=== PATIENT | female | born 1965 | race Caucasian/White ===

== ENCOUNTER → 2019-11-27 12:59 | Outpatient (CLI) | payer MEDICAID, SELFPAY ==
--- NOTE | ~2019-11-27 | CT_ITS ---
EXAMINATION: CT abdomen pelvis wo/w con EXAM DATE: 11/27/2019 13:34 INDICATION: Right kidney cancer, cryoablation. Hernia. Hypertension. Upper abdominal, flank pain. TECHNIQUE: Spiral CT of the abdomen and pelvis was performed without contrast. Axial, coronal and sag ittal images were reviewed. The dose-length product (DLP) for this examination was 1731.65 mGy-cm. The exposure was tailored according to patient size (auto mA exposure control), and iterative reconst ruction (ASIR) was used as additional dose reduction technique. Comparison is made to prior examinati on from 10/03/2017. FINDINGS: At the lower pole of the right kidney there is region of circumscribed fat stranding measur ing about 3 cm. There is 4 mm region within this which is hyperdense on pre and postcontrast imaging, likely some dystrophic calcification which has developed following treatment. Otherwise, no signific ant interval change, no suspicion of local recurrence. The uterus is anteverted and morphologically normal. The bladder is unremarkable. The liver, splee n, adrenal glands and pancreas are unremarkable. Gallbladder is unremarkable. No biliary obstructio n. There is no retroperitoneal or pelvic lymphadenopathy. There is mild scattered arteriosclerotic disease. Several small supraumbilical fat-containing hernias. The appendix is normal. Gastric banding device. There is expected amount of colonic stool. No eulalia e intraperitoneal gas. There is mild sigmoid colonic diverticulosis. There is no adjacent inflammat ory change to suggest diverticulitis. The heart is normal in size. There are no pericardial or pleur al effusions. There is a new nodule in the left lower lobe measuring 7 mm, indeterminate. There are 3 other left lo wer lobe nodules measuring 4 millimeter, 4 millimeter and 3 mm in size, probably noncalcified granulo mas unchanged. There are no right basilar nodules. Chronic L4 spondylolysis, grade 1 anterolisthesis. IMPRESSION: 1. Stable right kidney lower pole cryoablation changes. 2. New indeterminate left lower lobe 8 mm nodule. Recommend follow-up LV CT in 3-6 months. 3. Small supraumbilical fat-containing hernias. Reviewed, dictated and finalized at location A.
[2019-11-27 13:23] LABS: Estimated Glomerular Filt Rate > 60
== END ==
PROVIDERS: PCP Family Medicine; Visit Provider Family Medicine
DX: C64.9 Malignant neoplasm of unspecified kidney, except renal pelvis (principal); K42.9 Umbilical hernia without obstruction or gangrene; R91.8 Other nonspecific abnormal finding of lung field
CPT/HCPCS: 74178; Q9967

== ENCOUNTER 2020-03-22 14:57 | Emergency (ER) | payer OTHER, SELFPAY ==
--- NOTE | ~2020-03-22 | XR_ITS ---
EXAMINATION: XR chest 1V portable DATE: 03/22/2020 16:00 INDICATION: COVID-19 positive 03/18/2020. Weakness. TECHNIQUE: A single frontal view of the chest was obtained. COMPARISON: CT abdomen and pelvis 11/27/2019 FINDINGS: There are patchy airspace opacities in all lung zones bilaterally. No pleural effusion or p neumothorax. Cardiomegaly is noted. There is a prominent left paracardial fat pad. IMPRESSION: 1. Diffuse lung disease, consistent with pneumonia. 2. Cardiomegaly. Reviewed, dictated and finalized at location A. NG FOREMAN
[2020-03-22 15:21] VITALS: BP 119/64; PULSE 82; RESP 18; O2SAT 97
[2020-03-22] MEDS: SODIUM CHLORIDE 0.9% IV 1,000 ML 999 ML IV CONT (15:52)
[2020-03-22 16:23] LABS: Basophils Percent Auto 0.3 % (0.2-1.2); Hematocrit 37.7 % (37.0-47.0); Immature Granulocyte Absolute 0.02 K/mm3 (0.00-0.031); Immature Granulocyte Percent A 0.6 % (0-0.5); Lymphocytes Percent Auto 15.8 % (18.3-44.2); Mean Corpuscular HGB Conc 31.8 g/dl (32-36); Mean Corpuscular Hemoglobin 26.3 pg (26-34); Mean Corpuscular Volume 82.7 fl (80-100); Monocytes Absolute Auto 0.3 K/mm3 (0.1-0.6); Monocytes Percent Auto 10.1 % (2.6-8.5); Neutrophils Absolute Auto 2.3 K/mm3 (1.3-6.7); Neutrophils Percent Auto 73.2 % (45.5-73.1); Platelet Count Result 132 k/mm3 (150-375); Red Blood Count 4.56 M/mm3 (4.2-5.4); Red Cell Distribution Width 13.7 % (11.5-14.5); White Blood Count 3.2 K/mm3 (4.5-10.0)
[2020-03-22 16:42] LABS: Alanine Aminotransferase 21 U/L (4-35); Albumin Level 3.5 g/dL (3.5-5.1); Alkaline Phosphatase 70 U/L (38-126); Anion Gap 7 mmol/L (8-16); Aspartate Amino Transferase 25 U/L (14-36); Bilirubin,Total 0.4 mg/dL (0.2-1.3); Blood Urea Nitrogen 8 mg/dL (7-17); Calcium 7.8 mg/dL (8.4-10.2); Carbon Dioxide 30 mmol/L (22-30); Chloride 101 mmol/L (98-107); Estimated CRCL calculation 134 ml/min; Estimated Glomerular Filt Rate > 60; Glucose 233 mg/dL (65-105); Sodium 138 mmol/L (137-145)
--- NOTE | 2020-03-22 17:12 | ED.GENADULT ---
HPI - General Adult General Chief complaint: Weakness Stated complaint: WEAKNESS,COVID + Time Seen by Provider: 03/22/20 15:09 History of Present Illness HPI narrative: Patient is a 55-year-old female who presents the emergency department with chief complaint of generalized weakness status post COVID-19. Patient reports that she was diagnosed with COVID-19 and has been coughing and having nausea. Patient states that she feels extremely weak and extremely lightheaded. Patient reports that she has been having fevers at home reports that she also is a diabetic and that her blood sugar was running in the 300s whenever it was checked by EMS. Patient states that she is not on any oral hypoglycemics due to reactions to medications. Related Data Home Medications Medication Instructions Recorded Confirmed ascorbic acid (vitamin C) 500 mg 500 mg PO BID 02/15/19 01/02/20 tablet cholecalciferol (vitamin D3) 25 1,000 unit PO DAILY 02/15/19 01/02/20 mcg (1,000 unit) capsule ferrous sulfate 325 mg (65 mg 325 mg PO .3x week tablet 02/15/19 01/02/20 iron) tablet loratadine 10 mg tablet 10 mg PO DAILY 02/15/19 01/02/20 Allergies Allergy/AdvReac Type Severity Reaction Status Date / Time peach Allergy Severe ANAPHYLAXIS Verified 03/22/20 15:00 plum Allergy Severe ANAPHALYXIS Verified 03/22/20 15:00 cephalexin Allergy Unknown Skin Verified 03/22/20 15:00 Reaction citalopram Allergy Unknown severe Verified 03/22/20 15:00 itching egg Allergy Unknown resolved. Verified 03/22/20 15:00 blood test negative. no clinical symptoms with exp metformin Allergy Unknown abdominal Verified 03/22/20 15:00 pain ( gastric band) Penicillins Allergy Unknown reaction Verified 03/22/20 15:00 not available sitagliptin [Januvia] Allergy Unknown pancreatiti Verified 03/22/20 15:00 s Sulfa (Sulfonamide Allergy Unknown reaction Verified 03/22/20 15:00 Antibiotics) not available NECTARINES Allergy Severe ANAPHYLAXIS Uncoded 12/13/19 15:37 Review of Systems Review of Systems: Narrative: A 10 system review of systems was completed on the patient and is negative except for what is stated in the HPI. Nursing and ancillary documentation was reviewed. [facility] Past Medical History Medical History Asthma exacerbation Benign essential hypertension History of kidney cancer Iron deficiency anemia Postmenopausal Social History Social History Smoking status: Former smoker Smoking end date: 03/14/97 Alcohol intake: current Gender identity (if verbalized by the patient): Female Exam Narrative: Exam Narrative: GENERAL: Well-appearing, well-nourished, and in no acute distress. HEAD: Normocephalic, atraumatic. EYES: PERRLA and EOMI. ENT: Nares clear, no rhinorrhea or epistaxis. Mucous membranes moist. NECK: Supple. CHEST: Clear to auscultation. No respiratory distress. HEART: Regular rate and rhythm. No murmur heard. Normal peripheral pulses. ABDOMEN: Soft, nontender, nondistended, normal active bowel sounds. EXTREMITIES: Normal range of motion. No edema. SKIN: Warm, dry, no rash. NEURO: No focal deficits. Alert and oriented x3. PSYCH: Normal mood and affect. Course Course Emergency Course: Patient received IV fluids in the emergency department chest x-ray shows evidence of pneumonia most likely COVID-19. Vital Signs Vital signs: Vital Signs Pulse Rate 82 03/22/20 15:21 Respiratory Rate 18 03/22/20 15:21 Blood Pressure 119/64 03/22/20 15:21 Pulse Oximetry 97 03/22/20 15:21 Pulse Rate 82 03/22/20 15:21 Respiratory Rate 18 03/22/20 15:21 Blood Pressure 119/64 03/22/20 15:21 Pulse Oximetry 97 03/22/20 15:21 Medical Decision Making Vital Signs Vital Signs: Vital Signs Pulse Rate 82 03/22/20 15:21
[2020-03-22 17:30] VITALS: BP 139/93; PULSE 87; RESP 18; O2SAT 91
== END 2020-03-22 17:31 | disposition home or self-care (01) ==
PROVIDERS: Emergency Provider Emergency Medicine; PCP Family Medicine
DX: U07.1 COVID-19 (principal); J12.82 Pneumonia due to coronavirus disease 2019; J45.909 Unspecified asthma, uncomplicated; I10 Essential (primary) hypertension; Z85.528 Personal history of other malignant neoplasm of kidney; D50.9 Iron deficiency anemia, unspecified; Z87.891 Personal history of nicotine dependence
CPT/HCPCS: 36415; 71045; 80053; 85025; 99283; J7030

== ENCOUNTER 2020-03-24 10:50 | Inpatient (IN) | payer OTHER, SELFPAY ==
[2020-03-24] VITALS (18 sets, daily range): BP systolic 110–144; BP diastolic 69–92; PULSE 80–98; RESP 20–29; TEMP 37–37.8; O2SAT 74–93; BMI 54.6
--- NOTE | ~2020-03-24 | XR_ITS ---
EXAMINATION: XR abdomen NG/feed tube insert EXAM DATE: 04/06/2020 23:27 INDICATION: New OG placement. TECHNIQUE: Frontal projection(s) of the abdomen for interpretation. Comparison is made to prior exami nation from 03/25/2020. FINDINGS: Feeding tube tip and side-port project over abdomen. There is gastric banding device. Bibas ilar airspace disease. Nonobstructive bowel gas pattern. IMPRESSION: Feeding tube overlying expected position. Reviewed, dictated and finalized at location A. ER AND UNLOADER
--- NOTE | ~2020-03-24 | XR_ITS ---
EXAMINATION: XR chest ET placement INDICATION: Respiratory failure, endotracheal tube insertion TECHNIQUE: Portable AP chest at 0841 hours COMPARISON: 0525 hours FINDINGS: An endotracheal tube has been inserted which ends 11 mm above the helder. Diffuse airspace opacities persist in all lung zones without significant change. No pleural effusion or pneumothorax i s identified. There is stable cardiomegaly. IMPRESSION: 1. Endotracheal tube insertion ending approximately 11 mm above the helder. 2. Stable diffuse lung disease, consistent with pneumonia and/or pulmonary edema and/or acute respira tory distress syndrome (ARDS). Reviewed, dictated and finalized at location A. SECURITY ANALYST IMPRESSION: 1. Endotracheal tube insertion ending approximately 11 mm above the helder. 2. Stable diffuse lung disease, consistent with pneumonia and/or pulmonary beverly a and/or acute respiratory distress syndrome (ARDS).
--- NOTE | ~2020-03-24 | XR_ITS ---
XR shoulder LT min 2V 04/14/2020 16:57 INDICATION: Left shoulder pain PROCEDURE: 4 views left shoulder COMPARISON: No prior studies for comparison. FINDINGS: Fracture, dislocation or subluxation is not identified. The soft tissues appear within norm al limits. No foreign bodies are identified. IMPRESSION: 1: NO ACUTE BONE OR JOINT ABNORMALITY IDENTIFIED. Reviewed, dictated and finalized at location A. PROGRAMMER ANALYST
--- NOTE | ~2020-03-24 | XR_ITS ---
XR chest 1V portable DATE: 04/14/2020 05:40 INDICATION: Shortness of breath TECHNIQUE: Portable AP chest on April 14, 2020 at 0527 hours COMPARISON: 04/08/2020 portable AP chest at 0530 hours FINDINGS: ET and NG tubes been removed since 04/08/2020. Right internal jugular central venous catheter tip overlies superior vena cava. No pneumothorax. There is moderate elevation of the right hemidiaphragm. There are patchy infiltrates and/atelectasis primarily in the lower lung zones. IMPRESSION: Improvement of bilateral infiltrates and/atelectasis since 04/08/2020, with residual infil trate or atelectasis in the lower lung zones primarily Interval removal of ET and NG tubes Reviewed, dictated and finalized at location A. A SALES CONSULTANT IMPRESSION: Improvement of bilateral infiltrates and/atelectasis since , with residual infiltrate or atelectasis in the lower lung zones primarily Interval removal of ET and NG tubes
--- NOTE | ~2020-03-24 | XR_ITS ---
EXAMINATION: XR chest 1V portable EXAM DATE: 04/04/2020 05:59 INDICATION: Acute respiratory failure, COVID-19 TECHNIQUE: Portable AP frontal chest x-ray was obtained. Comparison is made to prior examination from 04/03, 04/02, 04/01 FINDINGS: Endotracheal tube tip is 4-5 centimeters above the helder. There is a nasogastric tube see n with tip collimated off the study, but below the left hemidiaphragm. There is a right IJ venous alejandrina e. Multisegmental right basilar, scattered segmental left basilar pneumonia and/or atelectasis. Probabl e layering pleural effusions which are difficult to quantify. There is no pneumothorax suspected. The cardiomediastinal silhouette is prominent but magnified on this AP technique. The bones and sof t tissues are unremarkable. Accounting for differences in technique, there is no significant interval change in lung findings. IMPRESSION: 1. Line, tubes in position. 2. Multisegmental right basilar, segmental left basilar atelectasis and probably superimposed pneumo nazanin. 3. Probable pleural effusions. Reviewed, dictated and finalized at location A. CLEANER APPRENTICE IMPRESSION: 1. Line, tubes in position. 2. Multisegmental right basilar, segmental left basilar atelectasis and probab ly superimposed pneumonia. 3. Probable pleural effusions.
--- NOTE | ~2020-03-24 | XR_ITS ---
EXAMINATION: XR chest 1V portable EXAM DATE: 04/01/2020 06:10 INDICATION: Acute respiratory failure, COVID-19. TECHNIQUE: Portable AP frontal chest x-ray was obtained. Comparison is made to prior examination from 03/31, 03/29. FINDINGS: Endotracheal tube tip is about 5 centimeters above the helder. There is a nasogastric tube seen with tip collimated off the study, but below the left hemidiaphragm. There is a right IJ venous line. Multisegmental right basilar, scattered segmental left basilar pneumonia and/or atelectasis. Possibl e small right pleural effusion. There is no pneumothorax suspected. The cardiomediastinal silhouet te is prominent but magnified on this AP technique. The bones and soft tissues are unremarkable. There is no significant interval change. IMPRESSION: 1. Line and tube(s) in position. 2. Multisegmental right basilar, segmental left basilar atelectasis and probably superimposed pneumo nazanin. Reviewed, dictated and finalized at location A. SUPERVISOR IMPRESSION: 1. Line and tube(s) in position. 2. Multisegmental right basilar, segmental left basilar atelectasis and probab ly superimposed pneumonia.
--- NOTE | ~2020-03-24 | XR_ITS ---
EXAMINATION: XR chest port-a-cath/central DATE: 03/25/2020 09:38 INDICATION: Central line placement. COVID-19 pneumonia. TECHNIQUE: A single frontal view of the chest was obtained. COMPARISON: Chest single view at 8:30 AM FINDINGS: The patient is rotated to her left. There are airspace opacities throughout the lungs bilat erally, right worse than left. No pleural effusion or pneumothorax. The heart size is normal. The end otracheal tube tip is 4.3 cm above the helder. The nasogastric tube tip is beyond the inferior margin of the radiograph, but at least to the stomach. A right internal jugular central venous catheter is seen with tip at the superior cavoatrial junction. IMPRESSION: 1. Central line tip at the superior cavoatrial junction. 2. Stable diffuse lung disease, consistent with pneumonia. Reviewed, dictated and finalized at location A. OPERATOR
--- NOTE | ~2020-03-24 | XR_ITS ---
EXAMINATION: XR chest 1V portable EXAM DATE: 04/06/2020 21:37 INDICATION: Central line placement. TECHNIQUE: Portable AP frontal chest x-ray was obtained. Comparison is made to prior examination from 04/05/2020. FINDINGS: Endotracheal tube tip is 5 centimeters above the helder. Feeding tube tip at the gastroeso phageal junction. Additionally, there may be some coiling of the nasogastric tube in patient's mouth, recommend direct visualization. There is a new right-sided IJ line in position. Patient is rotated to the right. There is multi segmental right basilar airspace disease appearance m ost consistent with atelectasis and pneumonia. Less airspace disease and other lung zones. Small rig ht pleural effusion. There is no pneumothorax suspected. The cardiomediastinal silhouette is promi nent but magnified on this AP technique. The bones and soft tissues are unremarkable. Compared to prior study, the feeding tube has retracted. IMPRESSION: 1. Feeding tube tip retracted to gastroesophageal junction, and suspect possibility of coiling in pa tients mouth. 2. Multi segmental right basilar atelectasis and pneumonia. Less acute airspace disease other lung z ones. 3. Small right pleural effusion. I discussed feeding tube position, possible coiling and mouth with ICU nurse Minda at 04/06/2020 21:[address] . Reviewed, dictated and finalized at location A. COILER IMPRESSION: 1. Feeding tube tip retracted to gastroesophageal junction, and suspect possib ility of coiling in patients mouth. 2. Multi segmental right basilar atelectasis and pneumonia. Less acute airspac e disease other lung zones. 3. Small right pleural effusion. I discussed feeding tube position, possible coiling and mouth with ICU nurse Silas jin at 04/06/2020 21:43 WARP COILER .
--- NOTE | ~2020-03-24 | XR_ITS ---
EXAMINATION: XR chest 1V portable EXAM DATE: 04/03/2020 05:56 INDICATION: Acute respiratory failure, COVID-19. TECHNIQUE: Portable AP frontal chest x-ray was obtained. Comparison is made to prior examination from 119, 04/02. FINDINGS: Endotracheal tube tip is about 7 centimeters above the helder. There is a nasogastric tube seen with tip collimated off the study, but below the left hemidiaphragm. There is a right IJ venous line. Multisegmental right basilar, scattered segmental left basilar pneumonia and/or atelectasis. Probabl e layering pleural effusions which are difficult to quantify. There is no pneumothorax suspected. The cardiomediastinal silhouette is prominent but magnified on this AP technique. The bones and sof t tissues are unremarkable. Patient rotated to the right. Accounting for differences in technique, there is no significant interv al change in lung findings. IMPRESSION: 1. ET tube retracted slightly, could be safely advanced 2 cm. 2. Multisegmental right basilar, segmental left basilar atelectasis and probably superimposed pneumo nazanin. 3. Layering pleural effusions. Reviewed, dictated and finalized at location A. MACY SERVICE ASSOCIATE IMPRESSION: 1. ET tube retracted slightly, could be safely advanced 2 cm. 2. Multisegmental right basilar, segmental left basilar atelectasis and probab ly superimposed pneumonia. 3. Layering pleural effusions.
--- NOTE | ~2020-03-24 | XR_ITS ---
XR chest 1V portable 03/29/2020 05:58 Indication: Respiratory failure Procedure: AP portable chest Comparison: Comparison to multiple prior studies sequentially, with oldest reviewed study dated 03/25. Findings: Left IJ central line tip in what appears to be a left SVC. NG tube in the stomach. Endotrac heal tube tip 4.3 cm above the helder. There is bilateral airspace disease which is not significantly changed. Small left pleural effusion. No pneumothorax. Impression: 1: Persistent diffuse bilateral airspace disease which may represent edema and/or pneumonia. No signi ficant interval change allowing for technique. Reviewed, dictated and finalized at location A. TECH Impression: 1: Persistent diffuse bilateral airspace disease which may represent edema and/ or pneumonia. No significant interval change allowing for technique.
--- NOTE | ~2020-03-24 | XR_ITS ---
EXAMINATION: XR chest 1V portable INDICATION: Respiratory failure TECHNIQUE: Portable AP chest at 0546 hours COMPARISON: 03/26/2020 FINDINGS: The endotracheal tube ends approximately 4.7 cm above the helder. The nasogastric tube is f ollowed as far as the stomach. Its tip is beyond the inferior margin of the radiograph. A right inter nal jugular central venous catheter ends in the distal superior vena cava. Diffuse airspace opacities persist throughout all lung zones with slight interval improvement. There is no pleural effusion or pneumothorax. The cardiomediastinal silhouette is stable. IMPRESSION: 1. Diffuse lung disease with interval improvement, consistent with pneumonia and/or pulmonary edema a nd/or acute respiratory distress syndrome (ARDS). Reviewed, dictated and finalized at location A. LOCATOR IMPRESSION: 1. Diffuse lung disease with interval improvement, consistent with pneumonia an d/or pulmonary edema and/or acute respiratory distress syndrome (ARDS).
--- NOTE | ~2020-03-24 | XR_ITS ---
EXAMINATION: XR chest 1V portable INDICATION: Shortness of breath TECHNIQUE: Portable AP chest at 1133 hours COMPARISON: 03/22/2020 FINDINGS: Patchy airspace opacities are present in all lung zones which demonstrate interval worsenin g. No pleural effusion or pneumothorax is identified. Cardiomegaly is noted. IMPRESSION: 1. Diffuse lung disease with interval worsening, consistent with pneumonia and/or pulmonary edema and /or acute respiratory distress syndrome (ARDS). Reviewed, dictated and finalized at location A. L ARMATURE TESTER IMPRESSION: 1. Diffuse lung disease with interval worsening, consistent with pneumonia and/ or pulmonary edema and/or acute respiratory distress syndrome (ARDS).
--- NOTE | ~2020-03-24 | XR_ITS ---
EXAMINATION: XR chest 1V portable EXAM DATE: 04/08/2020 06:21 INDICATION: Respiratory failure. TECHNIQUE: Portable AP frontal chest x-ray was obtained. Comparison is made to prior examination from 04/07, 04/05. FINDINGS: Endotracheal tube tip is 3 centimeters above the helder. There is a nasogastric tube seen with tip collimated off the study, but below the left hemidiaphragm. There is a right IJ venous line in position. There is multi segmental right basilar airspace disease appearance most consistent with atelectasis a nd pneumonia. Less airspace disease in other lung zones. Small right pleural effusion. There is no pneumothorax suspected. The cardiomediastinal silhouette is prominent but magnified on this AP tech nique. Mild thoracic spondylosis. Feeding tube has been straightened out and now in position. Airspace disease appears unchanged. IMPRESSION: 1. Tubes, line in position. 2. Multi segmental right basilar atelectasis and pneumonia. Less opacity in other lung zones. 3. Small right pleural effusion. Reviewed, dictated and finalized at location A. RY FURNACE TENDER IMPRESSION: 1. Tubes, line in position. 2. Multi segmental right basilar atelectasis and pneumonia. Less opacity in ot her lung zones. 3. Small right pleural effusion.
--- NOTE | ~2020-03-24 | XR_ITS ---
EXAMINATION: XR chest 1V portable INDICATION: Respiratory failure TECHNIQUE: Portable AP chest at 0525 hours COMPARISON: 03/24/2020 FINDINGS: Patchy airspace opacities persist in all lung zones with slight worsening in the right uppe r lung zone. There is no pleural effusion or pneumothorax. Cardiomegaly is noted. IMPRESSION: 1. Diffuse lung disease with interval worsening in the right upper lung zone, consistent with pneumon ia and/or pulmonary edema and/or acute respiratory distress syndrome (ARDS). Reviewed, dictated and finalized at location A. E ELECTRICIAN IMPRESSION: 1. Diffuse lung disease with interval worsening in the right upper lung zone, c onsistent with pneumonia and/or pulmonary edema and/or acute respiratory distre ss syndrome (ARDS).
--- NOTE | ~2020-03-24 | MR_ITS ---
EXAMINATION: MR cervical spine wo/w con DATE: 04/16/2020 13:14 INDICATION: Left arm numbness. Left arm paralysis. TECHNIQUE: Magnetic resonance imaging (MRI) of the cervical spine was performed without and with 20 m L MultiHance intravenous contrast. Sequences included sagittal and axial T2-weighted FSE, sagittal T2 -weighted FS FSE, and sagittal and axial T1-weighted FSE. Postcontrast sequences included sagittal an d axial T1-weighted FS FSE. COMPARISON: None FINDINGS: There is 2 mm anterolisthesis of C3 on C4 and C4 on C5. Vertebral body heights are normal. Intervertebral disc heights are normal. The spinal cord signal intensity is normal. The following dis c levels are specifically discussed: C2-C3: The disc does not extend beyond the endplate margin. There is no uncovertebral joint osteoarth ritis. There is ankylosis of the facet joints with mild hypertrophy. There is no neural foraminal jennifer nosis. There is no central canal stenosis. C3-C4: The disc does not extend beyond the endplate margin. There is no uncovertebral joint osteoarth ritis. There is severe bilateral facet joint osteoarthritis. There is mild left neural foraminal sten osis. There is no central canal stenosis. C4-C5: The disc does not extend beyond the endplate margin. There is mild bilateral uncovertebral aquilino nt osteoarthritis. There is severe right and moderate left facet joint osteoarthritis. There is mild right neural foraminal stenosis. There is no central canal stenosis. C5-C6: The disc does not extend beyond the endplate margin. There is no uncovertebral joint osteoarth ritis. There is mild right and severe left facet joint osteoarthritis. There is mild bilateral neural foraminal stenosis. There is no central canal stenosis. C6-C7: The disc does not extend beyond the endplate margin. There is no uncovertebral joint osteoarth ritis. There is no facet joint osteoarthritis. There is no neural foraminal stenosis. There is no anette tral canal stenosis. C7-T1: The disc does not extend beyond the endplate margin. There is no uncovertebral joint osteoarth ritis. There is mild bilateral facet joint osteoarthritis. There is no neural foraminal stenosis. The re is no central canal stenosis. IMPRESSION: 1. Mild cervical spondylosis. Reviewed, dictated and finalized at location A. GER INPATIENT
--- NOTE | ~2020-03-24 | XR_ITS ---
EXAMINATION: XR chest 1V portable EXAM DATE: 04/07/2020 09:31 INDICATION: Respiratory failure. TECHNIQUE: Portable AP frontal chest x-ray was obtained. Comparison is made to prior examination from 04/06. FINDINGS: Endotracheal tube tip is 4-5 centimeters above the helder. There is a nasogastric tube see n with tip collimated off the study, but below the left hemidiaphragm. There is a right IJ venous li ne in position. Patient is rotated to the right. There is multi segmental right basilar airspace disease appearance m ost consistent with atelectasis and pneumonia. Less airspace disease and other lung zones. Small rig ht pleural effusion. There is no pneumothorax suspected. The cardiomediastinal silhouette is promi nent but magnified on this AP technique. Mild thoracic spondylosis. Feeding tube has been straightened out and now in position. Airspace disease appears unchanged. IMPRESSION: 1. Tubes, line in position. 2. Multi segmental right basilar atelectasis and pneumonia. Less opacity in other lung zones. 3. Small right pleural effusion. Reviewed, dictated and finalized at location A. BLOCKER IMPRESSION: 1. Tubes, line in position. 2. Multi segmental right basilar atelectasis and pneumonia. Less opacity in ot her lung zones. 3. Small right pleural effusion.
--- NOTE | ~2020-03-24 | XR_ITS ---
EXAMINATION: XR chest 1V portable EXAM DATE: 04/02/2020 06:16 INDICATION: Acute respiratory failure, COVID-19. TECHNIQUE: Portable AP frontal chest x-ray was obtained. Comparison is made to prior examination from 04/01, 03/31 FINDINGS: Endotracheal tube tip is about 5 centimeters above the helder. There is a nasogastric tube seen with tip collimated off the study, but below the left hemidiaphragm. There is a right IJ venous line. Multisegmental right basilar, scattered segmental left basilar pneumonia and/or atelectasis. Probabl e layering pleural effusions which are difficult to quantify. There is no pneumothorax suspected. The cardiomediastinal silhouette is prominent but magnified on this AP technique. The bones and sof t tissues are unremarkable. The layering pleural effusions may be demonstrating some interval increase in size. IMPRESSION: 1. Line and tube(s) in position. 2. Multisegmental right basilar, segmental left basilar atelectasis and probably superimposed pneumo nazanin. 3. Layering pleural effusions, which may be increasing in size. Reviewed, dictated and finalized at location A. LD OPERATOR IMPRESSION: 1. Line and tube(s) in position. 2. Multisegmental right basilar, segmental left basilar atelectasis and probab ly superimposed pneumonia. 3. Layering pleural effusions, which may be increasing in size.
--- NOTE | ~2020-03-24 | XR_ITS ---
EXAMINATION: XR chest 1V portable INDICATION: Respiratory failure TECHNIQUE: Portable AP chest at 0542 hours COMPARISON: 03/25/2020 FINDINGS: The position of the endotracheal tube is difficult to assess but the tube appears to be chaim roximately 4.7 cm above the helder. The nasogastric tube is in the stomach. Diffuse airspace opacitie s persist throughout all lung zones, right greater than left, without significant change. There is no pleural effusion or pneumothorax. A right internal jugular central venous catheter ends with its tip in the distal superior vena cava. The cardiomediastinal silhouette is stable. IMPRESSION: 1. Stable diffuse lung disease, consistent with pneumonia and/or pulmonary edema and/or acute respira tory distress syndrome (ARDS). Reviewed, dictated and finalized at location A. RNATIONAL SOURCING MANAGER IMPRESSION: 1. Stable diffuse lung disease, consistent with pneumonia and/or pulmonary beverly a and/or acute respiratory distress syndrome (ARDS).
--- NOTE | ~2020-03-24 | XR_ITS ---
EXAMINATION: XR chest 1V portable INDICATION: Endotracheal tube position assessment TECHNIQUE: Portable AP chest at 2305 hours COMPARISON: 0531 hours FINDINGS: The endotracheal tube ends approximately 6.2 cm above the helder. The nasogastric tube is f ollowed as far as the stomach. Its tip is beyond the inferior margin of the radiograph. A right inter nal jugular central venous catheter ends with its tip in the distal superior vena cava. Airspace opac ities of the mid and lower lung zones persist with slight improvement. Small pleural effusions have a lso decreased. The cardiomediastinal silhouette is stable. No pneumothorax is identified. IMPRESSION: 1. Endotracheal tube approximately 6.2 cm above the helder. 2. Decreased pleural effusions. 3. Persistent but improved airspace opacities of the mid and lower lung zones, consistent with atelec tasis versus pneumonia. Reviewed, dictated and finalized at location A. NDER SUPERVISOR IMPRESSION: 1. Endotracheal tube approximately 6.2 cm above the helder. 2. Decreased pleural effusions. 3. Persistent but improved airspace opacities of the mid and lower lung zones, consistent with atelectasis versus pneumonia.
--- NOTE | ~2020-03-24 | XR_ITS ---
EXAMINATION: XR chest 1V portable EXAM DATE: 03/31/2020 03:37 INDICATION: CODE BLUE. Respiratory failure. TECHNIQUE: Portable AP frontal chest x-ray was obtained. Comparison is made to prior examination from 03/29/2020. FINDINGS: Endotracheal tube tip is about 5 centimeters above the helder. There is a nasogastric tube seen with tip collimated off the study, but below the left hemidiaphragm. There is a right IJ venous line. Multisegmental right basilar, scattered subsegmental left basilar pneumonia and/or atelectasis. Ther e are no sizable pleural effusions. There is no pneumothorax suspected. The cardiomediastinal dg houette is prominent but magnified on this AP technique. The bones and soft tissues are unremarkabl e. Compared to prior studies, more confluence or collapse of right middle and lower lobes. IMPRESSION: 1. Line and tube(s) in position. 2. Multisegmental right basilar, subsegmental left basilar atelectasis and probably superimposed pne umonia. Reviewed, dictated and finalized at location A. LY TECH IMPRESSION: 1. Line and tube(s) in position. 2. Multisegmental right basilar, subsegmental left basilar atelectasis and pro bably superimposed pneumonia.
--- NOTE | ~2020-03-24 | XR_ITS ---
EXAMINATION: XR chest 1V portable INDICATION: Respiratory failure TECHNIQUE: Portable AP chest at 0532 hours COMPARISON: 03/27/2020 FINDINGS: The endotracheal tube ends approximately 4.9 cm above the helder. The nasogastric tube is f ollowed as far as the stomach. Its tip is beyond the inferior margin of the radiograph. A right inter nal jugular central venous catheter ends with its tip at the distal superior vena cava. Diffuse airsp dave opacities persist in all lung zones without significant change. There is no pleural effusion or p neumothorax. The cardiomediastinal silhouette is stable. Changes of gastric lap band surgery are note d. IMPRESSION: 1. Stable diffuse lung disease, consistent with pneumonia and/or pulmonary edema and/or acute respira tory distress syndrome (ARDS). Reviewed, dictated and finalized at location A. GENERATION SPECIALIST IMPRESSION: 1. Stable diffuse lung disease, consistent with pneumonia and/or pulmonary beverly a and/or acute respiratory distress syndrome (ARDS).
--- NOTE | ~2020-03-24 | XR_ITS ---
EXAMINATION: XR chest 1V portable INDICATION: Acute respiratory failure TECHNIQUE: Portable AP chest at 0526 hours COMPARISON: 04/04/2020 FINDINGS: The endotracheal tube ends approximately 4.4 cm above the helder. The nasogastric tube is f ollowed as far as the stomach. Its tip is beyond the inferior margin of the radiograph. A right inter nal jugular central venous catheter ends with its tip in the distal superior vena cava. There are per sistent airspace opacities of the left lung base. Airspace opacities in the midlung zones and right l dianne base have slightly improved. There is no pneumothorax or pleural effusion. The cardiomediastinal silhouette is stable. IMPRESSION: 1. Improving airspace opacities in the midlung zones and right lung base and stable left basilar airs pace opacity, consistent with atelectasis versus pneumonia. Reviewed, dictated and finalized at location A. TRUCK DRIVER IMPRESSION: 1. Improving airspace opacities in the midlung zones and right lung base and st able left basilar airspace opacity, consistent with atelectasis versus pneumoni a.
--- NOTE | ~2020-03-24 | XR_ITS ---
EXAMINATION: XR abdomen NG/feed tube insert DATE: 03/25/2020 09:38 INDICATION: Nasogastric tube placement. TECHNIQUE: A supine view of the abdomen was obtained. COMPARISON: CT abdomen and pelvis 11/27/2019 FINDINGS: The lower abdomen and right lateral aspect of the abdomen are excluded. The nasogastric tub e tip is in the stomach. There are changes of lap band procedure. There are no dilated loops of bowel . IMPRESSION: 1. Nasogastric tube tip in the stomach. Reviewed, dictated and finalized at location A. NING SUPPORT RESOURCE ROOM TEACHER
--- NOTE | 2020-03-24 11:03 | ECG_ITS ---
Measurements Intervals [place] Rate: 97 P: 30 OK: 157 QRS: 27 QRSD: 100 T: 21 QT: 358 QTc: 457 Interpretive Statements SINUS RHYTHM DELAYED PRECORDIAL R/S TRANSITION BASELINE ARTIFACT- AVF, V1-V6 BORDERLINE ECG Electronically Signed On 03-24-2020 11:23:44 SLAB LIFTING ENGINEER by Amor Lin D.O.
[2020-03-24 11:12] LABS: Glucose Point of Care 242 (65-105)
[2020-03-24 11:15] LABS: Basophils Percent Auto 0.3 % (0.2-1.2); Hematocrit 41.8 % (37.0-47.0); Hemoglobin 13.2 g/dL (12.0-15.0); Immature Granulocyte Absolute 0.07 K/mm3 (0.00-0.031); Immature Granulocyte Percent A 1.1 % (0-0.5); Lymphocytes Absolute Auto 0.51 K/mm3 (0.9-3.2); Mean Corpuscular HGB Conc 31.6 g/dl (32-36); Mean Corpuscular Hemoglobin 26.2 pg (26-34); Mean Corpuscular Volume 82.9 fl (80-100); Mean Platelet Volume 9.6 fl (7.4-10.4); Monocytes Absolute Auto 0.5 K/mm3 (0.1-0.6); Monocytes Percent Auto 7.5 % (2.6-8.5); Neutrophils Absolute Auto 5.3 K/mm3 (1.3-6.7); Neutrophils Percent Auto 83.1 % (45.5-73.1); Platelet Count Result 194 k/mm3 (150-375); Red Blood Count 5.04 M/mm3 (4.2-5.4); Red Cell Distribution Width 14.2 % (11.5-14.5); White Blood Count 6.4 K/mm3 (4.5-10.0)
[2020-03-24 11:16] LABS: Alveolar/Arterial O2 Gradient 625.4 mmHg; Base Excess ABG -1.2 mEq/l (+/-2.0); Carboxyhemoglobin 1.2 % THb (0-2.0); Fractional Inspired Oxygen 100 %; HCO3 ABG 23.3 mEq/l (22.0-26.0); Methemoglobin ABG 0.2 %THb (0-1.5); Oxygen Content ABG 15.3 %vol (16.0-22.0); Oxyhemoglobin 83.4 % THb (90.0-100.0); PCO2 ABG 38.7 mmHg (35.0-45.0); PO2 FiO2 Ratio Arterial Blood 0.49 %; Reduced Hemoglobin 15.2 %THb (0-5.0); Total Hemoglobin 13.1 g/dL (12.0-18.0); pH ABG 7.398 (7.350-7.450)
[2020-03-24 11:18] LABS: Device NON-REBREATHER MASK; Modified Allen's Test Pass; Oxygen Saturation ABG 84.7 % (95.0-100.0); PO2 ABG 48.9 mmHg (80.0-100.0); Site Drawn RIGHT RADIAL
[2020-03-24 11:39] LABS: Alanine Aminotransferase 23 U/L (4-35); Albumin Level 3.7 g/dL (3.5-5.1); Alkaline Phosphatase 77 U/L (38-126); Aspartate Amino Transferase 32 U/L (14-36); Bilirubin,Total 0.7 mg/dL (0.2-1.3); Blood Urea Nitrogen 18 mg/dL (7-17); Calcium 8.1 mg/dL (8.4-10.2); Carbon Dioxide 29 mmol/L (22-30); Estimated CRCL calculation 117 ml/min; Estimated Glomerular Filt Rate > 60; Glucose 242 mg/dL (65-105)
--- NOTE | 2020-03-24 11:41 | PC.NURSE ---
much improvement in mental status with o2. patient now a&o x3 and requesting food, drinks, and temperature adjustment in room
--- NOTE | 2020-03-24 11:49 | ED.GENADULT ---
HPI - General Adult General Chief complaint: Shortness of Breath/Dyspnea Stated complaint: SOB, COVID POSITIVE Time Seen by Provider: 03/24/20 10:53 Source: patient History of Present Illness HPI narrative: Patient is 55 y/o female complaining of cough, SOB for 1 week. She states that her SOB was mild initially and became more severe since yesterday. She states her SOS is severe currently and it's worsened by activity and minimal exertion. She tested positive for COVID 6 days ago on 01/16/21. She also has some headache, intermittent chest pain and diarrhea. Related Data Home Medications Medication Instructions Recorded Confirmed ascorbic acid (vitamin C) 500 mg 500 mg PO BID 02/15/19 01/02/20 tablet cholecalciferol (vitamin D3) 25 1,000 unit PO DAILY 02/15/19 01/02/20 mcg (1,000 unit) capsule ferrous sulfate 325 mg (65 mg 325 mg PO .3x week tablet 02/15/19 01/02/20 iron) tablet loratadine 10 mg tablet 10 mg PO DAILY 02/15/19 01/02/20 Allergies Allergy/AdvReac Type Severity Reaction Status Date / Time peach Allergy Severe ANAPHYLAXIS Verified 03/22/20 15:00 plum Allergy Severe ANAPHALYXIS Verified 03/22/20 15:00 cephalexin Allergy Unknown Skin Verified 03/22/20 15:00 Reaction citalopram Allergy Unknown severe Verified 03/22/20 15:00 itching egg Allergy Unknown resolved. Verified 03/22/20 15:00 blood test negative. no clinical symptoms with exp metformin Allergy Unknown abdominal Verified 03/22/20 15:00 pain ( gastric band) Penicillins Allergy Unknown reaction Verified 03/22/20 15:00 not available sitagliptin [Januvia] Allergy Unknown pancreatiti Verified 03/22/20 15:00 s Sulfa (Sulfonamide Allergy Unknown reaction Verified 03/22/20 15:00 Antibiotics) not available NECTARINES Allergy Severe ANAPHYLAXIS Uncoded 12/13/19 15:37 Review of Systems Constitutional: Constitutional: Denies chills, Denies fever(s), Reports headache(s) and Denies weakness Eyes: Eyes: Denies blurry vision ENT: Reports headache(s) and Denies neck pain Cardiovascular: Cardiovascular: Reports chest pain and Reports dyspnea Respiratory: Respiratory: Reports cough and Reports dyspnea Gastrointestinal: Gastrointestinal: Denies abdominal pain, Reports diarrhea, Denies nausea and Denies vomiting Genitourinary: Genitourinary: Denies hematuria and Denies dysuria Musculoskeletal: Musculoskeletal: Denies back pain and Denies neck pain Neurologic: Reports headache(s) and Denies weakness PMFSH Past Medical History Medical History Asthma exacerbation Benign essential hypertension History of kidney cancer Iron deficiency anemia Postmenopausal Social History Social History Smoking status: Former smoker Smoking end date: 03/14/97 Alcohol intake: current Gender identity (if verbalized by the patient): Female Exam Const: General: acute distress and ill appearing Nutritional Appearance: obese Orientation/consciousness: oriented to person, oriented to place and confusion HENMT: Head: normocephalic Ears: external ears normal General nose exam: Normal external nose present Eyes: General: appearance normal, both eyes and all related structures Conjunctivae: conjunctivae normal Neck: Neck: normal visual inspection and full ROM Chest: Chest palpation & inspection: normal inspection of the chest and no tenderness Resp: Effort & Inspection: tachypneic Auscultation: rales Cardio: Rate: regular rate Rhythm: regular rhythm GI: GI Palp: No abdominal tenderness and Yes Soft to palpation Skin: General skin exam: normal color and turgor normal Neuro: General: oriented to person, oriented to place and confusion Cognition (Neuro): normal cognition Extrem: General: normal to inspection, full ROM and no pedal edema Psych: Appearance: grossly no
[2020-03-24 12:00] LABS: Anion Gap 7 mmol/L (8-16); Chloride 98 mmol/L (98-107); Potassium 4.7 mmol/L (3.4-5.0); Sodium 134 mmol/L (137-145)
[2020-03-24] MEDS: REMDESIVIR 200 MG/NS 250 ML 200 MG/250 ML BAG 250 MG IVPB (12:36)
[2020-03-24] MEDS: DEXAMETHASONE SOD PHOS INJ 4 MG/ML VIAL 6 MG IV PUSH (12:36)
[2020-03-24 13:21] LABS: NT Pro B Type Natriuretic Pept 1540 PG/ML (5-100)
--- NOTE | 2020-03-24 13:32 | WPDCNINT ---
Assessment and Plan Assessment and plan (1) Acute respiratory failure due to COVID-19: Code(s): U07.1 - COVID-19; J96.00 - Acute respiratory failure, unspecified whether with hypoxia or hypercapnia Status: Acute Assessment and Plan: Acute Respiratory failure secondary to COVID-19 pneumonia but may have component of CHF Currently on high-flow nasal cannula and non-rebreather mask Close ICU monitoring as patient may need intubation. Does not appear to be in respiratory distress but is severely hypoxic ABG and PCXR reviewed and will repeat in am. Bronchodilators, Advair Incentive spirometry Lasix 20 mg IV x1 (2) COVID-19: Code(s): U07.1 - COVID-19 Status: Acute Assessment and Plan: COVID-19 SARS-CoV-2 PCR positive 03/18 Patient is in Airborne, Droplet and Contact Isolation Started dexamethasone, remdesivir Follow inflammatory periodically Discussed benefits and risks of convalscent plasma therapy for COVID-19. I explained patient the risks of donor plasma which includes allergic reaction, transfusion reaction, possible transmission of infections like Hepatitis and HIV and even . Explained that donor plasma has shown benefit in some studies but is not a proven therapy. Patient understands the risks and wants to think more about it before making a decision. (3) Type 2 diabetes mellitus without complications: Qualifiers: Diabetes mellitus clinic supervisor insulin use: without clinic supervisor use Qualified Code(s): E11.9 - Type 2 diabetes mellitus without complications Code(s): E11.9 - Type 2 diabetes mellitus without complications Status: Acute Assessment and Plan: Sliding scale ordered (4) Benign essential hypertension: Code(s): I10 - Essential (primary) hypertension Status: Acute Assessment and Plan: Continue lisinopril (5) NSTEMI (non-ST elevated myocardial infarction): Code(s): I21.4 - Non-ST elevation (NSTEMI) myocardial infarction Status: Acute Assessment and Plan: Mild elevation in troponin likely secondary to respiratory failure. EKG does not show any ST elevation Add aspirin, check echo, continue lisinopril Serial troponin Additional Plan DVT prophylaxis -Lovenox intermediate dose Stress ulcer prophylaxis -Protonix Nutrition -clear liquid diet Code Status -discussed with patient. She requests to be full Code Total Critical Care Time - 35 minutes Due to a high probability of clinically significant, life threatening deterioration, the patient required my highest level of preparedness to intervene emergently and I personally spent this critical care time directly and personally managing the patient. This critical care time included obtaining a history; examining the patient; pulse oximetry; ordering and review of studies; arranging urgent treatment with development of a management plan; evaluation of patient's response to treatment; frequent reassessment; and discussions with other providers. It was exclusive of separately billable procedures and treating other patients and teaching time. Please see Assessment and Plan section and the rest of the note for further information on patient assessment and treatment Quill Cleaning Machine Operator Consult Note Consult date: 03/24/20 Time Seen: 13:40 HPI: Tereza Feng is a 55 year old morbidly obese female with past medical history of diabetes and hypertension who presented with chief complaint of cough, SOB for last 1 week. Her daughter was tested positive for COVID. One week ago she started having cough. She tested positive for COVID 6 days ago on 03/18/20. She started developing fever weakness and shortness of breath. She was seen in ER on 03/22 for similar problem but was not found to be hypoxic requiring additional oxygen hence was discharged. She stated the since her discharge from the ED she has not felt better and has continued to get worse. She complains of shortness of breath all the time, coug
--- NOTE | 2020-03-24 15:00 | PM.IMHP ---
H&P: HPI History of Present Illness Date/Time: 03/24/20 15:00 Chief Complaint: Shortness of breath. Narrative: This is a morbidly obese 55-year-old female with diabetes and hypertension who presented to the emergency department earlier this morning with reports of shortness of breath. She has not felt well for just about 1 week with headache, cough, diarrhea, nausea, dry heaves, intermittent chest discomfort, and progressive shortness of breath on lesser and lesser exertion. She has had daily fevers although they are now more low-grade over the last 3 days. Her daughter had similar symptoms a few days prior to her developing symptoms, and she tested positive for COVID. The patient subsequently tested positive for COVID on 03/18/2020. Unfortunately her shortness of breath has become much worse over the past 24 hours, prompting her visit to the emergency department today. She is quite hypoxic and is now on 60 L at 85% FiO2 in addition to 15 L non-rebreather. At the time my evaluation she has no specific complaints but expresses her anxiety with regards to her situation. She also reports that she feels warm and is requesting a fan. She denies current headache, chest pain, pleuritic pain, palpitations, and nausea. Review of Systems Review of Systems: Narrative: Twelve systems were reviewed with pertinent positives and negatives as per HPI. No no headache at this time. She denies significant sinus congestion, rhinorrhea, otalgia, and odynophagia. No anosmia and dysgeusia. Diarrhea has essentially resolved. No dysuria. Except as documented, all other systems were reviewed and are negative. [facility] Past Medical History Medical History (Updated 03/24/20 @ 16:00 by Liane Mahoney PA-C) Anxiety Asthma Benign essential hypertension Hiatal hernia History of kidney cancer Incidental lung nodule, > 3mm and < 8mm 8 mm left lower lobe nodule noted on chest CT taken 11/26/2019. Iron deficiency anemia Morbid obesity Non-alcoholic fatty liver disease Postmenopausal Type 2 diabetes mellitus without complications Hemoglobin A1c was 8.5% on 03/24/2020. Ventral hernia without obstruction or gangrene Surgical History Surgical History (Updated 03/24/20 @ 21:47 by Liane Mahoney PA-C) History of ventral hernia repair LAP-BAND surgery status Family History Family History (Updated 03/24/20 @ 21:47 by Liane Mahoney PA-C) Other Diabetes mellitus Hypertension Social History Social History (Updated 03/24/20 @ 21:48 by Liane Mahoney PA-C) Social History: The patient lives in [place] with her daughter. 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 She is a former smoker and quit 1997. No alcohol abuse. Occasional marijuana use. She designates her father, Aditya Kate, as her surrogate decision maker and she wishes to be a full code. Smoking status: Former smoker Smoking end date: 03/14/97 Alcohol intake: current Substance use: never Substance use type: marijuana Gender identity (if verbalized by the patient): Female Spiritual care concerns: No Meds Home Medications and Allergies Home Medications Medication Instructions Recorded Confirmed Type ascorbic acid (vitamin C) 500 mg 500 mg PO BID 02/15/19 03/24/20 History tablet cholecalciferol (vitamin D3) 25 1,000 unit PO DAILY 02/15/19 03/24/20 History mcg (1,000 unit) capsule ferrous sulfate 325 mg (65 mg 325 mg PO .3x week tablet 02/15/19 03/24/20 History iron) tablet loratadine 10 mg tablet 10 mg PO DAILY 02/15/19 01/02/20 History fluticasone 500 mcg-salmeterol 50 1 inhalation INHALATION Q12H #180 05/15/19 03/24/20 Rx mcg/dose blistr powdr for each inhalation lisinopril 10 mg tablet 10 mg PO DAILY #90 tablet 05/15/19 03/24/20 Rx alprazolam 0.25 mg tablet 0.25 mg PO DAILY PRN #30 tablet 06/05/19 03/24/20 Rx montelukast 10 mg tablet 10 mg PO DAILY #90 tablet 09/28/19 01/02/20 Rx triamcinolone acetonide 0.1 % S
[2020-03-24] MEDS: ASPIRIN 325 MG ENTERIC TABLET PO (15:37)
[2020-03-24] MEDS: LORATADINE 10 MG TABLET PO (15:37)
[2020-03-24] MEDS: FUROSEMIDE INJ 40 MG/4 ML VIAL 20 MG IV PUSH (15:37)
[2020-03-24] MEDS: INSULIN ASPART (*BKC) 100 UNITS/ML SUB-Q ×3 (15:48→20:31)
[2020-03-24 15:51] LABS: Hemoglobin A1C 8.5 % (<5.7)
[2020-03-24 15:59] LABS: D Dimer 0.56 ug/mL (<0.48)
[2020-03-24 16:21] LABS: Lactate Dehydrogenase 1036 U/L (313-618); Troponin I 0.051 ng/mL (0.000-0.034)
--- NOTE | 2020-03-24 16:37 | ADMIMU ---
This patient, Tereza Feng, was admitted to icu status, and placed in Intensive Care Unit-10. Patient/family oriented to hospital policies and general routines including ID bracelet, bed and alarms, visiting hours, pain management, procedures, bathroom and other care routines, personal items, smoking policy, room service/diet, and visiting hours. Valuables list has been completed. Information on how to activate the Rapid Response Team has been discussed. Patient/Family are encouraged to report perceived risks to care and to ask questions if they do not understand what they are told or what they should do.
[2020-03-24 18:07] LABS: Glucose Point of Care 238 (65-105)
[2020-03-24 18:23] LABS: Glucose Point of Care 233 (65-105)
[2020-03-24 18:57] LABS: Troponin I 0.036 ng/mL (0.000-0.034)
[2020-03-24] MEDS: ENOXAPARIN 40 MG/0.4 ML SYRINGE SUB-Q (20:11)
[2020-03-24 20:40] LABS: Glucose Point of Care 231 (65-105)
[2020-03-24] MEDS: FLUTICASONE/SALMETEROL 230-21 MCG INHALER 1 PUFF 2 PUFF INHALATION (20:53)
[2020-03-24] MEDS: ALBUTEROL SULFATE NEB 2.5 MG/0.5 ML INH INHALATION (22:13)
[2020-03-24] MEDS: ONDANSETRON INJ 4 MG/2 ML VIAL IV PUSH (23:57)
[2020-03-25] VITALS (45 sets, daily range): BP systolic 105–128; BP diastolic 59–79; PULSE 61–82; RESP 17–30; TEMP 35.6–37.3; O2SAT 83–97
--- NOTE | 2020-03-25 | ECHO_ITS ---
Patient Info Name: Tereza Feng Age: 55 years : 1965 Gender: Female Ht: 66 in Wt: 331 lbs BSA: 2.74 m2 HR: 72 bpm BP: 109 / 74 mmHg Heart Rhythm: Sinus Rhythm Technical Quality: Fair Exam Date: 03/25/2020 11:21 AM Exam Location: [facility] Patient Status: Inpatient Admit Date: 03/24/2020 Staff Ordering Physician: Jimmie Fung MD Biazzi Nitrator Operator: Kilo Reyes RDCS Attending Provider: Raphael Maciel MD Exam Type: CA echo doppler color flow Study Info Indications J96.01 - Acute respiratory failure with hypoxia Complete two-dimensional, color flow and Doppler transthoracic echocardiogram is performed. History/Risk Factors Covid19+; acute respiratory failure, HTN, Dm2. Summary 1. Complete two-dimensional, color flow and Doppler transthoracic echocardiogram is performed. 2. Left ventricular chamber dimension is normal. 3. Left ventricular systolic function is normal, estimated at 60-65%. 4. There is mildly increased left ventricular wall thickness. 5. The left ventricular diastolic function is normal. 6. E/e' 9 is minimally elevated. 7. There is trace tricuspid valve regurgitation. 8. Mild pulmonary hypertension, estimated pulmonary arterial systolic pressure is 46 mmHg. 9. Normal inferior vena cava with <50% collapse upon inspiration consistent with elevated right atrial pressure, 10 mmHg. Left Ventricle E/e' 9 is minimally elevated. Left ventricular chamber dimension is normal. Left ventricular systolic function is normal, estimated at 60-65%. There is mildly increased left ventricular wall thickness. The left ventricular diastolic function is normal. Right Ventricle Right ventricular chamber dimension is normal. Right ventricular systolic function is normal. Left Atria Left atrial chamber dimension is normal. Right Atria Right atrial chamber dimension is normal. Aortic Valve The aortic valve is trileaflet. There is no aortic valve stenosis. There is no aortic valve regurgitation. Pulmonic Valve There is no pulmonic regurgitation. Mitral Valve There is no mitral valve stenosis. There is no mitral valve regurgitation. Tricuspid Valve There is trace tricuspid valve regurgitation. Mild pulmonary hypertension, estimated pulmonary arterial systolic pressure is 46 mmHg. Pericardium/Pleural There is no pericardial effusion. Inferior Vena Cava Normal inferior vena cava with <50% collapse upon inspiration consistent with elevated right atrial pressure, 10 mmHg. Aorta The aortic root size at the sinus of Valsalva is normal. Left Ventricular Outflow Tract Name Value Normal LVOT 2D LVOT Diameter 2.2 cm LVOT Doppler LVOT Peak Gradient 5 mmHg LVOT Mean Gradient 2 mmHg LVOT VTI 20 cm LVOT VTI/AV VTI Ratio 0.7 LVOT Stroke Volume 79 ml LVOT CO 5.6 l/min LVOT CI 2.0 l/min/m2 Mitral Valve
[2020-03-25 00:13] LABS: Glucose Point of Care 167 (65-105)
[2020-03-25] MEDS: ALBUTEROL SULFATE NEB 2.5 MG/0.5 ML INH INHALATION (02:43)
[2020-03-25 04:41] LABS: Glucose Point of Care 169 (65-105)
[2020-03-25 04:41] LABS: Hematocrit 37.8 % (37.0-47.0); Hemoglobin 12.1 g/dL (12.0-15.0); Mean Corpuscular Hemoglobin 26.4 pg (26-34); Mean Corpuscular Volume 82.5 fl (80-100); Mean Platelet Volume 9.7 fl (7.4-10.4); Platelet Count Result 180 k/mm3 (150-375); Red Blood Count 4.58 M/mm3 (4.2-5.4); Red Cell Distribution Width 13.5 % (11.5-14.5); White Blood Count 6.6 K/mm3 (4.5-10.0)
[2020-03-25 04:58] LABS: Alanine Aminotransferase 21 U/L (4-35); Albumin Level 3.3 g/dL (3.5-5.1); Alkaline Phosphatase 67 U/L (38-126); Anion Gap 3 mmol/L (8-16); Aspartate Amino Transferase 28 U/L (14-36); Bilirubin,Total 0.5 mg/dL (0.2-1.3); Blood Urea Nitrogen 17 mg/dL (7-17); Calcium 8.2 mg/dL (8.4-10.2); Carbon Dioxide 34 mmol/L (22-30); Chloride 99 mmol/L (98-107); Estimated CRCL calculation 132 ml/min; Estimated Glomerular Filt Rate > 60; Glucose 180 mg/dL (65-105); Potassium 4.2 mmol/L (3.4-5.0); Sodium 136 mmol/L (137-145)
[2020-03-25 06:11] LABS: Alveolar/Arterial O2 Gradient 609.6 mmHg; Base Excess ABG 2.3 mEq/l (+/-2.0); Carboxyhemoglobin 0.3 % THb (0-2.0); Fractional Inspired Oxygen 100 %; HCO3 ABG 28.1 mEq/l (22.0-26.0); Methemoglobin ABG 0.1 %THb (0-1.5); Oxygen Content ABG 15.8 %vol (16.0-22.0); Oxygen Saturation ABG 87.7 % (95.0-100.0); Oxyhemoglobin 87.1 % THb (90.0-100.0); PCO2 ABG 48.6 mmHg (35.0-45.0); PO2 ABG 54.8 mmHg (80.0-100.0); PO2 FiO2 Ratio Arterial Blood 0.55 %; Reduced Hemoglobin 12.5 %THb (0-5.0); Total Hemoglobin 12.9 g/dL (12.0-18.0)
[2020-03-25 06:13] LABS: Device HIGH FLOW THERAPY; Modified Allen's Test Pass; Site Drawn RIGHT RADIAL
[2020-03-25 08:10] LABS: Glucose Point of Care 175 (65-105)
[2020-03-25] MEDS: FENTANYL 2,500MCG/NS250ML(*CRX 2,500 MCG/250 ML BAG IV CONT (08:40)
[2020-03-25] MEDS: PROPOFOL IV EMULSION 100 ML 22.35 MG IV CONT ×4 (09:30→21:45)
--- NOTE | 2020-03-25 09:33 | P.PCNBED_ITS ---
Procedures Intubation Intubation Date: 03/25/20 Intubation Time: 08:30 Consent: Follow-up verbal consent obtained from patient who was desaturating on high-flow nasal cannula and non-rebreather mask into 80s and was in respiratory distress A pre-procedural Time-Out was completed immediately before starting the procedure and confirmed: Patient Identification, Site, Procedure, Patient Position and the Availability of Requisite Equipment: Yes Sedative: etomidate Mg given: 20 Paralytic: succinylcholine Mg given: 100 Laryngoscope: fiber optic video scope Assist device used: fiber optic device ET tube size: 7.5 Tube secured depth (cm): 25 Tube secured location: lips Tube placement confirmation: visualized tube passing through cords, equal breath sounds bilaterally and confirmation by capnometry Patient tolerated procedure: other Intubation complications: difficult intubation and hypoxia Additional comments: Patient was desaturating in in 80s prior to intubation patient was bagged up to high 80s to 90 for pre oxygenation and then was intubated quickly with glide scope. Patient was very anterior and required maneuvering of ETT but patient was successfully intubated on 1st attempt. Sats had dropped into 70s. Patient was bagged with a PEEP valve and sats were improved. Patient was placed on ventilator. Patient had to be bagged again multiple times as her saturation dropped on the ventilator. Patient was also given another dose of paralytic and started on sedation to prevent patient ryann tilator dyssynchrony. Eventually PEEP had to increase to 18.
--- NOTE | 2020-03-25 09:37 | WPDPROCEDUR ---
Procedures Central Line Placement Right IJ: Central Line Date: 03/25/20 Central Line Time: 09:00 Performed Emergently - Given emergent patient condition, temporal constraints may have precluded informed consent.: Yes Consent: Patient was emergently intubated because of worsening hypoxia and respiratory distress from COVID-19 pneumonia. Prior to intubation I did explain patient that patient will need central line for better IV access and infusion of sedation. Patient was in respiratory distress and may not have fully understood but procedure was done as medical indication as patient had only 1 small peripheral IV and required multiple sedatives and paralytic infusion for her respiratory failure Time Out Performed: Yes Patient Position: trendelenburg Patient placed on monitor/pulse ox: Yes Provider Prep: mask, sterile gown, sterile gloves, Max. sterile barrier precautions and hand hygiene with conventional soap/water or alcohol based hand rub Central line prep: Povidone-Iodine 1% Sterile US Technique with sterile gel/sterile probe covers: Yes Central line lumen inserted: triple Length (cm): 16 Depth of Insertion (cm): 16 Post Procedure: sutured in place, good blood return, all ports aspirated, flushed, capped, transparent dressing, hemostatic product, antimicrobial product and aseptic technique maintained throughout procedure Post procedure x-ray: tip of catheter in good position and no pneumothorax seen Patient tolerated procedure: other Complications: hematoma at puncture site and other Additional comments: Patient is morbidly obese with thick neck with multiple folds with no demarcation of anatomical landmarks. Even with ultrasound, procedure was difficult and required multiple sticks. Patient also needed bagging due to drop in saturation at the beginning of procedure. Once vein was successfully entered with a needle, procedure went smoothly without any complication. Patient does have a very small hematoma at site
[2020-03-25] MEDS: ENOXAPARIN 40 MG/0.4 ML SYRINGE SUB-Q ×2 (09:50→21:00)
[2020-03-25] MEDS: DEXAMETHASONE SOD PHOS INJ 4 MG/ML VIAL 6 MG IV PUSH (09:50)
--- NOTE | 2020-03-25 09:52 | WPDINTPN ---
Progress Note: A&P Assessment and Plan (1) Acute respiratory failure due to COVID-19: Code(s): U07.1 - COVID-19; J96.00 - Acute respiratory failure, unspecified whether with hypoxia or hypercapnia Status: Acute Assessment and Plan: Acute Respiratory failure secondary to COVID-19 pneumonia but may have component of CHF. Tested positive on 03/19/2011. Admitted 03/24/2011 Worsening respiratory distress and hypoxia on high-flow nasal cannula and non-rebreather mask this morning Patient emergently intubated 03/25 Post intubation chest x-ray reviewed and ABG pending Peep is set at 18 and currently FiO2 is 100% Patient is heavily sedated and paralyzed with Nimbex drip Will prone patient Bronchodilators, Advair She did receive Lasix yesterday (2) COVID-19: Onset Date: ~03/18/20 Code(s): U07.1 - COVID-19 Status: Acute Assessment and Plan: COVID-19 SARS-CoV-2 PCR positive 03/18 Patient is in Airborne, Droplet and Contact Isolation Started dexamethasone, remdesivir Follow inflammatory periodically Convalscent plasma was offered yesterday to patient but she was unsure whether she wanted to pursue. She later agreed to and Is ordered will be administered today 03/25. (3) Type 2 diabetes mellitus without complications: Qualifiers: Diabetes mellitus terminal clerk insulin use: without terminal clerk use Qualified Code(s): E11.9 - Type 2 diabetes mellitus without complications Code(s): E11.9 - Type 2 diabetes mellitus without complications Status: Acute Assessment and Plan: Sliding scale ordered (4) Benign essential hypertension: Code(s): I10 - Essential (primary) hypertension Status: Acute Assessment and Plan: Continue lisinopril (5) NSTEMI (non-ST elevated myocardial infarction): Code(s): I21.4 - Non-ST elevation (NSTEMI) myocardial infarction Status: Acute Assessment and Plan: Mild elevation in troponin likely secondary to respiratory failure. EKG does not show any ST elevation Troponin levels have flattened Continue aspirin, check echo, continue lisinopril Additional Plan DVT prophylaxis -Lovenox intermediate dose Stress ulcer prophylaxis -Protonix Nutrition -NPO Code Status -discussed with patient. She requests to be full Code I did call and speak to patient's father and updated him with patient's current status including her requiring intubation and critical condition due to severe respiratory failure Total Critical Care Time - 40 minutes Due to a high probability of clinically significant, life threatening deterioration, the patient required my highest level of preparedness to intervene emergently and I personally spent this critical care time directly and personally managing the patient. This critical care time included obtaining a history; examining the patient; pulse oximetry; ordering and review of studies; arranging urgent treatment with development of a management plan; evaluation of patient's response to treatment; frequent reassessment; and discussions with other providers. It was exclusive of separately billable procedures and treating other patients and teaching time. Please see Assessment and Plan section and the rest of the note for further information on patient assessment and treatment Subjective Date/time seen: 03/25/20 09:52 This morning when I saw the patient she was hypoxic with saturation in low 80s on high-flow nasal cannula 60 L and 90% FiO2 and non-rebreather mask. She said she feels terrible and did not feel good at all. I explained the patient that she needs to be intubated due to worsening hypoxia and respiratory failure which she agreed to. Review of Systems Review of Systems: ROS unobtainable: Yes unobtainable due to endotracheal tube Exam Narrative: Exam Narrative: General: Pt is now sedated, chemically paralyzed, intubated and on mechanical ventilation Lungs/Chest: Now post intubation Trachea central
[2020-03-25] MEDS: REMDESIVIR 100 MG/NS 250 ML 100 MG/250 ML BAG 250 MG IVPB (09:54)
[2020-03-25] MEDS: lisinopriL 10 MG TABLET PO (09:59)
[2020-03-25] MEDS: CISATRACURIUM BESYLATE 200 MG in DEXTROSE 5% 80 ML 13.41 ML IV CONT ×2 (10:07→21:43)
[2020-03-25] MEDS: RAPID SEQUENCE INTUBATION KIT 1 EACH (10:08)
[2020-03-25] MEDS: PANTOPRAZOLE SODIUM IV 40 MG VIAL IV PUSH (10:15)
[2020-03-25] MEDS: ASPIRIN 325 MG TABLET FEED TUBE (10:15)
[2020-03-25 11:10] LABS: Alveolar/Arterial O2 Gradient 584.8 mmHg; Base Excess ABG 0.4 mEq/l (+/-2.0); Fractional Inspired Oxygen 100 %; HCO3 ABG 26.9 mEq/l (22.0-26.0); Oxygen Content ABG 16.4 %vol (16.0-22.0); Oxygen Saturation ABG 94.5 % (95.0-100.0); Oxyhemoglobin 93.5 % THb (90.0-100.0); PCO2 ABG 51.1 mmHg (35.0-45.0); PO2 ABG 77.1 mmHg (80.0-100.0); PO2 FiO2 Ratio Arterial Blood 0.77 %; Total Hemoglobin 12.4 g/dL (12.0-18.0); pH ABG 7.339 (7.350-7.450)
[2020-03-25 11:11] LABS: Device VENTILATOR; Modified Allen's Test Pass; Site Drawn LEFT RADIAL
[2020-03-25 11:12] LABS: Arterial Blood Gas PEEP 18 cmH2O; Arterial Blood Gas Tidal Volume 400 ml; Arterial Blood Gas Vent Mode CMV; Arterial Blood Gas Ventilator rate 24 /MIN
[2020-03-25] MEDS: LORATADINE 10 MG TABLET PO (11:27)
[2020-03-25] MEDS: INSULIN ASPART (*BKC) 100 UNITS/ML SUB-Q ×3 (11:27→22:16)
[2020-03-25] MEDS: TUBING, BLOOD PLUM PUMP TUBING 1 EACH XX (14:30)
[2020-03-25] MEDS: CENTRAL LINE FLUSH 10 ML IV PUSH ×2 (14:31→21:48)
[2020-03-25] MEDS: SODIUM CHLORIDE 0.9% IV 250 ML 30 ML IV CONT (14:31)
--- NOTE | 2020-03-25 14:41 | PM.IMPN ---
Progress Note: A&P Assessment and Plan (1) COVID-19: Onset Date: ~03/18/20 Code(s): U07.1 - COVID-19 Status: Acute Assessment and Plan: 03/25/20 14:41 patient is morbidly obese with BMI of 56 was positive for COVID on 03/19/20 and states for the 1 week she had a cough shortness of breath and was getting progressively over and and symptoms over worse with exertion patient presented emergency department further evaluate patient was quite hypoxic and was placed on BiPAP and continue to monitor however this morning patient symptoms were worsening patient was seen by and service it was decided to intubate the patient currently patient on vent unable to provide any history review of symptoms. (2) Acute respiratory failure with hypoxia: Code(s): J96.01 - Acute respiratory failure with hypoxia Status: Acute Assessment and Plan: Patient currently on vent most likely exacerbation COVID-19 pneumonia (3) Elevated troponin: Code(s): R77.8 - Other specified abnormalities of plasma proteins Status: Acute Assessment and Plan: Be very mildly elevated and flat most likely demand ischemia due to hypoxia unlikely acute coronary syndrome (4) Type 2 diabetes mellitus without complications: Qualifiers: Diabetes mellitus prison insulin use: without moth exterminator use Qualified Code(s): E11.9 - Type 2 diabetes mellitus without complications Code(s): E11.9 - Type 2 diabetes mellitus without complications Status: Acute Assessment and Plan: Will continue home regimen and monitor Subjective Date/time seen: 03/25/20 14:41 patient is morbidly obese with BMI of 56 was positive for COVID on 03/19/20 and states for the 1 week she had a cough shortness of breath and was getting progressively over and and symptoms over worse with exertion patient presented emergency department further evaluate patient was quite hypoxic and was placed on BiPAP and continue to monitor however this morning patient symptoms were worsening patient was seen by and service it was decided to intubate the patient currently patient on vent unable to provide any history review of symptoms. Review of Systems Review of Systems: ROS unobtainable: Yes unobtainable due to endotracheal tube Exam Narrative: Exam Narrative: Morbidly obese Patient is comfortable, NAD HEENT: ET tube in place LUNGS: Normal respiratory effort ABD: Morbidly obese distended Lower extremities: edema SKIN: nonjaundiced Neuro: On vent and sedated. Objective Data Vital Signs Vital Signs: Vital Signs - 24 hr 03/24/20 15:12 03/24/20 16:00 03/24/20 18:00 Temperature 98.6 F 98.8 F Pulse Rate 84 83 Respiratory Rate 29 H 27 H Blood Pressure 122/92 H 129/79 Pulse Oximetry 90 89 L 92 03/24/20 20:00 03/24/20 20:29 03/24/20 20:55 Temperature 98.8 F Pulse Rate 84 80 81 Respiratory Rate 20 23 H 25 H Blood Pressure 110/73 Pulse Oximetry 90 90 03/24/20 22:00 03/24/20 22:13 03/24/20 22:19 Temperature Pulse Rate 85 84 85 Respiratory Rate 22 H 25 H 29 H Blood Pressure 119/69 Pulse Oximetry 91 03/25/20 00:00 03/25/20 00:47 03/25/20 01:17 Temperature 99.1 F 99.1 F 99 F Pulse Rate 81 Respiratory Rate 24 H Blood Pressure 119/71 Pulse Oximetry 88 L 03/25/20 02:00 03/25/20 02:43 03/25/20 02:49 Temperature Pulse Rate 71 76 75 Respiratory Rate 25 H 21 H 25 H Blood Pressure 110/60 Pulse Oximetry 92 03/25/20 04:00 03/25/20 06:00 03/25/20 08:00 Temperature 98 F 97.0 F L Pulse Rate 71 69 62 Respiratory Rate 25 H 30 H 24 H Blood Pressure 108/65 128/76 117/59 L Pulse Oximetry 90 92 83 L 03/25/20 08:35 03/25/20 08:40 03/25/20 09:30 Temperature Pulse Rate 62 77 80 Respiratory Rate 24 H 30 H 24 H Blood Pressure Pulse Oximetry 91 93 03/25/20 09:46 03/25/20 10:00 03/25/20 10:07 Temperature Pulse Rate 82 74 74 Respiratory Rate 30 H 24 H 24 H Blood Pres
[2020-03-25 14:56] LABS: Glucose Point of Care 222 (65-105)
[2020-03-25 17:52] LABS: Glucose Point of Care 255 (65-105)
[2020-03-25] MEDS: MONTELUKAST SODIUM 10 MG TABLET PO (21:48)
[2020-03-25 23:17] LABS: Glucose Point of Care 236 (65-105)
[2020-03-26] VITALS (46 sets, daily range): BP systolic 102–143; BP diastolic 62–81; PULSE 64–102; RESP 24; TEMP 35.7–36.8; O2SAT 93–100; BMI 56.5
[2020-03-26] MEDS: INSULIN ASPART (*BKC) 100 UNITS/ML SUB-Q ×6 (00:37→20:20)
[2020-03-26 01:05] LABS: Glucose Point of Care 227 (65-105)
[2020-03-26] MEDS: PROPOFOL IV EMULSION 100 ML 22.35 MG IV CONT ×6 (01:17→22:43)
[2020-03-26 04:28] LABS: Alveolar/Arterial O2 Gradient 478.2 mmHg; Base Excess ABG 1.5 mEq/l (+/-2.0); Carboxyhemoglobin 0.3 % THb (0-2.0); Fractional Inspired Oxygen 100 %; HCO3 ABG 27.2 mEq/l (22.0-26.0); Methemoglobin ABG 0.2 %THb (0-1.5); Oxygen Content ABG 17.2 %vol (16.0-22.0); Oxygen Saturation ABG 99.2 % (95.0-100.0); Oxyhemoglobin 97.9 % THb (90.0-100.0); PCO2 ABG 47.4 mmHg (35.0-45.0); PO2 ABG 187.4 mmHg (80.0-100.0); PO2 FiO2 Ratio Arterial Blood 1.87 %; Reduced Hemoglobin 1.6 %THb (0-5.0); Total Hemoglobin 12.2 g/dL (12.0-18.0); pH ABG 7.377 (7.350-7.450)
[2020-03-26 04:29] LABS: Device VENTILATOR; Modified Allen's Test Pass; Site Drawn RIGHT RADIAL
[2020-03-26 04:30] LABS: Arterial Blood Gas PEEP 18 cmH2O; Arterial Blood Gas Tidal Volume 400 ml; Arterial Blood Gas Vent Mode CMV; Arterial Blood Gas Ventilator rate 24 /MIN
[2020-03-26] MEDS: CISATRACURIUM BESYLATE 200 MG in DEXTROSE 5% 80 ML 13.41 ML IV CONT (04:33)
[2020-03-26] MEDS: CENTRAL LINE FLUSH 10 ML IV PUSH ×3 (05:40→22:17)
[2020-03-26 05:52] LABS: Hematocrit 35.9 % (37.0-47.0); Hemoglobin 11.4 g/dL (12.0-15.0); Mean Corpuscular HGB Conc 31.8 g/dl (32-36); Mean Corpuscular Hemoglobin 25.8 pg (26-34); Mean Corpuscular Volume 81.2 fl (80-100); Mean Platelet Volume 9.8 fl (7.4-10.4); Platelet Count Result 211 k/mm3 (150-375); Red Blood Count 4.42 M/mm3 (4.2-5.4); Red Cell Distribution Width 13.3 % (11.5-14.5); White Blood Count 4.4 K/mm3 (4.5-10.0)
[2020-03-26 06:03] LABS: D Dimer 1.52 ug/mL (<0.48)
[2020-03-26 06:12] LABS: Alanine Aminotransferase 20 U/L (4-35); Albumin Level 3.3 g/dL (3.5-5.1); Alkaline Phosphatase 70 U/L (38-126); Anion Gap 6 mmol/L (8-16); Aspartate Amino Transferase 22 U/L (14-36); Bilirubin,Total 0.5 mg/dL (0.2-1.3); Blood Urea Nitrogen 19 mg/dL (7-17); Calcium 8.1 mg/dL (8.4-10.2); Carbon Dioxide 34 mmol/L (22-30); Chloride 100 mmol/L (98-107); Estimated CRCL calculation 135 ml/min; Estimated Glomerular Filt Rate > 60; Glucose 218 mg/dL (65-105); Magnesium 2.3 mg/dL (1.6-2.3); Potassium 4.6 mmol/L (3.4-5.0); Sodium 140 mmol/L (137-145)
[2020-03-26 06:52] LABS: Lactate Dehydrogenase 941 U/L (313-618)
[2020-03-26 07:25] LABS: Glucose Point of Care 216 (65-105)
[2020-03-26] MEDS: REMDESIVIR 100 MG/NS 250 ML 100 MG/250 ML BAG 250 MG IVPB (08:25)
[2020-03-26] MEDS: ASPIRIN 325 MG TABLET FEED TUBE (08:28)
[2020-03-26] MEDS: ENOXAPARIN 40 MG/0.4 ML SYRINGE SUB-Q ×2 (08:28→20:32)
[2020-03-26] MEDS: PANTOPRAZOLE SODIUM IV 40 MG VIAL IV PUSH (08:28)
[2020-03-26] MEDS: LORATADINE 10 MG TABLET PO (08:28)
[2020-03-26] MEDS: lisinopriL 10 MG TABLET PO (08:29)
[2020-03-26] MEDS: DEXAMETHASONE SOD PHOS INJ 4 MG/ML VIAL 6 MG IV PUSH (08:29)
[2020-03-26 08:45] LABS: Glucose Point of Care 230 (65-105)
--- NOTE | 2020-03-26 10:24 | PM.IMPN ---
Progress Note: A&P Assessment and Plan (1) COVID-19: Onset Date: ~03/18/20 Code(s): U07.1 - COVID-19 Status: Acute Assessment and Plan: 03/25/20 14:41 patient is morbidly obese with BMI of 56 was positive for COVID on 03/19/20 and states for the 1 week she had a cough shortness of breath and was getting progressively over and and symptoms over worse with exertion patient presented emergency department further evaluate patient was quite hypoxic and was placed on BiPAP and continue to monitor however this morning patient symptoms were worsening patient was seen by and service it was decided to intubate the patient currently patient on vent unable to provide any history review of symptoms. (2) Acute respiratory failure with hypoxia: Code(s): J96.01 - Acute respiratory failure with hypoxia Status: Acute Assessment and Plan: Patient currently on vent most likely exacerbation COVID-19 pneumonia (3) Elevated troponin: Code(s): R77.8 - Other specified abnormalities of plasma proteins Status: Acute Assessment and Plan: Be very mildly elevated and flat most likely demand ischemia due to hypoxia unlikely acute coronary syndrome (4) Type 2 diabetes mellitus without complications: Qualifiers: Diabetes mellitus group home insulin use: without terminal operator use Qualified Code(s): E11.9 - Type 2 diabetes mellitus without complications Code(s): E11.9 - Type 2 diabetes mellitus without complications Status: Acute Assessment and Plan: Will continue home regimen and monitor Additional Plan Patient repeat chest x-ray was patient has pneumonia consistent possible with COVID. CBC electrolytes are noted. Will continue to monitor them. Repeat chest x-ray in the morning. Will continue with the oxygen and support. Subjective Date/time seen: 03/26/20 10:24 Patient was seen during the morning rounds today. Patient is on Nimbex. Patient have no new complaints. Review of Systems Review of Systems: ROS unobtainable: Yes unobtainable due to endotracheal tube Exam Narrative: Exam Narrative: Morbidly obese Patient is comfortable, NAD HEENT: ET tube in place LUNGS: Normal respiratory effort ABD: Morbidly obese distended Lower extremities: edema SKIN: nonjaundiced Neuro: On vent and sedated. Objective Data Vital Signs Vital Signs: Vital Signs - 24 hr 03/25/20 10:52 03/25/20 11:32 03/25/20 11:33 Temperature Pulse Rate 70 72 72 Respiratory Rate 21 H 24 H Blood Pressure 110/71 Pulse Oximetry 94 03/25/20 12:00 03/25/20 12:52 03/25/20 12:59 Temperature 35.7 C L Pulse Rate 69 69 69 Respiratory Rate 24 H 24 H 24 H Blood Pressure 110/69 107/72 Pulse Oximetry 95 03/25/20 13:50 03/25/20 14:00 03/25/20 14:24 Temperature 35.7 C L Pulse Rate 62 61 62 Respiratory Rate 24 H 17 Blood Pressure 114/68 115/64 Pulse Oximetry 92 92 91 03/25/20 14:31 03/25/20 14:32 03/25/20 14:33 Temperature Pulse Rate 62 62 62 Respiratory Rate 24 H 24 H 24 H Blood Pressure 120/74 Pulse Oximetry 03/25/20 14:40 03/25/20 15:35 03/25/20 16:00 Temperature 35.7 C L 35.7 C L 35.7 C L Pulse Rate 63 63 62 Respiratory Rate 24 H 24 H 24 H Blood Pressure 105/69 113/69 116/69 Pulse Oximetry 96 96 95 03/25/20 16:20 03/25/20 16:21 03/25/20 17:01 Temperature Pulse Rate 64 64 71 Respiratory Rate 24 H 24 H 24 H Blood Pressure 116/69 Pulse Oximetry 03/25/20 17:03 03/25/20 17:32 03/25/20 17:33 Temperature Pulse Rate 70 78 68 Respiratory Rate 24 H 24 H 24 H Blood Pressure 127/74 Pulse Oximetry 94 03/25/20 18:00 03/25/20 18:46 03/25/20 20:00 Temperature 35.6 C L Pulse Rate 70 69 68 Respiratory Rate 24 H 24 H 24 H Blood Pressure 121/71 121/69 115/74 Pulse Oximetry 97 97 03/25/20 20:23 03/25/20 21:06 03/25/20 21:29 Temperature Pulse Rate 70 71 70 Respiratory Rate 24 H 24 H Blood Pressure 122/71
--- NOTE | 2020-03-26 10:35 | WPDINTPN ---
Progress Note: A&P Assessment and Plan (1) Acute respiratory failure due to COVID-19: Code(s): U07.1 - COVID-19; J96.00 - Acute respiratory failure, unspecified whether with hypoxia or hypercapnia Status: Acute Assessment and Plan: Acute Respiratory failure secondary to COVID-19 pneumonia but may have component of CHF. Tested positive on 03/19/2011. Admitted 03/24/2011 Worsening respiratory distress and hypoxia on high-flow nasal cannula and non-rebreather mask this morning Patient emergently intubated 03/25 Post intubation chest x-ray reviewed and ABG pending Peep is set at 18 and FiO2 wean to 80% Patient is sedated and paralyzed with Nimbex drip Patient placed in prone position overnight and was switched to supine this morning. Will prone patient again later today Bronchodilators, Advair She did receive Lasix yesterday and will repeat another dose today (2) COVID-19: Onset Date: ~03/18/20 Code(s): U07.1 - COVID-19 Status: Acute Assessment and Plan: COVID-19 SARS-CoV-2 PCR positive 03/18 Patient is in Airborne, Droplet and Contact Isolation Started dexamethasone, remdesivir Follow inflammatory periodically Convalscent plasma administered 03/25. Consult infectious disease for opinion on Actemra (3) Type 2 diabetes mellitus without complications: Qualifiers: Diabetes mellitus termite control service representative insulin use: without termite control service representative use Qualified Code(s): E11.9 - Type 2 diabetes mellitus without complications Code(s): E11.9 - Type 2 diabetes mellitus without complications Status: Acute Assessment and Plan: Sliding scale ordered Add Lantus (4) Benign essential hypertension: Code(s): I10 - Essential (primary) hypertension Status: Acute Assessment and Plan: Continue lisinopril (5) NSTEMI (non-ST elevated myocardial infarction): Code(s): I21.4 - Non-ST elevation (NSTEMI) myocardial infarction Status: Acute Assessment and Plan: Mild elevation in troponin likely secondary to respiratory failure. EKG does not show any ST elevation Troponin levels have flattened Continue aspirin, continue lisinopril ECHO 1. Complete two-dimensional, color flow and Doppler transthoracic echocardiogram is performed. 2. Left ventricular chamber dimension is normal. 3. Left ventricular systolic function is normal, estimated at 60-65%. 4. There is mildly increased left ventricular wall thickness. 5. The left ventricular diastolic function is normal. 6. E/e' 9 is minimally elevated. 7. There is trace tricuspid valve regurgitation. 8. Mild pulmonary hypertension, estimated pulmonary arterial systolic pressure is 46 mmHg. 9. Normal inferior vena cava with <50% collapse upon inspiration consistent with elevated right atrial pressure, 10 mmHg. Additional Plan DVT prophylaxis -Lovenox intermediate dose Stress ulcer prophylaxis -Protonix Nutrition -start tube feeds Code Status -patient is full code Total Critical Care Time - 35 minutes Due to a high probability of clinically significant, life threatening deterioration, the patient required my highest level of preparedness to intervene emergently and I personally spent this critical care time directly and personally managing the patient. This critical care time included obtaining a history; examining the patient; pulse oximetry; ordering and review of studies; arranging urgent treatment with development of a management plan; evaluation of patient's response to treatment; frequent reassessment; and discussions with other providers. It was exclusive of separately billable procedures and treating other patients and teaching time. Please see Assessment and Plan section and the rest of the note for further information on patient assessment and treatment Subjective Date/time seen: 03/26/20 10:35 Overnight events reviewed. Afebrile Continues to be on mechanical ventilation Continues to be on sedation
[2020-03-26] MEDS: INSULIN GLARGINE (*BKC) 100 UNITS/ML 20 UNITS SUB-Q (10:38)
[2020-03-26] MEDS: CISATRACURIUM BESYLATE 200 MG in DEXTROSE 5% 80 ML 8.94 ML IV CONT ×2 (10:38→18:06)
[2020-03-26] MEDS: FUROSEMIDE INJ 40 MG/4 ML VIAL IV PUSH (10:41)
--- NOTE | 2020-03-26 10:43 | PCDIET ---
MD order to start Glucerna 1.2 tube feedings. Recommend present goal of 45mL/hr Glucerna 1.2 x 22 hours/day for 1188kcal (1778kcal with Propofol at current dose) and 59g protein. Recommend standard water flush of 30mL every 4 hours.
--- NOTE | 2020-03-26 11:20 | WPDINFPN2 ---
Progress Note: A&P Assessment and Plan (1) COVID-19: Onset Date: ~03/18/20 Code(s): U07.1 - COVID-19 Status: Acute Assessment and Plan: 1. Respiratory failure 2. Viral pneumonia due to CoVid 19 infection REC Remdesivir and dexamethasone ongoing. Due to ventilator, her status is not equivalent to the patients in the EMPACTA trial. Based on this and other trials, as well as clinical experience, I would not give tocilizumab. Subjective Date/time seen: 03/26/20 11:20 Objective Data Vital Signs Vital Signs: Vital Signs - 24 hr 03/25/20 11:32 03/25/20 11:33 03/25/20 12:00 Temperature 35.7 C L Pulse Rate 72 72 69 Respiratory Rate 21 H 24 H 24 H Blood Pressure 110/71 110/69 Pulse Oximetry 95 03/25/20 12:52 03/25/20 12:59 03/25/20 13:50 Temperature Pulse Rate 69 69 62 Respiratory Rate 24 H 24 H Blood Pressure 107/72 Pulse Oximetry 92 03/25/20 14:00 03/25/20 14:24 03/25/20 14:31 Temperature 35.7 C L Pulse Rate 61 62 62 Respiratory Rate 24 H 17 24 H Blood Pressure 114/68 115/64 Pulse Oximetry 92 91 03/25/20 14:32 03/25/20 14:33 03/25/20 14:40 Temperature 35.7 C L Pulse Rate 62 62 63 Respiratory Rate 24 H 24 H 24 H Blood Pressure 120/74 105/69 Pulse Oximetry 96 03/25/20 15:35 03/25/20 16:00 03/25/20 16:20 Temperature 35.7 C L 35.7 C L Pulse Rate 63 62 64 Respiratory Rate 24 H 24 H 24 H Blood Pressure 113/69 116/69 116/69 Pulse Oximetry 96 95 03/25/20 16:21 03/25/20 17:01 03/25/20 17:03 Temperature Pulse Rate 64 71 70 Respiratory Rate 24 H 24 H 24 H Blood Pressure 127/74 Pulse Oximetry 03/25/20 17:32 03/25/20 17:33 03/25/20 18:00 Temperature Pulse Rate 78 68 70 Respiratory Rate 24 H 24 H 24 H Blood Pressure 121/71 Pulse Oximetry 94 97 03/25/20 18:46 03/25/20 20:00 03/25/20 20:23 Temperature 35.6 C L Pulse Rate 69 68 70 Respiratory Rate 24 H 24 H Blood Pressure 121/69 115/74 Pulse Oximetry 97 97 03/25/20 21:06 03/25/20 21:29 03/25/20 21:43 Temperature Pulse Rate 71 70 71 Respiratory Rate 24 H 24 H 24 H Blood Pressure 122/71 122/71 Pulse Oximetry 03/25/20 21:45 03/25/20 22:00 03/25/20 23:19 Temperature Pulse Rate 70 66 70 Respiratory Rate 24 H 24 H Blood Pressure 122/71 Pulse Oximetry 97 97 03/26/20 00:00 03/26/20 00:38 03/26/20 01:17 Temperature 35.9 C L Pulse Rate 66 69 66 Respiratory Rate 24 H 24 H 24 H Blood Pressure 127/72 131/81 Pulse Oximetry 98 03/26/20 02:00 03/26/20 04:00 03/26/20 04:33 Temperature 35.7 C L Pulse Rate 67 65 65 Respiratory Rate 24 H 24 H 24 H Blood Pressure 121/71 128/74 128/74 Pulse Oximetry 98 98 03/26/20 04:36 03/26/20 05:07 03/26/20 05:10 Temperature Pulse Rate 66 64 65 Respiratory Rate 24 H 24 H Blood Pressure Pulse Oximetry 98 03/26/20 05:40 03/26/20 06:00 03/26/20 08:00 Temperature 35.7 C L Pulse Rate 73 65 70 Respiratory Rate 24 H 24 H 24 H Blood Pressure 121/72 123/76 Pulse Oximetry 99 99 03/26/20 08:36 03/26/20 08:37 03/26/20 08:45 Temperature Pulse Rate 70 70 67 Respiratory Rate 24 H 24 H Blood Pressure 125/73 Pulse Oximetry 97 03/26/20 09:53 03/26/20 09:54 03/26/20 10:00 Temperature 36.7 C Pulse Rate 80 80 70 Respiratory Rate 24 H 24 H 24 H Blood Pressure 120/73 117/78 Pulse Oximetry 93 Intake/Output Intake/Output: Intake & Output 03/23/20 03/24/20 03/25/20 03/26/20 23:59 23:59 23:59 23:59 Intake Total 250 1241.1 805.5 Output Total 1550 1650 650 Balance -1300 -408.9 155.5 Meds/Results Medications: Active Medications Generic Name Dose Route Start Last Admin Trade Name Freq PRN Reason Stop Dose Admin Albuterol 2.5 mg 03/24/20 13:40 03/25/20 02:43 Albuterol Sulfate Neb 2.5 Mg/0.5 Ml Inh INHALATION 2.5 mg Q4HRT PRN Administration Shortness Of Breath Aspirin 325 mg 03/25/20 08:00 03/26/20 08:28 Aspirin 325 Mg Tablet FEED
[2020-03-26 12:28] LABS: Glucose Point of Care 245 (65-105)
--- NOTE | 2020-03-26 15:27 | CONS_ITS ---
DATE OF CONSULTATION: 03/26/2020 REASON FOR CONSULTATION: Coronavirus infection. HISTORY OF PRESENT ILLNESS: A 55-year-old female who cannot provide any history. She is sedated, intubated, and paralyzed. She has a history of morbid obesity. She recently became ill on approximately March 17 with cough and shortness of breath. She had a positive coronavirus assay on March 18 and presented to the emergency room here on the with ongoing cough, nausea, weakness, and lightheadedness. She did have hyperglycemia. She was discharged home at that point and given azithromycin for unknown reasons. She returned here 2 days later with 1 day of worsening symptoms with shortness of breath and dyspnea on exertion, headache, chest pain, and diarrhea. The patient was admitted and given supplemental oxygen. She required emergency intubation approximately 24 hours ago for respiratory distress. Triple-lumen catheter was also placed in the right IJ and she remains on mechanical ventilation. She is now sedated and paralyzed. She was given remdesivir and dexamethasone. No other immunosuppressants. No other antibiotics recently for other purposes and has not required surgical intervention. ALLERGIES: CEPHALEXIN CAUSED A SKIN REACTION. PENICILLIN, UNKNOWN REACTION. SULFA, UNKNOWN REACTION. OTHERS NOT PERTINENT. HABITS: Quit smoking in 1997. Occasional marijuana. No alcohol to excess. PRESENT MEDICATIONS: No other immunosuppressants. PAST MEDICAL HISTORY: Previous lap band surgery; ventral hernia repair; type 2 diabetes mellitus; MICHAEL; iron deficiency anemia; lung nodule; kidney cancer, details not available; hypertension; asthma; anxiety. REVIEW OF SYSTEMS: 14-point review attempted, not obtainable from the patient. Otherwise as per record and reviewed. SOCIAL HISTORY: She lives with her daughter. 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 Lives locally. FAMILY HISTORY: Not pertinent to her present illness. PHYSICAL EXAMINATION: GENERAL: This is a middle-aged female who appears older than her actual age, mild respiratory distress. VITAL SIGNS: She has had mild hypothermia at times, now afebrile, 36.7, 117/78, no pressors, 70, 24, 93% saturation. SKIN: No rashes. Warm and dry. No ulcerations. She has some mild hyperemia over the upper chest. NODES: No cervical adenopathy. EENT: Conjunctivae were clear. She is orally intubated. No thrush. NECK: Without mass, asymmetry. LUNGS: Diminished breath sounds throughout, otherwise clear to auscultation and percussion. CARDIAC: Regular rate and rhythm. No murmur, gallop, or rub. Pulses are 2+ and equal. ABDOMEN: Exam is compromised by paralysis, but no masses nor organomegaly. EXTREMITIES: 1+ ankle edema, not pitting. No venous varicosities. LABORATORY DATA: White count 4.4, hemoglobin 11.4, platelets are 211. D-dimer is 1.52. Blood gases 7.37, 47, 187, 27, 99% on the noted ventilator settings, 100% FiO2. Electrolytes normal except for CO2 of 34. Her BUN 19, creatinine 0.6, glucose 218, ferritin normal 133. Liver function tests are also notable for albumin 3.3, LDH 941. RADIOLOGY: Chest x-ray 03/22/2020, diffuse patchy airspace opacities and cardiomegaly. Repeat chest x-ray 2 days later on readmission, worsened lung disease. Chest x-ray today, stable findings. NG tube in place. Appropriate line placement. Urine culture from March 24, no growth. ASSESSMENT: 1. Hypoxemic respiratory failure, now intubated and on 100% FiO2. No known chronic lung disease, though she is a past smoker and has a morbid obesity which can predispose toward restrictive and obstructive lung disease. 2. Acute dyspnea due to coronavirus viral pneumonia. Other infectious or noninfectious causes of her present illness are
[2020-03-26 17:51] LABS: Glucose Point of Care 277 (65-105)
[2020-03-26] MEDS: MONTELUKAST SODIUM 10 MG TABLET PO (20:33)
[2020-03-26 20:45] LABS: Glucose Point of Care 275 (65-105)
[2020-03-27] VITALS (50 sets, daily range): BP systolic 106–142; BP diastolic 66–87; PULSE 65–108; RESP 24–27; TEMP 35.7–36.9; O2SAT 91–100
[2020-03-27] MEDS: INSULIN ASPART (*BKC) 100 UNITS/ML SUB-Q ×6 (00:03→21:02)
[2020-03-27 00:55] LABS: Glucose Point of Care 262 (65-105)
[2020-03-27] MEDS: PROPOFOL IV EMULSION 100 ML 22.35 MG IV CONT ×6 (02:58→20:59)
[2020-03-27] MEDS: FENTANYL 2,500MCG/NS250ML(*CRX 2,500 MCG/250 ML BAG IV CONT (02:59)
[2020-03-27] MEDS: CISATRACURIUM BESYLATE 200 MG in DEXTROSE 5% 80 ML 17.88 ML IV CONT ×3 (03:23→21:00)
[2020-03-27 04:28] LABS: Glucose Point of Care 295 (65-105)
[2020-03-27 04:30] LABS: Hematocrit 38.7 % (37.0-47.0); Hemoglobin 12.2 g/dL (12.0-15.0); Mean Corpuscular HGB Conc 31.5 g/dl (32-36); Mean Corpuscular Hemoglobin 26.3 pg (26-34); Mean Corpuscular Volume 83.4 fl (80-100); Platelet Count Result 262 k/mm3 (150-375); Red Blood Count 4.64 M/mm3 (4.2-5.4); Red Cell Distribution Width 13.7 % (11.5-14.5); White Blood Count 6.4 K/mm3 (4.5-10.0)
[2020-03-27 04:47] LABS: Alanine Aminotransferase 21 U/L (4-35); Albumin Level 3.3 g/dL (3.5-5.1); Alkaline Phosphatase 69 U/L (38-126); Anion Gap 4 mmol/L (8-16); Aspartate Amino Transferase 27 U/L (14-36); Bilirubin,Total 0.5 mg/dL (0.2-1.3); Blood Urea Nitrogen 30 mg/dL (7-17); Calcium 8.4 mg/dL (8.4-10.2); Carbon Dioxide 35 mmol/L (22-30); Chloride 102 mmol/L (98-107); Estimated CRCL calculation 135 ml/min; Estimated Glomerular Filt Rate > 60; Glucose 289 mg/dL (65-105); Magnesium 2.3 mg/dL (1.6-2.3); Potassium 4.5 mmol/L (3.4-5.0); Sodium 141 mmol/L (137-145)
[2020-03-27 04:52] LABS: NT Pro B Type Natriuretic Pept 90 PG/ML (5-100)
[2020-03-27 05:20] LABS: Alveolar/Arterial O2 Gradient 311.7 mmHg; Base Excess ABG 2.9 mEq/l (+/-2.0); Carboxyhemoglobin 0.3 % THb (0-2.0); Device VENTILATOR; Fractional Inspired Oxygen 75 %; Methemoglobin ABG 0.3 %THb (0-1.5); Modified Allen's Test Unable to perform; Oxygen Saturation ABG 99.2 % (95.0-100.0); Oxyhemoglobin 97.8 % THb (90.0-100.0); PCO2 ABG 44.6 mmHg (35.0-45.0); PO2 ABG 175.7 mmHg (80.0-100.0); PO2 FiO2 Ratio Arterial Blood 2.34 %; Reduced Hemoglobin 1.6 %THb (0-5.0); Site Drawn LEFT RADIAL; Total Hemoglobin 14.3 g/dL (12.0-18.0); pH ABG 7.416 (7.350-7.450)
[2020-03-27 05:21] LABS: Arterial Blood Gas PEEP 16 cmH2O; Arterial Blood Gas Tidal Volume 400 ml; Arterial Blood Gas Vent Mode CMV; Arterial Blood Gas Ventilator rate 24 /MIN
[2020-03-27] MEDS: CENTRAL LINE FLUSH 10 ML IV PUSH ×3 (07:17→22:00)
[2020-03-27] MEDS: CISATRACURIUM BESYLATE 200 MG in DEXTROSE 5% 80 ML 13.41 ML IV CONT (08:44)
[2020-03-27] MEDS: ENOXAPARIN 40 MG/0.4 ML SYRINGE SUB-Q ×2 (08:48→21:03)
[2020-03-27] MEDS: ASPIRIN 325 MG TABLET FEED TUBE (08:49)
[2020-03-27] MEDS: PANTOPRAZOLE SODIUM IV 40 MG VIAL IV PUSH (08:49)
[2020-03-27] MEDS: INSULIN GLARGINE (*BKC) 100 UNITS/ML 20 UNITS SUB-Q (08:49)
[2020-03-27] MEDS: lisinopriL 10 MG TABLET PO (08:49)
[2020-03-27] MEDS: LORATADINE 10 MG TABLET PO (08:49)
[2020-03-27] MEDS: DEXAMETHASONE SOD PHOS INJ 4 MG/ML VIAL 6 MG IV PUSH (08:49)
[2020-03-27 09:04] LABS: Glucose Point of Care 289 (65-105)
--- NOTE | 2020-03-27 10:51 | PCDIET ---
ICU Rounding Note: Patient tolerating Glucerna 1.2 at 45mL/hr goal rate. MD increasing water flush to 100mL every 4 hours. Last recorded weight is 154.1kg which is stable with last review. Bowel Motility: No documented BM as of yet. Labs Reviewed: Glu (289), BUN (30), Cr (0.6), Alb (3.3) Meds Noted: Albuterol, Fentanyl, Lisinopril, Remdesivir, Nimbex, Novolog, Versed, Protonix, Advair, Decadron, Lantus, Propofol (22.35mL/hr rate provides 590kcal per day) Additional Notes: MD adjusted Lantus for hyperglycemia. Patient currently proning. No documented skin breakdown. Following daily in ICU rounds. Assessing/reassessing every Tuesday/Tuesday.
[2020-03-27] MEDS: REMDESIVIR 100 MG/NS 250 ML 100 MG/250 ML BAG 250 MG IVPB (11:10)
--- NOTE | 2020-03-27 12:27 | WPDINTPN ---
Progress Note: A&P Assessment and Plan (1) Acute respiratory failure due to COVID-19: Code(s): U07.1 - COVID-19; J96.00 - Acute respiratory failure, unspecified whether with hypoxia or hypercapnia Status: Acute Assessment and Plan: Acute Respiratory failure secondary to COVID-19 pneumonia but may have component of CHF. Tested positive on 03/19/2011. Admitted 03/24/2011 Worsening respiratory distress and hypoxia on high-flow nasal cannula and non-rebreather mask this morning Patient emergently intubated 03/25 Chest x-ray reviewed and ABG pending Hypoxia on oxygen requirement has improved with daily performing and patient is down to 14 of PEEP and 50% FiO2 Patient is sedated and paralyzed with Nimbex drip Patient placed in prone position overnight and was switched to supine this morning. Will prone patient again later today Bronchodilators, Advair (2) COVID-19: Onset Date: ~03/18/20 Code(s): U07.1 - COVID-19 Status: Acute Assessment and Plan: COVID-19 SARS-CoV-2 PCR positive 03/18 Patient is in Airborne, Droplet and Contact Isolation Started dexamethasone, remdesivir Follow inflammatory periodically Convalscent plasma administered 03/25. Consult infectious disease for opinion on Actemra which Dr. Thayer did not recommend (3) Type 2 diabetes mellitus without complications: Qualifiers: Diabetes mellitus shelter insulin use: without shelter use Qualified Code(s): E11.9 - Type 2 diabetes mellitus without complications Code(s): E11.9 - Type 2 diabetes mellitus without complications Status: Acute Assessment and Plan: Sliding scale ordered Increase Lantus does (4) Benign essential hypertension: Code(s): I10 - Essential (primary) hypertension Status: Acute Assessment and Plan: Continue lisinopril (5) NSTEMI (non-ST elevated myocardial infarction): Code(s): I21.4 - Non-ST elevation (NSTEMI) myocardial infarction Status: Acute Assessment and Plan: Mild elevation in troponin likely secondary to respiratory failure. EKG does not show any ST elevation Troponin levels have flattened Continue aspirin, continue lisinopril ECHO 1. Complete two-dimensional, color flow and Doppler transthoracic echocardiogram is performed. 2. Left ventricular chamber dimension is normal. 3. Left ventricular systolic function is normal, estimated at 60-65%. 4. There is mildly increased left ventricular wall thickness. 5. The left ventricular diastolic function is normal. 6. E/e' 9 is minimally elevated. 7. There is trace tricuspid valve regurgitation. 8. Mild pulmonary hypertension, estimated pulmonary arterial systolic pressure is 46 mmHg. 9. Normal inferior vena cava with <50% collapse upon inspiration consistent with elevated right atrial pressure, 10 mmHg. Additional Plan DVT prophylaxis -Lovenox intermediate dose Stress ulcer prophylaxis -Protonix Nutrition -start tube feeds. Increase free water flush Code Status -patient is full code Total Critical Care Time - 32 minutes Due to a high probability of clinically significant, life threatening deterioration, the patient required my highest level of preparedness to intervene emergently and I personally spent this critical care time directly and personally managing the patient. This critical care time included obtaining a history; examining the patient; pulse oximetry; ordering and review of studies; arranging urgent treatment with development of a management plan; evaluation of patient's response to treatment; frequent reassessment; and discussions with other providers. It was exclusive of separately billable procedures and treating other patients and teaching time. Please see Assessment and Plan section and the rest of the note for further information on patient assessment and treatment Subjective Date/time seen: 03/27/20 12:27 Overnight events reviewed Afebrile Contin
[2020-03-27 14:32] LABS: Glucose Point of Care 357 (65-105)
--- NOTE | 2020-03-27 15:30 | WPDINFPN2 ---
Progress Note: A&P Assessment and Plan (1) COVID-19: Onset Date: ~03/18/20 Code(s): U07.1 - COVID-19 Status: Acute Assessment and Plan: 1. Respiratory failure 2. Viral pneumonia due to CoVid 19 infection, CXR mild improvement in aeration. Still on high O2 REC Remdesivir and dexamethasone ongoing. I do not predict benefit from tocilizumab (EMPACTA trial and others). No antibacterials indicated. Subjective Date/time seen: 03/27/20 15:30 Interval history: sedated and paralyzed, no pressors Exam Narrative: Exam Narrative: afebrile to slightly hypothermic Const: General: no acute distress Other: morbid obesity Resp: Effort & Inspection: normal respiratory effort Auscultation: clear to auscultation bilaterally Cardio: Rate: regular rate Rhythm: regular rhythm Heart sounds: no gallops, no murmurs and no rubs GI: Percussion: Yes normal to percussion Other: no masses no organomegaly Urinary Catheter: Urinary Catheter: patent and draining and urine clear Skin: General skin exam: normal color and no rashes or lesions noted Objective Data Vital Signs Vital Signs: Vital Signs - 24 hr 03/26/20 16:00 03/26/20 16:07 03/26/20 16:08 Temperature 36.7 C Pulse Rate 70 69 70 Respiratory Rate 24 H 24 H 24 H Blood Pressure 102/69 102/69 Pulse Oximetry 99 03/26/20 17:06 03/26/20 17:20 03/26/20 18:00 Temperature Pulse Rate 81 70 70 Respiratory Rate 24 H 24 H Blood Pressure 111/64 109/62 Pulse Oximetry 96 98 03/26/20 18:04 03/26/20 18:05 03/26/20 18:06 Temperature Pulse Rate 71 70 70 Respiratory Rate 24 H 24 H 24 H Blood Pressure 109/62 Pulse Oximetry 03/26/20 20:00 03/26/20 20:21 03/26/20 22:00 Temperature 36.8 C Pulse Rate 95 97 81 Respiratory Rate 24 H 24 H 24 H Blood Pressure 127/72 127/72 134/79 Pulse Oximetry 99 99 03/26/20 22:33 03/26/20 22:40 03/26/20 22:43 Temperature 36.4 C L Pulse Rate 82 82 Respiratory Rate 24 H 24 H Blood Pressure 143/81 H Pulse Oximetry 03/26/20 23:00 03/26/20 23:21 03/27/20 00:00 Temperature Pulse Rate 80 86 78 Respiratory Rate 24 H 24 H Blood Pressure 143/70 H 132/77 Pulse Oximetry 99 99 03/27/20 00:07 03/27/20 02:00 03/27/20 02:23 Temperature 35.7 C L Pulse Rate 81 93 71 Respiratory Rate 24 H 24 H Blood Pressure 132/77 121/73 Pulse Oximetry 99 98 03/27/20 02:56 03/27/20 02:58 03/27/20 02:59 Temperature Pulse Rate 94 93 82 Respiratory Rate 24 H 24 H 24 H Blood Pressure 120/76 Pulse Oximetry 03/27/20 03:05 03/27/20 03:06 03/27/20 03:12 Temperature Pulse Rate 94 94 94 Respiratory Rate 24 H 24 H 24 H Blood Pressure 136/80 Pulse Oximetry 03/27/20 03:23 03/27/20 04:00 03/27/20 05:05 Temperature Pulse Rate 94 88 82 Respiratory Rate 24 H 24 H Blood Pressure 136/80 124/74 Pulse Oximetry 98 96 03/27/20 06:00 03/27/20 07:15 03/27/20 08:00 Temperature 36.8 C Pulse Rate 108 H 103 H 75 Respiratory Rate 24 H 24 H 24 H Blood Pressure 127/77 122/76 Pulse Oximetry 100 100 03/27/20 08:44 03/27/20 08:45 03/27/20 08:46 Temperature Pulse Rate 77 77 77 Respiratory Rate 24 H 24 H 24 H Blood Pressure 116/77 Pulse Oximetry 03/27/20 10:00 03/27/20 10:24 03/27/20 10:25 Temperature Pulse Rate 74 85 88 Respiratory Rate 24 H 24 H 24 H Blood Pressure 122/79 122/79 Pulse Oximetry 98 03/27/20 11:11 03/27/20 11:30 03/27/20 12:00 Temperature 36.9 C Pulse Rate 98 100 71 Respiratory Rate 24 H 24 H Blood Pressure 141/81 H 106/66 Pulse Oximetry 94 100 03/27/20 12:24 03/27/20 12:26 03/27/20 12:27 Temperature Pulse Rate 85 78 78 Respiratory Rate 24 H 24 H 24 H Blood Pressure 106/66 Pulse Oximetry 03/27/20 13:22 03/27/20 14:00 03/27/20 14:24 Temperature Pulse Rate 65 74 82 Respiratory Rate 24 H 24 H 24 H Blood Pressure 108/71 116/73 116/73 Pulse Oximetry 98 03/27/20 14:25 03/27/20 14:30 01
[2020-03-27 16:10] LABS: Glucose Point of Care 392 (65-105)
[2020-03-27] MEDS: INSULIN GLARGINE (*BKC) 100 UNITS/ML 25 UNITS SUB-Q (21:03)
[2020-03-27] MEDS: MONTELUKAST SODIUM 10 MG TABLET PO (21:04)
[2020-03-27 21:21] LABS: Glucose Point of Care 323 (65-105)
[2020-03-28] VITALS (58 sets, daily range): BP systolic 106–173; BP diastolic 60–86; PULSE 69–104; RESP 24; TEMP 36.3–37.1; O2SAT 88–99
[2020-03-28] MEDS: INSULIN ASPART (*BKC) 100 UNITS/ML SUB-Q ×5 (00:33→20:06)
[2020-03-28] MEDS: PROPOFOL IV EMULSION 100 ML 22.35 MG IV CONT ×6 (00:37→20:07)
[2020-03-28 01:35] LABS: Glucose Point of Care 260 (65-105)
[2020-03-28] MEDS: CISATRACURIUM BESYLATE 200 MG in DEXTROSE 5% 80 ML 17.88 ML IV CONT ×2 (04:06→20:03)
[2020-03-28 04:16] LABS: Glucose Point of Care 265 (65-105)
[2020-03-28 04:17] LABS: Hematocrit 39.2 % (37.0-47.0); Hemoglobin 12.2 g/dL (12.0-15.0); Mean Corpuscular HGB Conc 31.1 g/dl (32-36); Mean Corpuscular Hemoglobin 26.1 pg (26-34); Mean Corpuscular Volume 83.8 fl (80-100); Mean Platelet Volume 9.7 fl (7.4-10.4); Platelet Count Result 279 k/mm3 (150-375); Red Blood Count 4.68 M/mm3 (4.2-5.4); Red Cell Distribution Width 13.7 % (11.5-14.5); White Blood Count 7.8 K/mm3 (4.5-10.0)
[2020-03-28 04:29] LABS: D Dimer 1.27 ug/mL (<0.48); Lactate Dehydrogenase 575 U/L (313-618)
[2020-03-28 04:31] LABS: Alanine Aminotransferase 22 U/L (4-35); Albumin Level 3.3 g/dL (3.5-5.1); Alkaline Phosphatase 69 U/L (38-126); Anion Gap 0 mmol/L (8-16); Aspartate Amino Transferase 26 U/L (14-36); Bilirubin,Total 0.6 mg/dL (0.2-1.3); Blood Urea Nitrogen 28 mg/dL (7-17); Calcium 8.7 mg/dL (8.4-10.2); Carbon Dioxide 37 mmol/L (22-30); Chloride 101 mmol/L (98-107); Estimated CRCL calculation 135 ml/min; Estimated Glomerular Filt Rate > 60; Glucose 278 mg/dL (65-105); Potassium 4.5 mmol/L (3.4-5.0); Sodium 138 mmol/L (137-145)
[2020-03-28 05:27] LABS: Alveolar/Arterial O2 Gradient 98.7 mmHg; Base Excess ABG 4.7 mEq/l (+/-2.0); Carboxyhemoglobin 0.4 % THb (0-2.0); Device VENTILATOR; Fractional Inspired Oxygen 30 %; HCO3 ABG 29.4 mEq/l (22.0-26.0); Methemoglobin ABG 0.1 %THb (0-1.5); Modified Allen's Test Pass; Oxygen Content ABG 15.9 %vol (16.0-22.0); PO2 ABG 63.5 mmHg (80.0-100.0); PO2 FiO2 Ratio Arterial Blood 2.12 %; Reduced Hemoglobin 8.5 %THb (0-5.0); Site Drawn RIGHT RADIAL; Total Hemoglobin 12.4 g/dL (12.0-18.0); pH ABG 7.443 (7.350-7.450)
[2020-03-28 05:28] LABS: Arterial Blood Gas PEEP 14 cmH2O; Arterial Blood Gas Tidal Volume 400 ml; Arterial Blood Gas Vent Mode CMV; Arterial Blood Gas Ventilator rate 24 /MIN
[2020-03-28] MEDS: CENTRAL LINE FLUSH 10 ML IV PUSH ×3 (05:42→22:09)
[2020-03-28] MEDS: DEXAMETHASONE SOD PHOS INJ 4 MG/ML VIAL 6 MG IV PUSH (08:04)
[2020-03-28] MEDS: PANTOPRAZOLE SODIUM IV 40 MG VIAL IV PUSH (08:04)
[2020-03-28] MEDS: ASPIRIN 325 MG TABLET FEED TUBE (08:04)
[2020-03-28] MEDS: LORATADINE 10 MG TABLET PO (08:04)
[2020-03-28] MEDS: lisinopriL 10 MG TABLET PO (08:04)
[2020-03-28] MEDS: ENOXAPARIN 40 MG/0.4 ML SYRINGE SUB-Q ×2 (08:05→20:36)
[2020-03-28] MEDS: INSULIN GLARGINE (*BKC) 100 UNITS/ML 25 UNITS SUB-Q (08:05)
[2020-03-28 08:40] LABS: Glucose Point of Care 235 (65-105)
--- NOTE | 2020-03-28 09:16 | WPDINTPN ---
Progress Note: A&P Assessment and Plan (1) Acute respiratory failure due to COVID-19: Code(s): U07.1 - COVID-19; J96.00 - Acute respiratory failure, unspecified whether with hypoxia or hypercapnia Status: Acute Assessment and Plan: Acute Respiratory failure secondary to COVID-19 pneumonia but may have component of CHF. Tested positive on 03/19/2011. Admitted 03/24/2011 Worsening respiratory distress and hypoxia on high-flow nasal cannula and non-rebreather mask. Patient emergently intubated 03/25 Chest x-ray reviewed and ABG pending. Chest x-ray shows persistent bilateral infiltrates as expected Hypoxia on oxygen requirement has improved with daily performing and patient is down to 12 of PEEP and 30% FiO2 Patient is sedated and paralyzed with Nimbex drip Patient placed in prone position overnight and will be switched to supine this morning. Will prone patient again later today Bronchodilators, Advair (2) COVID-19: Onset Date: ~03/18/20 Code(s): U07.1 - COVID-19 Status: Acute Assessment and Plan: COVID-19 SARS-CoV-2 PCR positive 03/18 Patient is in Airborne, Droplet and Contact Isolation Started dexamethasone, remdesivir 03/25 Follow inflammatory periodically Convalscent plasma administered 03/25. Consult infectious disease for opinion on Actemra which Dr. Thayer did not recommend (3) Type 2 diabetes mellitus without complications: Qualifiers: Diabetes mellitus fdc insulin use: without fdc use Qualified Code(s): E11.9 - Type 2 diabetes mellitus without complications Code(s): E11.9 - Type 2 diabetes mellitus without complications Status: Acute Assessment and Plan: Sliding scale ordered Further increase Lantus does (4) Benign essential hypertension: Code(s): I10 - Essential (primary) hypertension Status: Acute Assessment and Plan: Continue lisinopril (5) NSTEMI (non-ST elevated myocardial infarction): Code(s): I21.4 - Non-ST elevation (NSTEMI) myocardial infarction Status: Acute Assessment and Plan: Mild elevation in troponin likely secondary to respiratory failure. EKG does not show any ST elevation Troponin levels have flattened Continue aspirin, continue lisinopril ECHO 1. Complete two-dimensional, color flow and Doppler transthoracic echocardiogram is performed. 2. Left ventricular chamber dimension is normal. 3. Left ventricular systolic function is normal, estimated at 60-65%. 4. There is mildly increased left ventricular wall thickness. 5. The left ventricular diastolic function is normal. 6. E/e' 9 is minimally elevated. 7. There is trace tricuspid valve regurgitation. 8. Mild pulmonary hypertension, estimated pulmonary arterial systolic pressure is 46 mmHg. 9. Normal inferior vena cava with <50% collapse upon inspiration consistent with elevated right atrial pressure, 10 mmHg. Additional Plan DVT prophylaxis -Lovenox intermediate dose Stress ulcer prophylaxis -Protonix Nutrition -continue tube feeds. Continue free water flush Code Status -patient is full code Total Critical Care Time - 30 minutes Due to a high probability of clinically significant, life threatening deterioration, the patient required my highest level of preparedness to intervene emergently and I personally spent this critical care time directly and personally managing the patient. This critical care time included obtaining a history; examining the patient; pulse oximetry; ordering and review of studies; arranging urgent treatment with development of a management plan; evaluation of patient's response to treatment; frequent reassessment; and discussions with other providers. It was exclusive of separately billable procedures and treating other patients and teaching time. Please see Assessment and Plan section and the rest of the note for further information on patient assessment and treatment Subjective Date/ti
[2020-03-28] MEDS: REMDESIVIR 100 MG/NS 250 ML 100 MG/250 ML BAG 250 MG IVPB (09:54)
[2020-03-28] MEDS: CISATRACURIUM BESYLATE 200 MG in DEXTROSE 5% 80 ML 13.41 ML IV CONT (09:55)
--- NOTE | 2020-03-28 10:43 | PCDIET ---
Nutrition Follow-Up Complete: Nutrition Diagnosis: Inadequate oral intake related to oral intubation as evidenced by NPO status. Nutrition Goal: Patient to meet estimated nutritional needs. Goal met. Patient tolerating Glucerna 1.2 at 45mL/hr goal rate with 100mL water flush every 4 hours. Residuals 150mL and below. Last recorded weight is 156 kg which is increased from last review. +I/O. Bowel Motility: No documented BM. RN to give Miralax and Dulcolax today. Labs Reviewed: Glu (278), BUN (28), Cr (0.6), Alb (3.3) Meds Noted: Albuterol, Nimbex, Novolog, Lantus, Lisinopril, Decadron, Fentanyl, Versed, Protonix, Miralax, Dulcolax, Propofol (rate of 22.35mL/hr provides 590kcal per day) Additional Notes: Left cheek abrasion. No other skin issues reported. Patient proning at this time. Will continue to monitor with same goal. Nutrition Monitoring and Evaluation: Follow up every Tuesday/Tuesday.
[2020-03-28] MEDS: polyethylene glycoL 3350 17 GM POWD.PACK PO (11:35)
[2020-03-28 12:43] LABS: Glucose Point of Care 126 (65-105)
[2020-03-28] MEDS: CISATRACURIUM BESYLATE 200 MG in DEXTROSE 5% 80 ML 22.35 ML IV CONT (15:12)
--- NOTE | 2020-03-28 15:13 | WPDINFPN2 ---
Progress Note: A&P Assessment and Plan (1) COVID-19: Onset Date: ~03/18/20 Code(s): U07.1 - COVID-19 Status: Acute Assessment and Plan: 1. Respiratory failure 2. Viral pneumonia due to CoVid 19 infection, CXR stable REC Remdesivir and dexamethasone ongoing (5 day duration of latter). I do not predict benefit from tocilizumab (EMPACTA trial and others). No antibacterials indicated. Subjective Date/time seen: 03/28/20 15:13 Interval history: sedated and paralyzed, no pressors Exam Narrative: Exam Narrative: afebrile Const: General: no acute distress Resp: Effort & Inspection: normal respiratory effort Auscultation: clear to auscultation bilaterally Cardio: Rate: regular rate Rhythm: regular rhythm Heart sounds: no gallops and no murmurs GI: Other: no masses Urinary Catheter: Urinary Catheter: patent and draining, urine clear and urine dark Skin: General skin exam: normal color and no rashes or lesions noted Objective Data Vital Signs Vital Signs: Vital Signs - 24 hr 03/27/20 15:18 03/27/20 16:00 03/27/20 16:01 Temperature 36.7 C Pulse Rate 70 88 70 Respiratory Rate 24 H 24 H 24 H Blood Pressure 115/75 123/77 Pulse Oximetry 100 03/27/20 16:02 03/27/20 16:53 03/27/20 17:09 Temperature Pulse Rate 70 88 81 Respiratory Rate 27 H 24 H Blood Pressure 121/76 Pulse Oximetry 95 03/27/20 17:18 03/27/20 18:00 03/27/20 18:20 Temperature Pulse Rate 81 66 66 Respiratory Rate 24 H 24 H 24 H Blood Pressure 113/74 113/74 Pulse Oximetry 95 03/27/20 18:21 03/27/20 18:22 03/27/20 19:55 Temperature Pulse Rate 66 66 81 Respiratory Rate 24 H 24 H Blood Pressure Pulse Oximetry 91 03/27/20 20:00 03/27/20 20:59 03/27/20 21:00 Temperature 36.4 C Pulse Rate 87 88 88 Respiratory Rate 24 H 24 H 24 H Blood Pressure 142/87 H 142/85 H Pulse Oximetry 100 03/27/20 22:00 03/27/20 22:55 03/28/20 00:00 Temperature 37.1 C Pulse Rate 87 74 72 Respiratory Rate 24 H 24 H Blood Pressure 116/73 127/81 Pulse Oximetry 100 94 94 03/28/20 00:37 03/28/20 00:46 03/28/20 02:00 Temperature Pulse Rate 90 88 82 Respiratory Rate 24 H 24 H 24 H Blood Pressure 127/81 114/79 Pulse Oximetry 92 03/28/20 02:12 03/28/20 02:59 03/28/20 03:00 Temperature Pulse Rate 79 88 104 H Respiratory Rate 24 H 24 H Blood Pressure 126/80 119/71 Pulse Oximetry 93 03/28/20 04:00 03/28/20 04:06 03/28/20 05:02 Temperature 36.7 C Pulse Rate 84 104 H 76 Respiratory Rate 24 H 24 H Blood Pressure 119/71 119/71 Pulse Oximetry 91 91 03/28/20 05:06 03/28/20 05:39 03/28/20 05:43 Temperature 36.9 C Pulse Rate 86 86 Respiratory Rate 24 H 24 H Blood Pressure Pulse Oximetry 03/28/20 05:45 03/28/20 05:46 03/28/20 06:00 Temperature Pulse Rate 85 82 80 Respiratory Rate 24 H 24 H Blood Pressure 109/72 116/71 Pulse Oximetry 93 03/28/20 08:00 03/28/20 08:09 03/28/20 08:10 Temperature 36.3 C L Pulse Rate 98 90 90 Respiratory Rate 24 H 24 H 24 H Blood Pressure 159/81 H 159/81 H Pulse Oximetry 95 03/28/20 09:00 03/28/20 09:01 03/28/20 09:02 Temperature Pulse Rate 101 H 101 H 101 H Respiratory Rate 24 H 24 H 24 H Blood Pressure 173/86 H Pulse Oximetry 03/28/20 09:08 03/28/20 09:52 03/28/20 09:53 Temperature Pulse Rate 99 82 80 Respiratory Rate 24 H 24 H Blood Pressure Pulse Oximetry 91 03/28/20 09:55 03/28/20 10:00 03/28/20 10:48 Temperature Pulse Rate 80 79 75 Respiratory Rate 24 H 24 H Blood Pressure 173/86 H 124/71 Pulse Oximetry 92 93 03/28/20 11:35 03/28/20 12:00 03/28/20 12:23 Temperature 37.1 C Pulse Rate 87 71 70 Respiratory Rate 24 H 24 H 24 H Blood Pressure 138/77 114/70 114/70 Pulse Oximetry 95 03/28/20 12:24 03/28/20 12:26 03/28/20 12:59 Temperature Pulse Rate 70 70 73 Respiratory Rate 24 H 24 H 24 H Blood Pressure Pulse Oximetry
[2020-03-28 17:07] LABS: Glucose Point of Care 330 (65-105)
[2020-03-28] MEDS: FENTANYL 2,500MCG/NS250ML(*CRX 2,500 MCG/250 ML BAG 7.5 MCG IV CONT (20:08)
[2020-03-28] MEDS: INSULIN GLARGINE (*BKC) 100 UNITS/ML 35 UNITS SUB-Q (20:36)
[2020-03-28] MEDS: MONTELUKAST SODIUM 10 MG TABLET PO (20:37)
[2020-03-28 20:43] LABS: Glucose Point of Care 291 (65-105)
[2020-03-29] VITALS (35 sets, daily range): BP systolic 99–157; BP diastolic 69–89; PULSE 78–112; RESP 24; TEMP 36.3–37.7; O2SAT 88–97
[2020-03-29] MEDS: INSULIN ASPART (*BKC) 100 UNITS/ML SUB-Q ×5 (00:05→20:31)
[2020-03-29] MEDS: PROPOFOL IV EMULSION 100 ML 22.35 MG IV CONT ×2 (00:14→05:10)
[2020-03-29] MEDS: CISATRACURIUM BESYLATE 200 MG in DEXTROSE 5% 80 ML 22.35 ML IV CONT (00:17)
[2020-03-29 00:23] LABS: Glucose Point of Care 261 (65-105)
[2020-03-29] MEDS: CISATRACURIUM BESYLATE 200 MG in DEXTROSE 5% 80 ML 26.82 ML IV CONT ×4 (04:40→16:36)
[2020-03-29 04:51] LABS: Hematocrit 37.7 % (37.0-47.0); Hemoglobin 11.7 g/dL (12.0-15.0); Mean Corpuscular Hemoglobin 25.9 pg (26-34); Mean Corpuscular Volume 83.6 fl (80-100); Mean Platelet Volume 9.4 fl (7.4-10.4); Platelet Count Result 256 k/mm3 (150-375); Red Blood Count 4.51 M/mm3 (4.2-5.4); Red Cell Distribution Width 13.5 % (11.5-14.5); White Blood Count 12.3 K/mm3 (4.5-10.0)
[2020-03-29 05:06] LABS: Alanine Aminotransferase 20 U/L (4-35); Albumin Level 3.1 g/dL (3.5-5.1); Alkaline Phosphatase 58 U/L (38-126); Anion Gap 2 mmol/L (8-16); Aspartate Amino Transferase 19 U/L (14-36); Bilirubin,Total 0.7 mg/dL (0.2-1.3); Blood Urea Nitrogen 23 mg/dL (7-17); Calcium 8.5 mg/dL (8.4-10.2); Carbon Dioxide 36 mmol/L (22-30); Chloride 98 mmol/L (98-107); Estimated CRCL calculation 160 ml/min; Estimated Glomerular Filt Rate > 60; Glucose 248 mg/dL (65-105); Magnesium 1.8 mg/dL (1.6-2.3); Potassium 4.4 mmol/L (3.4-5.0); Sodium 136 mmol/L (137-145)
[2020-03-29 05:13] LABS: Alveolar/Arterial O2 Gradient 204.9 mmHg; Base Excess ABG 2.4 mEq/l (+/-2.0); Carboxyhemoglobin 0.3 % THb (0-2.0); Device VENTILATOR; Fractional Inspired Oxygen 45 %; HCO3 ABG 27.3 mEq/l (22.0-26.0); Methemoglobin ABG 0.1 %THb (0-1.5); Modified Allen's Test Pass; Oxygen Content ABG 17.3 %vol (16.0-22.0); Oxygen Saturation ABG 93.6 % (95.0-100.0); Oxyhemoglobin 91.9 % THb (90.0-100.0); PCO2 ABG 43.1 mmHg (35.0-45.0); PO2 ABG 66.9 mmHg (80.0-100.0); PO2 FiO2 Ratio Arterial Blood 1.49 %; Reduced Hemoglobin 7.7 %THb (0-5.0); Site Drawn RIGHT RADIAL; Total Hemoglobin 13.4 g/dL (12.0-18.0); pH ABG 7.419 (7.350-7.450)
[2020-03-29 05:14] LABS: Arterial Blood Gas PEEP 12 cmH2O; Arterial Blood Gas Tidal Volume 400 ml; Arterial Blood Gas Vent Mode CMV; Arterial Blood Gas Ventilator rate 24 /MIN
[2020-03-29] MEDS: CENTRAL LINE FLUSH 10 ML IV PUSH ×3 (05:47→20:32)
[2020-03-29 07:23] LABS: Glucose Point of Care 223 (65-105)
--- NOTE | 2020-03-29 09:02 | WPDINTPN ---
Progress Note: A&P Assessment and Plan (1) Acute respiratory failure due to COVID-19: Code(s): U07.1 - COVID-19; J96.00 - Acute respiratory failure, unspecified whether with hypoxia or hypercapnia Status: Acute Assessment and Plan: Acute Respiratory failure secondary to COVID-19 pneumonia but may have component of CHF. Tested positive on 03/19/2011. Admitted 03/24/2011 Worsening respiratory distress and hypoxia on high-flow nasal cannula and non-rebreather mask. Patient emergently intubated 03/25 Chest x-ray and ABG reviewed Chest x-ray shows persistent bilateral infiltrates as expected Hypoxia on oxygen requirement has improved with daily proning and patient is down to 12 of PEEP and 45% FiO2 Patient is sedated and paralyzed with Nimbex drip. I will try to do a Nimbex holiday today Patient placed in prone position overnight and will be switched to supine this morning. Will prone patient again later today Bronchodilators, Advair (2) COVID-19: Onset Date: ~03/18/20 Code(s): U07.1 - COVID-19 Status: Acute Assessment and Plan: COVID-19 SARS-CoV-2 PCR positive 03/18 Patient is in Airborne, Droplet and Contact Isolation Started dexamethasone, remdesivir 03/25 Follow inflammatory periodically Convalescent plasma administered 03/25. Consulted infectious disease for opinion on Actemra which Dr. Thayer did not recommend (3) Type 2 diabetes mellitus without complications: Qualifiers: Diabetes mellitus rn long term care insulin use: without rn long term care use Qualified Code(s): E11.9 - Type 2 diabetes mellitus without complications Code(s): E11.9 - Type 2 diabetes mellitus without complications Status: Acute Assessment and Plan: Sliding scale ordered Further increase Lantus does (4) Benign essential hypertension: Code(s): I10 - Essential (primary) hypertension Status: Acute Assessment and Plan: Continue lisinopril (5) NSTEMI (non-ST elevated myocardial infarction): Code(s): I21.4 - Non-ST elevation (NSTEMI) myocardial infarction Status: Acute Assessment and Plan: Mild elevation in troponin likely secondary to respiratory failure. EKG does not show any ST elevation Troponin levels have flattened Continue aspirin, continue lisinopril ECHO 1. Complete two-dimensional, color flow and Doppler transthoracic echocardiogram is performed. 2. Left ventricular chamber dimension is normal. 3. Left ventricular systolic function is normal, estimated at 60-65%. 4. There is mildly increased left ventricular wall thickness. 5. The left ventricular diastolic function is normal. 6. E/e' 9 is minimally elevated. 7. There is trace tricuspid valve regurgitation. 8. Mild pulmonary hypertension, estimated pulmonary arterial systolic pressure is 46 mmHg. 9. Normal inferior vena cava with <50% collapse upon inspiration consistent with elevated right atrial pressure, 10 mmHg. Additional Plan DVT prophylaxis -Lovenox intermediate dose Stress ulcer prophylaxis -Protonix Nutrition -continue tube feeds. Continue free water flush Code Status -patient is full code Total Critical Care Time - 31 minutes Due to a high probability of clinically significant, life threatening deterioration, the patient required my highest level of preparedness to intervene emergently and I personally spent this critical care time directly and personally managing the patient. This critical care time included obtaining a history; examining the patient; pulse oximetry; ordering and review of studies; arranging urgent treatment with development of a management plan; evaluation of patient's response to treatment; frequent reassessment; and discussions with other providers. It was exclusive of separately billable procedures and treating other patients and teaching time. Please see Assessment and Plan section and the rest of the note for further information on patient assessment and
[2020-03-29] MEDS: ENOXAPARIN 40 MG/0.4 ML SYRINGE SUB-Q ×2 (09:12→20:31)
[2020-03-29] MEDS: DEXAMETHASONE SOD PHOS INJ 4 MG/ML VIAL 6 MG IV PUSH (09:13)
[2020-03-29] MEDS: lisinopriL 10 MG TABLET PO (09:13)
[2020-03-29] MEDS: PANTOPRAZOLE SODIUM IV 40 MG VIAL IV PUSH (09:13)
[2020-03-29] MEDS: ASPIRIN 325 MG TABLET FEED TUBE (09:14)
[2020-03-29] MEDS: INSULIN GLARGINE (*BKC) 100 UNITS/ML 40 UNITS SUB-Q ×2 (09:14→17:20)
[2020-03-29] MEDS: LORATADINE 10 MG TABLET PO (09:14)
[2020-03-29] MEDS: polyethylene glycoL 3350 17 GM POWD.PACK PO (09:21)
[2020-03-29] MEDS: PROPOFOL IV EMULSION 100 ML 26.82 MG IV CONT ×3 (09:23→16:18)
[2020-03-29 09:36] LABS: Glucose Point of Care 274 (65-105)
[2020-03-29 12:35] LABS: Glucose Point of Care 321 (65-105)
--- NOTE | 2020-03-29 12:40 | PM.IMPN ---
Progress Note: A&P Assessment and Plan (1) Non-alcoholic fatty liver disease: Code(s): K76.0 - Fatty (change of) liver, not elsewhere classified Status: Acute Assessment and Plan: Monitor CMP (2) Acute respiratory failure with hypoxia: Code(s): J96.01 - Acute respiratory failure with hypoxia Status: Acute Assessment and Plan: Patient is sedated currently on mechanical ventilation secondary to COVID 19 pneumonia multifocal Received dexamethasone Plasma ID was consulted Critical care following 1 dose of IV Lasix today as chest x-ray concerning for pulmonary edema also patient has lower extremity edema (3) Type 2 diabetes mellitus without complications: Qualifiers: Diabetes mellitus mcc insulin use: without mcc use Qualified Code(s): E11.9 - Type 2 diabetes mellitus without complications Code(s): E11.9 - Type 2 diabetes mellitus without complications Status: Acute Assessment and Plan: Insulin sliding scale (4) NSTEMI (non-ST elevated myocardial infarction): Code(s): I21.4 - Non-ST elevation (NSTEMI) myocardial infarction Status: Acute Assessment and Plan: Most likely NSTEMI type 2 secondary to ischemia secondary to respiratory failure monitor Subjective Date/time seen: 03/29/20 12:40 Interval history: Patient seen and examined Patient presents to the hospital with worsening shortness of breath/sedated with BiPAP her condition continued to worsen requiring mechanical ventilation patient was found to have multifocal pneumonia secondary to COVID-19 infectious disease was consulted patient was given dexamethasone and plasma patient did not qualify for Actemra Currently patient on ventilation chest x-ray showed pulmonary edema versus infection multifocal I am seeing the patient for pneumonia Review of Systems Review of Systems: ROS unobtainable: Yes unobtainable due to medical condition Exam Narrative: Exam Narrative: Sedated intubated Chest bilateral crackles Abdomen nontender nondistended CVS S1 + S2 Positive Lower extremity edema Objective Data Vital Signs Vital Signs: Vital Signs - 24 hr 03/28/20 12:59 03/28/20 14:00 03/28/20 14:02 Temperature Pulse Rate 73 80 80 Respiratory Rate 24 H 24 H 24 H Blood Pressure 115/79 115/79 Pulse Oximetry 93 03/28/20 14:03 03/28/20 14:04 03/28/20 15:12 Temperature Pulse Rate 80 80 73 Respiratory Rate 24 H 24 H 24 H Blood Pressure 108/66 Pulse Oximetry 03/28/20 16:00 03/28/20 16:11 03/28/20 16:12 Temperature 98.6 F Pulse Rate 74 76 76 Respiratory Rate 24 H 24 H 24 H Blood Pressure 106/60 106/60 Pulse Oximetry 95 03/28/20 16:13 03/28/20 17:20 03/28/20 17:24 Temperature Pulse Rate 76 77 102 H Respiratory Rate 24 H 24 H Blood Pressure Pulse Oximetry 99 03/28/20 18:00 03/28/20 18:19 03/28/20 18:20 Temperature Pulse Rate 85 90 90 Respiratory Rate 24 H 24 H 24 H Blood Pressure 127/79 Pulse Oximetry 91 03/28/20 18:21 03/28/20 20:00 03/28/20 20:01 Temperature 98.2 F Pulse Rate 90 81 82 Respiratory Rate 24 H 24 H 24 H Blood Pressure 127/79 152/86 H 152/86 H Pulse Oximetry 91 03/28/20 20:03 03/28/20 20:07 03/28/20 20:08 Temperature Pulse Rate 82 83 83 Respiratory Rate 24 H 24 H 24 H Blood Pressure 152/86 H Pulse Oximetry 03/28/20 20:48 03/28/20 22:00 03/28/20 22:47 Temperature Pulse Rate 81 83 81 Respiratory Rate 24 H 24 H Blood Pressure 136/86 136/86 Pulse Oximetry 88 L 94 03/28/20 23:09 03/29/20 00:00 03/29/20 00:10 Temperature 98.1 F Pulse Rate 89 82 81 Respiratory Rate 24 H 24 H Blood Pressure 151/89 H 151/89 H Pulse Oximetry 94 97 03/29/20 00:14 03/29/20 00:17 03/29/20 01:58 Temperature Pulse Rate 80 81 82 Respiratory Rate 24 H 24 H 24 H Blood Pressure 151/89 H 143/84 H Pulse Oximetry 03/29/20 02:00 03/29/20 02:14 03/29/20 04:00 Temperature 97
[2020-03-29] MEDS: FUROSEMIDE INJ 40 MG/4 ML VIAL IV PUSH (13:03)
[2020-03-29] MEDS: INSULIN HUMAN REGULAR (*BKC) 100 UNITS/ML 10 UNITS IV PUSH (17:20)
[2020-03-29 18:02] LABS: Glucose Point of Care 445 (65-105)
[2020-03-29] MEDS: MONTELUKAST SODIUM 10 MG TABLET PO (20:32)
[2020-03-29 20:36] LABS: Glucose Point of Care 343 (65-105)
[2020-03-30] VITALS (34 sets, daily range): BP systolic 97–118; BP diastolic 66–76; PULSE 68–95; RESP 24–30; TEMP 36.3–37.6; O2SAT 91–96
[2020-03-30] MEDS: INSULIN ASPART (*BKC) 100 UNITS/ML SUB-Q ×6 (00:41→20:10)
[2020-03-30 00:47] LABS: Glucose Point of Care 298 (65-105)
[2020-03-30] MEDS: FENTANYL 2,500MCG/NS250ML(*CRX 2,500 MCG/250 ML BAG 10 MCG IV CONT (01:52)
[2020-03-30] MEDS: PROPOFOL IV EMULSION 100 ML 17.88 MG IV CONT (02:40)
[2020-03-30] MEDS: CENTRAL LINE FLUSH 10 ML IV PUSH ×3 (04:23→22:00)
[2020-03-30 04:41] LABS: Hematocrit 37.5 % (37.0-47.0); Hemoglobin 11.9 g/dL (12.0-15.0); Mean Corpuscular HGB Conc 31.7 g/dl (32-36); Mean Corpuscular Hemoglobin 26.2 pg (26-34); Mean Corpuscular Volume 82.6 fl (80-100); Mean Platelet Volume 9.6 fl (7.4-10.4); Platelet Count Result 275 k/mm3 (150-375); Red Blood Count 4.54 M/mm3 (4.2-5.4); Red Cell Distribution Width 13.4 % (11.5-14.5); White Blood Count 17.4 K/mm3 (4.5-10.0)
[2020-03-30 04:42] LABS: Glucose Point of Care 276 (65-105)
[2020-03-30 04:55] LABS: Lactate Dehydrogenase 463 U/L (313-618)
[2020-03-30 04:59] LABS: Alanine Aminotransferase 20 U/L (4-35); Albumin Level 3.2 g/dL (3.5-5.1); Alkaline Phosphatase 65 U/L (38-126); Anion Gap 1 mmol/L (8-16); Aspartate Amino Transferase 19 U/L (14-36); Bilirubin,Total 0.8 mg/dL (0.2-1.3); Blood Urea Nitrogen 26 mg/dL (7-17); Calcium 8.7 mg/dL (8.4-10.2); Carbon Dioxide 37 mmol/L (22-30); Chloride 95 mmol/L (98-107); Estimated CRCL calculation 134 ml/min; Estimated Glomerular Filt Rate > 60; Glucose 298 mg/dL (65-105); Potassium 4.7 mmol/L (3.4-5.0); Sodium 133 mmol/L (137-145)
[2020-03-30] MEDS: ROCURONIUM BROMIDE 50 MG/5 ML VIAL IV PUSH (06:21)
[2020-03-30] MEDS: PROPOFOL IV EMULSION 100 ML 26.82 MG IV CONT (06:39)
--- NOTE | 2020-03-30 08:22 | WPDINTPN ---
Progress Note: A&P Assessment and Plan (1) Acute respiratory failure due to COVID-19: Code(s): U07.1 - COVID-19; J96.00 - Acute respiratory failure, unspecified whether with hypoxia or hypercapnia Status: Acute Assessment and Plan: Acute Respiratory failure secondary to COVID-19 pneumonia but may have component of CHF. Tested positive on 03/19/2011. Admitted 03/24/2011 Worsening respiratory distress and hypoxia on high-flow nasal cannula and non-rebreather mask. Patient emergently intubated 03/25 Chest x-ray and ABG reviewed Chest x-ray shows persistent bilateral infiltrates as expected Hypoxia on oxygen requirement has improved with daily proning and patient is down to 12 of PEEP and 55% FiO2 Patient is sedated and paralyzed with Nimbex drip. Yesterday I discontinued Nimbex infusion to see if patient tolerates mechanical ventilation without neuromuscular vikash. Early this morning I was called the patient's desaturating and was a synchronous with the ventilator. Rocuronium 50 mg IV x 1 was given with resolution I have requested nurse to increase sedation if needed and will try to avoid resuming neuromuscular vikash infusion and use it on p.r.n. basis. This may or may not work Patient placed in prone position overnight and will be switched to supine this morning. Will prone patient again later today Bronchodilators, Advair (2) COVID-19: Onset Date: ~03/18/20 Code(s): U07.1 - COVID-19 Status: Acute Assessment and Plan: COVID-19 SARS-CoV-2 PCR positive 03/18 Patient is in Airborne, Droplet and Contact Isolation Started dexamethasone, remdesivir 03/25 Follow inflammatory periodically Convalescent plasma administered 03/25. Consulted infectious disease for opinion on Actemra which Dr. Thayer did not recommend (3) Type 2 diabetes mellitus without complications: Qualifiers: Diabetes mellitus halfway insulin use: without terminal computer operator use Qualified Code(s): E11.9 - Type 2 diabetes mellitus without complications Code(s): E11.9 - Type 2 diabetes mellitus without complications Status: Acute Assessment and Plan: Sliding scale ordered Further increase Lantus does to 55 units q.12 hours (4) Benign essential hypertension: Code(s): I10 - Essential (primary) hypertension Status: Acute Assessment and Plan: Continue lisinopril (5) NSTEMI (non-ST elevated myocardial infarction): Code(s): I21.4 - Non-ST elevation (NSTEMI) myocardial infarction Status: Acute Assessment and Plan: Mild elevation in troponin likely secondary to respiratory failure. EKG does not show any ST elevation Troponin levels have flattened Continue aspirin, continue lisinopril ECHO 1. Complete two-dimensional, color flow and Doppler transthoracic echocardiogram is performed. 2. Left ventricular chamber dimension is normal. 3. Left ventricular systolic function is normal, estimated at 60-65%. 4. There is mildly increased left ventricular wall thickness. 5. The left ventricular diastolic function is normal. 6. E/e' 9 is minimally elevated. 7. There is trace tricuspid valve regurgitation. 8. Mild pulmonary hypertension, estimated pulmonary arterial systolic pressure is 46 mmHg. 9. Normal inferior vena cava with <50% collapse upon inspiration consistent with elevated right atrial pressure, 10 mmHg. Additional Plan DVT prophylaxis -Lovenox intermediate dose Stress ulcer prophylaxis -Protonix Nutrition -continue tube feeds. Decrease free water flush Code Status -patient is full code Total Critical Care Time - 30 minutes Due to a high probability of clinically significant, life threatening deterioration, the patient required my highest level of preparedness to intervene emergently and I personally spent this critical care time directly and personally managing the patient. This critical care time included obtaining a history; examining the patient; pulse
[2020-03-30] MEDS: INSULIN GLARGINE (*BKC) 100 UNITS/ML 55 UNITS SUB-Q ×2 (08:46→21:05)
[2020-03-30] MEDS: DEXAMETHASONE SOD PHOS INJ 4 MG/ML VIAL 6 MG IV PUSH (08:46)
[2020-03-30] MEDS: ENOXAPARIN 40 MG/0.4 ML SYRINGE SUB-Q ×2 (08:46→21:05)
[2020-03-30] MEDS: PANTOPRAZOLE SODIUM IV 40 MG VIAL IV PUSH (08:46)
[2020-03-30] MEDS: PROPOFOL IV EMULSION 100 ML 35.76 MG IV CONT ×6 (09:56→21:03)
[2020-03-30] MEDS: ASCORBIC ACID 500 MG TABLET 1000 MG PO (10:59)
[2020-03-30] MEDS: ZINC SULFATE 220 MG CAPSULE PO (11:00)
[2020-03-30] MEDS: LORATADINE 10 MG TABLET PO (11:00)
[2020-03-30] MEDS: ASPIRIN 325 MG TABLET FEED TUBE (11:00)
[2020-03-30 11:50] LABS: Glucose Point of Care 289 (65-105)
[2020-03-30 11:51] LABS: Glucose Point of Care 345 (65-105)
--- NOTE | 2020-03-30 13:13 | PM.IMPN ---
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 Qualified Code(s): E11.9 - Type 2 diabetes mellitus without complications Code(s): E11.9 - Type 2 diabetes mellitus without complications Status: Acute Assessment and Plan: Insulin basal with sliding scale (4) NSTEMI (non-ST elevated myocardial infarction): Code(s): I21.4 - Non-ST elevation (NSTEMI) myocardial infarction Status: Acute Assessment and Plan: Most likely NSTEMI type 2 secondary to ischemia secondary to respiratory failure monitor (5) Non-alcoholic fatty liver disease: Code(s): K76.0 - Fatty (change of) liver, not elsewhere classified Status: Acute Assessment and Plan: Monitor CMP likely due to severe obesity (6) History of kidney cancer: Code(s): Z85.528 - Personal history of other malignant neoplasm of kidney Status: Acute Subjective Date/time seen: 03/30/20 13:13 Interval history: Admitted with COVID-19 pneumonia. 03/30 Ventilated and prone. Review of Systems Review of Systems: ROS unobtainable: Yes unobtainable due to endotracheal tube Exam Narrative: Exam Narrative: HEENT: normocephalic. ET tube in place NECK: No JVD CHEST: Decr BS, breathing with vent HEART: NL S1/S2, regular ABDOMEN: BS+, soft, nontender, no mass, no bruits EXTREMITIES: No cyanosis, edema, or clubbing NEUROLOGIC: CN difficult to inspect in prone position. MUSCULOSKELETAL: Tone and strength symmetric. PSYCH: sedated Objective Data Vital Signs Vital Signs: Vital Signs - 24 hr 03/29/20 13:51 03/29/20 14:00 03/29/20 16:00 Temperature 98.4 F Pulse Rate 85 84 81 Respiratory Rate 24 H 24 H Blood Pressure 104/80 99/69 L Pulse Oximetry 92 92 90 03/29/20 16:54 03/29/20 17:02 03/29/20 18:00 Temperature Pulse Rate 79 78 83 Respiratory Rate 24 H 24 H Blood Pressure 109/72 Pulse Oximetry 90 89 L 03/29/20 20:00 03/29/20 20:30 03/29/20 22:00 Temperature 97.5 F L 98.2 F Pulse Rate 79 79 79 Respiratory Rate 24 H 24 H Blood Pressure 115/77 119/74 Pulse Oximetry 90 90 90 03/29/20 22:48 03/29/20 23:22 03/30/20 00:00 Temperature Pulse Rate 79 81 78 Respiratory Rate 24 H 25 H Blood Pressure 118/76 Pulse Oximetry 96 94 03/30/20 01:52 03/30/20 02:00 03/30/20 02:22 Temperature Pulse Rate 81 80 82 Respiratory Rate 24 H 26 H Blood Pressure 113/73 Pulse Oximetry 93 96 03/30/20 02:40 03/30/20 04:00 03/30/20 05:52 Temperature 97.8 F Pulse Rate 81 88 90 Respiratory Rate 26 H 26 H 28 H Blood Pressure 110/76 Pulse Oximetry 93 03/30/20 05:57 03/30/20 06:00 03/30/20 06:39 Temperature Pulse Rate 92 95 92 Respiratory Rate 30 H 25 H Blood Pressure 106/67 Pulse Oximetry 93 03/30/20 06:41 03/30/20 08:00 03/30/20 08:33 Temperature 99.7 F H Pulse Rate 92 92 91 Respiratory Rate 25 H 24 H 28 H Blood Pressure 102/67 Pulse Oximetry 91 03/30/20 08:50 03/30/20 10:00 03/30/20 10:32 Temperature Pulse Rate 92 81 83 Respiratory Rate 24 H Blood Pressure 111/71 Pulse Oximetry 92 92 91 03/30/20 12:00 Temperature 97.3 F L Pulse Rate 79 Respiratory Rate 24 H Blood Pressure 99/70 L Pulse Oximetry 95 Intake/Output Intake/Output: Intake & Output 03/27/20 03/28/20 03/29/20 03/30/20 23:59 23:59 23:59 23:59 Intake Total 2883.0 3153.4 2862.4 1282 Output Total 1200 1325 2250 700 Balance 1683.0 1828.4 612.4
[2020-03-30 15:32] LABS: Glucose Point of Care 393 (65-105)
[2020-03-30] MEDS: FENTANYL 2,500MCG/NS250ML(*CRX 2,500 MCG/250 ML BAG 15 MCG IV CONT (18:34)
[2020-03-30 20:57] LABS: Glucose Point of Care 384 (65-105)
[2020-03-30] MEDS: MONTELUKAST SODIUM 10 MG TABLET PO (21:05)
[2020-03-31] VITALS (49 sets, daily range): BP systolic 107–166; BP diastolic 71–98; PULSE 27–109; RESP 17–28; TEMP 36.2–37.7; O2SAT 76–99
[2020-03-31] MEDS: INSULIN ASPART (*BKC) 100 UNITS/ML SUB-Q ×3 (00:01→08:06)
[2020-03-31] MEDS: PROPOFOL IV EMULSION 100 ML 35.76 MG IV CONT ×2 (00:02→03:00)
[2020-03-31] MEDS: BISACODYL 10 MG SUPPOSITORY RECTAL (00:04)
[2020-03-31 00:47] LABS: Glucose Point of Care 325 (65-105)
--- NOTE | 2020-03-31 03:15 | ECG_ITS ---
Measurements Intervals [place] Rate: 63 P: 13 NH: 148 QRS: 24 QRSD: 104 T: 38 QT: 423 QTc: 435 Interpretive Statements SINUS RHYTHM MISSING LEAD V2 ATYPICAL ECG Electronically Signed On 03-31-2020 12:49:47 STEREOTYPE MOLDER by mAor Lin D.O.
--- NOTE | 2020-03-31 03:33 | PDCODEBLUE ---
Code Blue Note Code Blue Note Time Arrived at Code Blue: 3:07 Initial Rhythm on Arrival: Asystole Airway Management: On Vent Chest Compressions: In process on arrival to bedside Result of Code Blue: In ICU Cardiac Rhythm Post Code: Sinus Rhythm Code Blue Summary: ON my arrival to bedside at 3:07 hrs nursing staff was giving chest compressions to this patient. The patient was flipped over from a prone position. 1 amp of Sodium Bicarbonate IVP was administered. At the next pulse check the patient had ROSC and was in a sinus rhythm. HR was in the low 40s. 0.5 mg of atropine IVP was administered. Blood pressure was checked and was 160/88 mm Hg. Post code care was initiated.
[2020-03-31 03:34] LABS: Basophils Absolute Auto 0.1 K/mm3 (0.0-0.1); Basophils Percent Auto 0.4 % (0.2-1.2); Eosinophils Absolute Auto 0.1 K/mm3 (0-0.3); Eosinophils Percent Auto 0.5 % (0-4.4); Hematocrit 36.2 % (37.0-47.0); Hemoglobin 11.4 g/dL (12.0-15.0); Immature Granulocyte Absolute 0.51 K/mm3 (0.00-0.031); Lymphocytes Absolute Auto 0.64 K/mm3 (0.9-3.2); Lymphocytes Percent Auto 3.8 % (18.3-44.2); Mean Corpuscular HGB Conc 31.5 g/dl (32-36); Mean Corpuscular Volume 82.5 fl (80-100); Mean Platelet Volume 9.8 fl (7.4-10.4); Monocytes Absolute Auto 1.5 K/mm3 (0.1-0.6); Monocytes Percent Auto 8.7 % (2.6-8.5); Neutrophils Percent Auto 83.6 % (45.5-73.1); Platelet Count Result 281 k/mm3 (150-375); Red Blood Count 4.39 M/mm3 (4.2-5.4); Red Cell Distribution Width 13.4 % (11.5-14.5); White Blood Count 16.8 K/mm3 (4.5-10.0)
[2020-03-31 03:40] LABS: Alveolar/Arterial O2 Gradient 579.3 mmHg; Base Excess ABG 6.8 mEq/l (+/-2.0); Fractional Inspired Oxygen 100 %; HCO3 ABG 31.8 mEq/l (22.0-26.0); Modified Allen's Test Pass; Oxygen Content ABG 16.5 %vol (16.0-22.0); Oxygen Saturation ABG 96.9 % (95.0-100.0); Oxyhemoglobin 95.4 % THb (90.0-100.0); PCO2 ABG 46.9 mmHg (35.0-45.0); PO2 ABG 86.8 mmHg (80.0-100.0); PO2 FiO2 Ratio Arterial Blood 0.87 %; Site Drawn LEFT RADIAL; Total Hemoglobin 12.2 g/dL (12.0-18.0); pH ABG 7.449 (7.350-7.450)
[2020-03-31 03:41] LABS: Arterial Blood Gas PEEP 12 cmH2O; Arterial Blood Gas Vent Mode CMV; Arterial Blood Gas Ventilator rate 24 /MIN; Device VENTILATOR
[2020-03-31 03:42] LABS: Arterial Blood Gas Tidal Volume 400 ml
[2020-03-31 03:45] LABS: Lactic Acid Reflex 1.2 mmol/L (0.7-2.1)
[2020-03-31 03:46] LABS: Alanine Aminotransferase 23 U/L (4-35); Alkaline Phosphatase 71 U/L (38-126); Anion Gap 1 mmol/L (8-16); Aspartate Amino Transferase 20 U/L (14-36); Bilirubin,Total 0.6 mg/dL (0.2-1.3); Blood Urea Nitrogen 33 mg/dL (7-17); Calcium 8.8 mg/dL (8.4-10.2); Carbon Dioxide 38 mmol/L (22-30); Chloride 95 mmol/L (98-107); Estimated CRCL calculation 158 ml/min; Estimated Glomerular Filt Rate > 60; Glucose 359 mg/dL (65-105); Magnesium 2.2 mg/dL (1.6-2.3); Phosphorus 4.1 mg/dL (2.5-4.5); Potassium 5.3 mmol/L (3.4-5.0); Sodium 134 mmol/L (137-145)
[2020-03-31 03:49] LABS: Glucose Point of Care 332 (65-105)
[2020-03-31 03:58] LABS: Troponin I < 0.012 ng/mL (0.000-0.034)
--- NOTE | 2020-03-31 04:35 | PC.NURSE ---
At 0300 am pt. went bradycardic into the 50's. Bradycardia appeared sinus. Pulse was palpated in right radial arm. Patient continued to become more bradycardic in the 40's. Patient still had a pulse. Current vitals were: Heart rate of 44, 89% saturations, blood pressure 126/72, and respiratory rate of 24 breaths per minute. Blood sugars were checked and resulted in the 300's, propofol drip was stopped. Crash cart and defibrillator pads placed on patient. Patient lost pulse at 0307 am, CPR started. Pt. currently in prone position, turned pt. supine, continued compressions. RT bagging patient. Patient was given 1 amp of Bicarb and atropine per MD orders. ROSC restored at 0312. Vitals following ROSC were: Heart rate 59, respiratory rate 24, O2 saturations 94%, and blood pressure 160/88. Patients person of contact called and updated. [facility] called and updated. No new orders. STAT EKG, labs, and chest X-ray ordered and reviewed with hospitalist/ [facility].
[2020-03-31] MEDS: CENTRAL LINE FLUSH 10 ML IV PUSH ×3 (05:51→21:46)
[2020-03-31 06:43] LABS: Glucose Point of Care 289 (65-105)
[2020-03-31] MEDS: INSULIN GLARGINE (*BKC) 100 UNITS/ML 55 UNITS SUB-Q (08:07)
[2020-03-31] MEDS: ENOXAPARIN 40 MG/0.4 ML SYRINGE SUB-Q ×2 (08:08→21:00)
[2020-03-31] MEDS: DEXAMETHASONE SOD PHOS INJ 4 MG/ML VIAL 6 MG IV PUSH (08:09)
[2020-03-31] MEDS: ASCORBIC ACID 500 MG TABLET 1000 MG PO (08:10)
[2020-03-31] MEDS: ASPIRIN 325 MG TABLET FEED TUBE (08:11)
[2020-03-31] MEDS: LORATADINE 10 MG TABLET PO (08:11)
[2020-03-31] MEDS: PANTOPRAZOLE SODIUM IV 40 MG VIAL IV PUSH (08:11)
[2020-03-31] MEDS: ZINC SULFATE 220 MG CAPSULE PO (08:11)
[2020-03-31 08:37] LABS: Glucose Point of Care 315 (65-105)
[2020-03-31] MEDS: ROCURONIUM BROMIDE 50 MG/5 ML VIAL IV PUSH (10:36)
--- NOTE | 2020-03-31 11:09 | PCDIET ---
ICU Rounding Note: Tube feedings held overnight due to code, but have since resumed at goal rate of 45mL/hr Glucerna 1.2. Last recorded weight is 152kg which is decreased from last review. Bowel Motility: No documented BM. Dulcolax given today. Labs Reviewed: Hgb (11.4), Hct (36.2), Glu (359), BUN (33), Cr (0.5), K (5.3), Na (134), Alb (3.0) Meds Noted: IV Insulin, Protonix, Miralax, Lisinopril, Versed, Albuterol, Vitamin C, Dulcolax, Calcium Citrate, Nimbex, Decadron, Fentanyl, Novolog, Lantus, Zinc Sulfate Additional Notes: Maceration to cheeks; no documented pressure sores. Following daily in ICU rounds. Assessing/reassessing every Tuesday/Tuesday.
[2020-03-31] MEDS: INSULIN HUMAN REGULAR (*BKC) 100 UNITS in SODIUM CHLORIDE 0.9% IV 99 ML 5.5 UNITS IV CONT (11:32)
[2020-03-31 11:37] LABS: Glucose Point of Care 335 (65-105)
[2020-03-31] MEDS: FENTANYL 2,500MCG/NS250ML(*CRX 2,500 MCG/250 ML BAG 12.5 MCG IV CONT (12:16)
[2020-03-31 12:42] LABS: Glucose Point of Care 319 (65-105)
[2020-03-31 13:33] LABS: Glucose Point of Care 326 (65-105)
--- NOTE | 2020-03-31 13:50 | WPDINFPN2 ---
Progress Note: A&P Assessment and Plan (1) COVID-19: Onset Date: ~03/18/20 Code(s): U07.1 - COVID-19 Status: Acute Assessment and Plan: 1. Respiratory failure 2. Viral pneumonia due to CoVid 19 infection, CXR stable 3. Multifactorial leukocytosis due to #2 and steroids REC Remdesivir off, and dexamethasone ongoing. No antibacterials indicated. Subjective Date/time seen: 03/31/20 13:50 Interval history: sedated Exam Narrative: Exam Narrative: t max 37.6 Const: General: no acute distress Other: obese Resp: Effort & Inspection: normal respiratory effort Auscultation: clear to auscultation bilaterally Cardio: Rate: regular rate Rhythm: regular rhythm Heart sounds: no gallops and no murmurs GI: Inspection: distended GI Palp: Yes Soft to palpation, No Tenderness to palpation present (GI) and No Guarding due to palpation present (GI) Urinary Catheter: Urinary Catheter: patent and draining and urine clear Skin: General skin exam: normal color and no rashes or lesions noted Objective Data Vital Signs Vital Signs: Vital Signs - 24 hr 03/30/20 14:00 03/30/20 14:05 03/30/20 15:24 Temperature Pulse Rate 80 78 Respiratory Rate 24 H Blood Pressure 99/73 L Pulse Oximetry 95 96 95 03/30/20 16:00 03/30/20 16:41 03/30/20 16:49 Temperature 36.6 C Pulse Rate 76 78 71 Respiratory Rate 24 H Blood Pressure 97/66 L Pulse Oximetry 93 96 91 03/30/20 17:09 03/30/20 18:00 03/30/20 18:34 Temperature Pulse Rate 73 74 73 Respiratory Rate 24 H 24 H 24 H Blood Pressure 107/74 Pulse Oximetry 92 03/30/20 19:37 03/30/20 20:00 03/30/20 20:10 Temperature 36.5 C Pulse Rate 68 70 69 Respiratory Rate 24 H 24 H 24 H Blood Pressure 105/66 109/69 Pulse Oximetry 93 93 03/30/20 20:30 03/30/20 21:03 03/30/20 22:00 Temperature Pulse Rate 74 72 74 Respiratory Rate 24 H 24 H Blood Pressure 117/76 Pulse Oximetry 95 94 03/30/20 23:15 03/30/20 23:51 03/31/20 00:00 Temperature 36.2 C L Pulse Rate 70 71 72 Respiratory Rate 24 H 24 H Blood Pressure 110/73 Pulse Oximetry 93 92 03/31/20 00:02 03/31/20 02:00 03/31/20 02:50 Temperature Pulse Rate 71 73 73 Respiratory Rate 24 H 24 H 24 H Blood Pressure 107/71 Pulse Oximetry 88 L 03/31/20 03:00 03/31/20 03:01 03/31/20 03:02 Temperature Pulse Rate 73 50 L 53 L Respiratory Rate 24 H 24 H Blood Pressure 118/79 Pulse Oximetry 89 L 03/31/20 03:04 03/31/20 03:05 03/31/20 03:07 Temperature Pulse Rate 44 L 44 L 27 L Respiratory Rate 24 H Blood Pressure 126/72 Pulse Oximetry 89 L 03/31/20 03:09 03/31/20 03:10 03/31/20 03:31 Temperature Pulse Rate 66 62 98 Respiratory Rate 28 H 17 Blood Pressure 160/88 H 147/98 H Pulse Oximetry 76 L 99 03/31/20 04:00 03/31/20 06:00 03/31/20 07:59 Temperature 36.8 C 36.8 C Pulse Rate 106 H 102 H 107 H Respiratory Rate 24 H 24 H 25 H Blood Pressure 147/98 H 166/98 H Pulse Oximetry 93 95 03/31/20 08:00 03/31/20 08:13 03/31/20 08:40 Temperature 37.2 C Pulse Rate 108 H 104 H 109 H Respiratory Rate 25 H 25 H Blood Pressure 153/95 H Pulse Oximetry 91 90 03/31/20 09:13 03/31/20 09:45 03/31/20 09:51 Temperature Pulse Rate 105 H 105 H 108 H Respiratory Rate 28 H 25 H 26 H Blood Pressure Pulse Oximetry 03/31/20 10:00 03/31/20 10:01 03/31/20 10:45 Temperature Pulse Rate 105 H 107 H 109 H Respiratory Rate 25 H 25 H Blood Pressure 134/84 Pulse Oximetry 91 80 L 03/31/20 12:00 03/31/20 12:16 Temperature 36.6 C Pulse Rate 92 92 Respiratory Rate 25 H 25 H Blood Pressure 112/72 Pulse Oximetry 97 Intake/Output Intake/Output: Intake & Output 01/1503/29/20 03/30/20 03/31/20 23:59 23:59 23:59 23:59 Intake Total 3153.4 2862.4 2993 870 Output Total 1325 2250 1250 1150 Balance 1828.4 612.4 3793 280 Meds/Results Medications: Active Medications Generic Name Dose R
--- NOTE | 2020-03-31 14:20 | WPDINTPN ---
Progress Note: A&P Assessment and Plan (1) Cardiac arrest: Code(s): I46.9 - Cardiac arrest, cause unspecified Status: Acute Assessment and Plan: Patient with bradycardia along with PEA arrest, ROSC within 5 minutes. Likely hypoxia, cardiac event -ABGs post arrest did not look too bad -continue to monitor -troponin negative x1 (2) Acute respiratory failure due to COVID-19: Code(s): U07.1 - COVID-19; J96.00 - Acute respiratory failure, unspecified whether with hypoxia or hypercapnia Status: Acute Assessment and Plan: Acute Respiratory failure secondary to COVID-19 pneumonia but may have component of CHF. Tested positive on 03/19/2011. Admitted 03/24/2011 -Worsening respiratory distress and hypoxia on high-flow nasal cannula and non-rebreather mask. Patient emergently intubated 03/25 -Chest x-ray shows 2. Multisegmental right basilar, subsegmental left basilar atelectasis and probably superimposed pneumonia -patient improved with performing, but had a cardiac arrest overnight on 03/31/2020, currently in supine position with 100% FiO2, peep of 12 -patient was off Nimbex, will restart chemical paralysis with Nimbex as patient is dyssynchronous with the ventilator and hypoxic -could continue bronchodilators (3) COVID-19: Onset Date: ~03/18/20 Code(s): U07.1 - COVID-19 Status: Acute Assessment and Plan: COVID-19 - SARS-CoV-2 PCR positive 03/18 - Patient is in Airborne, Droplet and Contact Isolation -Remains on dexamethasone -complete Remdesivir -Follow inflammatory periodically - Convalescent plasma administered 03/25. -Consulted infectious disease for opinion on Actemra which Dr. Thayer did not recommend (4) Type 2 diabetes mellitus without complications: Qualifiers: Diabetes mellitus termite helper insulin use: without snf use Qualified Code(s): E11.9 - Type 2 diabetes mellitus without complications Code(s): E11.9 - Type 2 diabetes mellitus without complications Status: Acute Assessment and Plan: Patient remains on Accu-Cheks and high-dose sliding scale patient also on significant amount of Lantus despite which patient is hyperglycemic most likely related to dexamethasone -start patient on insulin infusion until patient remains on dexamethasone (5) Benign essential hypertension: Code(s): I10 - Essential (primary) hypertension Status: Acute Assessment and Plan: Continue lisinopril (6) NSTEMI (non-ST elevated myocardial infarction): Code(s): I21.4 - Non-ST elevation (NSTEMI) myocardial infarction Status: Acute Assessment and Plan: Mild elevation in troponin likely secondary to respiratory failure. EKG does not show any ST elevation Troponin levels have flattened Continue aspirin, continue lisinopril ECHO 1. Complete two-dimensional, color flow and Doppler transthoracic echocardiogram is performed. 2. Left ventricular chamber dimension is normal. 3. Left ventricular systolic function is normal, estimated at 60-65%. 4. There is mildly increased left ventricular wall thickness. 5. The left ventricular diastolic function is normal. 6. E/e' 9 is minimally elevated. 7. There is trace tricuspid valve regurgitation. 8. Mild pulmonary hypertension, estimated pulmonary arterial systolic pressure is 46 mmHg. 9. Normal inferior vena cava with <50% collapse upon inspiration consistent with elevated right atrial pressure, 10 mmHg. Additional Plan DVT prophylaxis -Lovenox intermediate dose Stress ulcer prophylaxis -Protonix Nutrition -restart tube feeds Code Status -patient is full code Total Critical Care Time -34 minutes Due to a high probability of clinically significant, life threatening deterioration, the patient required my highest level of preparedness to intervene emergently and I personally spent this critical care time directly and personally managing the patient. This critical care t
[2020-03-31] MEDS: PROPOFOL IV EMULSION 100 ML 17.88 MG IV CONT (14:30)
[2020-03-31 15:48] LABS: Glucose Point of Care 307 (65-105)
[2020-03-31 15:48] LABS: Glucose Point of Care 280 (65-105)
--- NOTE | 2020-03-31 16:23 | PM.IMPN ---
Progress Note: A&P Assessment and Plan (1) Acute respiratory failure with hypoxia: Code(s): J96.01 - Acute respiratory failure with hypoxia Status: Acute Assessment and Plan: Due to COVID-19 Tested positive 03/19 Continue to support on vent and wean as possible 03/30 55%/PEEP 12/TV 400 03/31/20 16:23 patient is morbidly obese with BMI of 56 was positive for COVID on 03/19/20 and states for the 1 week she had a cough shortness of breath and was getting progressively over and and symptoms over worse with exertion patient presented emergency department further evaluate patient was quite hypoxic and was placed on BiPAP and continue to monitor however this morning patient symptoms were worsening patient was seen by and service it was decided to intubate the patient currently patient on vent unable to provide any history review of symptoms. 03/31 on 03/24 patient's symptoms worsen patient was intubated currently on vent, recieved convalescent plama on 03/25. completed remdesivir, and currently on dexamathasone, last night patient had a cardiac arrest CPR was resumed after 5 minutes patient ROSC etiology uncertain discussed with metal molder will continue to monitor and further recommendation to follow (2) COVID-19: Onset Date: ~03/18/20 Code(s): U07.1 - COVID-19 Status: Acute Assessment and Plan: 03/19 (3) Type 2 diabetes mellitus without complications: Qualifiers: Diabetes mellitus mcc insulin use: without oil heaterman use Qualified Code(s): E11.9 - Type 2 diabetes mellitus without complications Code(s): E11.9 - Type 2 diabetes mellitus without complications Status: Acute Assessment and Plan: Insulin basal with sliding scale (4) NSTEMI (non-ST elevated myocardial infarction): Code(s): I21.4 - Non-ST elevation (NSTEMI) myocardial infarction Status: Acute Assessment and Plan: Most likely NSTEMI type 2 secondary to ischemia secondary to respiratory failure monitor (5) Non-alcoholic fatty liver disease: Code(s): K76.0 - Fatty (change of) liver, not elsewhere classified Status: Acute Assessment and Plan: Monitor CMP likely due to severe obesity (6) History of kidney cancer: Code(s): Z85.528 - Personal history of other malignant neoplasm of kidney Status: Acute Subjective Date/time seen: 03/31/20 16:23 patient is morbidly obese with BMI of 56 was positive for COVID on 03/19/20 and states for the 1 week she had a cough shortness of breath and was getting progressively over and and symptoms over worse with exertion patient presented emergency department further evaluate patient was quite hypoxic and was placed on BiPAP and continue to monitor however this morning patient symptoms were worsening patient was seen by and service it was decided to intubate the patient currently patient on vent unable to provide any history review of symptoms. 03/31 on 03/24 patient's symptoms worsen patient was intubated currently on vent, [facility]. completed remdesivir, and currently on dexamathasone, last night patient had a cardiac arrest CPR was resumed after 5 minutes patient ROSC etiology uncertain discussed with metal molder will continue to monitor and further recommendation to follow Review of Systems Review of Systems: ROS unobtainable: Yes unobtainable due to endotracheal tube Exam Narrative: Exam Narrative: Morbidly obese Patient is comfortable, NAD HEENT: ET tube in place LUNGS: Normal respiratory effort ABD: Morbidly obese distended Lower extremities: edema SKIN: nonjaundiced Neuro: On vent and sedated. Objective Data Vital Signs Vital Signs: Vital Signs - 24 hr 03/30/20 16:41 03/30/20 16:49 03/30/20 17:09 Temperature Pulse Rate 78 71 73 Respiratory Rate 24 H Blood Pressure Pulse Oximetry 96 91 03/30/20 18:00 03/30/20 18:34 03/30/20 19:37 Temperature Pulse Rate 74 7
[2020-03-31 17:28] LABS: Glucose Point of Care 236 (65-105)
[2020-03-31 18:38] LABS: Glucose Point of Care 228 (65-105)
[2020-03-31] MEDS: PROPOFOL IV EMULSION 100 ML 22.35 MG IV CONT ×2 (19:14→22:36)
[2020-03-31] MEDS: INSULIN HUMAN REGULAR (*BKC) 100 UNITS in SODIUM CHLORIDE 0.9% IV 99 ML 14.4 UNITS IV CONT (19:45)
[2020-03-31 20:40] LABS: Glucose Point of Care 220 (65-105)
[2020-03-31 20:40] LABS: Glucose Point of Care 186 (65-105)
[2020-03-31] MEDS: MONTELUKAST SODIUM 10 MG TABLET PO (21:00)
[2020-03-31 21:43] LABS: Hemoglobin A1C 9.1 % (<5.7)
[2020-03-31 21:47] LABS: Anion Gap 3 mmol/L (8-16); Blood Urea Nitrogen 33 mg/dL (7-17); Calcium 9.1 mg/dL (8.4-10.2); Carbon Dioxide 36 mmol/L (22-30); Chloride 96 mmol/L (98-107); Estimated CRCL calculation 133 ml/min; Estimated Glomerular Filt Rate > 60; Glucose 183 mg/dL (65-105); Potassium 4.6 mmol/L (3.4-5.0); Sodium 135 mmol/L (137-145)
[2020-03-31 21:58] LABS: Glucose Point of Care 178 (65-105)
[2020-03-31 23:09] LABS: Glucose Point of Care 171 (65-105)
[2020-04-01] VITALS (32 sets, daily range): BP systolic 113–136; BP diastolic 7–87; PULSE 60–105; RESP 24–26; TEMP 36.6–37.8; O2SAT 92–97; BMI 56.7
[2020-04-01 00:37] LABS: Add Urine Microscopic? YES; Appearance Urine Clear (Clear); Bacteria Urine Trace /hpf; Bilirubin Urine Negative (Negative); Blood Urine Negative (Negative); Color Urine Yellow (Yellow); Glucose Urine UA Negative (Negative); Ketones Urine Negative (Negative); Leukocyte Esterase Ur Negative LEU/UL (NEGATIVE); Mucus Urine Rare /lpf; Nitrate Urine Negative (Negative); Protein Urine 1+ mg/dL (Negative); RBC Urine 0-2 /hpf (0-2); WBC Urine 0-3 /hpf (0-3)
[2020-04-01 00:40] LABS: Anion Gap 2 mmol/L (8-16); Blood Urea Nitrogen 32 mg/dL (7-17); Calcium 8.5 mg/dL (8.4-10.2); Carbon Dioxide 36 mmol/L (22-30); Chloride 96 mmol/L (98-107); Estimated CRCL calculation 133 ml/min; Estimated Glomerular Filt Rate > 60; Glucose 186 mg/dL (65-105); Potassium 4.6 mmol/L (3.4-5.0); Sodium 134 mmol/L (137-145)
[2020-04-01 00:50] LABS: Glucose Point of Care 193 (65-105)
[2020-04-01 00:50] LABS: Glucose Point of Care 176 (65-105)
[2020-04-01 00:59] LABS: Specific Grav Ur 1.039 (1.001-1.035)
[2020-04-01] MEDS: INSULIN HUMAN REGULAR (*BKC) 100 UNITS in SODIUM CHLORIDE 0.9% IV 99 ML 9.9 UNITS IV CONT (03:00)
[2020-04-01] MEDS: PROPOFOL IV EMULSION 100 ML 22.35 MG IV CONT ×2 (03:13→08:08)
[2020-04-01 04:39] LABS: Hematocrit 35.8 % (37.0-47.0); Hemoglobin 11.1 g/dL (12.0-15.0); Mean Corpuscular Hemoglobin 25.9 pg (26-34); Mean Corpuscular Volume 83.6 fl (80-100); Mean Platelet Volume 9.6 fl (7.4-10.4); Platelet Count Result 286 k/mm3 (150-375); Red Blood Count 4.28 M/mm3 (4.2-5.4); Red Cell Distribution Width 13.6 % (11.5-14.5); White Blood Count 15.8 K/mm3 (4.5-10.0)
[2020-04-01 04:54] LABS: Lactic Acid Reflex 1.2 mmol/L (0.7-2.1)
[2020-04-01 05:01] LABS: Alveolar/Arterial O2 Gradient 365.3 mmHg; Base Excess ABG 6.3 mEq/l (+/-2.0); Carboxyhemoglobin 0.3 % THb (0-2.0); Fractional Inspired Oxygen 70 %; HCO3 ABG 30.6 mEq/l (22.0-26.0); Methemoglobin ABG 0.2 %THb (0-1.5); Oxygen Saturation ABG 97.2 % (95.0-100.0); Oxyhemoglobin 95.9 % THb (90.0-100.0); PCO2 ABG 42.7 mmHg (35.0-45.0); PO2 ABG 87.9 mmHg (80.0-100.0); PO2 FiO2 Ratio Arterial Blood 1.26 %; Reduced Hemoglobin 3.6 %THb (0-5.0); Total Hemoglobin 11.8 g/dL (12.0-18.0); pH ABG 7.473 (7.350-7.450)
[2020-04-01 05:04] LABS: Arterial Blood Gas PEEP 12 cmH2O; Arterial Blood Gas Tidal Volume 400 ml; Arterial Blood Gas Vent Mode CMV; Arterial Blood Gas Ventilator rate 24 /MIN; Device VENTILATOR; Modified Allen's Test Pass; Site Drawn RIGHT RADIAL
[2020-04-01 05:08] LABS: Alanine Aminotransferase 23 U/L (4-35); Albumin Level 3.1 g/dL (3.5-5.1); Alkaline Phosphatase 67 U/L (38-126); Anion Gap 1 mmol/L (8-16); Aspartate Amino Transferase 23 U/L (14-36); Bilirubin,Total 0.6 mg/dL (0.2-1.3); Blood Urea Nitrogen 32 mg/dL (7-17); Calcium 8.9 mg/dL (8.4-10.2); Carbon Dioxide 38 mmol/L (22-30); Chloride 97 mmol/L (98-107); Estimated CRCL calculation 133 ml/min; Estimated Glomerular Filt Rate > 60; Glucose 112 mg/dL (65-105); Lipase 14 U/L (23-300); Magnesium 1.9 mg/dL (1.6-2.3); Phosphorus 3.7 mg/dL (2.5-4.5); Potassium 4.4 mmol/L (3.4-5.0); Sodium 136 mmol/L (137-145)
[2020-04-01 05:21] LABS: CRP 20.8 mg/dL (<1.0)
[2020-04-01] MEDS: CENTRAL LINE FLUSH 10 ML IV PUSH ×3 (05:28→21:43)
[2020-04-01 07:00] LABS: Glucose Point of Care 112 (65-105)
[2020-04-01 07:00] LABS: Glucose Point of Care 130 (65-105)
[2020-04-01 07:00] LABS: Glucose Point of Care 156 (65-105)
[2020-04-01 07:00] LABS: Glucose Point of Care 150 (65-105)
[2020-04-01 07:00] LABS: Glucose Point of Care 110 (65-105)
[2020-04-01 07:00] LABS: Glucose Point of Care 120 (65-105)
[2020-04-01 08:14] LABS: Anion Gap 1 mmol/L (8-16); Blood Urea Nitrogen 34 mg/dL (7-17); Calcium 8.8 mg/dL (8.4-10.2); Carbon Dioxide 37 mmol/L (22-30); Chloride 97 mmol/L (98-107); Estimated CRCL calculation 135 ml/min; Estimated Glomerular Filt Rate > 60; Glucose 117 mg/dL (65-105); Potassium 4.4 mmol/L (3.4-5.0); Sodium 135 mmol/L (137-145)
[2020-04-01] MEDS: FENTANYL 2,500MCG/NS250ML(*CRX 2,500 MCG/250 ML BAG 12.5 MCG IV CONT (09:04)
[2020-04-01] MEDS: ASPIRIN 325 MG TABLET FEED TUBE (09:05)
[2020-04-01] MEDS: DEXAMETHASONE SOD PHOS INJ 4 MG/ML VIAL 6 MG IV PUSH (09:06)
[2020-04-01] MEDS: ASCORBIC ACID 500 MG TABLET 1000 MG PO (09:06)
[2020-04-01] MEDS: LORATADINE 10 MG TABLET PO (09:06)
[2020-04-01] MEDS: ENOXAPARIN 40 MG/0.4 ML SYRINGE SUB-Q ×2 (09:06→20:43)
[2020-04-01] MEDS: ZINC SULFATE 220 MG CAPSULE PO (09:07)
[2020-04-01] MEDS: PANTOPRAZOLE SODIUM IV 40 MG VIAL IV PUSH (09:07)
--- NOTE | 2020-04-01 11:38 | PCDIET ---
Nutrition Follow-Up Complete: Nutrition Diagnosis: Inadequate oral intake related to oral intubation as evidenced by NPO status. Nutrition Goal: Patient to meet estimated nutritional needs. Goal met. Patient tolerating Glucerna 1.2 at 45mL/hr with 50mL water flush every 4 hours. Last recorded weight is 154.7 kg which is increased from last review. +I/O. Bowel Motility: No documented BM. Discussed with MD. PRN orders for Dulcolax and Miralax noted. Labs Reviewed: Hgb (11.1), Hct (35.8), Glu (120), BUN (34), Cr (0.6), Na (135) Meds Noted: Albuterol, Vitamin C, Calcium Citrate, Dulcolax, Decadron, Fentanyl, IV Aspart, Lantus, Lisinopril, Versed, Protonix, Miralax, Propofol (rate of 22.35mL/hr provides 590kcal per day), Vancomycin, Zinc Sulfate Additional Notes: Maceration to cheeks, and chin peeling. No documented pressure sores. Will continue to monitor with same goal. Nutrition Monitoring and Evaluation: Follow up every Tuesday/Tuesday.
--- NOTE | 2020-04-01 11:39 | WPDINTPN ---
Progress Note: A&P Assessment and Plan (1) Cardiac arrest: Code(s): I46.9 - Cardiac arrest, cause unspecified Status: Acute Assessment and Plan: Patient with bradycardia along with PEA arrest, ROSC within 5 minutes. Likely hypoxia, cardiac event -ABGs post arrest did not look too bad -continue to monitor -troponin negative x1 (2) Acute respiratory failure due to COVID-19: Code(s): U07.1 - COVID-19; J96.00 - Acute respiratory failure, unspecified whether with hypoxia or hypercapnia Status: Acute Assessment and Plan: Acute Respiratory failure secondary to COVID-19 pneumonia but may have component of CHF. Tested positive on 03/19/2011. Admitted 03/24/2011 -Worsening respiratory distress and hypoxia on high-flow nasal cannula and non-rebreather mask. Patient emergently intubated 03/25 -Chest x-ray shows 2. Multisegmental right basilar, subsegmental left basilar atelectasis and probably superimposed pneumonia -patient improved with performing, but had a cardiac arrest overnight on 03/31/2020, currently in supine position with 70% FiO2, Decrease PEEP to 10, Wean FiO2 -patient On Nimbex, - On Prpofol, Fentanyl and versed for sedation -could continue bronchodilators (3) COVID-19: Onset Date: ~03/18/20 Code(s): U07.1 - COVID-19 Status: Acute Assessment and Plan: COVID-19 - SARS-CoV-2 PCR positive 03/18 - Patient is in Airborne, Droplet and Contact Isolation -Remains on dexamethasone -completed Remdesivir -Follow inflammatory periodically - Convalescent plasma administered 03/25. -Consulted infectious disease for opinion on Actemra which Dr. Thayer did not recommend (4) Type 2 diabetes mellitus without complications: Qualifiers: Diabetes mellitus truck terminal manager insulin use: without fpc use Qualified Code(s): E11.9 - Type 2 diabetes mellitus without complications Code(s): E11.9 - Type 2 diabetes mellitus without complications Status: Acute Assessment and Plan: Patient remains on Accu-Cheks and high-dose sliding scale patient also on significant amount of Lantus despite which patient is hyperglycemic most likely related to dexamethasone -started patient on insulin infusion (03/31) until patient remains on dexamethasone (5) Benign essential hypertension: Code(s): I10 - Essential (primary) hypertension Status: Acute Assessment and Plan: Continue lisinopril (6) NSTEMI (non-ST elevated myocardial infarction): Code(s): I21.4 - Non-ST elevation (NSTEMI) myocardial infarction Status: Acute Assessment and Plan: Mild elevation in troponin likely secondary to respiratory failure. EKG does not show any ST elevation 03/31: troponin < 0.012 x1 Continue aspirin, continue lisinopril ECHO 1. Complete two-dimensional, color flow and Doppler transthoracic echocardiogram is performed. 2. Left ventricular chamber dimension is normal. 3. Left ventricular systolic function is normal, estimated at 60-65%. 4. There is mildly increased left ventricular wall thickness. 5. The left ventricular diastolic function is normal. 6. E/e' 9 is minimally elevated. 7. There is trace tricuspid valve regurgitation. 8. Mild pulmonary hypertension, estimated pulmonary arterial systolic pressure is 46 mmHg. 9. Normal inferior vena cava with <50% collapse upon inspiration consistent with elevated right atrial pressure, 10 mmHg. (7) UTI (urinary tract infection): Code(s): N39.0 - Urinary tract infection, site not specified Status: Acute Assessment and Plan: Urine culture growing Staph aureus -started pt on vancomycin - ID following Additional Plan DVT prophylaxis -Lovenox intermediate dose Stress ulcer prophylaxis -Protonix Nutrition -tolerating tube feeds Code Status -patient is full code Total Critical Care Time -33 minutes Due to a high probability of clinically significant, life threatening det
[2020-04-01] MEDS: PROPOFOL IV EMULSION 100 ML 26.82 MG IV CONT ×4 (12:17→21:59)
--- NOTE | 2020-04-01 13:05 | WPDINFPN2 ---
Progress Note: A&P Assessment and Plan (1) COVID-19: Onset Date: ~03/18/20 Code(s): U07.1 - COVID-19 Status: Acute Assessment and Plan: 1. Respiratory failure, ABGs better but still with O2 deficit and lung infiltrates. Sputum with MELA 2. Viral pneumonia due to CoVid 19 infection, CXR stable 3. Multifactorial leukocytosis due to #2 and steroids 4. PCN and cephalexin intolerances/allergies REC Remdesivir off, and dexamethasone ongoing. Due to potential for MLEA LRTI, will begin levofloxacin Subjective Date/time seen: 04/01/20 13:05 Interval history: off paralytic, sedated no pressors Exam Narrative: Exam Narrative: afebrile Const: General: no acute distress Other: morbid obesity Resp: Effort & Inspection: normal respiratory effort Auscultation: clear to auscultation bilaterally Cardio: Rate: regular rate Rhythm: regular rhythm Heart sounds: no murmurs GI: Inspection: non-distended GI Palp: Yes Soft to palpation and No Tenderness to palpation present (GI) Urinary Catheter: Urinary Catheter: patent and draining and urine clear Skin: General skin exam: normal color and no rashes or lesions noted Objective Data Vital Signs Vital Signs: Vital Signs - 24 hr 03/31/20 14:00 03/31/20 14:30 03/31/20 14:31 Temperature Pulse Rate 86 104 H 104 H Respiratory Rate 25 H 25 H 25 H Blood Pressure 124/79 Pulse Oximetry 94 03/31/20 15:16 03/31/20 16:00 03/31/20 16:47 Temperature 36.8 C Pulse Rate 102 H 88 86 Respiratory Rate 25 H Blood Pressure 139/83 Pulse Oximetry 96 92 92 03/31/20 17:24 03/31/20 17:25 03/31/20 18:00 Temperature Pulse Rate 86 88 89 Respiratory Rate 25 H 25 H 25 H Blood Pressure 147/92 H Pulse Oximetry 93 03/31/20 19:13 03/31/20 19:14 03/31/20 19:55 Temperature 37.3 C Pulse Rate 88 88 Respiratory Rate 25 H 25 H Blood Pressure Pulse Oximetry 03/31/20 20:00 03/31/20 20:15 03/31/20 20:30 Temperature Pulse Rate 93 95 97 Respiratory Rate 22 H 23 H Blood Pressure 139/89 146/90 H Pulse Oximetry 95 94 96 03/31/20 21:00 03/31/20 21:30 03/31/20 22:00 Temperature 37.7 C H Pulse Rate 97 96 94 Respiratory Rate 23 H Blood Pressure 146/79 H 139/82 140/83 Pulse Oximetry 94 94 93 03/31/20 22:30 03/31/20 22:36 03/31/20 22:54 Temperature Pulse Rate 95 94 97 Respiratory Rate 21 H 24 H Blood Pressure 137/77 Pulse Oximetry 94 96 03/31/20 23:34 04/01/20 00:00 04/01/20 02:00 Temperature 37.4 C 37.8 C H Pulse Rate 91 89 93 Respiratory Rate 26 H 25 H 25 H Blood Pressure 129/81 136/87 Pulse Oximetry 94 93 04/01/20 02:48 04/01/20 03:05 04/01/20 03:13 Temperature Pulse Rate 98 93 93 Respiratory Rate 26 H 26 H Blood Pressure Pulse Oximetry 94 04/01/20 04:00 04/01/20 05:14 04/01/20 06:00 Temperature 37.7 C H 37.7 C H Pulse Rate 92 90 88 Respiratory Rate 25 H 24 H Blood Pressure 113/79 117/72 Pulse Oximetry 96 96 97 04/01/20 08:00 04/01/20 08:15 04/01/20 09:04 Temperature 37.8 C H Pulse Rate 91 93 93 Respiratory Rate 26 H 25 H 25 H Blood Pressure 113/7 L Pulse Oximetry 97 04/01/20 09:18 04/01/20 10:00 04/01/20 10:37 Temperature Pulse Rate 90 90 90 Respiratory Rate 24 H Blood Pressure 123/80 Pulse Oximetry 95 97 97 04/01/20 12:15 Temperature Pulse Rate 89 Respiratory Rate 24 H Blood Pressure Pulse Oximetry Intake/Output Intake/Output: Intake & Output 03/29/20 03/30/20 03/31/20 04/01/20 23:59 23:59 23:59 23:59 Intake Total 2862.4 2993 1992.5 1192.5 Output Total 2250 1250 1150 500 Balance 612.4 1743 842.5 692.5 Meds/Results Medications: Active Medications Generic Name Dose Route Start Last Admin Trade Name Freq PRN Reason Stop Dose Admin Albuterol 2.5 mg 03/24/20 13:40 03/25/20 02:43 Albuterol Sulfate Neb 2.5 Mg/0.5 Ml Inh INHALATION 2.5 mg Q4HRT PRN Administration Shortness Of Breath Ascorbic Acid 1,000
[2020-04-01] MEDS: levoFLOXacin 500 MG/D5W 100 ML 500 MG/100 ML BAG 100 MG IVPB (13:53)
[2020-04-01] MEDS: INSULIN HUMAN REGULAR (*BKC) 100 UNITS in SODIUM CHLORIDE 0.9% IV 99 ML 10.4 UNITS IV CONT (14:29)
[2020-04-01 15:08] LABS: Anion Gap 1 mmol/L (8-16); Blood Urea Nitrogen 31 mg/dL (7-17); Calcium 8.5 mg/dL (8.4-10.2); Carbon Dioxide 34 mmol/L (22-30); Chloride 97 mmol/L (98-107); Estimated CRCL calculation 159 ml/min; Estimated Glomerular Filt Rate > 60; Glucose 176 mg/dL (65-105); Potassium 4.8 mmol/L (3.4-5.0); Sodium 132 mmol/L (137-145)
--- NOTE | 2020-04-01 15:59 | PM.IMPN ---
Progress Note: A&P Assessment and Plan (1) Acute respiratory failure with hypoxia: Code(s): J96.01 - Acute respiratory failure with hypoxia Status: Acute Assessment and Plan: Due to COVID-19 Tested positive 03/19 Continue to support on vent and wean as possible 03/30 55%/PEEP 12/TV 400 04/01/20 15:59 patient is morbidly obese with BMI of 56 was positive for COVID on 03/19/20 and states for the 1 week she had a cough shortness of breath and was getting progressively over and and symptoms over worse with exertion patient presented emergency department further evaluate patient was quite hypoxic and was placed on BiPAP and continue to monitor however this morning patient symptoms were worsening patient was seen by and service it was decided to intubate the patient currently patient on vent unable to provide any history review of symptoms. 03/31 on 03/24 patient's symptoms worsen patient was intubated currently on vent, recieved convalescent plama on 03/25. completed remdesivir, and currently on dexamathasone, last night patient had a cardiac arrest CPR was resumed after 5 minutes patient ROSC etiology uncertain discussed with shopping investigator will continue to monitor and further recommendation to follow 04/01 patient on vent and on Nimbex, sputum culture is growing Staphylococcus aureus patient is seen by Dr. Thayer and started patient on levaquin, for lower respiratory track infection, patient is off Remdesivir and dexamethasone 10/21, patient is seen by shopping investigator and appreciat. (2) COVID-19: Onset Date: ~03/18/20 Code(s): U07.1 - COVID-19 Status: Acute Assessment and Plan: 03/19 (3) Type 2 diabetes mellitus without complications: Qualifiers: Diabetes mellitus mcc insulin use: without terminal makeup operator use Qualified Code(s): E11.9 - Type 2 diabetes mellitus without complications Code(s): E11.9 - Type 2 diabetes mellitus without complications Status: Acute Assessment and Plan: Insulin basal with sliding scale (4) NSTEMI (non-ST elevated myocardial infarction): Code(s): I21.4 - Non-ST elevation (NSTEMI) myocardial infarction Status: Acute Assessment and Plan: Most likely NSTEMI type 2 secondary to ischemia secondary to respiratory failure monitor (5) Non-alcoholic fatty liver disease: Code(s): K76.0 - Fatty (change of) liver, not elsewhere classified Status: Acute Assessment and Plan: Monitor CMP likely due to severe obesity (6) History of kidney cancer: Code(s): Z85.528 - Personal history of other malignant neoplasm of kidney Status: Acute Subjective Date/time seen: 04/01/20 15:59 patient is morbidly obese with BMI of 56 was positive for COVID on 03/19/20 and states for the 1 week she had a cough shortness of breath and was getting progressively over and and symptoms over worse with exertion patient presented emergency department further evaluate patient was quite hypoxic and was placed on BiPAP and continue to monitor however this morning patient symptoms were worsening patient was seen by and service it was decided to intubate the patient currently patient on vent unable to provide any history review of symptoms. 03/31 on 03/24 patient's symptoms worsen patient was intubated currently on vent, recieved convalescent plama on 03/25. completed remdesivir, and currently on dexamathasone, last night patient had a cardiac arrest CPR was resumed after 5 minutes patient ROSC etiology uncertain discussed with shopping investigator will continue to monitor and further recommendation to follow 04/01 patient on vent and on Nimbex, sputum culture is growing Staphylococcus aureus patient is seen by Dr. Thayer and started patient on levaquin, for lower respiratory track infection, patient is off Remdesivir and dexamethasone 10/21, patient is seen by shopping investigator and appreciat. Review of Systems Review of Systems: ROS unobtainable: Yes unobtainable
[2020-04-01 16:24] LABS: Glucose Point of Care 116 (65-105)
[2020-04-01 16:24] LABS: Glucose Point of Care 180 (65-105)
[2020-04-01 16:24] LABS: Glucose Point of Care 155 (65-105)
[2020-04-01 16:24] LABS: Glucose Point of Care 185 (65-105)
[2020-04-01 16:24] LABS: Glucose Point of Care 128 (65-105)
[2020-04-01 19:54] LABS: Glucose Point of Care 166 (65-105)
[2020-04-01 19:54] LABS: Glucose Point of Care 168 (65-105)
[2020-04-01] MEDS: MONTELUKAST SODIUM 10 MG TABLET PO (20:43)
[2020-04-01 20:52] LABS: Glucose Point of Care 158 (65-105)
[2020-04-01 21:34] LABS: Anion Gap 2 mmol/L (8-16); Blood Urea Nitrogen 27 mg/dL (7-17); Calcium 8.3 mg/dL (8.4-10.2); Carbon Dioxide 35 mmol/L (22-30); Chloride 97 mmol/L (98-107); Estimated CRCL calculation 135 ml/min; Estimated Glomerular Filt Rate > 60; Glucose 147 mg/dL (65-105); Potassium 4.6 mmol/L (3.4-5.0); Sodium 134 mmol/L (137-145)
[2020-04-01] MEDS: INSULIN HUMAN REGULAR (*BKC) 100 UNITS in SODIUM CHLORIDE 0.9% IV 99 ML 10 UNITS IV CONT (22:00)
[2020-04-02] VITALS (35 sets, daily range): BP systolic 102–159; BP diastolic 67–95; PULSE 56–95; RESP 24–30; TEMP 36.2–37.3; O2SAT 90–99
[2020-04-02] MEDS: FENTANYL 2,500MCG/NS250ML(*CRX 2,500 MCG/250 ML BAG 15 MCG IV CONT ×2 (01:50→17:31)
[2020-04-02] MEDS: PROPOFOL IV EMULSION 100 ML 26.82 MG IV CONT ×5 (01:50→20:06)
[2020-04-02 04:37] LABS: Alveolar/Arterial O2 Gradient 368.1 mmHg; Base Excess ABG 7.6 mEq/l (+/-2.0); Carboxyhemoglobin 0.3 % THb (0-2.0); Fractional Inspired Oxygen 70 %; HCO3 ABG 32.6 mEq/l (22.0-26.0); Methemoglobin ABG 0.3 %THb (0-1.5); Oxygen Content ABG 18.5 %vol (16.0-22.0); Oxygen Saturation ABG 96.3 % (95.0-100.0); PO2 ABG 80.5 mmHg (80.0-100.0); PO2 FiO2 Ratio Arterial Blood 1.15 %; Reduced Hemoglobin 4.4 %THb (0-5.0); Total Hemoglobin 13.8 g/dL (12.0-18.0); pH ABG 7.459 (7.350-7.450)
[2020-04-02 04:38] LABS: Arterial Blood Gas Vent Mode CMV; Arterial Blood Gas Ventilator rate 24 /MIN; Device VENTILATOR; Modified Allen's Test Pass; Site Drawn RIGHT RADIAL
[2020-04-02 04:39] LABS: Arterial Blood Gas PEEP 12 cmH2O; Arterial Blood Gas Tidal Volume 400 ml
[2020-04-02 04:52] LABS: Hematocrit 31.9 % (37.0-47.0); Hemoglobin 9.8 g/dL (12.0-15.0); Mean Corpuscular HGB Conc 30.7 g/dl (32-36); Mean Corpuscular Hemoglobin 26.1 pg (26-34); Mean Corpuscular Volume 84.8 fl (80-100); Mean Platelet Volume 9.7 fl (7.4-10.4); Platelet Count Result 265 k/mm3 (150-375); Red Blood Count 3.76 M/mm3 (4.2-5.4); Red Cell Distribution Width 13.5 % (11.5-14.5)
[2020-04-02 05:08] LABS: Alanine Aminotransferase 26 U/L (4-35); Albumin Level 2.8 g/dL (3.5-5.1); Alkaline Phosphatase 64 U/L (38-126); Anion Gap 1 mmol/L (8-16); Aspartate Amino Transferase 22 U/L (14-36); Bilirubin,Total 0.5 mg/dL (0.2-1.3); Blood Urea Nitrogen 27 mg/dL (7-17); Calcium 8.6 mg/dL (8.4-10.2); Carbon Dioxide 36 mmol/L (22-30); Chloride 98 mmol/L (98-107); Estimated CRCL calculation 159 ml/min; Estimated Glomerular Filt Rate > 60; Glucose 122 mg/dL (65-105); Lactate Dehydrogenase 330 U/L (313-618); Magnesium 2.1 mg/dL (1.6-2.3); Phosphorus 4.2 mg/dL (2.5-4.5); Potassium 4.4 mmol/L (3.4-5.0); Sodium 135 mmol/L (137-145)
[2020-04-02 05:26] LABS: CRP 15.1 mg/dL (<1.0)
[2020-04-02] MEDS: CENTRAL LINE FLUSH 10 ML IV PUSH ×3 (05:49→22:00)
[2020-04-02 06:37] LABS: Glucose Point of Care 143 (65-105)
[2020-04-02 06:37] LABS: Glucose Point of Care 121 (65-105)
[2020-04-02 06:37] LABS: Glucose Point of Care 112 (65-105)
[2020-04-02 06:37] LABS: Glucose Point of Care 155 (65-105)
[2020-04-02 06:37] LABS: Glucose Point of Care 161 (65-105)
[2020-04-02 06:37] LABS: Glucose Point of Care 117 (65-105)
[2020-04-02 06:37] LABS: Glucose Point of Care 145 (65-105)
[2020-04-02 06:37] LABS: Glucose Point of Care 130 (65-105)
[2020-04-02] MEDS: polyethylene glycoL 3350 17 GM POWD.PACK PO (08:15)
[2020-04-02] MEDS: ASPIRIN 325 MG TABLET FEED TUBE (08:15)
[2020-04-02] MEDS: DEXAMETHASONE SOD PHOS INJ 4 MG/ML VIAL 6 MG IV PUSH (08:16)
[2020-04-02] MEDS: ENOXAPARIN 40 MG/0.4 ML SYRINGE SUB-Q ×2 (08:16→21:14)
[2020-04-02] MEDS: ASCORBIC ACID 500 MG TABLET 1000 MG PO (08:17)
[2020-04-02] MEDS: PANTOPRAZOLE SODIUM IV 40 MG VIAL IV PUSH (08:17)
[2020-04-02] MEDS: ZINC SULFATE 220 MG CAPSULE PO (08:18)
[2020-04-02] MEDS: LORATADINE 10 MG TABLET PO (08:18)
[2020-04-02] MEDS: INSULIN GLARGINE (*BKC) 100 UNITS/ML 55 UNITS SUB-Q (09:20)
[2020-04-02] MEDS: INSULIN HUMAN REGULAR (*BKC) 100 UNITS in SODIUM CHLORIDE 0.9% IV 99 ML 7.9 UNITS IV CONT (10:14)
--- NOTE | 2020-04-02 11:16 | PCDIET ---
ICU Rounding Note: Patient tolerating Glucerna 1.2 at 45mL/hr with 50mL water flush every 4 hours. Last recorded weight is 159.6kg which is increased from last review. +I/O. Bowel Motility: No BM reported. Patient got Miralax and will receive Dulcolax today, per RN. Labs Reviewed: Hgb (9.8), Hct (31.9), Glu (122), BUN (27), Cr (0.5), Na (135), Alb (2.8) Meds Noted: Albuterol, Vitamin C, Calcium Citrate, Decadron, Fentanyl, Lantus, Levaquin, Lisinopril, Versed, Protonix, Miralax, Propofol (rate of 26.82mL/hr provides 708kcal per day), Zinc Sulfate Additional Notes: Plan to prone patient today. Cheek abrasions reported with no other skin issues. Following daily in ICU rounds. Assessing/reassessing every Tuesday/Tuesday.
--- NOTE | 2020-04-02 11:20 | WPDINFPN2 ---
Progress Note: A&P Assessment and Plan (1) COVID-19: Onset Date: ~03/18/20 Code(s): U07.1 - COVID-19 Status: Acute Assessment and Plan: 1. Respiratory failure, with suspected MELA pneumonia 2. Viral pneumonia due to CoVid 19 infection, CXR stable 3. Multifactorial leukocytosis due to #2 and steroids, WBC sl lower 4. PCN and cephalexin intolerances/allergies REC Remdesivir off, and dexamethasone ongoing. Levofloxacin #2, no change. Subjective Date/time seen: 04/02/20 11:20 Interval history: sedated, no pressors, no paralytic Exam Narrative: Exam Narrative: t max 37.7 past 24 hours Const: General: no acute distress Other: morbid obesity Neck: Neck: supple Resp: Effort & Inspection: normal respiratory effort Auscultation: clear to auscultation bilaterally and diminished lung sounds Cardio: Rate: regular rate Rhythm: regular rhythm Heart sounds: no murmurs GI: Inspection: non-distended GI Palp: Yes Soft to palpation and No Tenderness to palpation present (GI) Urinary Catheter: Urinary Catheter: patent and draining and urine clear Skin: General skin exam: normal color Other: multiple facial pressure ulcers, no cellulitis. 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 Objective Data Vital Signs Vital Signs: Vital Signs - 24 hr 04/01/20 12:00 04/01/20 12:15 04/01/20 13:31 Temperature 37.7 C H Pulse Rate 77 89 74 Respiratory Rate 25 H 24 H 24 H Blood Pressure 127/79 122/80 Pulse Oximetry 95 94 04/01/20 13:32 04/01/20 14:10 04/01/20 15:48 Temperature Pulse Rate 75 74 76 Respiratory Rate 24 H Blood Pressure Pulse Oximetry 93 04/01/20 16:00 04/01/20 17:29 04/01/20 17:36 Temperature 37.7 C H Pulse Rate 75 78 80 Respiratory Rate 24 H 24 H Blood Pressure 118/78 121/78 Pulse Oximetry 95 96 97 04/01/20 19:12 04/01/20 19:42 04/01/20 20:00 Temperature 36.9 C Pulse Rate 63 60 Respiratory Rate 24 H 24 H Blood Pressure 120/77 122/80 Pulse Oximetry 97 04/01/20 20:43 04/01/20 21:56 04/01/20 21:59 Temperature 36.6 C Pulse Rate 60 63 Respiratory Rate 24 H Blood Pressure Pulse Oximetry 97 04/01/20 22:00 04/01/20 23:00 04/01/20 23:08 Temperature 36.6 C Pulse Rate 60 60 62 Respiratory Rate 24 H 24 H Blood Pressure 127/82 123/81 Pulse Oximetry 97 96 94 04/02/20 00:00 04/02/20 01:43 04/02/20 01:50 Temperature 36.6 C Pulse Rate 65 56 L 57 L Respiratory Rate 24 H 24 H 24 H Blood Pressure 123/76 Pulse Oximetry 94 04/02/20 02:00 04/02/20 02:16 04/02/20 03:42 Temperature 36.3 C L Pulse Rate 57 L 71 56 L Respiratory Rate 24 H 24 H Blood Pressure 113/74 Pulse Oximetry 93 95 04/02/20 04:00 04/02/20 05:23 04/02/20 06:00 Temperature 36.6 C Pulse Rate 57 L 60 84 Respiratory Rate 24 H 24 H Blood Pressure 102/67 147/88 H Pulse Oximetry 93 94 92 04/02/20 07:30 04/02/20 08:00 04/02/20 09:20 Temperature 36.9 C Pulse Rate 77 78 80 Respiratory Rate 24 H 24 H Blood Pressure 126/82 Pulse Oximetry 93 94 04/02/20 10:00 04/02/20 10:15 04/02/20 10:16 Temperature Pulse Rate 74 71 71 Respiratory Rate 24 H 24 H 24 H Blood Pressure 117/75 Pulse Oximetry 94 04/02/20 11:13 Temperature Pulse Rate 72 Respiratory Rate Blood Pressure Pulse Oximetry 95 Intake/Output Intake/Output: Intake & Output 03/30/20 03/31/20 04/01/20 04/02/20 23:59 23:59 23:59 23:59 Intake Total 2993 1992.5 2363.5 1659 Output Total 1250 1150 1250 900 Balance 1743 842.5 1113.5 759 Meds/Results Medications: Active Medications Generic Name Dose Route Start Last Admin Trade Name Freq PRN Reason Stop Dose Admin Albuterol 2.5 mg 03/24/20 13:40 03/25/20 02:43 Albuterol Sulfate Neb 2.5 Mg/0.5 Ml Inh INHALATION 2.5 mg Q4HRT PRN Administration Shortness Of Breath Ascorbic Acid 1,000 mg 03/30/20 09:00 04/02/20 08:17 Ascorbic Acid 500 Mg Tablet PO 1,000 mg DAILY PAULO Administration Aspirin 325 mg
[2020-04-02] MEDS: PROPOFOL IV EMULSION 100 ML 17.88 MG IV CONT (12:14)
[2020-04-02] MEDS: levoFLOXacin 500 MG/D5W 100 ML 500 MG/100 ML BAG 100 MG IVPB (12:16)
--- NOTE | 2020-04-02 13:00 | PC.NURSE ---
Updated on plan of care via telephone, belongs returned and decontamination protocol verbalized to .
--- NOTE | 2020-04-02 13:25 | WPDINTPN ---
Progress Note: A&P Assessment and Plan (1) Cardiac arrest: Code(s): I46.9 - Cardiac arrest, cause unspecified Status: Acute Assessment and Plan: Patient with bradycardia along with PEA arrest, ROSC within 5 minutes. Likely hypoxia, cardiac event -ABGs post arrest did not look too bad -continue to monitor -troponin negative x1 (2) Acute respiratory failure due to COVID-19: Code(s): U07.1 - COVID-19; J96.00 - Acute respiratory failure, unspecified whether with hypoxia or hypercapnia Status: Acute Assessment and Plan: Acute Respiratory failure secondary to COVID-19 pneumonia but may have component of CHF. Tested positive on 03/19/2011. Admitted 03/24/2011 -Worsening respiratory distress and hypoxia on high-flow nasal cannula and non-rebreather mask. Patient emergently intubated 03/25 -Chest x-ray shows 2. Multisegmental right basilar, subsegmental left basilar atelectasis and probably superimposed pneumonia -patient improved with PRONING, but had a cardiac arrest overnight on 03/31/2020, -patient now on peep of 10 and 100% FiO2, will prone patient today - Patient is off chemical paralysis but Nimbex - On Propofol, Fentanyl and versed for sedation -could continue bronchodilators (3) COVID-19: Onset Date: ~03/18/20 Code(s): U07.1 - COVID-19 Status: Acute Assessment and Plan: COVID-19 - SARS-CoV-2 PCR positive 03/18 - Patient is in Airborne, Droplet and Contact Isolation -Remains on dexamethasone -completed Remdesivir -Follow inflammatory periodically - Convalescent plasma administered 03/25. -Consulted infectious disease for opinion on Actemra which Dr. Thayer did not recommend (4) Type 2 diabetes mellitus without complications: Qualifiers: Diabetes mellitus termite helper insulin use: without [facility] use Qualified Code(s): E11.9 - Type 2 diabetes mellitus without complications Code(s): E11.9 - Type 2 diabetes mellitus without complications Status: Acute Assessment and Plan: Patient remains on Accu-Cheks and high-dose sliding scale patient also on significant amount of Lantus despite which patient is hyperglycemic most likely related to dexamethasone -started patient on insulin infusion (03/31) until patient remains on dexamethasone (5) Benign essential hypertension: Code(s): I10 - Essential (primary) hypertension Status: Acute Assessment and Plan: Continue lisinopril (6) NSTEMI (non-ST elevated myocardial infarction): Code(s): I21.4 - Non-ST elevation (NSTEMI) myocardial infarction Status: Acute Assessment and Plan: Mild elevation in troponin likely secondary to respiratory failure. EKG does not show any ST elevation 03/31: troponin < 0.012 x1 Continue aspirin, continue lisinopril ECHO 1. Complete two-dimensional, color flow and Doppler transthoracic echocardiogram is performed. 2. Left ventricular chamber dimension is normal. 3. Left ventricular systolic function is normal, estimated at 60-65%. 4. There is mildly increased left ventricular wall thickness. 5. The left ventricular diastolic function is normal. 6. E/e' 9 is minimally elevated. 7. There is trace tricuspid valve regurgitation. 8. Mild pulmonary hypertension, estimated pulmonary arterial systolic pressure is 46 mmHg. 9. Normal inferior vena cava with <50% collapse upon inspiration consistent with elevated right atrial pressure, 10 mmHg. (7) UTI (urinary tract infection): Code(s): N39.0 - Urinary tract infection, site not specified Status: Acute Assessment and Plan: Urine culture growing Staph aureus - ID following -continue levofloxacin per ID Additional Plan DVT prophylaxis -Lovenox intermediate dose Stress ulcer prophylaxis -Protonix Nutrition -tolerating tube feeds Called Inderjit Hernandez, Daughter and left a msg Code Status -patient is full code Total Critical Care Time 32 minutes Due t
[2020-04-02 14:37] LABS: Glucose Point of Care 174 (65-105)
[2020-04-02 14:37] LABS: Glucose Point of Care 173 (65-105)
[2020-04-02 14:37] LABS: Glucose Point of Care 148 (65-105)
[2020-04-02 14:37] LABS: Glucose Point of Care 97 (65-105)
[2020-04-02 14:37] LABS: Glucose Point of Care 139 (65-105)
[2020-04-02 14:37] LABS: Glucose Point of Care 142 (65-105)
[2020-04-02 14:37] LABS: Glucose Point of Care 132 (65-105)
[2020-04-02 14:37] LABS: Glucose Point of Care 148 (65-105)
--- NOTE | 2020-04-02 19:04 | PC.NURSE ---
Updated on patient status
[2020-04-02] MEDS: MONTELUKAST SODIUM 10 MG TABLET PO (21:14)
[2020-04-02 22:31] LABS: Glucose Point of Care 91 (65-105)
[2020-04-02 23:22] LABS: Glucose Point of Care 93 (65-105)
[2020-04-02 23:22] LABS: Glucose Point of Care 136 (65-105)
[2020-04-02 23:22] LABS: Glucose Point of Care 131 (65-105)
[2020-04-02 23:22] LABS: Glucose Point of Care 102 (65-105)
[2020-04-02 23:22] LABS: Glucose Point of Care 141 (65-105)
[2020-04-02 23:22] LABS: Glucose Point of Care 83 (65-105)
[2020-04-03] VITALS (30 sets, daily range): BP systolic 103–156; BP diastolic 75–99; PULSE 77–124; RESP 23–25; TEMP 36.3–37.6; O2SAT 92–100
[2020-04-03] MEDS: PROPOFOL IV EMULSION 100 ML 26.82 MG IV CONT ×3 (00:15→11:02)
[2020-04-03] MEDS: BISACODYL 10 MG SUPPOSITORY RECTAL (02:00)
[2020-04-03] MEDS: INSULIN HUMAN REGULAR (*BKC) 100 UNITS in SODIUM CHLORIDE 0.9% IV 99 ML IV CONT (04:22)
[2020-04-03 04:45] LABS: Hematocrit 37.4 % (37.0-47.0); Hemoglobin 11.4 g/dL (12.0-15.0); Mean Corpuscular HGB Conc 30.5 g/dl (32-36); Mean Corpuscular Hemoglobin 25.6 pg (26-34); Mean Corpuscular Volume 83.9 fl (80-100); Mean Platelet Volume 9.2 fl (7.4-10.4); Platelet Count Result 344 k/mm3 (150-375); Red Blood Count 4.46 M/mm3 (4.2-5.4); Red Cell Distribution Width 13.5 % (11.5-14.5); White Blood Count 19.7 K/mm3 (4.5-10.0)
[2020-04-03 05:00] LABS: Alanine Aminotransferase 31 U/L (4-35); Alkaline Phosphatase 84 U/L (38-126); Anion Gap 3 mmol/L (8-16); Aspartate Amino Transferase 28 U/L (14-36); Bilirubin,Total 0.5 mg/dL (0.2-1.3); Blood Urea Nitrogen 28 mg/dL (7-17); Calcium 8.6 mg/dL (8.4-10.2); Carbon Dioxide 34 mmol/L (22-30); Chloride 99 mmol/L (98-107); Estimated CRCL calculation 138 ml/min; Estimated Glomerular Filt Rate > 60; Glucose 108 mg/dL (65-105); Magnesium 1.9 mg/dL (1.6-2.3); Phosphorus 4.5 mg/dL (2.5-4.5); Potassium 4.1 mmol/L (3.4-5.0); Sodium 136 mmol/L (137-145)
[2020-04-03] MEDS: CENTRAL LINE FLUSH 10 ML IV PUSH ×3 (05:35→21:30)
[2020-04-03 05:41] LABS: Alveolar/Arterial O2 Gradient 559.7 mmHg; Base Excess ABG 3.6 mEq/l (+/-2.0); Carboxyhemoglobin 0.3 % THb (0-2.0); Fractional Inspired Oxygen 100 %; HCO3 ABG 28.7 mEq/l (22.0-26.0); Methemoglobin ABG 0.2 %THb (0-1.5); Oxygen Content ABG 17.2 %vol (16.0-22.0); Oxyhemoglobin 96.8 % THb (90.0-100.0); PCO2 ABG 45.5 mmHg (35.0-45.0); PO2 ABG 107.8 mmHg (80.0-100.0); PO2 FiO2 Ratio Arterial Blood 1.08 %; Reduced Hemoglobin 2.7 %THb (0-5.0); Total Hemoglobin 12.5 g/dL (12.0-18.0); pH ABG 7.418 (7.350-7.450)
[2020-04-03 05:42] LABS: Arterial Blood Gas Vent Mode CMV; Arterial Blood Gas Ventilator rate 24 /MIN; Device VENTILATOR; Modified Allen's Test Pass; Site Drawn RIGHT RADIAL
[2020-04-03 05:43] LABS: Arterial Blood Gas PEEP 12 cmH2O; Arterial Blood Gas Tidal Volume 400 ml
[2020-04-03 07:03] LABS: Glucose Point of Care 110 (65-105)
[2020-04-03 07:03] LABS: Glucose Point of Care 105 (65-105)
[2020-04-03 07:03] LABS: Glucose Point of Care 106 (65-105)
[2020-04-03 07:03] LABS: Glucose Point of Care 105 (65-105)
[2020-04-03 07:03] LABS: Glucose Point of Care 87 (65-105)
[2020-04-03 07:03] LABS: Glucose Point of Care 130 (65-105)
[2020-04-03 07:04] LABS: Glucose Point of Care 142 (65-105)
[2020-04-03] MEDS: ENOXAPARIN 40 MG/0.4 ML SYRINGE SUB-Q ×2 (08:46→21:28)
[2020-04-03] MEDS: LORATADINE 10 MG TABLET PO (08:46)
[2020-04-03] MEDS: PANTOPRAZOLE SODIUM IV 40 MG VIAL IV PUSH (08:46)
[2020-04-03] MEDS: ZINC SULFATE 220 MG CAPSULE PO (08:47)
[2020-04-03] MEDS: DEXAMETHASONE SOD PHOS INJ 4 MG/ML VIAL 6 MG IV PUSH (08:47)
[2020-04-03] MEDS: ASPIRIN 325 MG TABLET FEED TUBE (08:47)
[2020-04-03] MEDS: ASCORBIC ACID 500 MG TABLET 1000 MG PO (08:47)
[2020-04-03] MEDS: polyethylene glycoL 3350 17 GM POWD.PACK PO (08:47)
[2020-04-03] MEDS: INSULIN GLARGINE (*BKC) 100 UNITS/ML 55 UNITS SUB-Q ×2 (08:50→22:25)
[2020-04-03] MEDS: FENTANYL 2,500MCG/NS250ML(*CRX 2,500 MCG/250 ML BAG 15 MCG IV CONT (09:14)
[2020-04-03] MEDS: levoFLOXacin 500 MG/D5W 100 ML 500 MG/100 ML BAG 100 MG IVPB (11:36)
[2020-04-03] MEDS: FUROSEMIDE INJ 40 MG/4 ML VIAL 20 MG IV PUSH (11:37)
--- NOTE | 2020-04-03 14:37 | PCDIET ---
ICU Rounding Note: Patient tolerating Glucerna 1.2 at 45mL/hr goal rate. Clarified that 50mL water flush provided every 4 hours with RN. Last recorded weight is 155.9kg which is decreased from last review. Bowel Motility: Still no BM. Discussed during rounds. Miralax and Dulcolax given today. Labs Reviewed: Glu (108), BUN (28), Cr (0.6), Na (136), Alb (3.0) Meds Noted: Albuterol, Vitamin C, Dulcolax, Calcium Citrate, Fentanyl, IV Aspart, Lantus, Levaquin, Lisinopril, Versed, Miralax, Protonix, Advair, Propofol (rate of 26.82mL/hr provides 708kcal per day), Zinc Sulfate Additional Notes: Face abrasions reported; no other skin issues. Following daily in ICU rounds. Assessing/reassessing every Tuesday/Tuesday.
--- NOTE | 2020-04-03 14:37 | WPDINTPN ---
Progress Note: A&P Assessment and Plan (1) Cardiac arrest: Code(s): I46.9 - Cardiac arrest, cause unspecified Status: Acute Assessment and Plan: Patient with bradycardia along with PEA arrest, ROSC within 5 minutes. Likely hypoxia, cardiac event -ABGs post arrest did not look too bad -continue to monitor -troponin negative x1 (2) Acute respiratory failure due to COVID-19: Code(s): U07.1 - COVID-19; J96.00 - Acute respiratory failure, unspecified whether with hypoxia or hypercapnia Status: Acute Assessment and Plan: Acute Respiratory failure secondary to COVID-19 pneumonia but may have component of CHF. Tested positive on 03/19/2011. Admitted 03/24/2011 -Worsening respiratory distress and hypoxia on high-flow nasal cannula and non-rebreather mask. Patient emergently intubated 03/25 -Chest x-ray shows 2. Multisegmental right basilar, subsegmental left basilar atelectasis and probably superimposed pneumonia -patient improved with PRONING, but had a cardiac arrest overnight on 03/31/2020, -patient was prone on 04/02/2020, did well. Currently on 70% FiO2 and peep of 12. Will prone again today - Patient is off chemical paralysis but Nimbex - On Propofol, Fentanyl and versed for sedation -could continue bronchodilators (3) COVID-19: Onset Date: ~03/18/20 Code(s): U07.1 - COVID-19 Status: Acute Assessment and Plan: COVID-19 - SARS-CoV-2 PCR positive 03/18 - Patient is in Airborne, Droplet and Contact Isolation -Remains on dexamethasone -completed Remdesivir -Follow inflammatory periodically - Convalescent plasma administered 03/25. -Consulted infectious disease for opinion on Actemra which Dr. Thayer did not recommend (4) Type 2 diabetes mellitus without complications: Qualifiers: Diabetes mellitus alf insulin use: without predatory animal exterminator use Qualified Code(s): E11.9 - Type 2 diabetes mellitus without complications Code(s): E11.9 - Type 2 diabetes mellitus without complications Status: Acute Assessment and Plan: Patient remains on Accu-Cheks and high-dose sliding scale patient also on significant amount of Lantus despite which patient is hyperglycemic most likely related to dexamethasone -started patient on insulin infusion (03/31) until patient remains on dexamethasone (5) Benign essential hypertension: Code(s): I10 - Essential (primary) hypertension Status: Acute Assessment and Plan: Continue lisinopril (6) NSTEMI (non-ST elevated myocardial infarction): Code(s): I21.4 - Non-ST elevation (NSTEMI) myocardial infarction Status: Acute Assessment and Plan: Mild elevation in troponin likely secondary to respiratory failure. EKG does not show any ST elevation 03/31: troponin < 0.012 x1 Continue aspirin, continue lisinopril ECHO 1. Complete two-dimensional, color flow and Doppler transthoracic echocardiogram is performed. 2. Left ventricular chamber dimension is normal. 3. Left ventricular systolic function is normal, estimated at 60-65%. 4. There is mildly increased left ventricular wall thickness. 5. The left ventricular diastolic function is normal. 6. E/e' 9 is minimally elevated. 7. There is trace tricuspid valve regurgitation. 8. Mild pulmonary hypertension, estimated pulmonary arterial systolic pressure is 46 mmHg. 9. Normal inferior vena cava with <50% collapse upon inspiration consistent with elevated right atrial pressure, 10 mmHg. (7) UTI (urinary tract infection): Code(s): N39.0 - Urinary tract infection, site not specified Status: Acute Assessment and Plan: Urine culture growing Staph aureus - ID following -continue levofloxacin per ID Additional Plan DVT prophylaxis -Lovenox intermediate dose Stress ulcer prophylaxis -Protonix Nutrition -tolerating tube feeds Called Inderjit Hernandez, Daughter and left a msg Code Status -patient is full code [place]
--- NOTE | 2020-04-03 15:43 | WPDINFPN2 ---
Progress Note: A&P Assessment and Plan (1) COVID-19: Onset Date: ~03/18/20 Code(s): U07.1 - COVID-19 Status: Acute Assessment and Plan: 1. Respiratory failure, with suspected MELA pneumonia, CXR stable with small effusions 2. Viral pneumonia due to CoVid 19 infection 3. Multifactorial leukocytosis due to #2 and steroids, WBC back up 4. PCN and cephalexin intolerances/allergies REC Remdesivir off, and dexamethasone ongoing. Levofloxacin #3, no change. Subjective Date/time seen: 04/03/20 15:43 Interval history: no pressors Exam Narrative: Exam Narrative: afebrile Const: General: in distress HENMT: Other: facial ulcers as before, no infection Resp: Effort & Inspection: normal respiratory effort Auscultation: rales Cardio: Rate: regular rate Rhythm: regular rhythm Heart sounds: Murmur heart sound present GI: Inspection: non-distended GI Palp: Yes Firmness to palpation present (GI), No Tenderness to palpation present (GI) and No Guarding due to palpation present (GI) Urinary Catheter: Urinary Catheter: patent and draining and urine clear Objective Data Vital Signs Vital Signs: Vital Signs - 24 hr 04/02/20 16:00 04/02/20 17:30 04/02/20 17:31 Temperature 36.2 C L Pulse Rate 95 88 84 Respiratory Rate 24 H 24 H 24 H Blood Pressure 144/95 H Pulse Oximetry 99 04/02/20 17:32 04/02/20 17:56 04/02/20 18:00 Temperature Pulse Rate 85 82 90 Respiratory Rate 24 H 24 H Blood Pressure 159/92 H Pulse Oximetry 99 99 04/02/20 20:00 04/02/20 20:06 04/02/20 20:30 Temperature Pulse Rate 79 77 79 Respiratory Rate 24 H 24 H 24 H Blood Pressure 154/86 H Pulse Oximetry 98 98 04/02/20 22:00 04/02/20 23:00 04/02/20 23:19 Temperature Pulse Rate 79 81 76 Respiratory Rate 24 H 24 H Blood Pressure 147/88 H 148/86 H Pulse Oximetry 98 97 98 04/02/20 23:34 04/02/20 23:50 04/03/20 00:00 Temperature 37.3 C 37.1 C Pulse Rate 84 77 Respiratory Rate 24 H 24 H Blood Pressure 150/96 H Pulse Oximetry 96 04/03/20 00:15 04/03/20 02:00 04/03/20 02:11 Temperature Pulse Rate 84 85 78 Respiratory Rate 24 H 24 H Blood Pressure 156/99 H Pulse Oximetry 97 97 04/03/20 03:59 04/03/20 04:00 04/03/20 05:25 Temperature 37.1 C Pulse Rate 115 H 89 Respiratory Rate 24 H 24 H Blood Pressure 131/87 Pulse Oximetry 100 04/03/20 05:27 04/03/20 06:00 04/03/20 06:48 Temperature Pulse Rate 105 H 114 H 115 H Respiratory Rate 24 H 24 H Blood Pressure 139/93 H Pulse Oximetry 97 96 04/03/20 08:00 04/03/20 09:11 04/03/20 09:13 Temperature 37.6 C Pulse Rate 107 H 104 H 104 H Respiratory Rate 25 H 24 H 24 H Blood Pressure 120/83 Pulse Oximetry 98 04/03/20 09:14 04/03/20 10:00 04/03/20 10:32 Temperature Pulse Rate 104 H 103 H 124 H Respiratory Rate 24 H 24 H 24 H Blood Pressure 103/75 Pulse Oximetry 97 04/03/20 11:02 04/03/20 12:00 04/03/20 14:00 Temperature Pulse Rate 124 H 114 H 100 Respiratory Rate 24 H Blood Pressure Pulse Oximetry Intake/Output Intake/Output: Intake & Output 03/31/20 04/01/20 04/02/20 04/03/20 23:59 23:59 23:59 23:59 Intake Total 1992.5 2463.5 2954 1260 Output Total 1150 1250 2225 1000 Balance 842.5 1213.5 729 260 Meds/Results Medications: Active Medications Generic Name Dose Route Start Last Admin Trade Name Freq PRN Reason Stop Dose Admin Albuterol 2.5 mg 03/24/20 13:40 03/25/20 02:43 Albuterol Sulfate Neb 2.5 Mg/0.5 Ml Inh INHALATION 2.5 mg Q4HRT PRN Administration Shortness Of Breath Ascorbic Acid 1,000 mg 03/30/20 09:00 04/03/20 08:47 Ascorbic Acid 500 Mg Tablet PO 1,000 mg DAILY PAULO Administration Aspirin 325 mg 03/25/20 08:00 04/03/20 08:47 Aspirin 325 Mg Tablet FEED TUBE 325 mg DAILY@0800 PAULO Administration Bisacodyl 10 mg 03/28/20 09:26 04/03/20 02:00 Bisacodyl 10 Mg Suppository RECTAL 10 mg QAM
[2020-04-03 16:52] LABS: Glucose Point of Care 189 (65-105)
[2020-04-03 16:52] LABS: Glucose Point of Care 194 (65-105)
[2020-04-03 16:52] LABS: Glucose Point of Care 203 (65-105)
[2020-04-03 16:52] LABS: Glucose Point of Care 166 (65-105)
[2020-04-03 16:52] LABS: Glucose Point of Care 251 (65-105)
[2020-04-03 16:52] LABS: Glucose Point of Care 154 (65-105)
[2020-04-03 16:52] LABS: Glucose Point of Care 194 (65-105)
[2020-04-03 16:52] LABS: Glucose Point of Care 192 (65-105)
[2020-04-03 20:21] LABS: Glucose Point of Care 147 (65-105)
[2020-04-03 20:21] LABS: Glucose Point of Care 136 (65-105)
[2020-04-03 20:21] LABS: Glucose Point of Care 146 (65-105)
[2020-04-03 20:21] LABS: Glucose Point of Care 124 (65-105)
[2020-04-03] MEDS: MONTELUKAST SODIUM 10 MG TABLET PO (21:29)
[2020-04-03 21:38] LABS: Glucose Point of Care 112 (65-105)
[2020-04-03 23:30] LABS: Glucose Point of Care 121 (65-105)
[2020-04-04] VITALS (26 sets, daily range): BP systolic 114–156; BP diastolic 77–98; PULSE 90–117; RESP 22–27; TEMP 36.4–38; O2SAT 90–97
[2020-04-04 00:30] LABS: Glucose Point of Care 154 (65-105)
[2020-04-04] MEDS: FENTANYL 2,500MCG/NS250ML(*CRX 2,500 MCG/250 ML BAG 15 MCG IV CONT ×2 (03:17→20:17)
[2020-04-04 04:34] LABS: Glucose Point of Care 169 (65-105)
[2020-04-04 04:58] LABS: Alveolar/Arterial O2 Gradient 208.1 mmHg; Base Excess ABG 4.3 mEq/l (+/-2.0); Device VENTILATOR; Fractional Inspired Oxygen 45 %; HCO3 ABG 28.9 mEq/l (22.0-26.0); Methemoglobin ABG 0.2 %THb (0-1.5); Modified Allen's Test Pass; Oxygen Content ABG 17.8 %vol (16.0-22.0); Oxygen Saturation ABG 93.2 % (95.0-100.0); Oxyhemoglobin 91.5 % THb (90.0-100.0); PCO2 ABG 42.9 mmHg (35.0-45.0); PO2 FiO2 Ratio Arterial Blood 1.42 %; Reduced Hemoglobin 8.3 %THb (0-5.0); Site Drawn LEFT RADIAL; Total Hemoglobin 13.8 g/dL (12.0-18.0); pH ABG 7.446 (7.350-7.450)
[2020-04-04 04:59] LABS: Arterial Blood Gas PEEP 10 cmH2O; Arterial Blood Gas Tidal Volume 400 ml; Arterial Blood Gas Vent Mode CMV; Arterial Blood Gas Ventilator rate 24 /MIN
[2020-04-04 05:55] LABS: Mean Corpuscular HGB Conc 30.6 g/dl (32-36); Mean Corpuscular Hemoglobin 25.6 pg (26-34); Mean Corpuscular Volume 83.9 fl (80-100); Mean Platelet Volume 9.2 fl (7.4-10.4); Platelet Count Result 352 k/mm3 (150-375); Red Blood Count 4.29 M/mm3 (4.2-5.4); Red Cell Distribution Width 13.8 % (11.5-14.5); White Blood Count 19.6 K/mm3 (4.5-10.0)
[2020-04-04 06:15] LABS: Alanine Aminotransferase 34 U/L (4-35); Alkaline Phosphatase 95 U/L (38-126); Anion Gap 1 mmol/L (8-16); Aspartate Amino Transferase 31 U/L (14-36); Bilirubin,Total 0.6 mg/dL (0.2-1.3); Blood Urea Nitrogen 37 mg/dL (7-17); Carbon Dioxide 36 mmol/L (22-30); Chloride 101 mmol/L (98-107); Estimated CRCL calculation 136 ml/min; Estimated Glomerular Filt Rate > 60; Glucose 181 mg/dL (65-105); Lactate Dehydrogenase 467 U/L (313-618); Phosphorus 3.7 mg/dL (2.5-4.5); Potassium 3.8 mmol/L (3.4-5.0); Sodium 138 mmol/L (137-145)
[2020-04-04] MEDS: CENTRAL LINE FLUSH 10 ML IV PUSH ×3 (06:30→20:27)
[2020-04-04] MEDS: FUROSEMIDE INJ 40 MG/4 ML VIAL 20 MG IV PUSH ×2 (10:06→20:16)
[2020-04-04] MEDS: ENOXAPARIN 40 MG/0.4 ML SYRINGE SUB-Q ×2 (10:07→20:05)
[2020-04-04] MEDS: PANTOPRAZOLE SODIUM IV 40 MG VIAL IV PUSH (10:07)
[2020-04-04] MEDS: ASPIRIN 325 MG TABLET FEED TUBE (10:08)
[2020-04-04] MEDS: ZINC SULFATE 220 MG CAPSULE PO (10:08)
[2020-04-04] MEDS: ASCORBIC ACID 500 MG TABLET 1000 MG PO (10:09)
[2020-04-04] MEDS: LORATADINE 10 MG TABLET PO (10:10)
[2020-04-04] MEDS: INSULIN GLARGINE (*BKC) 100 UNITS/ML 55 UNITS SUB-Q ×2 (10:11→20:17)
[2020-04-04 12:06] LABS: Add Urine Microscopic? NO; Appearance Urine Clear (Clear); Bilirubin Urine Negative (Negative); Blood Urine Negative (Negative); Color Urine Yellow (Yellow); Glucose Urine UA Negative (Negative); Ketones Urine Negative (Negative); Leukocyte Esterase Ur Negative LEU/UL (Negative); Nitrate Urine Negative (Negative); Protein Urine Negative (Negative); Specific Grav Ur 1.013 (1.001-1.035); Urobilinogen Urine Negative mg/dL (<2.0)
--- NOTE | 2020-04-04 12:09 | PCDIET ---
Nutrition Follow-Up Complete: Nutrition Diagnosis: Inadequate oral intake related to oral intubation as evidenced by NPO status. Nutrition Goal: Patient to meet estimated nutritional needs. Goal in progress. Tube feedings previously held for residuals up to 400mL. RN reports feeding tube clogged earlier today but has been resolved with Glucerna 1.2 resumed at 25mL/hr. MD order to advance toward goal of 45mL/hr. Last recorded weight is 152.9 kg which is decreased from last review. Bowel Motility: No documented BM. Dulcolax and Miralax given 04/03/20 with MD order to give again today. Labs Reviewed: Hgb (11.0), Hct (36.0), Glu (181), BUN (37), Cr (0.6), Alb (3.0) Meds Noted: Dulcolax, Miralax, Albuterol, Vitamin C, Calcium Citrate, Nimbex, Fentanyl, Lantus, Levaquin, Versed, Lisinopril, Protonix, Zinc Sulfate Additional Notes: Abrasions to face reported. Will continue to monitor with same goal. Nutrition Monitoring and Evaluation: Follow up every Tuesday/Tuesday.
[2020-04-04 12:10] LABS: Glucose Point of Care 213 (65-105)
[2020-04-04] MEDS: INSULIN ASPART (*BKC) 100 UNITS/ML SUB-Q ×2 (12:33→17:52)
[2020-04-04] MEDS: levoFLOXacin 500 MG/D5W 100 ML 500 MG/100 ML BAG 100 MG IVPB (12:33)
--- NOTE | 2020-04-04 14:00 | WPDINTPN ---
Progress Note: A&P Assessment and Plan (1) Cardiac arrest: Code(s): I46.9 - Cardiac arrest, cause unspecified Status: Acute Assessment and Plan: Patient with bradycardia along with PEA arrest, ROSC within 5 minutes. Likely hypoxia, cardiac event -ABGs post arrest did not look too bad -continue to monitor -troponin negative x1 (2) Acute respiratory failure due to COVID-19: Code(s): U07.1 - COVID-19; J96.00 - Acute respiratory failure, unspecified whether with hypoxia or hypercapnia Status: Acute Assessment and Plan: Acute Respiratory failure secondary to COVID-19 pneumonia but may have component of CHF. Tested positive on 03/19/2011. Admitted 03/24/2011 -Worsening respiratory distress and hypoxia on high-flow nasal cannula and non-rebreather mask. Patient emergently intubated 03/25 -Chest x-ray shows 2. Multisegmental right basilar, subsegmental left basilar atelectasis and probably superimposed pneumonia -patient improved with PRONING, but had a cardiac arrest overnight on 03/31/2020, -patient was prone on 04/02/2020, did well. Currently on 45% FiO2, peep of 10.. - Patient is off chemical paralysis but Nimbex - On Propofol, Fentanyl and versed for sedation -could continue bronchodilators -will diurese patient today (3) COVID-19: Onset Date: ~03/18/20 Code(s): U07.1 - COVID-19 Status: Acute Assessment and Plan: COVID-19 - SARS-CoV-2 PCR positive 03/18 - Patient is in Airborne, Droplet and Contact Isolation -Remains on dexamethasone -completed Remdesivir -Follow inflammatory periodically - Convalescent plasma administered 03/25. -Consulted infectious disease for opinion on Actemra which Dr. Thayer did not recommend (4) Type 2 diabetes mellitus without complications: Qualifiers: Diabetes mellitus care home insulin use: without oysterman use Qualified Code(s): E11.9 - Type 2 diabetes mellitus without complications Code(s): E11.9 - Type 2 diabetes mellitus without complications Status: Acute Assessment and Plan: -insulin infusion has been turned off -continue Lantus and sliding scale insulin (5) Benign essential hypertension: Code(s): I10 - Essential (primary) hypertension Status: Acute Assessment and Plan: Continue lisinopril (6) NSTEMI (non-ST elevated myocardial infarction): Code(s): I21.4 - Non-ST elevation (NSTEMI) myocardial infarction Status: Acute Assessment and Plan: Mild elevation in troponin likely secondary to respiratory failure. EKG does not show any ST elevation 03/31: troponin < 0.012 x1 Continue aspirin, continue lisinopril ECHO 1. Complete two-dimensional, color flow and Doppler transthoracic echocardiogram is performed. 2. Left ventricular chamber dimension is normal. 3. Left ventricular systolic function is normal, estimated at 60-65%. 4. There is mildly increased left ventricular wall thickness. 5. The left ventricular diastolic function is normal. 6. E/e' 9 is minimally elevated. 7. There is trace tricuspid valve regurgitation. 8. Mild pulmonary hypertension, estimated pulmonary arterial systolic pressure is 46 mmHg. 9. Normal inferior vena cava with <50% collapse upon inspiration consistent with elevated right atrial pressure, 10 mmHg. (7) UTI (urinary tract infection): Code(s): N39.0 - Urinary tract infection, site not specified Status: Acute Assessment and Plan: Urine culture growing Staph aureus - ID following -continue levofloxacin per ID Additional Plan DVT prophylaxis -Lovenox intermediate dose Stress ulcer prophylaxis -Protonix Nutrition -tolerating tube feeds Called Inderjit Hernandez, Daughter and left a msg Code Status -patient is full code Total Critical Care Time 32 minutes Due to a high probability of clinically significant, life threatening deterioration, the patient required my highest level of preparedness to
--- NOTE | 2020-04-04 14:29 | WPDINFPN2 ---
Progress Note: A&P Assessment and Plan (1) COVID-19: Onset Date: ~03/18/20 Code(s): U07.1 - COVID-19 Status: Acute Assessment and Plan: 1. Respiratory failure, with suspected MELA pneumonia, CXR stable as is exam 2. Viral pneumonia due to CoVid 19 infection 3. Multifactorial leukocytosis due to #2 and steroids, WBC same as yesterday 4. PCN and cephalexin intolerances/allergies REC Remdesivir off, and dexamethasone ongoing. Levofloxacin #4, no change. Anticipate IV antibacterial for another 3 days. Subjective Date/time seen: 04/04/20 14:29 Interval history: lightly sedated, no pressors, OG tube feeding Exam Narrative: Exam Narrative: afebrile Const: Other: morbid obesity Resp: Effort & Inspection: normal respiratory effort Auscultation: rales, no rhonchi and no wheezes Cardio: Rate: regular rate Rhythm: regular rhythm Heart sounds: no murmurs GI: Inspection: distended GI Palp: Yes Soft to palpation, No Tenderness to palpation present (GI) and No Guarding due to palpation present (GI) Urinary Catheter: Urinary Catheter: patent and draining and urine clear Skin: General skin exam: normal color and no rashes or lesions noted Objective Data Vital Signs Vital Signs: Vital Signs - 24 hr 04/03/20 14:55 04/03/20 16:00 04/03/20 17:08 Temperature Pulse Rate 105 H 98 97 Respiratory Rate 24 H 24 H Blood Pressure 117/81 Pulse Oximetry 98 93 04/03/20 17:40 04/03/20 18:00 04/03/20 20:00 Temperature 36.3 C L Pulse Rate 108 H 98 92 Respiratory Rate 24 H 24 H Blood Pressure 135/87 131/88 Pulse Oximetry 98 93 93 04/03/20 21:02 04/03/20 22:00 04/03/20 23:36 Temperature Pulse Rate 90 88 86 Respiratory Rate 24 H Blood Pressure 114/79 Pulse Oximetry 92 93 93 04/04/20 00:00 04/04/20 02:00 04/04/20 02:36 Temperature 36.4 C L Pulse Rate 90 90 95 Respiratory Rate 24 H 24 H Blood Pressure 114/89 145/90 H Pulse Oximetry 92 92 93 04/04/20 03:17 04/04/20 04:00 04/04/20 04:50 Temperature 37.0 C Pulse Rate 107 H 112 H 117 H Respiratory Rate 24 H 24 H Blood Pressure 156/87 H Pulse Oximetry 93 90 04/04/20 06:00 04/04/20 06:29 04/04/20 06:30 Temperature Pulse Rate 115 H 108 H 110 H Respiratory Rate 24 H 24 H 24 H Blood Pressure 145/91 H Pulse Oximetry 97 04/04/20 08:00 04/04/20 09:50 04/04/20 11:04 Temperature 37.3 C Pulse Rate 104 H 108 H 109 H Respiratory Rate 24 H Blood Pressure 145/92 H Pulse Oximetry 96 97 95 Intake/Output Intake/Output: Intake & Output 04/01/20 04/02/20 04/03/20 04/04/20 23:59 23:59 23:59 23:59 Intake Total 2463.5 2954 1803 925 Output Total 1250 2225 1800 675 Balance 1213.5 729 3 250 Meds/Results Medications: Active Medications Generic Name Dose Route Start Last Admin Trade Name Freq PRN Reason Stop Dose Admin Albuterol 2.5 mg 03/24/20 13:40 03/25/20 02:43 Albuterol Sulfate Neb 2.5 Mg/0.5 Ml Inh INHALATION 2.5 mg Q4HRT PRN Administration Shortness Of Breath Ascorbic Acid 1,000 mg 03/30/20 09:00 04/04/20 10:09 Ascorbic Acid 500 Mg Tablet PO 1,000 mg DAILY PAULO Administration Aspirin 325 mg 03/25/20 08:00 04/04/20 10:08 Aspirin 325 Mg Tablet FEED TUBE 325 mg DAILY@0800 PAULO Administration Bisacodyl 10 mg 03/28/20 09:26 04/03/20 02:00 Bisacodyl 10 Mg Suppository RECTAL 10 mg QAM PRN Administration Constipation Calcium Citrate 1 tablet 03/29/20 17:00 04/04/20 10:09 Calcium Citrate 315 Mg/Vitamin D 250 Units Tab PO 1 tablet BID PAULO Administration Dextrose 12.5 gm 03/24/20 13:40 Dextrose 50% 25 Gm/50 Ml Syringe IV PUSH PRN PRN Hypoglycemia Protocol Dextrose 12.5 gm 04/04/20 12:14 Dextrose 50% 25 Gm/50 Ml Syringe IV PUSH PRN PRN Hypoglycemia Protocol Enoxaparin Sodium 40 mg 03/24/20 21:00 04/04/20 10:07 Enoxaparin 40 Mg/0.4 Ml Syringe SUB-Q 40 mg Q12HR PAULO Administra
[2020-04-04 17:57] LABS: Glucose Point of Care 227 (65-105)
[2020-04-04] MEDS: MONTELUKAST SODIUM 10 MG TABLET PO (20:06)
[2020-04-05] VITALS (34 sets, daily range): BP systolic 114–142; BP diastolic 71–93; PULSE 89–121; RESP 23–24; TEMP 37.7–38.4; O2SAT 92–98
[2020-04-05] MEDS: ACETAMINOPHEN 325 MG TABLET 650 MG PO ×3 (01:40→20:31)
[2020-04-05 03:15] LABS: Glucose Point of Care 194 (65-105)
[2020-04-05 04:49] LABS: Alveolar/Arterial O2 Gradient 124.4 mmHg; Base Excess ABG 5.8 mEq/l (+/-2.0); Carboxyhemoglobin 0.3 % THb (0-2.0); Fractional Inspired Oxygen 35 %; HCO3 ABG 30.1 mEq/l (22.0-26.0); Methemoglobin ABG 0.2 %THb (0-1.5); Oxygen Content ABG 17.3 %vol (16.0-22.0); Oxygen Saturation ABG 95.9 % (95.0-100.0); Oxyhemoglobin 93.9 % THb (90.0-100.0); PCO2 ABG 42.3 mmHg (35.0-45.0); PO2 FiO2 Ratio Arterial Blood 2.17 %; Reduced Hemoglobin 5.6 %THb (0-5.0); Total Hemoglobin 13.1 g/dL (12.0-18.0)
[2020-04-05 04:50] LABS: Device VENTILATOR; Modified Allen's Test Pass; Site Drawn RIGHT RADIAL
[2020-04-05 04:51] LABS: Arterial Blood Gas PEEP 10 cmH2O; Arterial Blood Gas Tidal Volume 400 ml; Arterial Blood Gas Vent Mode ASSIST CONTROL; Arterial Blood Gas Ventilator rate 24 /MIN
[2020-04-05] MEDS: CENTRAL LINE FLUSH 10 ML IV PUSH ×3 (06:02→20:30)
[2020-04-05 06:43] LABS: Hematocrit 35.2 % (37.0-47.0); Hemoglobin 10.6 g/dL (12.0-15.0); Mean Corpuscular HGB Conc 30.1 g/dl (32-36); Mean Corpuscular Hemoglobin 25.8 pg (26-34); Mean Corpuscular Volume 85.6 fl (80-100); Mean Platelet Volume 9.3 fl (7.4-10.4); Platelet Count Result 343 k/mm3 (150-375); Red Blood Count 4.11 M/mm3 (4.2-5.4); White Blood Count 18.8 K/mm3 (4.5-10.0)
[2020-04-05 06:50] LABS: D Dimer 1.26 ug/mL (<0.48)
[2020-04-05 06:56] LABS: Ammonia 14 umol/L (9-30)
[2020-04-05 07:14] LABS: Alanine Aminotransferase 32 U/L (4-35); Albumin Level 3.1 g/dL (3.5-5.1); Alkaline Phosphatase 92 U/L (38-126); Anion Gap 1 mmol/L (8-16); Aspartate Amino Transferase 31 U/L (14-36); Bilirubin,Total 0.8 mg/dL (0.2-1.3); Blood Urea Nitrogen 37 mg/dL (7-17); CRP 13.2 mg/dL (<1.0); Calcium 8.7 mg/dL (8.4-10.2); Carbon Dioxide 38 mmol/L (22-30); Chloride 100 mmol/L (98-107); Estimated CRCL calculation 157 ml/min; Estimated Glomerular Filt Rate > 60; Glucose 212 mg/dL (65-105); Lactate Dehydrogenase 514 U/L (313-618); Magnesium 2.1 mg/dL (1.6-2.3); Phosphorus 3.7 mg/dL (2.5-4.5); Potassium 3.8 mmol/L (3.4-5.0); Sodium 139 mmol/L (137-145)
[2020-04-05] MEDS: INSULIN ASPART (*BKC) 100 UNITS/ML SUB-Q ×3 (07:40→23:52)
[2020-04-05] MEDS: ASPIRIN 325 MG TABLET FEED TUBE (08:55)
[2020-04-05] MEDS: ASCORBIC ACID 500 MG TABLET 1000 MG PO (08:56)
[2020-04-05] MEDS: LORATADINE 10 MG TABLET PO (08:57)
[2020-04-05] MEDS: ENOXAPARIN 40 MG/0.4 ML SYRINGE SUB-Q ×2 (08:57→20:30)
[2020-04-05] MEDS: ZINC SULFATE 220 MG CAPSULE PO (08:58)
[2020-04-05] MEDS: INSULIN GLARGINE (*BKC) 100 UNITS/ML 55 UNITS SUB-Q ×2 (08:58→20:29)
[2020-04-05] MEDS: PANTOPRAZOLE SODIUM IV 40 MG VIAL IV PUSH (09:01)
[2020-04-05] MEDS: FUROSEMIDE INJ 40 MG/4 ML VIAL 20 MG IV PUSH ×2 (12:12→20:29)
[2020-04-05] MEDS: levoFLOXacin 500 MG/D5W 100 ML 500 MG/100 ML BAG 100 MG IVPB (12:13)
[2020-04-05] MEDS: FENTANYL 2,500MCG/NS250ML(*CRX 2,500 MCG/250 ML BAG 17.5 MCG IV CONT (12:16)
--- NOTE | 2020-04-05 14:57 | WPDINTPN ---
Progress Note: A&P Assessment and Plan (1) Cardiac arrest: Code(s): I46.9 - Cardiac arrest, cause unspecified Status: Acute Assessment and Plan: Patient with bradycardia along with PEA arrest, ROSC within 5 minutes. Likely hypoxia, cardiac event -ABGs post arrest did not look too bad -continue to monitor -troponin negative x1 (2) Acute respiratory failure due to COVID-19: Code(s): U07.1 - COVID-19; J96.00 - Acute respiratory failure, unspecified whether with hypoxia or hypercapnia Status: Acute Assessment and Plan: Acute Respiratory failure secondary to COVID-19 pneumonia but may have component of CHF. Tested positive on 03/19/2011. Admitted 03/24/2011 -Worsening respiratory distress and hypoxia on high-flow nasal cannula and non-rebreather mask. Patient emergently intubated 03/25 -Chest x-ray 04/05: Improving airspace opacities in the midlung zones and right lung base and stable left basilar airspace opacity, consistent with atelectasis versus pneumonia -patient improved with PRONING, but had a cardiac arrest overnight on 03/31/2020, -patient was proned on 04/02/2020, did well. Currently on 35% FiO2, peep of 10.. - Patient is off chemical paralysis - On Propofol, Fentanyl and versed for sedation -could continue bronchodilators -, will diurese again today (3) COVID-19: Onset Date: ~03/18/20 Code(s): U07.1 - COVID-19 Status: Acute Assessment and Plan: COVID-19 - SARS-CoV-2 PCR positive 03/18 - Patient is in Airborne, Droplet and Contact Isolation -Remains on dexamethasone -completed Remdesivir -Follow inflammatory periodically - Convalescent plasma administered 03/25. -Consulted infectious disease for opinion on Actemra which Dr. Thayer did not recommend (4) Type 2 diabetes mellitus without complications: Qualifiers: Diabetes mellitus exterminator helper termite insulin use: without fpc use Qualified Code(s): E11.9 - Type 2 diabetes mellitus without complications Code(s): E11.9 - Type 2 diabetes mellitus without complications Status: Acute Assessment and Plan: -insulin infusion has been turned off -continue Lantus and sliding scale insulin (5) Benign essential hypertension: Code(s): I10 - Essential (primary) hypertension Status: Acute Assessment and Plan: Continue lisinopril (6) NSTEMI (non-ST elevated myocardial infarction): Code(s): I21.4 - Non-ST elevation (NSTEMI) myocardial infarction Status: Acute Assessment and Plan: Mild elevation in troponin likely secondary to respiratory failure. EKG does not show any ST elevation 03/31: troponin < 0.012 x1 Continue aspirin, continue lisinopril ECHO 1. Complete two-dimensional, color flow and Doppler transthoracic echocardiogram is performed. 2. Left ventricular chamber dimension is normal. 3. Left ventricular systolic function is normal, estimated at 60-65%. 4. There is mildly increased left ventricular wall thickness. 5. The left ventricular diastolic function is normal. 6. E/e' 9 is minimally elevated. 7. There is trace tricuspid valve regurgitation. 8. Mild pulmonary hypertension, estimated pulmonary arterial systolic pressure is 46 mmHg. 9. Normal inferior vena cava with <50% collapse upon inspiration consistent with elevated right atrial pressure, 10 mmHg. (7) UTI (urinary tract infection): Code(s): N39.0 - Urinary tract infection, site not specified Status: Acute Assessment and Plan: Urine culture growing Staph aureus - ID following -continue levofloxacin per ID Additional Plan DVT prophylaxis -Lovenox intermediate dose Stress ulcer prophylaxis -Protonix Nutrition -tolerating tube feeds Called Inderjit Hernandez, Daughter and left a msg Code Status -patient is full code Total Critical Care Time 32 minutes Due to a high probability of clinically significant, life threatening deterioration, the patient req
[2020-04-05] MEDS: DORNASE ALFA INH SOLN 1 MG/ML 2.5 ML AMP 2.5 MG INHALATION ×2 (15:14→20:11)
[2020-04-05] MEDS: MONTELUKAST SODIUM 10 MG TABLET PO (20:29)
[2020-04-05 23:57] LABS: Glucose Point of Care 201 (65-105)
[2020-04-05 23:57] LABS: Glucose Point of Care 182 (65-105)
[2020-04-05 23:57] LABS: Glucose Point of Care 220 (65-105)
[2020-04-06] VITALS (33 sets, daily range): BP systolic 109–134; BP diastolic 63–80; PULSE 88–107; RESP 20–263; TEMP 37.1–37.9; O2SAT 90–98
[2020-04-06] MEDS: FENTANYL 2,500MCG/NS250ML(*CRX 2,500 MCG/250 ML BAG 12.5 MCG IV CONT ×2 (03:01→21:28)
[2020-04-06 05:30] LABS: Alveolar/Arterial O2 Gradient 82.2 mmHg; Base Excess ABG 6.3 mEq/l (+/-2.0); Carboxyhemoglobin 0.3 % THb (0-2.0); Fractional Inspired Oxygen 35 %; HCO3 ABG 29.5 mEq/l (22.0-26.0); Methemoglobin ABG 0.1 %THb (0-1.5); Oxygen Content ABG 15.4 %vol (16.0-22.0); Oxygen Saturation ABG 98.8 % (95.0-100.0); Oxyhemoglobin 97.3 % THb (90.0-100.0); PCO2 ABG 37.4 mmHg (35.0-45.0); PO2 ABG 123.9 mmHg (80.0-100.0); PO2 FiO2 Ratio Arterial Blood 3.54 %; Reduced Hemoglobin 2.3 %THb (0-5.0); Total Hemoglobin 11.1 g/dL (12.0-18.0)
[2020-04-06 05:31] LABS: pH ABG 7.515 (7.350-7.450)
[2020-04-06 05:32] LABS: Arterial Blood Gas PEEP 10 cmH2O; Arterial Blood Gas Tidal Volume 400 ml; Arterial Blood Gas Vent Mode ASSIST CONTROL; Arterial Blood Gas Ventilator rate 24 /MIN; Device VENTILATOR; Modified Allen's Test Unable to perform; Site Drawn RIGHT RADIAL
[2020-04-06 05:57] LABS: Basophils Absolute Auto 0.1 K/mm3 (0.0-0.1); Basophils Percent Auto 0.7 % (0.2-1.2); Eosinophils Absolute Auto 0.2 K/mm3 (0-0.3); Eosinophils Percent Auto 1.5 % (0-4.4); Hematocrit 33.4 % (37.0-47.0); Hemoglobin 10.1 g/dL (12.0-15.0); Immature Granulocyte Absolute 1.02 K/mm3 (0.00-0.031); Immature Granulocyte Percent A 6.2 % (0-0.5); Lymphocytes Absolute Auto 1.46 K/mm3 (0.9-3.2); Lymphocytes Percent Auto 8.8 % (18.3-44.2); Mean Corpuscular HGB Conc 30.2 g/dl (32-36); Mean Corpuscular Hemoglobin 25.8 pg (26-34); Mean Corpuscular Volume 85.2 fl (80-100); Mean Platelet Volume 9.1 fl (7.4-10.4); Monocytes Absolute Auto 1.6 K/mm3 (0.1-0.6); Monocytes Percent Auto 9.4 % (2.6-8.5); Neutrophils Absolute Auto 12.1 K/mm3 (1.3-6.7); Neutrophils Percent Auto 73.4 % (45.5-73.1); Platelet Count Result 320 k/mm3 (150-375); Red Blood Count 3.92 M/mm3 (4.2-5.4); Red Cell Distribution Width 14.1 % (11.5-14.5); White Blood Count 16.5 K/mm3 (4.5-10.0)
[2020-04-06 06:15] LABS: Anion Gap 3 mmol/L (8-16); Blood Urea Nitrogen 33 mg/dL (7-17); Calcium 8.3 mg/dL (8.4-10.2); Carbon Dioxide 36 mmol/L (22-30); Chloride 102 mmol/L (98-107); Estimated CRCL calculation 133 ml/min; Estimated Glomerular Filt Rate > 60; Glucose 161 mg/dL (65-105); Magnesium 2.1 mg/dL (1.6-2.3); Potassium 3.3 mmol/L (3.4-5.0); Sodium 141 mmol/L (137-145)
[2020-04-06 08:04] LABS: Lactate Dehydrogenase 497 U/L (313-618)
[2020-04-06] MEDS: DORNASE ALFA INH SOLN 1 MG/ML 2.5 ML AMP 2.5 MG INHALATION (08:11)
[2020-04-06 08:50] LABS: Phosphorus 3.8 mg/dL (2.5-4.5)
[2020-04-06] MEDS: ENOXAPARIN 40 MG/0.4 ML SYRINGE SUB-Q ×2 (09:09→21:18)
[2020-04-06] MEDS: PANTOPRAZOLE SODIUM IV 40 MG VIAL IV PUSH (09:09)
[2020-04-06] MEDS: ASPIRIN 325 MG TABLET FEED TUBE (09:10)
[2020-04-06] MEDS: LORATADINE 10 MG TABLET PO (09:10)
[2020-04-06] MEDS: ZINC SULFATE 220 MG CAPSULE PO (09:10)
[2020-04-06] MEDS: ASCORBIC ACID 500 MG TABLET 1000 MG PO (09:11)
[2020-04-06] MEDS: FUROSEMIDE INJ 40 MG/4 ML VIAL 20 MG IV PUSH ×2 (09:11→21:18)
[2020-04-06] MEDS: INSULIN GLARGINE (*BKC) 100 UNITS/ML 55 UNITS SUB-Q ×2 (09:12→21:19)
[2020-04-06 12:21] LABS: Glucose Point of Care 177 (65-105)
[2020-04-06] MEDS: levoFLOXacin 500 MG/D5W 100 ML 500 MG/100 ML BAG 100 MG IVPB (12:50)
[2020-04-06] MEDS: CENTRAL LINE FLUSH 10 ML IV PUSH ×2 (14:04→21:19)
--- NOTE | 2020-04-06 14:28 | WPDINTPN ---
Progress Note: A&P Assessment and Plan (1) Cardiac arrest: Code(s): I46.9 - Cardiac arrest, cause unspecified Status: Acute Assessment and Plan: Patient with bradycardia along with PEA arrest, ROSC within 5 minutes. Likely hypoxia, cardiac event -ABGs post arrest did not look too bad -continue to monitor -troponin negative x1 (2) Acute respiratory failure due to COVID-19: Code(s): U07.1 - COVID-19; J96.00 - Acute respiratory failure, unspecified whether with hypoxia or hypercapnia Status: Acute Assessment and Plan: Acute Respiratory failure secondary to COVID-19 pneumonia but may have component of CHF. Tested positive on 03/19/2011. Admitted 03/24/2011 -Worsening respiratory distress and hypoxia on high-flow nasal cannula and non-rebreather mask. Patient emergently intubated 03/25 -Chest x-ray 04/05: Improving airspace opacities in the midlung zones and right lung base and stable left basilar airspace opacity, consistent with atelectasis versus pneumonia -patient improved with PRONING, but had a cardiac arrest overnight on 03/31/2020, - Currently on 30% FiO2, peep of 10., will decrease PEEP to 8 - Patient is off chemical paralysis - On Propofol, Fentanyl and versed for sedation - continue bronchodilators -, will diurese again today (3) COVID-19: Onset Date: ~03/18/20 Code(s): U07.1 - COVID-19 Status: Acute Assessment and Plan: COVID-19 - SARS-CoV-2 PCR positive 03/18 - Patient is in Airborne, Droplet and Contact Isolation -Remains on dexamethasone -completed Remdesivir -Follow inflammatory periodically - Convalescent plasma administered 03/25. -Consulted infectious disease for opinion on Actemra which Dr. Thayer did not recommend (4) Type 2 diabetes mellitus without complications: Qualifiers: Diabetes mellitus intermediate manager insulin use: without intermediate manager use Qualified Code(s): E11.9 - Type 2 diabetes mellitus without complications Code(s): E11.9 - Type 2 diabetes mellitus without complications Status: Acute Assessment and Plan: -insulin infusion has been turned off -continue Lantus and sliding scale insulin (5) Benign essential hypertension: Code(s): I10 - Essential (primary) hypertension Status: Acute Assessment and Plan: Continue lisinopril (6) NSTEMI (non-ST elevated myocardial infarction): Code(s): I21.4 - Non-ST elevation (NSTEMI) myocardial infarction Status: Acute Assessment and Plan: Mild elevation in troponin likely secondary to respiratory failure. EKG does not show any ST elevation 03/31: troponin < 0.012 x1 Continue aspirin, continue lisinopril ECHO 1. Complete two-dimensional, color flow and Doppler transthoracic echocardiogram is performed. 2. Left ventricular chamber dimension is normal. 3. Left ventricular systolic function is normal, estimated at 60-65%. 4. There is mildly increased left ventricular wall thickness. 5. The left ventricular diastolic function is normal. 6. E/e' 9 is minimally elevated. 7. There is trace tricuspid valve regurgitation. 8. Mild pulmonary hypertension, estimated pulmonary arterial systolic pressure is 46 mmHg. 9. Normal inferior vena cava with <50% collapse upon inspiration consistent with elevated right atrial pressure, 10 mmHg. (7) UTI (urinary tract infection): Code(s): N39.0 - Urinary tract infection, site not specified Status: Acute Assessment and Plan: Urine culture growing Staph aureus - ID following -continue levofloxacin per ID Additional Plan DVT prophylaxis -Lovenox intermediate dose Stress ulcer prophylaxis -Protonix Nutrition -tolerating tube feeds Called Inderjit Hernandez, Daughter and left a msg Code Status -patient is full code Total Critical Care Time 32 minutes Due to a high probability of clinically significant, life threatening deterioration, the patient required my highest level of
[2020-04-06 19:09] LABS: Glucose Point of Care 136 (65-105)
[2020-04-06] MEDS: MONTELUKAST SODIUM 10 MG TABLET PO (21:20)
[2020-04-06 21:49] LABS: Glucose Point of Care 147 (65-105)
[2020-04-06 23:28] LABS: Glucose Point of Care 126 (65-105)
[2020-04-07] VITALS (37 sets, daily range): BP systolic 111–140; BP diastolic 74–91; PULSE 78–99; RESP 17–27; TEMP 33.4–37; O2SAT 89–99
[2020-04-07 04:24] LABS: Hematocrit 32.5 % (37.0-47.0); Hemoglobin 9.8 g/dL (12.0-15.0); Mean Corpuscular HGB Conc 30.2 g/dl (32-36); Mean Corpuscular Hemoglobin 25.5 pg (26-34); Mean Corpuscular Volume 84.6 fl (80-100); Mean Platelet Volume 8.9 fl (7.4-10.4); Platelet Count Result 311 k/mm3 (150-375); Red Blood Count 3.84 M/mm3 (4.2-5.4); Red Cell Distribution Width 13.9 % (11.5-14.5); White Blood Count 14.7 K/mm3 (4.5-10.0)
[2020-04-07 04:41] LABS: Anion Gap 1 mmol/L (8-16); Blood Urea Nitrogen 33 mg/dL (7-17); CRP 8.3 mg/dL (<1.0); Calcium 8.6 mg/dL (8.4-10.2); Carbon Dioxide 37 mmol/L (22-30); Chloride 102 mmol/L (98-107); D Dimer 1.37 ug/mL (<0.48); Estimated CRCL calculation 136 ml/min; Estimated Glomerular Filt Rate > 60; Glucose 130 mg/dL (65-105); Lactate Dehydrogenase 456 U/L (313-618); Magnesium 2.1 mg/dL (1.6-2.3); Potassium 3.5 mmol/L (3.4-5.0); Sodium 140 mmol/L (137-145)
[2020-04-07 05:00] LABS: Alveolar/Arterial O2 Gradient 124.5 mmHg; Base Excess ABG 7.6 mEq/l (+/-2.0); Carboxyhemoglobin 0.2 % THb (0-2.0); Fractional Inspired Oxygen 35 %; HCO3 ABG 32.9 mEq/l (22.0-26.0); Methemoglobin ABG 0.2 %THb (0-1.5); Oxygen Content ABG 16.7 %vol (16.0-22.0); Oxygen Saturation ABG 94.1 % (95.0-100.0); Oxyhemoglobin 92.7 % THb (90.0-100.0); PO2 ABG 68.1 mmHg (80.0-100.0); PO2 FiO2 Ratio Arterial Blood 1.95 %; Reduced Hemoglobin 6.9 %THb (0-5.0); Total Hemoglobin 12.8 g/dL (12.0-18.0); pH ABG 7.445 (7.350-7.450)
[2020-04-07 05:01] LABS: Modified Allen's Test Pass; Site Drawn RIGHT RADIAL
[2020-04-07 05:02] LABS: Arterial Blood Gas Ventilator rate 20 /MIN; Device VENTILATOR
[2020-04-07 05:03] LABS: Arterial Blood Gas PEEP 8 cmH2O; Arterial Blood Gas Tidal Volume 400 ml; Arterial Blood Gas Vent Mode CMV
[2020-04-07] MEDS: CENTRAL LINE FLUSH 10 ML IV PUSH ×3 (06:13→20:55)
[2020-04-07] MEDS: DORNASE ALFA INH SOLN 1 MG/ML 2.5 ML AMP 2.5 MG INHALATION (07:59)
[2020-04-07] MEDS: INSULIN GLARGINE (*BKC) 100 UNITS/ML 55 UNITS SUB-Q ×2 (08:33→20:54)
[2020-04-07] MEDS: PANTOPRAZOLE SODIUM IV 40 MG VIAL IV PUSH (09:01)
[2020-04-07] MEDS: LORATADINE 10 MG TABLET PO (09:01)
[2020-04-07] MEDS: ENOXAPARIN 40 MG/0.4 ML SYRINGE SUB-Q ×2 (09:01→20:56)
[2020-04-07] MEDS: ASPIRIN 325 MG TABLET FEED TUBE (09:01)
[2020-04-07] MEDS: ASCORBIC ACID 500 MG TABLET 1000 MG PO (09:01)
[2020-04-07] MEDS: FUROSEMIDE INJ 40 MG/4 ML VIAL IV PUSH (10:42)
[2020-04-07] MEDS: polyethylene glycoL 3350 17 GM POWD.PACK PO (10:43)
[2020-04-07] MEDS: ZINC SULFATE 220 MG CAPSULE PO (10:44)
[2020-04-07] MEDS: levoFLOXacin 500 MG/D5W 100 ML 500 MG/100 ML BAG 100 MG IVPB (11:54)
[2020-04-07 12:05] LABS: Glucose Point of Care 114 (65-105)
--- NOTE | 2020-04-07 12:48 | PCDIET ---
ICU Rounding Note: Patient has been tolerating Glucerna 1.2 at 45mL/hr goal rate with 50mL water flush every 4 hours. MD order to hold tube feedings for possible extubation today. Last recorded weight is 156.1kg which is increased from last review. Bowel Motility: No BM reported. Patient with prn orders for Miralax and Dulcolax. Discussed with RN during rounds. Labs Reviewed: Hgb (9.8), Hct (32.5), Glu (130), BUN (33), Cr (0.6) Meds Noted: Albuterol, Vitamin C, Calcium Citrate, Fentanyl, Lantus, Levaquin, Lisinopril, Versed, Protonix, Zinc Sulfate Additional Notes: Abrasions to face reported. Following daily in ICU rounds. Assessing/reassessing every Tuesday/Tuesday.
--- NOTE | 2020-04-07 14:34 | WPDINFPN2 ---
Progress Note: A&P Assessment and Plan (1) COVID-19: Onset Date: ~03/18/20 Code(s): U07.1 - COVID-19 Status: Acute Assessment and Plan: 1. Respiratory failure, with suspected MELA pneumonia, Grp B Strep also isolated. 2. Viral pneumonia due to CoVid 19 infection 3. Multifactorial leukocytosis due to #2 and steroids, WBC same as yesterday 4. PCN and cephalexin intolerances/allergies 5. Gram positive bacteremia, 1/2 sets, more likely a contaminant such as coag negative Staph REC Remdesivir off, and dexamethasone ongoing. Levofloxacin #7, no change. F/U on BC identification. Subjective Date/time seen: 04/07/20 14:34 Interval history: sedated Exam Narrative: Exam Narrative: afebrile x 24 hours +. A single reading of 33 degrees C -- entered in error? Const: General: no acute distress Resp: Effort & Inspection: normal respiratory effort Auscultation: clear to auscultation bilaterally Cardio: Rate: regular rate Rhythm: regular rhythm Heart sounds: no murmurs GI: Inspection: distended GI Palp: Yes Soft to palpation and No Tenderness to palpation present (GI) Urinary Catheter: Urinary Catheter: patent and draining and urine clear Skin: General skin exam: normal color and no rashes or lesions noted Other: facial ulcers as before Objective Data Vital Signs Vital Signs: Vital Signs - 24 hr 04/06/20 15:00 04/06/20 16:00 04/06/20 16:48 Temperature 37.4 C Pulse Rate 89 94 88 Respiratory Rate 20 21 H Blood Pressure 110/64 Pulse Oximetry 94 95 04/06/20 18:00 04/06/20 19:35 04/06/20 19:36 Temperature Pulse Rate 89 90 90 Respiratory Rate 20 20 Blood Pressure 115/67 Pulse Oximetry 94 93 04/06/20 20:00 04/06/20 21:26 04/06/20 21:28 Temperature 37.4 C Pulse Rate 105 H 106 H 106 H Respiratory Rate 25 H 20 263 H Blood Pressure 131/77 Pulse Oximetry 98 04/06/20 22:00 04/06/20 22:43 04/06/20 23:12 Temperature Pulse Rate 98 104 H 98 Respiratory Rate 20 Blood Pressure 133/79 Pulse Oximetry 90 95 04/07/20 00:00 04/07/20 01:08 04/07/20 02:00 Temperature 33.4 C L Pulse Rate 88 85 88 Respiratory Rate 20 20 Blood Pressure 131/75 135/83 Pulse Oximetry 95 95 96 04/07/20 03:36 04/07/20 03:37 04/07/20 03:38 Temperature Pulse Rate 91 91 91 Respiratory Rate 20 20 20 Blood Pressure Pulse Oximetry 96 04/07/20 04:00 04/07/20 04:25 04/07/20 05:19 Temperature 37.0 C Pulse Rate 89 85 85 Respiratory Rate 22 H 20 Blood Pressure 111/74 Pulse Oximetry 91 95 04/07/20 06:00 04/07/20 08:00 04/07/20 08:03 Temperature 36.9 C Pulse Rate 82 87 86 Respiratory Rate 20 20 Blood Pressure 118/75 137/84 Pulse Oximetry 94 96 96 04/07/20 08:06 04/07/20 08:30 04/07/20 10:00 Temperature Pulse Rate 88 87 84 Respiratory Rate 20 20 21 H Blood Pressure 121/78 Pulse Oximetry 93 04/07/20 10:35 04/07/20 10:55 04/07/20 12:00 Temperature 36.9 C Pulse Rate 84 85 87 Respiratory Rate 23 H 20 Blood Pressure 140/91 H Pulse Oximetry 94 96 04/07/20 13:37 04/07/20 13:38 04/07/20 14:00 Temperature Pulse Rate 99 96 95 Respiratory Rate 23 H 23 H 27 H Blood Pressure 121/75 Pulse Oximetry 90 89 L Intake/Output Intake/Output: Intake & Output 04/04/20 04/05/20 04/06/20 04/07/20 23:59 23:59 23:59 23:59 Intake Total 1598 1743 2189 794 Output Total 1625 1800 1450 950 Balance -27 -57 739 -156 Meds/Results Medications: Active Medications Generic Name Dose Route Start Last Admin Trade Name Freq PRN Reason Stop Dose Admin Acetaminophen 650 mg 04/05/20 00:26 04/05/20 20:31 Acetaminophen 325 Mg Tablet PO 650 mg Q6H PRN Administration Fever Albuterol 2.5 mg 03/24/20 13:40 03/25/20 02:43 Albuterol Sulfate Neb 2.5 Mg/0.5 Ml Inh INHALATION 2.5 mg Q4HRT PRN Administration Shortness Of Breath Ascorbic Acid 1,000 mg 03/30/20 09:00 04/07/20 09:01 Ascorbic Acid 500 Mg Tablet P
--- NOTE | 2020-04-07 14:55 | WPDINTPN ---
Progress Note: A&P Assessment and Plan (1) Cardiac arrest: Code(s): I46.9 - Cardiac arrest, cause unspecified Status: Acute Assessment and Plan: Patient with bradycardia along with PEA arrest, ROSC within 5 minutes. Likely hypoxia, cardiac event -ABGs post arrest did not look too bad -continue to monitor -troponin negative x1 (2) Acute respiratory failure due to COVID-19: Code(s): U07.1 - COVID-19; J96.00 - Acute respiratory failure, unspecified whether with hypoxia or hypercapnia Status: Acute Assessment and Plan: Acute Respiratory failure secondary to COVID-19 pneumonia but may have component of CHF. Tested positive on 03/19/2011. Admitted 03/24/2011 -Worsening respiratory distress and hypoxia on high-flow nasal cannula and non-rebreather mask. Patient emergently intubated 03/25 -Chest x-ray 04/05: Improving airspace opacities in the midlung zones and right lung base and stable left basilar airspace opacity, consistent with atelectasis versus pneumonia -patient improved with PRONING, but had a cardiac arrest overnight on 03/31/2020, - Currently on 30% FiO2, peep of 8 tolerated - Patient is off chemical paralysis -weaned sedation, patient is more awake, alert, follows simple commands -placed on 02/15, patient started become tachycardic and tachypneic and was placed back on the ventilator - continue bronchodilators -, will diurese again today (3) COVID-19: Onset Date: ~03/18/20 Code(s): U07.1 - COVID-19 Status: Acute Assessment and Plan: COVID-19 - SARS-CoV-2 PCR positive 03/18 - Patient is in Airborne, Droplet and Contact Isolation -Remains on dexamethasone -completed Remdesivir -Follow inflammatory periodically - Convalescent plasma administered 03/25. -Consulted infectious disease for opinion on Actemra which Dr. Thayer did not recommend (4) Type 2 diabetes mellitus without complications: Qualifiers: Diabetes mellitus fdc insulin use: without vermin exterminator use Qualified Code(s): E11.9 - Type 2 diabetes mellitus without complications Code(s): E11.9 - Type 2 diabetes mellitus without complications Status: Acute Assessment and Plan: -insulin infusion has been turned off -continue Lantus and sliding scale insulin (5) Benign essential hypertension: Code(s): I10 - Essential (primary) hypertension Status: Acute Assessment and Plan: Continue lisinopril (6) NSTEMI (non-ST elevated myocardial infarction): Code(s): I21.4 - Non-ST elevation (NSTEMI) myocardial infarction Status: Acute Assessment and Plan: Mild elevation in troponin likely secondary to respiratory failure. EKG does not show any ST elevation 03/31: troponin < 0.012 x1 Continue aspirin, continue lisinopril ECHO 1. Complete two-dimensional, color flow and Doppler transthoracic echocardiogram is performed. 2. Left ventricular chamber dimension is normal. 3. Left ventricular systolic function is normal, estimated at 60-65%. 4. There is mildly increased left ventricular wall thickness. 5. The left ventricular diastolic function is normal. 6. E/e' 9 is minimally elevated. 7. There is trace tricuspid valve regurgitation. 8. Mild pulmonary hypertension, estimated pulmonary arterial systolic pressure is 46 mmHg. 9. Normal inferior vena cava with <50% collapse upon inspiration consistent with elevated right atrial pressure, 10 mmHg. (7) UTI (urinary tract infection): Code(s): N39.0 - Urinary tract infection, site not specified Status: Acute Assessment and Plan: Urine culture growing Staph aureus - ID following -continue levofloxacin per ID (8) Severe sepsis: Code(s): A41.9 - Sepsis, unspecified organism; R65.20 - Severe sepsis without septic shock Status: Acute Assessment and Plan: Patient with 0SSA pneumonia, group B strep also isolated in the sputum. -urine culture growing staph
[2020-04-07 17:36] LABS: Glucose Point of Care 121 (65-105)
[2020-04-07] MEDS: ALBUTEROL SULFATE NEB 2.5 MG/0.5 ML INH INHALATION (20:28)
[2020-04-07] MEDS: MONTELUKAST SODIUM 10 MG TABLET PO (20:55)
[2020-04-07] MEDS: FENTANYL 2,500MCG/NS250ML(*CRX 2,500 MCG/250 ML BAG 10 MCG IV CONT (22:25)
[2020-04-07 22:32] LABS: Glucose Point of Care 102 (65-105)
[2020-04-08] VITALS (35 sets, daily range): BP systolic 102–132; BP diastolic 65–90; PULSE 55–94; RESP 16–28; TEMP 36.3–37.1; O2SAT 90–100
[2020-04-08 04:36] LABS: Alveolar/Arterial O2 Gradient 132.6 mmHg; Base Excess ABG 7.5 mEq/l (+/-2.0); Carboxyhemoglobin 0.8 % THb (0-2.0); Fractional Inspired Oxygen 35 %; HCO3 ABG 31.8 mEq/l (22.0-26.0); Methemoglobin ABG 0.2 %THb (0-1.5); Oxygen Content ABG 19.2 %vol (16.0-22.0); Oxygen Saturation ABG 94.4 % (95.0-100.0); Oxyhemoglobin 92.2 % THb (90.0-100.0); PCO2 ABG 43.2 mmHg (35.0-45.0); PO2 ABG 66.7 mmHg (80.0-100.0); PO2 FiO2 Ratio Arterial Blood 1.91 %; Reduced Hemoglobin 6.8 %THb (0-5.0); Total Hemoglobin 14.8 g/dL (12.0-18.0); pH ABG 7.485 (7.350-7.450)
[2020-04-08 04:37] LABS: Arterial Blood Gas Ventilator rate 20 /MIN; Device VENTILATOR; Modified Allen's Test Pass; Site Drawn LEFT RADIAL
[2020-04-08 04:38] LABS: Arterial Blood Gas PEEP 8 cmH2O; Arterial Blood Gas Tidal Volume 400 ml; Arterial Blood Gas Vent Mode CMV
[2020-04-08] MEDS: CENTRAL LINE FLUSH 10 ML IV PUSH ×3 (04:46→20:42)
[2020-04-08 05:02] LABS: Hematocrit 33.4 % (37.0-47.0); Mean Corpuscular HGB Conc 29.9 g/dl (32-36); Platelet Count Result 324 k/mm3 (150-375); Red Blood Count 3.84 M/mm3 (4.2-5.4); Red Cell Distribution Width 14.3 % (11.5-14.5); White Blood Count 12.7 K/mm3 (4.5-10.0)
[2020-04-08 05:18] LABS: Alanine Aminotransferase 27 U/L (4-35); Alkaline Phosphatase 75 U/L (38-126); Anion Gap 3 mmol/L (8-16); Aspartate Amino Transferase 21 U/L (14-36); Bilirubin,Total 0.5 mg/dL (0.2-1.3); Blood Urea Nitrogen 36 mg/dL (7-17); Calcium 8.7 mg/dL (8.4-10.2); Carbon Dioxide 38 mmol/L (22-30); Chloride 100 mmol/L (98-107); Estimated CRCL calculation 159 ml/min; Estimated Glomerular Filt Rate > 60; Glucose 92 mg/dL (65-105); Lactate Dehydrogenase 383 U/L (313-618); Magnesium 2.2 mg/dL (1.6-2.3); Potassium 3.5 mmol/L (3.4-5.0); Sodium 141 mmol/L (137-145)
[2020-04-08] MEDS: ALBUTEROL SULFATE NEB 2.5 MG/0.5 ML INH INHALATION (09:41)
[2020-04-08] MEDS: DORNASE ALFA INH SOLN 1 MG/ML 2.5 ML AMP 2.5 MG INHALATION ×2 (09:41→20:03)
[2020-04-08] MEDS: dexmedeTOMIDine 400 MCG/100 ML 400 MCG/100 ML BAG 11.6 MCG (10:44)
[2020-04-08] MEDS: ASPIRIN 325 MG TABLET FEED TUBE (10:45)
[2020-04-08] MEDS: BISACODYL 10 MG SUPPOSITORY RECTAL (10:45)
[2020-04-08] MEDS: ENOXAPARIN 40 MG/0.4 ML SYRINGE SUB-Q ×2 (10:46→20:41)
[2020-04-08] MEDS: LORATADINE 10 MG TABLET PO (10:46)
[2020-04-08] MEDS: ASCORBIC ACID 500 MG TABLET 1000 MG PO (10:46)
[2020-04-08] MEDS: ZINC SULFATE 220 MG CAPSULE PO (10:47)
[2020-04-08] MEDS: PANTOPRAZOLE SODIUM IV 40 MG VIAL IV PUSH (10:47)
--- NOTE | 2020-04-08 11:05 | PCDIET ---
Nutrition Follow-Up Complete: Nutrition Diagnosis: Inadequate oral intake related to oral intubation as evidenced by NPO status. Nutrition Goal: Patient to meet estimated nutritional needs. Goal in progress. Recommend increasing Glucerna 1.2 to 55mL/hr with Pro-Stat BID for 1652kcal and 100g protein over 22 hours/day now that Propofol has been discontinued. Last recorded weight is 155.3 kg which is decreased from last review. Bowel Motility: No BM reported. Patient received Miralax 04/07/20 and RN to give Dulcolax today. Labs Reviewed: Hgb (10.0), Hct (33.4), BUN (36), Cr (0.5), Alb (3.0) Meds Noted: Fentanyl, Lantus, Albuterol, Vitamin C, Calcium Citrate, Levaquin, Lisinopril, Versed, Protonix, Dulcolax, Miralax Additional Notes: Right and left cheek with stage II pressure ulcers. Will continue to monitor with same goal. Nutrition Monitoring and Evaluation: Follow up every Tuesday/Tuesday.
--- NOTE | 2020-04-08 12:05 | WPDINTPN ---
Progress Note: A&P Assessment and Plan (1) Cardiac arrest: Code(s): I46.9 - Cardiac arrest, cause unspecified Status: Acute Assessment and Plan: Patient with bradycardia along with PEA arrest, ROSC within 5 minutes. Likely hypoxia, cardiac event -ABGs post arrest did not look too bad -continue to monitor -troponin negative x1 (2) Acute respiratory failure due to COVID-19: Code(s): U07.1 - COVID-19; J96.00 - Acute respiratory failure, unspecified whether with hypoxia or hypercapnia Status: Acute Assessment and Plan: Acute Respiratory failure secondary to COVID-19 pneumonia but may have component of CHF. Tested positive on 03/19/2011. Admitted 03/24/2011 -Worsening respiratory distress and hypoxia on high-flow nasal cannula and non-rebreather mask. Patient emergently intubated 03/25 -Chest x-ray 04/05: Improving airspace opacities in the midlung zones and right lung base and stable left basilar airspace opacity, consistent with atelectasis versus pneumonia -patient improved with PRONING, but had a cardiac arrest overnight on 03/31/2020, - Currently on 30% FiO2, peep of 8 tolerated -discontinue sedation and start patient on Precedex infusion -will evaluate for extubation -placed on 02/15, patient started become tachycardic and tachypneic and was placed back on the ventilator - continue bronchodilators - (3) COVID-19: Onset Date: ~03/18/20 Code(s): U07.1 - COVID-19 Status: Acute Assessment and Plan: COVID-19 - SARS-CoV-2 PCR positive 03/18 - Patient is in Airborne, Droplet and Contact Isolation -Remains on dexamethasone -completed Remdesivir -Follow inflammatory periodically - Convalescent plasma administered 03/25. -Consulted infectious disease for opinion on Actemra which Dr. Thayer did not recommend (4) Type 2 diabetes mellitus without complications: Qualifiers: Diabetes mellitus intermediate designer insulin use: without intermediate designer use Qualified Code(s): E11.9 - Type 2 diabetes mellitus without complications Code(s): E11.9 - Type 2 diabetes mellitus without complications Status: Acute Assessment and Plan: -insulin infusion has been turned off -patient has been hypo glycemic, will hold Lantus, continue sliding scale insulin Accu-Cheks (5) Benign essential hypertension: Code(s): I10 - Essential (primary) hypertension Status: Acute Assessment and Plan: Continue lisinopril (6) NSTEMI (non-ST elevated myocardial infarction): Code(s): I21.4 - Non-ST elevation (NSTEMI) myocardial infarction Status: Acute Assessment and Plan: Mild elevation in troponin likely secondary to respiratory failure. EKG does not show any ST elevation 03/31: troponin < 0.012 x1 Continue aspirin, continue lisinopril ECHO 1. Complete two-dimensional, color flow and Doppler transthoracic echocardiogram is performed. 2. Left ventricular chamber dimension is normal. 3. Left ventricular systolic function is normal, estimated at 60-65%. 4. There is mildly increased left ventricular wall thickness. 5. The left ventricular diastolic function is normal. 6. E/e' 9 is minimally elevated. 7. There is trace tricuspid valve regurgitation. 8. Mild pulmonary hypertension, estimated pulmonary arterial systolic pressure is 46 mmHg. 9. Normal inferior vena cava with <50% collapse upon inspiration consistent with elevated right atrial pressure, 10 mmHg. (7) UTI (urinary tract infection): Code(s): N39.0 - Urinary tract infection, site not specified Status: Acute Assessment and Plan: Urine culture growing Staph aureus - ID following -continue levofloxacin per ID (8) Severe sepsis: Code(s): A41.9 - Sepsis, unspecified organism; R65.20 - Severe sepsis without septic shock Status: Acute Assessment and Plan: Patient with 0SSA pneumonia, group B strep also isolated in the sputum. -urine culture growin
--- NOTE | 2020-04-08 12:20 | WPDINFPN2 ---
Progress Note: A&P Assessment and Plan (1) COVID-19: Onset Date: ~03/18/20 Code(s): U07.1 - COVID-19 Status: Acute Assessment and Plan: 1. Respiratory failure, with suspected MELA pneumonia, Grp B Strep also isolated. 2. Viral pneumonia due to CoVid 19 infection 3. Multifactorial leukocytosis due to #2 and #1, and steroids, WBC still high at 12 4. PCN and cephalexin intolerances/allergies 5. Coag negative Staph. bacteremia, 1/2 sets, contaminant REC Remdesivir and dexamethasone off. Levofloxacin #8, tentatively stop in another day. Subjective Date/time seen: 04/08/20 12:20 Interval history: lightly sedated, attempts to communicate with hands which are restrained Exam Narrative: Exam Narrative: afebrile Const: General: no acute distress Other: massive obesity Resp: Effort & Inspection: normal respiratory effort Auscultation: clear to auscultation bilaterally and diminished lung sounds Cardio: Rate: regular rate Rhythm: regular rhythm Heart sounds: no murmurs GI: GI Palp: Yes Soft to palpation and No Tenderness to palpation present (GI) Other: no masses Urinary Catheter: Urinary Catheter: patent and draining and urine clear Objective Data Vital Signs Vital Signs: Vital Signs - 24 hr 04/07/20 13:37 04/07/20 13:38 04/07/20 14:00 Temperature Pulse Rate 99 96 95 Respiratory Rate 20 20 27 H Blood Pressure 121/75 Pulse Oximetry 90 89 L 04/07/20 16:00 04/07/20 16:28 04/07/20 16:54 Temperature 36.9 C Pulse Rate 87 88 88 Respiratory Rate 20 20 Blood Pressure 115/76 Pulse Oximetry 96 93 04/07/20 17:30 04/07/20 17:31 04/07/20 18:00 Temperature Pulse Rate 85 85 81 Respiratory Rate 20 20 20 Blood Pressure 123/85 Pulse Oximetry 93 04/07/20 20:00 04/07/20 20:25 04/07/20 20:28 Temperature 36.6 C Pulse Rate 86 82 88 Respiratory Rate 20 20 Blood Pressure 119/75 Pulse Oximetry 93 93 04/07/20 20:50 04/07/20 20:52 04/07/20 20:53 Temperature Pulse Rate 88 90 90 Respiratory Rate 17 25 H 25 H Blood Pressure Pulse Oximetry 04/07/20 22:00 04/07/20 22:25 04/07/20 22:57 Temperature Pulse Rate 81 80 86 Respiratory Rate 20 21 H Blood Pressure 121/89 Pulse Oximetry 94 97 04/07/20 23:29 04/08/20 00:00 04/08/20 02:00 Temperature 36.7 C Pulse Rate 89 89 83 Respiratory Rate 22 H 22 H 21 H Blood Pressure 123/80 121/84 Pulse Oximetry 99 96 95 04/08/20 02:09 04/08/20 03:30 04/08/20 04:00 Temperature 37.1 C Pulse Rate 83 94 82 Respiratory Rate 20 21 H Blood Pressure 109/84 Pulse Oximetry 100 94 97 04/08/20 04:39 04/08/20 04:45 04/08/20 06:00 Temperature Pulse Rate 84 82 78 Respiratory Rate 22 H 20 Blood Pressure 132/77 Pulse Oximetry 94 95 04/08/20 08:00 04/08/20 09:30 04/08/20 09:40 Temperature Pulse Rate 76 75 78 Respiratory Rate 20 20 Blood Pressure Pulse Oximetry 94 04/08/20 10:44 04/08/20 11:19 04/08/20 11:40 Temperature Pulse Rate 79 75 71 Respiratory Rate 20 Blood Pressure Pulse Oximetry 95 94 Intake/Output Intake/Output: Intake & Output 04/05/20 04/06/20 04/07/20 04/08/20 23:59 23:59 23:59 23:59 Intake Total 1743 2189 1618.2 811.8 Output Total 1800 1450 2750 400 Balance -57 739 -1131.8 411.8 Meds/Results Medications: Active Medications Generic Name Dose Route Start Last Admin Trade Name Freq PRN Reason Stop Dose Admin Acetaminophen 650 mg 04/05/20 00:26 04/05/20 20:31 Acetaminophen 325 Mg Tablet PO 650 mg Q6H PRN Administration Fever Albuterol 2.5 mg 03/24/20 13:40 04/08/20 09:41 Albuterol Sulfate Neb 2.5 Mg/0.5 Ml Inh INHALATION 2.5 mg Q4HRT PRN Administration Shortness Of Breath Ascorbic Acid 1,000 mg 03/30/20 09:00 04/08/20 10:46 Ascorbic Acid 500 Mg Tablet PO 1,000 mg DAILY PAULO Administration Aspirin 325 mg 03/25/20 08:00 04/08/20 10:45 Aspirin 325 Mg Tablet FEED TUBE 325 mg D
[2020-04-08 12:37] LABS: Glucose Point of Care 97 (65-105)
[2020-04-08] MEDS: dexmedeTOMIDine 400 MCG/100 ML 400 MCG/100 ML BAG 19.41 MCG IV CONT ×2 (13:45→22:18)
[2020-04-08] MEDS: levoFLOXacin 500 MG/D5W 100 ML 500 MG/100 ML BAG 100 MG IVPB (13:57)
[2020-04-08] MEDS: FUROSEMIDE INJ 40 MG/4 ML VIAL IV PUSH (14:47)
[2020-04-08 14:54] LABS: Alveolar/Arterial O2 Gradient 192.5 mmHg; Base Excess ABG 5.8 mEq/l (+/-2.0); Carboxyhemoglobin 0.3 % THb (0-2.0); Fractional Inspired Oxygen 35 %; HCO3 ABG 29.3 mEq/l (22.0-26.0); Methemoglobin ABG 0.2 %THb (0-1.5); Oxygen Saturation ABG 95.3 % (95.0-100.0); Oxyhemoglobin 92.9 % THb (90.0-100.0); PCO2 ABG 38.3 mmHg (35.0-45.0); PO2 ABG 69.6 mmHg (80.0-100.0); PO2 FiO2 Ratio Arterial Blood 1.99 %; Reduced Hemoglobin 6.6 %THb (0-5.0); Total Hemoglobin 10.7 g/dL (12.0-18.0); pH ABG 7.501 (7.350-7.450)
[2020-04-08 14:55] LABS: Device VENTILATOR; Modified Allen's Test Pass; Site Drawn RIGHT RADIAL
[2020-04-08 14:56] LABS: Arterial Blood Gas Vent Mode PRESSURE SUPPORT
[2020-04-08 14:57] LABS: Arterial Blood Gas PEEP 5 cmH2O; Arterial Blood Gas Pressure Support 8 cmH2O
--- NOTE | 2020-04-08 15:39 | PCDIET ---
1445- LASIX 40 GIVEN IVP AND ABG OBTAINED. 1518- PT EXTUBATED PER RT AND RN, PER MD ORDERS AFTER REVIEW OF ABG. PT PLACED ON 2L NC.
[2020-04-08] MEDS: dexmedeTOMIDine 400 MCG/100 ML 400 MCG/100 ML BAG 15.53 MCG IV CONT (17:05)
[2020-04-08 18:12] LABS: Glucose Point of Care 118 (65-105)
[2020-04-08] MEDS: ALBUTEROL SULFATE NEB 2.5 MG/0.5 ML INH 5 MG INHALATION (20:03)
[2020-04-08 22:43] LABS: Glucose Point of Care 135 (65-105)
[2020-04-09] VITALS (23 sets, daily range): BP systolic 100–153; BP diastolic 59–83; PULSE 48–97; RESP 17–28; TEMP 36.4–37.1; O2SAT 92–97; BMI 10.0
[2020-04-09] MEDS: ALBUTEROL SULFATE NEB 2.5 MG/0.5 ML INH 5 MG INHALATION ×4 (03:00→21:00)
[2020-04-09] MEDS: dexmedeTOMIDine 400 MCG/100 ML 400 MCG/100 ML BAG 7.77 MCG IV CONT (04:19)
[2020-04-09 04:27] LABS: Basophils Absolute Auto 0.1 K/mm3 (0.0-0.1); Basophils Percent Auto 0.5 % (0.2-1.2); Eosinophils Absolute Auto 0.3 K/mm3 (0-0.3); Eosinophils Percent Auto 2.5 % (0-4.4); Hematocrit 32.5 % (37.0-47.0); Hemoglobin 9.9 g/dL (12.0-15.0); Immature Granulocyte Absolute 0.31 K/mm3 (0.00-0.031); Immature Granulocyte Percent A 2.6 % (0-0.5); Lymphocytes Absolute Auto 1.09 K/mm3 (0.9-3.2); Mean Corpuscular HGB Conc 30.5 g/dl (32-36); Mean Corpuscular Hemoglobin 25.5 pg (26-34); Mean Corpuscular Volume 83.8 fl (80-100); Mean Platelet Volume 8.9 fl (7.4-10.4); Monocytes Absolute Auto 0.7 K/mm3 (0.1-0.6); Monocytes Percent Auto 6.1 % (2.6-8.5); Neutrophils Absolute Auto 9.6 K/mm3 (1.3-6.7); Neutrophils Percent Auto 79.3 % (45.5-73.1); Platelet Count Result 286 k/mm3 (150-375); Red Blood Count 3.88 M/mm3 (4.2-5.4); Red Cell Distribution Width 14.1 % (11.5-14.5); White Blood Count 12.1 K/mm3 (4.5-10.0)
[2020-04-09 04:44] LABS: Anion Gap 3 mmol/L (8-16); Blood Urea Nitrogen 32 mg/dL (7-17); Calcium 8.6 mg/dL (8.4-10.2); Carbon Dioxide 36 mmol/L (22-30); Chloride 101 mmol/L (98-107); Estimated CRCL calculation 133 ml/min; Estimated Glomerular Filt Rate > 60; Glucose 121 mg/dL (65-105); Magnesium 2.2 mg/dL (1.6-2.3); Phosphorus 4.3 mg/dL (2.5-4.5); Potassium 3.6 mmol/L (3.4-5.0); Sodium 140 mmol/L (137-145)
[2020-04-09 04:46] LABS: D Dimer 1.29 ug/mL (<0.48)
[2020-04-09 05:03] LABS: Lactate Dehydrogenase 424 U/L (313-618)
[2020-04-09] MEDS: CENTRAL LINE FLUSH 10 ML IV PUSH ×3 (06:45→21:04)
[2020-04-09] MEDS: ENOXAPARIN 40 MG/0.4 ML SYRINGE SUB-Q ×2 (08:18→21:04)
[2020-04-09] MEDS: PANTOPRAZOLE SODIUM IV 40 MG VIAL IV PUSH (08:19)
--- NOTE | 2020-04-09 09:51 | PCSTNOTE ---
Please refer to the Bedside Swallow Evaluation in the EMR. Please note, silent aspiration cannot be ruled out at bedside.
[2020-04-09] MEDS: ASPIRIN 325 MG TABLET FEED TUBE (11:07)
[2020-04-09] MEDS: ASCORBIC ACID 500 MG TABLET 1000 MG PO (11:07)
[2020-04-09] MEDS: ZINC SULFATE 220 MG CAPSULE PO (11:07)
[2020-04-09] MEDS: LORATADINE 10 MG TABLET PO (11:07)
[2020-04-09 11:41] LABS: Glucose Point of Care 95 (65-105)
--- NOTE | 2020-04-09 12:09 | WPDINTPN ---
Progress Note: A&P Assessment and Plan (1) Acute respiratory failure due to COVID-19: Code(s): U07.1 - COVID-19; J96.00 - Acute respiratory failure, unspecified whether with hypoxia or hypercapnia Status: Acute Assessment and Plan: Acute Respiratory failure secondary to COVID-19 pneumonia but may have component of CHF. Tested positive on 03/19/2011. Admitted 03/24/2011 -Worsening respiratory distress and hypoxia on high-flow nasal cannula and non-rebreather mask. Patient emergently intubated 03/25 -patient extubated on 04/08/2020, remains on 2 L nasal cannula -PT/OT to follow patient -speech therapy for bedside swallow test -up in chair as tolerated -encourage incentive spirometry (2) Cardiac arrest: Code(s): I46.9 - Cardiac arrest, cause unspecified Status: Acute Assessment and Plan: Patient with bradycardia along with PEA arrest, ROSC within 5 minutes. Likely hypoxia, cardiac event -ABGs post arrest did not look too bad -continue to monitor -troponin negative x1 (3) COVID-19: Onset Date: ~03/18/20 Code(s): U07.1 - COVID-19 Status: Acute Assessment and Plan: COVID-19 - SARS-CoV-2 PCR positive 03/18 - Patient is in Airborne, Droplet and Contact Isolation -Remains on dexamethasone -completed Remdesivir -Follow inflammatory periodically - Convalescent plasma administered 03/25. -Consulted infectious disease for opinion on Actemra which Dr. Thayer did not recommend (4) Type 2 diabetes mellitus without complications: Qualifiers: Diabetes mellitus termination clerk insulin use: without termination clerk use Qualified Code(s): E11.9 - Type 2 diabetes mellitus without complications Code(s): E11.9 - Type 2 diabetes mellitus without complications Status: Acute Assessment and Plan: -insulin infusion has been turned off -patient has been hypo glycemic, will hold Lantus, continue sliding scale insulin Accu-Cheks (5) Benign essential hypertension: Code(s): I10 - Essential (primary) hypertension Status: Acute Assessment and Plan: Continue lisinopril (6) NSTEMI (non-ST elevated myocardial infarction): Code(s): I21.4 - Non-ST elevation (NSTEMI) myocardial infarction Status: Acute Assessment and Plan: Mild elevation in troponin likely secondary to respiratory failure. EKG does not show any ST elevation 03/31: troponin < 0.012 x1 Continue aspirin, continue lisinopril ECHO 1. Complete two-dimensional, color flow and Doppler transthoracic echocardiogram is performed. 2. Left ventricular chamber dimension is normal. 3. Left ventricular systolic function is normal, estimated at 60-65%. 4. There is mildly increased left ventricular wall thickness. 5. The left ventricular diastolic function is normal. 6. E/e' 9 is minimally elevated. 7. There is trace tricuspid valve regurgitation. 8. Mild pulmonary hypertension, estimated pulmonary arterial systolic pressure is 46 mmHg. 9. Normal inferior vena cava with <50% collapse upon inspiration consistent with elevated right atrial pressure, 10 mmHg. (7) UTI (urinary tract infection): Code(s): N39.0 - Urinary tract infection, site not specified Status: Acute Assessment and Plan: Urine culture growing Staph aureus - ID following -continue levofloxacin per ID (8) Severe sepsis: Code(s): A41.9 - Sepsis, unspecified organism; R65.20 - Severe sepsis without septic shock Status: Acute Assessment and Plan: Patient with 0SSA pneumonia, group B strep also isolated in the sputum. -urine culture growing staph aureus - Gram-positive cocci in clusters 1 of 2 bottles in blood cultures, identification pending -infectious disease is following the patient, continue levofloxacin Additional Plan DVT prophylaxis -Lovenox intermediate dose Stress ulcer prophylaxis -Protonix Nutrition -speech to evaluate for swallowing Code Status -patient i
--- NOTE | 2020-04-09 12:14 | WPDINFPN2 ---
Progress Note: A&P Assessment and Plan (1) COVID-19: Onset Date: ~03/18/20 Code(s): U07.1 - COVID-19 Status: Acute Assessment and Plan: 1. Respiratory failure, with MELA pneumonia, Grp B Strep also isolated. Now extubated. 2. Viral pneumonia due to CoVid 19 infection 3. Multifactorial leukocytosis due to #2 and #1, and steroids, WBC steady decline 4. PCN and cephalexin intolerances/allergies 5. Coag negative Staph. bacteremia, 1/2 sets, contaminant REC Remdesivir and dexamethasone off. Levofloxacin #9, stop. Subjective Date/time seen: 04/09/20 12:14 Interval history: Hoarse, extubated, no pain Exam Narrative: Exam Narrative: afebrile Const: General: no acute distress Other: morbid obesity Resp: Effort & Inspection: normal respiratory effort Auscultation: clear to auscultation bilaterally and diminished lung sounds Cardio: Rate: regular rate Rhythm: regular rhythm Heart sounds: no murmurs GI: Inspection: non-distended GI Palp: Yes Soft to palpation and No Tenderness to palpation present (GI) Urinary Catheter: Urinary Catheter: patent and draining and urine clear Skin: Other: facial lesions same Objective Data Vital Signs Vital Signs: Vital Signs - 24 hr 04/08/20 13:45 04/08/20 14:00 04/08/20 14:02 Temperature 36.3 C L Pulse Rate 58 L 60 67 Respiratory Rate 26 H 26 H Blood Pressure 124/81 Pulse Oximetry 93 93 04/08/20 15:42 04/08/20 15:43 04/08/20 15:48 Temperature Pulse Rate 71 66 70 Respiratory Rate 26 H 24 H 21 H Blood Pressure Pulse Oximetry 94 04/08/20 16:00 04/08/20 17:05 04/08/20 18:00 Temperature 36.8 C Pulse Rate 70 62 64 Respiratory Rate 28 H 17 20 Blood Pressure 122/86 111/83 Pulse Oximetry 93 92 04/08/20 20:00 04/08/20 20:04 04/08/20 20:09 Temperature 36.8 C Pulse Rate 55 L 59 L 59 L Respiratory Rate 21 H 16 16 Blood Pressure 111/69 Pulse Oximetry 90 92 04/08/20 20:13 04/08/20 22:00 04/08/20 22:18 Temperature Pulse Rate 57 L 74 75 Respiratory Rate 18 20 22 H Blood Pressure 102/65 Pulse Oximetry 91 04/08/20 22:50 04/08/20 23:04 04/08/20 23:08 Temperature Pulse Rate 57 L 56 L 58 L Respiratory Rate 16 21 H Blood Pressure Pulse Oximetry 95 94 04/09/20 00:00 04/09/20 00:36 04/09/20 02:00 Temperature 36.9 C Pulse Rate 56 L 54 L 56 L Respiratory Rate 22 H 20 21 H Blood Pressure 104/67 112/72 Pulse Oximetry 95 96 04/09/20 03:03 04/09/20 03:15 04/09/20 04:00 Temperature 37.1 C Pulse Rate 53 L 48 L 60 Respiratory Rate 18 17 20 Blood Pressure 117/75 Pulse Oximetry 94 04/09/20 04:10 04/09/20 04:19 04/09/20 05:01 Temperature Pulse Rate 56 L 56 L 48 L Respiratory Rate 25 H 25 H 17 Blood Pressure Pulse Oximetry 94 04/09/20 06:00 04/09/20 08:00 04/09/20 08:30 Temperature 36.4 C Pulse Rate 73 50 L Respiratory Rate 18 17 Blood Pressure 126/74 108/68 Pulse Oximetry 96 94 97 04/09/20 09:15 04/09/20 09:17 04/09/20 09:22 Temperature Pulse Rate 90 90 Respiratory Rate 18 19 Blood Pressure Pulse Oximetry 94 04/09/20 10:00 Temperature Pulse Rate 90 Respiratory Rate 27 H Blood Pressure 100/81 Pulse Oximetry 94 Intake/Output Intake/Output: Intake & Output 04/06/20 04/07/20 04/08/20 04/09/20 23:59 23:59 23:59 23:59 Intake Total 2189 1618.2 1216.8 100 Output Total 1450 2750 1650 550 Balance 739 -1131.8 -433.2 -450 Meds/Results Medications: Active Medications Generic Name Dose Route Start Last Admin Trade Name Freq PRN Reason Stop Dose Admin Acetaminophen 650 mg 04/05/20 00:26 04/05/20 20:31 Acetaminophen 325 Mg Tablet PO 650 mg Q6H PRN Administration Fever Albuterol 5 mg 04/08/20 20:00 04/09/20 09:14 Albuterol Sulfate Neb 2.5 Mg/0.5 Ml Inh INHALATION 5 mg Q6HRT PAULO Administration Alprazolam 0.25 mg 04/09/20 10:28 Alprazolam (*Crx) 0.25 Mg Tablet PO TID PRN anxiety Asco
[2020-04-09] MEDS: DORNASE ALFA INH SOLN 1 MG/ML 2.5 ML AMP 2.5 MG INHALATION ×2 (14:24→21:00)
--- NOTE | 2020-04-09 16:23 | PCDIET ---
Nutrition Follow-Up Complete: Nutrition Diagnosis: Inadequate oral intake related to oral intubation as evidenced by NPO status. Nutrition Goal: Patient to meet estimated nutritional needs. Goal in progress. Patient extubated and currently on pureed diet with level 3 liquids, per JINRIKISHA DRIVER recommendations. Also on diabetic restrictions. Last recorded weight is 151.5 kg which is down from last review and overall down 2.5kg from admission. -I/O. Bowel Motility: +BM today. Labs Reviewed: Hgb (9.9), Hct (32.5), Glu (121), BUN (32), Cr (0.6) Meds Noted: Albuterol, Vitamin C, Calcium Citrate, Novolog, Lisinopril, Protonix, Advair, Zinc Sulfate Additional Notes: Pressure ulcers to cheeks and chin. Will continue to monitor with same goal. Nutrition Monitoring and Evaluation: Follow up every 3 days.
--- NOTE | 2020-04-09 16:30 | PC.NURSE ---
This patient, Tereza Feng, was transferred to [ [id number]] on 04/09/20 at 1653. Personal belongings sent with patient. Report given to [LATIA Prado @ 1600 ]. Appropriate documentation sent with patient.
[2020-04-09] MEDS: ALTEPLASE 2 MG VIAL (CATHFLO) IV PUSH (17:05)
[2020-04-09] MEDS: PHENOL/SOD PHENO SPRAY CHERRY (*BKC) 1 SPRAY MUCOUS MEM ×2 (17:19→23:35)
[2020-04-09] MEDS: GLUCOSE ORAL GEL 15 GM OF GLUCSE IN 37.5 GM TUBE PO (17:19)
[2020-04-09 17:27] LABS: Glucose Point of Care 68 (65-105)
[2020-04-09 18:11] LABS: Glucose Point of Care 86 (65-105)
[2020-04-09] MEDS: MONTELUKAST SODIUM 10 MG TABLET PO (21:04)
[2020-04-09 21:41] LABS: Glucose Point of Care 82 (65-105)
[2020-04-10] VITALS (14 sets, daily range): BP systolic 131–148; BP diastolic 75–88; PULSE 79–108; RESP 20–24; TEMP 35.9–37.1; O2SAT 91–99; BMI 10.0
[2020-04-10] MEDS: ALBUTEROL SULFATE NEB 2.5 MG/0.5 ML INH 5 MG INHALATION ×3 (03:14→20:31)
[2020-04-10 06:11] LABS: Basophils Absolute Auto 0.1 K/mm3 (0.0-0.1); Basophils Percent Auto 0.8 % (0.2-1.2); Eosinophils Absolute Auto 0.3 K/mm3 (0-0.3); Eosinophils Percent Auto 3.2 % (0-4.4); Hematocrit 33.2 % (37.0-47.0); Hemoglobin 10.1 g/dL (12.0-15.0); Immature Granulocyte Absolute 0.37 K/mm3 (0.00-0.031); Immature Granulocyte Percent A 3.6 % (0-0.5); Lymphocytes Absolute Auto 1.29 K/mm3 (0.9-3.2); Lymphocytes Percent Auto 12.7 % (18.3-44.2); Mean Corpuscular HGB Conc 30.4 g/dl (32-36); Mean Corpuscular Hemoglobin 25.4 pg (26-34); Mean Corpuscular Volume 83.4 fl (80-100); Mean Platelet Volume 8.9 fl (7.4-10.4); Monocytes Absolute Auto 0.6 K/mm3 (0.1-0.6); Monocytes Percent Auto 6.1 % (2.6-8.5); Neutrophils Absolute Auto 7.5 K/mm3 (1.3-6.7); Neutrophils Percent Auto 73.6 % (45.5-73.1); Platelet Count Result 304 k/mm3 (150-375); Red Blood Count 3.98 M/mm3 (4.2-5.4); Red Cell Distribution Width 14.3 % (11.5-14.5); White Blood Count 10.2 K/mm3 (4.5-10.0)
[2020-04-10 06:25] LABS: Anion Gap 3 mmol/L (8-16); Blood Urea Nitrogen 25 mg/dL (7-17); Calcium 8.5 mg/dL (8.4-10.2); Carbon Dioxide 36 mmol/L (22-30); Chloride 102 mmol/L (98-107); Estimated CRCL calculation 133 ml/min; Estimated Glomerular Filt Rate > 60; Glucose 82 mg/dL (65-105); Magnesium 2.1 mg/dL (1.6-2.3); Phosphorus 4.1 mg/dL (2.5-4.5); Potassium 3.1 mmol/L (3.4-5.0); Sodium 141 mmol/L (137-145)
[2020-04-10] MEDS: CENTRAL LINE FLUSH 10 ML IV PUSH ×3 (07:00→20:45)
[2020-04-10 08:51] LABS: Glucose Point of Care 82 (65-105)
[2020-04-10] MEDS: DORNASE ALFA INH SOLN 1 MG/ML 2.5 ML AMP 2.5 MG INHALATION ×2 (09:01→20:31)
[2020-04-10] MEDS: ASCORBIC ACID 500 MG TABLET 1000 MG PO (09:28)
[2020-04-10] MEDS: ZINC SULFATE 220 MG CAPSULE PO (09:29)
[2020-04-10] MEDS: LORATADINE 10 MG TABLET PO (09:29)
[2020-04-10] MEDS: ASPIRIN 325 MG TABLET PO (09:29)
[2020-04-10] MEDS: ENOXAPARIN 40 MG/0.4 ML SYRINGE SUB-Q ×2 (09:30→20:44)
[2020-04-10] MEDS: PANTOPRAZOLE SODIUM IV 40 MG VIAL IV PUSH (09:31)
[2020-04-10] MEDS: POTASSIUM CHLORIDE 20 MEQ TABLET 40 MEQ PO (09:35)
[2020-04-10] MEDS: lisinopriL 10 MG TABLET PO (13:26)
[2020-04-10 14:43] LABS: Glucose Point of Care 91 (65-105)
--- NOTE | 2020-04-10 14:51 | PM.IMPN ---
Progress Note: A&P Assessment and Plan (1) Acute respiratory failure with hypoxia: Code(s): J96.01 - Acute respiratory failure with hypoxia Status: Acute Assessment and Plan: Due to COVID-19 Tested positive 03/19 Continue to support on vent and wean as possible 03/30 55%/PEEP 12/TV 400 04/10/20 14:51 patient is morbidly obese with BMI of 56 was positive for COVID on 03/19/20 and states for the 1 week she had a cough shortness of breath and was getting progressively over and and symptoms over worse with exertion patient presented emergency department further evaluate patient was quite hypoxic and was placed on BiPAP and continue to monitor however this morning patient symptoms were worsening patient was seen by and service it was decided to intubate the patient currently patient on vent unable to provide any history review of symptoms. 03/31 on 03/24 patient's symptoms worsen patient was intubated currently on vent, recieved convalescent plama on 03/25. completed remdesivir, and currently on dexamathasone, last night patient had a cardiac arrest CPR was resumed after 5 minutes patient ROSC etiology uncertain discussed with physical sciences professor will continue to monitor and further recommendation to follow 04/01 patient on vent and on Nimbex, sputum culture is growing Staphylococcus aureus patient is seen by Dr. Thayer and started patient on Levaquin, for lower respiratory track infection, patient is off Remdesivir and dexamethasone 10/21, patient is seen by physical sciences professor and appreciate. 04/10 patient with COVID-19 had been treated with dexamethasone and remdesivir and completed ten-day course, patient also received convalescent plama on 03/25. Patient was intubated due to hypoxic secondary to bacterial pneumonia staph aureus and group B strep as well as COVID-19 pneumonia on 03/24 and extubated 04/[address] 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 (2) COVID-19: Onset Date: ~03/18/20 Code(s): U07.1 - COVID-19 Status: Acute Assessment and Plan: 03/19 (3) Type 2 diabetes mellitus without complications: Qualifiers: Diabetes mellitus senior living insulin use: without watermelon harvesting supervisor use Qualified Code(s): E11.9 - Type 2 diabetes mellitus without complications Code(s): E11.9 - Type 2 diabetes mellitus without complications Status: Acute Assessment and Plan: Insulin basal with sliding scale (4) NSTEMI (non-ST elevated myocardial infarction): Code(s): I21.4 - Non-ST elevation (NSTEMI) myocardial infarction Status: Acute Assessment and Plan: Most likely NSTEMI type 2 secondary to ischemia secondary to respiratory failure monitor (5) Non-alcoholic fatty liver disease: Code(s): K76.0 - Fatty (change of) liver, not elsewhere classified Status: Acute Assessment and Plan: Monitor CMP likely due to severe obesity (6) History of kidney cancer: Code(s): Z85.528 - Personal history of other malignant neoplasm of kidney Status: Acute Subjective Date/time seen: 04/10/20 14:51 patient is morbidly obese with BMI of 56 was positive for COVID on 03/19/20 and states for the 1 week she had a cough shortness of breath and was getting progressively over and and symptoms over worse with exertion patient presented emergency department further evaluate patient was quite hypoxic and was placed on BiPAP and continue to monitor however this morning patient symptoms were worsening patient was seen by and service it was decided to intubate the patient
--- NOTE | 2020-04-10 17:34 | PCRCNOTE ---
Window of time for administration has passed. See next scheduled administration.
[2020-04-10 18:01] LABS: Glucose Point of Care 91 (65-105)
[2020-04-10] MEDS: FUROSEMIDE INJ 40 MG/4 ML VIAL IV PUSH (18:14)
[2020-04-10] MEDS: MONTELUKAST SODIUM 10 MG TABLET PO (20:45)
[2020-04-10 21:42] LABS: Glucose Point of Care 121 (65-105)
[2020-04-11] VITALS (15 sets, daily range): BP systolic 117–140; BP diastolic 67–88; PULSE 87–113; RESP 16–27; TEMP 36.1–36.8; O2SAT 90–98
[2020-04-11] MEDS: ALBUTEROL SULFATE NEB 2.5 MG/0.5 ML INH 5 MG INHALATION ×4 (01:52→21:33)
[2020-04-11] MEDS: CENTRAL LINE FLUSH 10 ML IV PUSH ×3 (05:44→21:05)
[2020-04-11 06:21] LABS: Basophils Absolute Auto 0.1 K/mm3 (0.0-0.1); Basophils Percent Auto 0.8 % (0.2-1.2); Eosinophils Absolute Auto 0.4 K/mm3 (0-0.3); Eosinophils Percent Auto 3.4 % (0-4.4); Hematocrit 36.8 % (37.0-47.0); Hemoglobin 10.9 g/dL (12.0-15.0); Immature Granulocyte Absolute 0.23 K/mm3 (0.00-0.031); Lymphocytes Absolute Auto 1.38 K/mm3 (0.9-3.2); Lymphocytes Percent Auto 12.3 % (18.3-44.2); Mean Corpuscular HGB Conc 29.6 g/dl (32-36); Mean Corpuscular Hemoglobin 25.4 pg (26-34); Mean Corpuscular Volume 85.8 fl (80-100); Mean Platelet Volume 8.7 fl (7.4-10.4); Monocytes Absolute Auto 0.8 K/mm3 (0.1-0.6); Monocytes Percent Auto 7.3 % (2.6-8.5); Neutrophils Absolute Auto 8.3 K/mm3 (1.3-6.7); Neutrophils Percent Auto 74.2 % (45.5-73.1); Platelet Count Result 315 k/mm3 (150-375); Red Blood Count 4.29 M/mm3 (4.2-5.4); Red Cell Distribution Width 14.6 % (11.5-14.5); White Blood Count 11.2 K/mm3 (4.5-10.0)
[2020-04-11 06:38] LABS: CRP 2.8 mg/dL (<1.0); Lactate Dehydrogenase 504 U/L (313-618)
[2020-04-11 06:43] LABS: Alanine Aminotransferase 35 U/L (4-35); Albumin Level 3.1 g/dL (3.5-5.1); Alkaline Phosphatase 79 U/L (38-126); Anion Gap 3 mmol/L (8-16); Aspartate Amino Transferase 27 U/L (14-36); Bilirubin,Total 0.7 mg/dL (0.2-1.3); Blood Urea Nitrogen 21 mg/dL (7-17); Calcium 8.3 mg/dL (8.4-10.2); Carbon Dioxide 33 mmol/L (22-30); Chloride 103 mmol/L (98-107); Estimated CRCL calculation 132 ml/min; Estimated Glomerular Filt Rate > 60; Glucose 101 mg/dL (65-105); Magnesium 2.1 mg/dL (1.6-2.3); Potassium 3.1 mmol/L (3.4-5.0); Sodium 139 mmol/L (137-145)
[2020-04-11 06:49] LABS: D Dimer 1.44 ug/mL (<0.48)
[2020-04-11 06:56] LABS: Hypochromasia 1+ (NORMAL); Platelet Estimate Increased (Adequate)
[2020-04-11 09:32] LABS: Glucose Point of Care 103 (65-105)
[2020-04-11] MEDS: POTASSIUM CHLORIDE 20 MEQ PACKET (FOR LIQUID) 40 MEQ PO (09:50)
[2020-04-11] MEDS: ASCORBIC ACID 500 MG TABLET 1000 MG PO (09:51)
[2020-04-11] MEDS: lisinopriL 10 MG TABLET PO (09:51)
[2020-04-11] MEDS: ZINC SULFATE 220 MG CAPSULE PO (09:51)
[2020-04-11] MEDS: ASPIRIN 325 MG TABLET PO (09:51)
[2020-04-11] MEDS: LORATADINE 10 MG TABLET PO (09:51)
[2020-04-11] MEDS: FUROSEMIDE INJ 40 MG/4 ML VIAL IV PUSH (09:51)
[2020-04-11] MEDS: ENOXAPARIN 40 MG/0.4 ML SYRINGE SUB-Q ×2 (09:51→20:39)
[2020-04-11] MEDS: DORNASE ALFA INH SOLN 1 MG/ML 2.5 ML AMP 2.5 MG INHALATION ×2 (09:52→21:41)
[2020-04-11] MEDS: PANTOPRAZOLE SODIUM IV 40 MG VIAL IV PUSH (09:53)
--- NOTE | 2020-04-11 11:13 | PCNFU ---
Nutrition Follow-Up Complete: Inadequate oral intake related to oral intubation as evidenced by NPO status. Goal: Patient to meet estimated nutritional needs. Progressing towards goal. We will continue current goal. Pt current nutrition is DBCC, Pureed, Level 4/Moderately Thick, Level 3. Nutrition recommendation: Ensure compact BID Last recorded weight is 149.2 kg, down from 154 kg from admit. Bowel Motility:+BM reported 04/11 Labs Reviewed:BUN 21,Cr 0.6,K 3.1,Hct 36.8,Hgb 10.9 Meds Noted:Lovenox, Dulcolax,Vit C, Zinc Sulfate,Calcium Citrate Additional Notes: Nutrition follow up. Patient eating 25-75% of meals. MD orders for Ensure Compact BID providing an additional 220 kcals and 9 gms protein. Agree with diet orders. Monitoring: weight , labs, oral intake every 3 days.
--- NOTE | 2020-04-11 12:06 | PM.IMPN ---
Progress Note: A&P Assessment and Plan (1) Acute respiratory failure with hypoxia: Code(s): J96.01 - Acute respiratory failure with hypoxia Status: Acute Assessment and Plan: Secondary to COVID-19 pneumonia complicated with secondary bacterial infection secondary to Staph aureus completed course of Levaquin Completed course of dexamethasone plasma and remdisever requiring mechanical ventilation from 03/24/2019 -04/08/20 Patient currently extubated on oxygen Patient currently in step-down unit Patient had critical care illness Hospital course complicated with pulseless electric activity arrest required CPR for 5 minutes with return of circulation according to power generation turbine room operator was attributed to hypoxia echo showed ejection fraction of 60% (2) COVID-19: Onset Date: ~03/18/20 Code(s): U07.1 - COVID-19 Status: Acute Assessment and Plan: 03/19 (3) Type 2 diabetes mellitus without complications: Qualifiers: Diabetes mellitus terminal manager insulin use: without longterm use Qualified Code(s): E11.9 - Type 2 diabetes mellitus without complications Code(s): E11.9 - Type 2 diabetes mellitus without complications Status: Acute Assessment and Plan: Insulin basal with sliding scale (4) NSTEMI (non-ST elevated myocardial infarction): Code(s): I21.4 - Non-ST elevation (NSTEMI) myocardial infarction Status: Acute Assessment and Plan: Most likely NSTEMI type 2 secondary to demand ischemia secondary to respiratory failure monitor (5) Non-alcoholic fatty liver disease: Code(s): K76.0 - Fatty (change of) liver, not elsewhere classified Status: Acute Assessment and Plan: Monitor CMP likely due to severe obesity (6) History of kidney cancer: Code(s): Z85.528 - Personal history of other malignant neoplasm of kidney Status: Acute Additional Plan Patient still short of breath patient still weak patient most likely will require rehab Anticipate discharge to rehab probably on Tuesday. Subjective Date/time seen: 04/11/20 12:06 Interval history: Patient seen and examined Patient was admitted to the hospital with shortness of breath was found to have COVID-19 pneumonia she required BiPAP patient was transferred to the ICU as her condition continued to worsen required intubation on the March 25 patient was treated with remdissever dexamethasone and plasma, patient had cardiac arrest required CPR for 5 minutes she developed bradycardia down in [place] according to power generation turbine room operator most likely related to hypoxia echo was done showed ejection fraction 60% and pulmonary hypertension patient also was found to have Staph aureus in the sputum ID was on board and patient completed course of Levaquin patient was extubated on 04/08/2020 transfer to medical floor on 04/10/20 patient continued to be on oxygen she is very weak patient had facial rash probably compression from the site of the intubation/BiPAP also she has a harsh voice probably from intubation Patient denies fever headache chest pain I am seeing the patient for COVID-19 pneumonia Exam Narrative: Exam Narrative: Alert Chest scattered crackles Abdomen nontender nondistended CVS S1 + S2 Positive facial rash Objective Data Vital Signs Vital Signs: Vital Signs - 24 hr 04/10/20 16:00 04/10/20 20:00 04/10/20 20:35 Temperature 96.9 F L 98.1 F Pulse Rate 83 108 H 98 Respiratory Rate 20 22 H Blood Pressure 141/78 H 131/88 Pulse Oximetry 92 99 04/10/20 20:46 04/10/20 22:23 04/11/20 00:00 Temperature 98.0 F Pulse Rate 80 98 95 Respiratory Rate 22 H 24 H 20 Blood Pressure 135/73 Pulse Oximetry 93 98 04/11/20 01:59 04/11/20 02:08 04/11/20 02:09 Temperature Pulse Rate 95 92 92 Respiratory Rate 22 H 27 H 27 H Blood Pressure Pulse Oximetry 96 04/11/20 04:00 04/11/20 08:00 04/11/20 10:00 Temperature 98.3 F 97.0 F L Pulse Rate 91 97 98 Respiratory Rate 22 H
[2020-04-11 13:36] LABS: Glucose Point of Care 159 (65-105)
[2020-04-11 17:38] LABS: Glucose Point of Care 147 (65-105)
[2020-04-11] MEDS: MONTELUKAST SODIUM 10 MG TABLET PO (20:39)
[2020-04-11 21:09] LABS: Glucose Point of Care 141 (65-105)
[2020-04-12] VITALS (17 sets, daily range): BP systolic 114–126; BP diastolic 57–64; PULSE 88–111; RESP 18–27; TEMP 36.3–36.9; O2SAT 92–98
[2020-04-12] MEDS: ALBUTEROL SULFATE NEB 2.5 MG/0.5 ML INH 5 MG INHALATION ×4 (01:39→20:20)
[2020-04-12 04:31] LABS: Basophils Absolute Auto 0.1 K/mm3 (0.0-0.1); Basophils Percent Auto 0.7 % (0.2-1.2); Eosinophils Absolute Auto 0.5 K/mm3 (0-0.3); Eosinophils Percent Auto 4.6 % (0-4.4); Hematocrit 36.7 % (37.0-47.0); Hemoglobin 11.2 g/dL (12.0-15.0); Immature Granulocyte Absolute 0.15 K/mm3 (0.00-0.031); Immature Granulocyte Percent A 1.4 % (0-0.5); Lymphocytes Absolute Auto 1.49 K/mm3 (0.9-3.2); Lymphocytes Percent Auto 14.2 % (18.3-44.2); Mean Corpuscular HGB Conc 30.5 g/dl (32-36); Mean Corpuscular Volume 85.3 fl (80-100); Mean Platelet Volume 8.7 fl (7.4-10.4); Monocytes Absolute Auto 0.9 K/mm3 (0.1-0.6); Monocytes Percent Auto 8.2 % (2.6-8.5); Neutrophils Absolute Auto 7.4 K/mm3 (1.3-6.7); Neutrophils Percent Auto 70.9 % (45.5-73.1); Platelet Count Result 310 k/mm3 (150-375); White Blood Count 10.5 K/mm3 (4.5-10.0)
[2020-04-12 04:48] LABS: Alanine Aminotransferase 40 U/L (4-35); Albumin Level 3.3 g/dL (3.5-5.1); Alkaline Phosphatase 77 U/L (38-126); Anion Gap 4 mmol/L (8-16); Aspartate Amino Transferase 34 U/L (14-36); Bilirubin,Total 0.8 mg/dL (0.2-1.3); Blood Urea Nitrogen 23 mg/dL (7-17); Calcium 8.4 mg/dL (8.4-10.2); Carbon Dioxide 32 mmol/L (22-30); Chloride 102 mmol/L (98-107); Estimated CRCL calculation 155 ml/min; Estimated Glomerular Filt Rate > 60; Glucose 131 mg/dL (65-105); Magnesium 2.2 mg/dL (1.6-2.3); Potassium 3.1 mmol/L (3.4-5.0); Sodium 138 mmol/L (137-145)
[2020-04-12] MEDS: CENTRAL LINE FLUSH 10 ML IV PUSH ×3 (07:21→20:12)
[2020-04-12 07:43] LABS: Glucose Point of Care 173 (65-105)
[2020-04-12] MEDS: DORNASE ALFA INH SOLN 1 MG/ML 2.5 ML AMP 2.5 MG INHALATION ×2 (08:50→20:24)
--- NOTE | 2020-04-12 09:42 | PM.IMPN ---
Progress Note: A&P Assessment and Plan (1) Acute respiratory failure with hypoxia: Code(s): J96.01 - Acute respiratory failure with hypoxia Status: Acute Assessment and Plan: Secondary to COVID-19 pneumonia complicated with secondary bacterial infection secondary to Staph aureus completed course of Levaquin Completed course of dexamethasone plasma and remdisever requiring mechanical ventilation from 03/24/2019 -04/08/20 Patient currently extubated on oxygen Patient currently in step-down unit Patient had critical care illness Hospital course complicated with pulseless electric activity arrest required CPR for 5 minutes with return of circulation according to butadiene convertor operator was attributed to hypoxia echo showed ejection fraction of 60% (2) COVID-19: Onset Date: ~03/18/20 Code(s): U07.1 - COVID-19 Status: Acute Assessment and Plan: 03/19 (3) Type 2 diabetes mellitus without complications: Qualifiers: Diabetes mellitus exterminator helper insulin use: without snf use Qualified Code(s): E11.9 - Type 2 diabetes mellitus without complications Code(s): E11.9 - Type 2 diabetes mellitus without complications Status: Acute Assessment and Plan: Insulin basal with sliding scale (4) NSTEMI (non-ST elevated myocardial infarction): Code(s): I21.4 - Non-ST elevation (NSTEMI) myocardial infarction Status: Acute Assessment and Plan: Most likely NSTEMI type 2 secondary to demand ischemia secondary to respiratory failure monitor (5) Non-alcoholic fatty liver disease: Code(s): K76.0 - Fatty (change of) liver, not elsewhere classified Status: Acute Assessment and Plan: Monitor CMP likely due to severe obesity (6) History of kidney cancer: Code(s): Z85.528 - Personal history of other malignant neoplasm of kidney Status: Acute Additional Plan Acute hypokalemia replaced Patient still short of breath patient still weak patient most likely will require rehab Anticipate discharge to rehab probably on Tuesday. Patient is progressing towards goal Subjective Date/time seen: 04/12/20 09:42 Interval history: Patient seen and examined Patient was admitted to the hospital with shortness of breath was found to have COVID-19 pneumonia she required BiPAP patient was transferred to the ICU as her condition continued to worsen required intubation on the March 25 patient was treated with remdissever dexamethasone and plasma, patient had cardiac arrest required CPR for 5 minutes she developed bradycardia down in [place] according to butadiene convertor operator most likely related to hypoxia echo was done showed ejection fraction 60% and pulmonary hypertension patient also was found to have Staph aureus in the sputum ID was on board and patient completed course of Levaquin patient was extubated on 04/08/2020 transfer to medical floor on 04/10/20 patient continued to be on oxygen she is very weak patient had facial rash probably compression from the site of the intubation/BiPAP also she has a harsh voice probably from intubation Patient still have hypokalemia patient is interested in going to rehab Patient denies fever headache chest pain I am seeing the patient for COVID-19 pneumonia Exam Narrative: Exam Narrative: Alert Chest scattered crackles Abdomen nontender nondistended CVS S1 + S2 Positive facial rash Objective Data Vital Signs Vital Signs: Vital Signs - 24 hr 04/11/20 10:00 04/11/20 12:00 04/11/20 14:39 Temperature 97.0 F L Pulse Rate 98 113 H 96 Respiratory Rate 22 H 20 22 H Blood Pressure 126/88 Pulse Oximetry 93 04/11/20 16:00 04/11/20 20:00 04/11/20 21:35 Temperature 97.8 F Pulse Rate 107 H 96 95 Respiratory Rate 20 22 H Blood Pressure 117/68 Pulse Oximetry 94 98 04/11/20 21:42 04/11/20 21:57 04/11/20 23:05 Temperature 96.9 F L Pulse Rate 99 98 Respiratory Rate 22 H 20 Blood Pressure 122/67 Pulse Oximetr
[2020-04-12] MEDS: lisinopriL 10 MG TABLET PO (10:15)
[2020-04-12] MEDS: ASPIRIN 325 MG TABLET PO (10:15)
[2020-04-12] MEDS: ZINC SULFATE 220 MG CAPSULE PO (10:15)
[2020-04-12] MEDS: ENOXAPARIN 40 MG/0.4 ML SYRINGE SUB-Q ×2 (10:16→20:11)
[2020-04-12] MEDS: FUROSEMIDE INJ 40 MG/4 ML VIAL IV PUSH (10:16)
[2020-04-12] MEDS: LORATADINE 10 MG TABLET PO (10:16)
[2020-04-12] MEDS: PANTOPRAZOLE SODIUM IV 40 MG VIAL IV PUSH (10:17)
[2020-04-12] MEDS: POTASSIUM CHLORIDE 20 MEQ PACKET (FOR LIQUID) 40 MEQ PO ×2 (10:17→13:31)
[2020-04-12] MEDS: ACETAMINOPHEN 325 MG TABLET 650 MG PO (10:41)
[2020-04-12 11:45] LABS: Glucose Point of Care 200 (65-105)
[2020-04-12 13:28] LABS: SARS-CoV-2 RNA PCR Negative
[2020-04-12] MEDS: HYDROcodone/acetaminophen (*CRX) 5-325 MG TABLET 1 TAB PO (13:30)
[2020-04-12] MEDS: ASCORBIC ACID 500 MG TABLET 1000 MG PO (13:31)
[2020-04-12 17:39] LABS: Glucose Point of Care 134 (65-105)
[2020-04-12] MEDS: FLUTICASONE/SALMETEROL 230-21 MCG INHALER 1 PUFF 2 PUFF INHALATION (20:23)
[2020-04-12 20:29] LABS: Glucose Point of Care 154 (65-105)
[2020-04-13] VITALS (16 sets, daily range): BP systolic 115–128; BP diastolic 53–60; PULSE 78–112; RESP 20–24; TEMP 36–36.9; O2SAT 92–100
[2020-04-13] MEDS: ALBUTEROL SULFATE NEB 2.5 MG/0.5 ML INH 5 MG INHALATION ×4 (02:08→20:10)
[2020-04-13 06:49] LABS: Basophils Absolute Auto 0.1 K/mm3 (0.0-0.1); Basophils Percent Auto 0.6 % (0.2-1.2); Eosinophils Absolute Auto 0.5 K/mm3 (0-0.3); Eosinophils Percent Auto 5.7 % (0-4.4); Hematocrit 34.7 % (37.0-47.0); Hemoglobin 10.5 g/dL (12.0-15.0); Immature Granulocyte Absolute 0.14 K/mm3 (0.00-0.031); Immature Granulocyte Percent A 1.7 % (0-0.5); Lymphocytes Absolute Auto 1.24 K/mm3 (0.9-3.2); Lymphocytes Percent Auto 14.8 % (18.3-44.2); Mean Corpuscular HGB Conc 30.3 g/dl (32-36); Mean Corpuscular Hemoglobin 26.1 pg (26-34); Mean Corpuscular Volume 86.1 fl (80-100); Mean Platelet Volume 8.7 fl (7.4-10.4); Monocytes Absolute Auto 0.7 K/mm3 (0.1-0.6); Monocytes Percent Auto 8.5 % (2.6-8.5); Neutrophils Absolute Auto 5.8 K/mm3 (1.3-6.7); Neutrophils Percent Auto 68.7 % (45.5-73.1); Platelet Count Result 239 k/mm3 (150-375); Red Blood Count 4.03 M/mm3 (4.2-5.4); Red Cell Distribution Width 15.1 % (11.5-14.5); White Blood Count 8.4 K/mm3 (4.5-10.0)
[2020-04-13 07:12] LABS: Alanine Aminotransferase 35 U/L (4-35); Albumin Level 3.1 g/dL (3.5-5.1); Alkaline Phosphatase 70 U/L (38-126); Anion Gap -1 mmol/L (8-16); Aspartate Amino Transferase 22 U/L (14-36); Bilirubin,Total 0.7 mg/dL (0.2-1.3); Blood Urea Nitrogen 19 mg/dL (7-17); CRP 1.8 mg/dL (<1.0); Calcium 8.2 mg/dL (8.4-10.2); Carbon Dioxide 36 mmol/L (22-30); Chloride 102 mmol/L (98-107); Estimated CRCL calculation 154 ml/min; Estimated Glomerular Filt Rate > 60; Glucose 146 mg/dL (65-105); Lactate Dehydrogenase 429 U/L (313-618); Magnesium 2.1 mg/dL (1.6-2.3); Potassium 2.9 mmol/L (3.4-5.0); Sodium 137 mmol/L (137-145)
[2020-04-13 07:13] LABS: D Dimer 1.02 ug/mL (<0.48)
[2020-04-13] MEDS: PANTOPRAZOLE SODIUM IV 40 MG VIAL IV PUSH (09:05)
[2020-04-13] MEDS: ZINC SULFATE 220 MG CAPSULE PO (09:05)
[2020-04-13] MEDS: LORATADINE 10 MG TABLET PO (09:06)
[2020-04-13] MEDS: ASCORBIC ACID 500 MG TABLET 1000 MG PO (09:06)
[2020-04-13] MEDS: ENOXAPARIN 40 MG/0.4 ML SYRINGE SUB-Q ×2 (09:07→22:02)
[2020-04-13] MEDS: CENTRAL LINE FLUSH 10 ML IV PUSH ×3 (09:07→22:03)
[2020-04-13] MEDS: ASPIRIN 325 MG TABLET PO (09:07)
[2020-04-13] MEDS: lisinopriL 10 MG TABLET PO (09:08)
[2020-04-13] MEDS: FUROSEMIDE INJ 40 MG/4 ML VIAL IV PUSH (09:14)
[2020-04-13] MEDS: DORNASE ALFA INH SOLN 1 MG/ML 2.5 ML AMP 2.5 MG INHALATION ×2 (09:17→20:10)
[2020-04-13] MEDS: FLUTICASONE/SALMETEROL 230-21 MCG INHALER 1 PUFF 2 PUFF INHALATION ×2 (09:18→20:11)
[2020-04-13 10:30] LABS: Glucose Point of Care 172 (65-105)
--- NOTE | 2020-04-13 12:50 | PM.IMPN ---
Progress Note: A&P Assessment and Plan (1) Acute respiratory failure with hypoxia: Code(s): J96.01 - Acute respiratory failure with hypoxia Status: Acute Assessment and Plan: Due to COVID-19 Tested positive 03/19 Continue to support on vent and wean as possible 03/30 55%/PEEP 12/TV 400 04/13/20 12:50 patient is morbidly obese with BMI of 56 was positive for COVID on 03/19/20 and states for the 1 week she had a cough shortness of breath and was getting progressively over and and symptoms over worse with exertion patient presented emergency department further evaluate patient was quite hypoxic and was placed on BiPAP and continue to monitor however this morning patient symptoms were worsening patient was seen by and service it was decided to intubate the patient currently patient on vent unable to provide any history review of symptoms. 03/31 on 03/24 patient's symptoms worsen patient was intubated currently on vent, recieved convalescent plama on 03/25. completed remdesivir, and currently on dexamathasone, last night patient had a cardiac arrest CPR was resumed after 5 minutes patient ROSC etiology uncertain discussed with lockstitch waistband setter will continue to monitor and further recommendation to follow 04/01 patient on vent and on Nimbex, sputum culture is growing Staphylococcus aureus patient is seen by Dr. Thayer and started patient on Levaquin, for lower respiratory track infection, patient is off Remdesivir and dexamethasone 10/21, patient is seen by lockstitch waistband setter and appreciate. 04/10 patient with COVID-19 had been treated with dexamethasone and remdesivir and completed ten-day course, patient also received convalescent plama on 03/25. Patient was intubated due to hypoxic secondary to bacterial pneumonia staph aureus and group B strep as well as COVID-19 pneumonia on 03/24 and extubated 04/[address] 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 04/13 patient still complains of shortness of breath and difficulty with participating in physical therapy, patient is being diuresed her urine output is not improved we will place on fluid restriction 1000 cc per day and continue to diurese the patient, will encourage patient participate in physical therapy patient will benefit going to acute rehab before discharging home. (2) COVID-19: Onset Date: ~03/18/20 Code(s): U07.1 - COVID-19 Status: Acute Assessment and Plan: 03/19 (3) Type 2 diabetes mellitus without complications: Qualifiers: Diabetes mellitus debt recovery officer insulin use: without debt recovery officer use Qualified Code(s): E11.9 - Type 2 diabetes mellitus without complications Code(s): E11.9 - Type 2 diabetes mellitus without complications Status: Acute Assessment and Plan: Insulin basal with sliding scale (4) NSTEMI (non-ST elevated myocardial infarction): Code(s): I21.4 - Non-ST elevation (NSTEMI) myocardial infarction Status: Acute Assessment and Plan: Most likely NSTEMI type 2 secondary to ischemia secondary to respiratory failure monitor (5) Non-alcoholic fatty liver disease: Code(s): K76.0 - Fatty (change of) liver, not elsewhere classified Status: Acute Assessment and Plan: Monitor CMP likely due to severe obesity (6) History of kidney cancer: Code(s): Z85.528 - Personal history of other malignant neoplasm of kidney Status: Acute Subjective Date/time seen: 04/13/20 12:50 patient is morbidly obese with BMI of 56 was positive for COVID on 03/19/20 and states for
[2020-04-13] MEDS: INSULIN ASPART (*BKC) 100 UNITS/ML SUB-Q (13:12)
[2020-04-13 14:55] LABS: Glucose Point of Care 212 (65-105)
[2020-04-13 18:00] LABS: Glucose Point of Care 166 (65-105)
[2020-04-13 22:57] LABS: Glucose Point of Care 180 (65-105)
[2020-04-14] VITALS (18 sets, daily range): BP systolic 97–131; BP diastolic 52–57; PULSE 87–122; RESP 16–20; TEMP 36.5–36.9; O2SAT 90–97; BMI 11.0
[2020-04-14] MEDS: ALBUTEROL SULFATE NEB 2.5 MG/0.5 ML INH 5 MG INHALATION ×4 (02:23→19:22)
[2020-04-14] MEDS: CENTRAL LINE FLUSH 10 ML IV PUSH ×3 (06:28→20:50)
[2020-04-14 06:55] LABS: Basophils Percent Auto 0.6 % (0.2-1.2); Eosinophils Absolute Auto 0.5 K/mm3 (0-0.3); Eosinophils Percent Auto 8.5 % (0-4.4); Hematocrit 34.6 % (37.0-47.0); Hemoglobin 10.5 g/dL (12.0-15.0); Immature Granulocyte Percent A 1.6 % (0-0.5); Lymphocytes Absolute Auto 1.17 K/mm3 (0.9-3.2); Lymphocytes Percent Auto 18.9 % (18.3-44.2); Mean Corpuscular HGB Conc 30.3 g/dl (32-36); Mean Corpuscular Hemoglobin 26.1 pg (26-34); Mean Corpuscular Volume 86.1 fl (80-100); Mean Platelet Volume 8.9 fl (7.4-10.4); Monocytes Absolute Auto 0.6 K/mm3 (0.1-0.6); Neutrophils Absolute Auto 3.8 K/mm3 (1.3-6.7); Neutrophils Percent Auto 61.4 % (45.5-73.1); Platelet Count Result 218 k/mm3 (150-375); Red Blood Count 4.02 M/mm3 (4.2-5.4); Red Cell Distribution Width 15.4 % (11.5-14.5); White Blood Count 6.2 K/mm3 (4.5-10.0)
[2020-04-14 07:07] LABS: Alanine Aminotransferase 32 U/L (4-35); Alkaline Phosphatase 66 U/L (38-126); Anion Gap 3 mmol/L (8-16); Aspartate Amino Transferase 21 U/L (14-36); Bilirubin,Total 0.6 mg/dL (0.2-1.3); Blood Urea Nitrogen 17 mg/dL (7-17); Calcium 8.1 mg/dL (8.4-10.2); Carbon Dioxide 35 mmol/L (22-30); Chloride 100 mmol/L (98-107); Estimated CRCL calculation 153 ml/min; Estimated Glomerular Filt Rate > 60; Glucose 163 mg/dL (65-105); Magnesium 2.1 mg/dL (1.6-2.3); Potassium 3.1 mmol/L (3.4-5.0); Sodium 138 mmol/L (137-145)
[2020-04-14] MEDS: FLUTICASONE/SALMETEROL 230-21 MCG INHALER 1 PUFF 2 PUFF INHALATION ×2 (08:33→19:23)
[2020-04-14] MEDS: DORNASE ALFA INH SOLN 1 MG/ML 2.5 ML AMP 2.5 MG INHALATION ×2 (08:37→19:22)
[2020-04-14] MEDS: PANTOPRAZOLE SODIUM IV 40 MG VIAL IV PUSH (08:49)
[2020-04-14] MEDS: lisinopriL 10 MG TABLET PO (08:50)
[2020-04-14] MEDS: ENOXAPARIN 40 MG/0.4 ML SYRINGE SUB-Q ×2 (08:50→20:49)
[2020-04-14] MEDS: LORATADINE 10 MG TABLET PO (08:50)
[2020-04-14] MEDS: FUROSEMIDE INJ 40 MG/4 ML VIAL IV PUSH (08:50)
[2020-04-14] MEDS: ASPIRIN 325 MG TABLET PO (08:51)
[2020-04-14] MEDS: MAGNES & ALUM HYD/SIMETH/DIPHENHYD/LIDOCAINE 119 ML MOUTHWASH BY MOUTH ×4 (09:52→20:50)
[2020-04-14 10:19] LABS: Glucose Point of Care 157 (65-105)
--- NOTE | 2020-04-14 11:41 | PCNFU ---
Nutrition Follow-Up Complete: Inadequate oral intake related to oral intubation as evidenced by NPO status. Goal: Patient to meet estimated nutritional needs. Progressing towards goal. We will continue current goal. Pt current nutrition is DBCC/Purred, Level 4, Moderately Thick liquids, Level 3 with 1000 ml FR. Nutrition recommendation: d/c FR Last recorded weight is 145.1 kg, down from 154 kg on admit. Bowel Motility:+BM reported 04/14 Labs Reviewed:K 3.1,Cr 0.5, Alb 3.0 Meds Noted:Prinivil,KCL, Lovenox, Lasix, Protonix Additional Notes: Nutrition follow up. Spoke with nursing today due to COVID precautions. Patient oral intake remains fair. Cream of wheat and 120 ml of juice today for breakfast. Diet supplements remain with Ensure compact BID providing an additional 220 kcals and 9 gms protein. Monitoring: weight, labs, oral intake every 5 days.
[2020-04-14] MEDS: INSULIN ASPART (*BKC) 100 UNITS/ML SUB-Q ×2 (12:55→18:21)
[2020-04-14 13:17] LABS: Glucose Point of Care 232 (65-105)
--- NOTE | 2020-04-14 13:43 | PM.IMPN ---
Progress Note: A&P Assessment and Plan (1) Acute respiratory failure with hypoxia: Code(s): J96.01 - Acute respiratory failure with hypoxia Status: Acute Assessment and Plan: Due to COVID-19 Tested positive 03/19 Continue to support on vent and wean as possible 03/30 55%/PEEP 12/TV 400 04/14/20 13:43 patient is morbidly obese with BMI of 56 was positive for COVID on 03/19/20 and states for the 1 week she had a cough shortness of breath and was getting progressively over and and symptoms over worse with exertion patient presented emergency department further evaluate patient was quite hypoxic and was placed on BiPAP and continue to monitor however this morning patient symptoms were worsening patient was seen by and service it was decided to intubate the patient currently patient on vent unable to provide any history review of symptoms. 03/31 on 03/24 patient's symptoms worsen patient was intubated currently on vent, recieved convalescent plama on 03/25. completed remdesivir, and currently on dexamathasone, last night patient had a cardiac arrest CPR was resumed after 5 minutes patient ROSC etiology uncertain discussed with mailmaster will continue to monitor and further recommendation to follow 04/01 patient on vent and on Nimbex, sputum culture is growing Staphylococcus aureus patient is seen by Dr. Thayer and started patient on Levaquin, for lower respiratory track infection, patient is off Remdesivir and dexamethasone 10/21, patient is seen by mailmaster and appreciate. 04/10 patient with COVID-19 had been treated with dexamethasone and remdesivir and completed ten-day course, patient also received convalescent plama on 03/25. Patient was intubated due to hypoxic secondary to bacterial pneumonia staph aureus and group B strep as well as COVID-19 pneumonia on 03/24 and extubated 04/[address] 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 04/13 patient still complains of shortness of breath and difficulty with participating in physical therapy, patient is being diuresed her urine output is not improved we will place on fluid restriction 1000 cc per day and continue to diurese the patient, will encourage patient participate in physical therapy patient will benefit going to acute rehab before discharging home. 04/14 yesterday we restricted patient fluid intake with 1000 cc per day, being diuresed, is feeling little better feels her legs are not as swollen , patient complains of sore on her toung injured during intubation, be giving her viscous lidocaine for the pain, will continue present management, patient is participating in physical therapy, healthcare corporate account director is working to find a place for patient for rehab and further recommendation to follow (2) COVID-19: Onset Date: ~03/18/20 Code(s): U07.1 - COVID-19 Status: Acute Assessment and Plan: 03/19 (3) Type 2 diabetes mellitus without complications: Qualifiers: Diabetes mellitus alf insulin use: without alf use Qualified Code(s): E11.9 - Type 2 diabetes mellitus without complications Code(s): E11.9 - Type 2 diabetes mellitus without complications Status: Acute Assessment and Plan: Insulin basal with sliding scale (4) NSTEMI (non-ST elevated myocardial infarction): Code(s): I21.4 - Non-ST elevation (NSTEMI) myocardial infarction Status: Acute Assessment and Plan: Most likely NSTEMI type 2 secondary to ischemia secondary to respiratory failure monitor (5) Non-alcoholic fatty live
--- NOTE | 2020-04-14 14:02 | PCPTNOTE ---
Tereza Feng was evaluated for a syeda lift on 04/14/2020 by this physical therapist. The syeda lift will resolve patient's mobility limitations and will be used as the primary mode of transfer assistance due to the patient's significant functional mobility impairments. The syeda lift is recommended to be used for dependent bed to wheelchair and wheelchair to bed transfers. The patient is currently non-ambulatory given the severity of her deficits demonstrating significant bilateral upper extremity and lower extremity weakness. She requires total assistance for all bed mobility and is unable to safely transfer from a bed to wheelchair utilizing a slideboard and/or other equipment. The patient would be bedbound if she did not use a syeda lift as a transfer device from bed to wheelchair. An extra-large sling is recommended given the patient's current size (5'5 , 145.1kg). Gala Monte, PT, DPT
--- NOTE | 2020-04-14 14:11 | PCPTNOTE ---
Tereza Feng was evaluated for a semi-electric hospital bed with alternating pressure-relief mattress on 04/14/2020 by this physical therapist. The semi-electric hospital bed with alternating pressure-relief mattress is recommended given the patient's severity of functional mobility deficits and current aspiration precautions requiring her head elevated greater than 30 degrees at all times. Ms. Feng currently has a modified diet with thickened liquids given her impaired swallowing. She requires total assistance for all aspects of bed mobility in which a semi-electric hospital bed would allow adjustments for bed height to assist with in bed bathing/dressing/hygiene care provided by family/caregivers. An alternating pressure relief mattress is recommended due to the patient being at a high risk for the developing pressure sores as she requires total assistance for turning in bed to facilitate off-loading of pressure sites. She is also morbidly obese (145.1kg) resulting in further risk for skin breakdown without an optimal pressure-relieving air mattress. Gala Monte, PT, DPT
--- NOTE | 2020-04-14 14:30 | PCPTNOTE ---
Gala Monte PT completed an inpatient rehab wheelchair evaluation on Tereza Feng on 04/14/2020. The patient is unable to safely and independently ambulate household distances due to their current impairments. Their diagnosis is acute hypoxic respiratory failure and their impairments include decreased strength, decreased endurance, decreased balance, lower extremity weakness and non-ambulatory. Ms. Feng's weight bearing status is weight-bearing as tolerated on the bilateral lower legs. The patient demonstrates significant functional mobility limitations that impair their ability to participate in mobility-related activities of daily living (MRADLs), including toileting, feeding, dressing, grooming, and bathing in the customary locations in the home. These limitations cannot be sufficiently resolved by the use of an appropriately fitted cane or walker. It is recommended that the patient utilize a wheelchair for functional mobility within the home in order to facilitate optimal safety, independence and participation in all MRADL's and adequately access their home environment on a regular basis. The patient's home provides adequate access between rooms, maneuvering space, and surfaces to accommodate the recommended wheelchair. The use of a wheelchair for functional mobility is strongly recommended and the patient is receptive to using the wheelchair. The use of this wheelchair will significantly improve the patient's ability to participate in MRADLS and the patient will use it on a regular basis in the home. This will facilitate optimal safety, independence, and participation. The patient has demonstrated sufficient physical and mental capabilities needed to safely propel a manual wheelchair that is provided in the home during a typical day. Recommended Wheelchair Frame: Heavy Duty Bariatric Frame (patient's weight: 145.1kg) Recommended Wheelchair Size: 24 x 20 given patient's obesity and anatomical hip width of 22 Recommended Wheelchair Cushion:STANDARD Wheelchair Leg Recommendations: Bilateral Elevating Leg Rests -A heavy duty wheelchair is recommended because the patient weighs more than 250 pounds. Patient weighs 290lbs (145.1kg). -Elevating legrests are recommended because the patient has significant edema of the lower extremities that requires an elevating legrest. -Anti-tippers are recommended due to patient demonstrating increased risk for falls. They would benefit from anti-tippers with added safety and stabilization. -Adjustable arm height is recommended because the patient requires an arm height that is different than that which is available using non-adjustable arms. The patient spends at least 2 hours per day in the wheelchair. Gala Monte PT, DPT 04/14/2020 Evaluating Therapist Date I agree with and certify that the above recommendation is medically necessary. Referring Physician Date
[2020-04-14 17:46] LABS: Glucose Point of Care 232 (65-105)
[2020-04-14 22:01] LABS: Glucose Point of Care 256 (65-105)
[2020-04-15] VITALS (15 sets, daily range): BP systolic 95–159; BP diastolic 57–76; PULSE 66–104; RESP 12–24; TEMP 36.1–36.6; O2SAT 89–98; BMI 10.0
[2020-04-15] MEDS: ALBUTEROL SULFATE NEB 2.5 MG/0.5 ML INH 5 MG INHALATION ×4 (01:38→21:07)
[2020-04-15] MEDS: MAGNES & ALUM HYD/SIMETH/DIPHENHYD/LIDOCAINE 119 ML MOUTHWASH BY MOUTH ×3 (03:01→12:12)
[2020-04-15 05:03] LABS: Alanine Aminotransferase 29 U/L (4-35); Albumin Level 2.9 g/dL (3.5-5.1); Alkaline Phosphatase 63 U/L (38-126); Anion Gap 4 mmol/L (8-16); Aspartate Amino Transferase 18 U/L (14-36); Bilirubin,Total 0.6 mg/dL (0.2-1.3); Blood Urea Nitrogen 15 mg/dL (7-17); Calcium 7.8 mg/dL (8.4-10.2); Carbon Dioxide 31 mmol/L (22-30); Chloride 102 mmol/L (98-107); Estimated CRCL calculation 153 ml/min; Estimated Glomerular Filt Rate > 60; Glucose 206 mg/dL (65-105); Magnesium 1.8 mg/dL (1.6-2.3); Potassium 3.3 mmol/L (3.4-5.0); Sodium 137 mmol/L (137-145)
[2020-04-15 05:32] LABS: Basophils Percent Auto 0.5 % (0.2-1.2); Eosinophils Absolute Auto 0.4 K/mm3 (0-0.3); Eosinophils Percent Auto 7.2 % (0-4.4); Hematocrit 33.8 % (37.0-47.0); Hemoglobin 10.2 g/dL (12.0-15.0); Immature Granulocyte Absolute 0.09 K/mm3 (0.00-0.031); Immature Granulocyte Percent A 1.5 % (0-0.5); Lymphocytes Absolute Auto 1.15 K/mm3 (0.9-3.2); Lymphocytes Percent Auto 19.2 % (18.3-44.2); Mean Corpuscular HGB Conc 30.2 g/dl (32-36); Mean Corpuscular Volume 86.2 fl (80-100); Mean Platelet Volume 8.9 fl (7.4-10.4); Monocytes Absolute Auto 0.5 K/mm3 (0.1-0.6); Neutrophils Absolute Auto 3.8 K/mm3 (1.3-6.7); Neutrophils Percent Auto 62.6 % (45.5-73.1); Platelet Count Result 206 k/mm3 (150-375); Red Blood Count 3.92 M/mm3 (4.2-5.4); Red Cell Distribution Width 15.8 % (11.5-14.5)
[2020-04-15] MEDS: CENTRAL LINE FLUSH 10 ML IV PUSH ×3 (05:52→21:37)
[2020-04-15 07:42] LABS: Glucose Point of Care 216 (65-105)
[2020-04-15] MEDS: INSULIN ASPART (*BKC) 100 UNITS/ML SUB-Q ×3 (07:48→16:54)
[2020-04-15] MEDS: ASPIRIN 325 MG TABLET PO (07:49)
[2020-04-15] MEDS: FUROSEMIDE INJ 40 MG/4 ML VIAL IV PUSH (07:51)
[2020-04-15] MEDS: ZINC SULFATE 220 MG CAPSULE PO (07:51)
[2020-04-15] MEDS: CHOLECALCIFEROL 1,000 UNITS TABLET 1000 UNITS PO (07:52)
[2020-04-15] MEDS: LORATADINE 10 MG TABLET PO (07:52)
[2020-04-15] MEDS: CITALOPRAM HYDROBROMIDE 20 MG TABLET PO (07:52)
[2020-04-15] MEDS: PANTOPRAZOLE SODIUM IV 40 MG VIAL IV PUSH (07:52)
[2020-04-15] MEDS: ENOXAPARIN 40 MG/0.4 ML SYRINGE SUB-Q ×2 (07:53→21:34)
[2020-04-15] MEDS: ASCORBIC ACID 500 MG TABLET PO (07:53)
[2020-04-15] MEDS: lisinopriL 10 MG TABLET PO (07:54)
[2020-04-15] MEDS: DORNASE ALFA INH SOLN 1 MG/ML 2.5 ML AMP 2.5 MG INHALATION (08:10)
[2020-04-15] MEDS: FLUTICASONE/SALMETEROL 230-21 MCG INHALER 1 PUFF 2 PUFF INHALATION ×2 (08:18→21:10)
[2020-04-15 11:28] LABS: Glucose Point of Care 347 (65-105)
--- NOTE | 2020-04-15 12:14 | PM.IMPN ---
Progress Note: A&P Assessment and Plan (1) Acute respiratory failure with hypoxia: Code(s): J96.01 - Acute respiratory failure with hypoxia Status: Acute Assessment and Plan: Due to COVID-19 Tested positive 03/19 Continue to support on vent and wean as possible 03/30 55%/PEEP 12/TV 400 04/15/20 12:17 patient is morbidly obese with BMI of 56 was positive for COVID on 03/19/20 and states for the 1 week she had a cough shortness of breath and was getting progressively over and and symptoms over worse with exertion patient presented emergency department further evaluate patient was quite hypoxic and was placed on BiPAP and continue to monitor however this morning patient symptoms were worsening patient was seen by and service it was decided to intubate the patient currently patient on vent unable to provide any history review of symptoms. 03/31 on 03/24 patient's symptoms worsen patient was intubated currently on vent, recieved convalescent plama on 03/25. completed remdesivir, and currently on dexamathasone, last night patient had a cardiac arrest CPR was resumed after 5 minutes patient ROSC etiology uncertain discussed with twist tester will continue to monitor and further recommendation to follow 04/01 patient on vent and on Nimbex, sputum culture is growing Staphylococcus aureus patient is seen by Dr. Thayer and started patient on Levaquin, for lower respiratory track infection, patient is off Remdesivir and dexamethasone 10/21, patient is seen by twist tester and appreciate. 04/10 patient with COVID-19 had been treated with dexamethasone and remdesivir and completed ten-day course, patient also received convalescent plama on 03/25. Patient was intubated due to hypoxic secondary to bacterial pneumonia staph aureus and group B strep as well as COVID-19 pneumonia on 03/24 and extubated 04/[address] 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 04/13 patient still complains of shortness of breath and difficulty with participating in physical therapy, patient is being diuresed her urine output is not improved we will place on fluid restriction 1000 cc per day and continue to diurese the patient, will encourage patient participate in physical therapy patient will benefit going to acute rehab before discharging home. 04/14 yesterday we restricted patient fluid intake with 1000 cc per day, being diuresed, is feeling little better feels her legs are not as swollen , patient complains of sore on her toung injured during intubation, be giving her viscous lidocaine for the pain, will continue present management, patient is participating in physical therapy, grounds caretaker is working to find a place for patient for rehab and further recommendation to follow. 04/15 on 04/13 placed patient on fluids restriction and continue to dirused, and repeat CXR showed improvement patient is on RA and clinically stable, her shoulder x-ray did not show any acute injury. 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
[2020-04-15 16:50] LABS: Glucose Point of Care 243 (65-105)
[2020-04-15] MEDS: ASCORBIC ACID 500 MG TABLET 1000 MG PO (18:10)
[2020-04-15 22:15] LABS: Glucose Point of Care 212 (65-105)
[2020-04-16] VITALS (10 sets, daily range): BP systolic 126–130; BP diastolic 73–78; PULSE 84–106; RESP 18–20; TEMP 36.1–36.5; O2SAT 90–93
[2020-04-16] MEDS: ALBUTEROL SULFATE NEB 2.5 MG/0.5 ML INH 5 MG INHALATION ×3 (02:38→20:11)
[2020-04-16 06:12] LABS: Basophils Percent Auto 0.5 % (0.2-1.2); Eosinophils Absolute Auto 0.5 K/mm3 (0-0.3); Eosinophils Percent Auto 7.4 % (0-4.4); Hematocrit 34.1 % (37.0-47.0); Hemoglobin 10.5 g/dL (12.0-15.0); Immature Granulocyte Absolute 0.04 K/mm3 (0.00-0.031); Immature Granulocyte Percent A 0.6 % (0-0.5); Lymphocytes Absolute Auto 1.16 K/mm3 (0.9-3.2); Lymphocytes Percent Auto 18.7 % (18.3-44.2); Mean Corpuscular HGB Conc 30.8 g/dl (32-36); Mean Corpuscular Hemoglobin 26.4 pg (26-34); Mean Corpuscular Volume 85.7 fl (80-100); Monocytes Absolute Auto 0.5 K/mm3 (0.1-0.6); Monocytes Percent Auto 7.6 % (2.6-8.5); Neutrophils Percent Auto 65.2 % (45.5-73.1); Platelet Count Result 211 k/mm3 (150-375); Red Blood Count 3.98 M/mm3 (4.2-5.4); Red Cell Distribution Width 15.9 % (11.5-14.5); White Blood Count 6.2 K/mm3 (4.5-10.0)
[2020-04-16 06:25] LABS: Alanine Aminotransferase 33 U/L (4-35); Albumin Level 3.2 g/dL (3.5-5.1); Alkaline Phosphatase 70 U/L (38-126); Anion Gap 4 mmol/L (8-16); Aspartate Amino Transferase 23 U/L (14-36); Bilirubin,Total 0.6 mg/dL (0.2-1.3); Blood Urea Nitrogen 13 mg/dL (7-17); Calcium 8.4 mg/dL (8.4-10.2); Carbon Dioxide 33 mmol/L (22-30); Chloride 101 mmol/L (98-107); Estimated CRCL calculation 153 ml/min; Estimated Glomerular Filt Rate > 60; Glucose 191 mg/dL (65-105); Magnesium 1.8 mg/dL (1.6-2.3); Potassium 3.7 mmol/L (3.4-5.0); Sodium 138 mmol/L (137-145)
[2020-04-16] MEDS: FLUTICASONE/SALMETEROL 230-21 MCG INHALER 1 PUFF 2 PUFF INHALATION ×2 (08:10→20:18)
[2020-04-16 08:34] LABS: Glucose Point of Care 205 (65-105)
[2020-04-16] MEDS: PANTOPRAZOLE SODIUM IV 40 MG VIAL IV PUSH (09:33)
[2020-04-16] MEDS: CENTRAL LINE FLUSH 10 ML IV PUSH ×3 (09:34→21:30)
[2020-04-16] MEDS: CITALOPRAM HYDROBROMIDE 20 MG TABLET PO (09:36)
[2020-04-16] MEDS: ENOXAPARIN 40 MG/0.4 ML SYRINGE SUB-Q ×2 (09:37→20:43)
[2020-04-16] MEDS: FUROSEMIDE 40 MG TABLET PO (09:37)
[2020-04-16] MEDS: lisinopriL 10 MG TABLET PO (09:38)
[2020-04-16] MEDS: INSULIN ASPART (*BKC) 100 UNITS/ML SUB-Q ×3 (09:38→17:52)
[2020-04-16] MEDS: LORazepam INJ (*CRX) 2 MG/ML VIAL 1 MG IV PUSH (12:20)
--- NOTE | 2020-04-16 13:09 | PM.IMPN ---
Progress Note: A&P Assessment and Plan (1) Acute respiratory failure with hypoxia: Code(s): J96.01 - Acute respiratory failure with hypoxia Status: Acute Assessment and Plan: Due to COVID-19 Tested positive 03/19 Continue to support on vent and wean as possible 03/30 55%/PEEP 12/TV 400 04/16/20 13:09 patient is morbidly obese with BMI of 56 was positive for COVID on 03/19/20 and states for the 1 week she had a cough shortness of breath and was getting progressively over and and symptoms over worse with exertion patient presented emergency department further evaluate patient was quite hypoxic and was placed on BiPAP and continue to monitor however this morning patient symptoms were worsening patient was seen by and service it was decided to intubate the patient currently patient on vent unable to provide any history review of symptoms. 03/31 on 03/24 patient's symptoms worsen patient was intubated currently on vent, recieved convalescent plama on 03/25. completed remdesivir, and currently on dexamathasone, last night patient had a cardiac arrest CPR was resumed after 5 minutes patient ROSC etiology uncertain discussed with furnace installer helper will continue to monitor and further recommendation to follow 04/01 patient on vent and on Nimbex, sputum culture is growing Staphylococcus aureus patient is seen by Dr. Thayer and started patient on Levaquin, for lower respiratory track infection, patient is off Remdesivir and dexamethasone 10/21, patient is seen by furnace installer helper and appreciate. 04/10 patient with COVID-19 had been treated with dexamethasone and remdesivir and completed ten-day course, patient also received convalescent plama on 03/25. Patient was intubated due to hypoxic secondary to bacterial pneumonia staph aureus and group B strep as well as COVID-19 pneumonia on 03/24 and extubated 04/[address] 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 04/13 patient still complains of shortness of breath and difficulty with participating in physical therapy, patient is being diuresed her urine output is not improved we will place on fluid restriction 1000 cc per day and continue to diurese the patient, will encourage patient participate in physical therapy patient will benefit going to acute rehab before discharging home. 04/14 yesterday we restricted patient fluid intake with 1000 cc per day, being diuresed, is feeling little better feels her legs are not as swollen , patient complains of sore on her toung injured during intubation, be giving her viscous lidocaine for the pain, will continue present management, patient is participating in physical therapy, inspector health care facilities is working to find a place for patient for rehab and further recommendation to follow. 04/15 on 04/13 placed patient on fluids restriction and continue to dirused, and repeat CXR showed improvement patient is on RA and clinically stable, her shoulder x-ray did not show any acute injury. 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 04/16 on 04/13 placed patient on fluids restriction and continue to dirused, I urine output is improved and repeat CXR on 04/14 showed improvement patient is on RA and clinically stable, patient with a shoulder pain x-ray was negative for any acute injury suspect the pain may be radiating from neck and may have impingement syndrome to further evaluate will do MRI of the cervical spine, patient remains clinically stable cont
[2020-04-16 13:42] LABS: Glucose Point of Care 266 (65-105)
--- NOTE | 2020-04-16 15:36 | PCSTNOTE ---
The patient treatment was not able to be completed on 04/16/20 due to fatigue. Patient reported that she had had Ativan prior to an MRI and was very tired; she felt she would be unable to stay awake to complete therapy ( I'm out of it. ) Will plan to continue treatment per plan of care.
[2020-04-16 17:30] LABS: Glucose Point of Care 204 (65-105)
[2020-04-16] MEDS: MONTELUKAST SODIUM 10 MG TABLET PO (20:43)
[2020-04-16 20:55] LABS: Glucose Point of Care 207 (65-105)
[2020-04-17] VITALS (10 sets, daily range): BP systolic 125–148; BP diastolic 72–88; PULSE 82–111; RESP 18–20; TEMP 36.3–37.2; O2SAT 90–92; BMI 10.0
[2020-04-17] MEDS: MAGNES & ALUM HYD/SIMETH/DIPHENHYD/LIDOCAINE 119 ML MOUTHWASH BY MOUTH (01:12)
[2020-04-17] MEDS: ALBUTEROL SULFATE NEB 2.5 MG/0.5 ML INH 5 MG INHALATION ×4 (02:43→20:02)
[2020-04-17] MEDS: CENTRAL LINE FLUSH 10 ML IV PUSH ×3 (06:31→21:06)
[2020-04-17 07:05] LABS: Alanine Aminotransferase 35 U/L (4-35); Albumin Level 3.2 g/dL (3.5-5.1); Alkaline Phosphatase 73 U/L (38-126); Anion Gap 3 mmol/L (8-16); Aspartate Amino Transferase 22 U/L (14-36); Bilirubin,Total 0.7 mg/dL (0.2-1.3); Blood Urea Nitrogen 14 mg/dL (7-17); Calcium 8.3 mg/dL (8.4-10.2); Carbon Dioxide 32 mmol/L (22-30); Chloride 100 mmol/L (98-107); Estimated CRCL calculation 154 ml/min; Estimated Glomerular Filt Rate > 60; Glucose 193 mg/dL (65-105); Magnesium 1.7 mg/dL (1.6-2.3); Potassium 3.5 mmol/L (3.4-5.0); Sodium 135 mmol/L (137-145)
[2020-04-17 07:25] LABS: Basophils Absolute Auto 0.1 K/mm3 (0.0-0.1); Basophils Percent Auto 0.9 % (0.2-1.2); Eosinophils Absolute Auto 0.4 K/mm3 (0-0.3); Hemoglobin 10.8 g/dL (12.0-15.0); Immature Granulocyte Absolute 0.04 K/mm3 (0.00-0.031); Immature Granulocyte Percent A 0.7 % (0-0.5); Lymphocytes Absolute Auto 1.08 K/mm3 (0.9-3.2); Lymphocytes Percent Auto 18.4 % (18.3-44.2); Mean Corpuscular HGB Conc 30.9 g/dl (32-36); Mean Corpuscular Hemoglobin 26.5 pg (26-34); Mean Corpuscular Volume 85.8 fl (80-100); Mean Platelet Volume 9.4 fl (7.4-10.4); Monocytes Absolute Auto 0.5 K/mm3 (0.1-0.6); Monocytes Percent Auto 7.7 % (2.6-8.5); Neutrophils Absolute Auto 3.9 K/mm3 (1.3-6.7); Neutrophils Percent Auto 65.3 % (45.5-73.1); Platelet Count Result 217 k/mm3 (150-375); Red Blood Count 4.08 M/mm3 (4.2-5.4); Red Cell Distribution Width 16.3 % (11.5-14.5); White Blood Count 5.9 K/mm3 (4.5-10.0)
[2020-04-17 08:30] LABS: Glucose Point of Care 201 (65-105)
[2020-04-17] MEDS: POTASSIUM CHLORIDE 20 MEQ PACKET (FOR LIQUID) 40 MEQ PO (08:30)
[2020-04-17] MEDS: INSULIN ASPART (*BKC) 100 UNITS/ML SUB-Q ×2 (08:34→12:09)
[2020-04-17] MEDS: ASPIRIN 325 MG TABLET PO (08:37)
[2020-04-17] MEDS: ENOXAPARIN 40 MG/0.4 ML SYRINGE SUB-Q ×2 (08:40→21:05)
[2020-04-17] MEDS: PANTOPRAZOLE SODIUM IV 40 MG VIAL IV PUSH (08:40)
[2020-04-17] MEDS: FUROSEMIDE 40 MG TABLET PO (08:40)
[2020-04-17] MEDS: lisinopriL 10 MG TABLET PO (08:40)
[2020-04-17] MEDS: CITALOPRAM HYDROBROMIDE 20 MG TABLET PO (08:41)
[2020-04-17] MEDS: LORATADINE 10 MG TABLET PO (08:41)
[2020-04-17 11:58] LABS: Glucose Point of Care 242 (65-105)
--- NOTE | 2020-04-17 16:25 | PM.IMPN ---
Progress Note: A&P Assessment and Plan (1) Acute respiratory failure with hypoxia: Code(s): J96.01 - Acute respiratory failure with hypoxia Status: Acute Assessment and Plan: Due to COVID-19 Tested positive 03/19 Continue to support on vent and wean as possible 03/30 55%/PEEP 12/TV 400 04/17/20 16:25 patient is morbidly obese with BMI of 56 was positive for COVID on 03/19/20 and states for the 1 week she had a cough shortness of breath and was getting progressively over and and symptoms over worse with exertion patient presented emergency department further evaluate patient was quite hypoxic and was placed on BiPAP and continue to monitor however this morning patient symptoms were worsening patient was seen by and service it was decided to intubate the patient currently patient on vent unable to provide any history review of symptoms. 03/31 on 03/24 patient's symptoms worsen patient was intubated currently on vent, recieved convalescent plama on 03/25. completed remdesivir, and currently on dexamathasone, last night patient had a cardiac arrest CPR was resumed after 5 minutes patient ROSC etiology uncertain discussed with interim controller will continue to monitor and further recommendation to follow 04/01 patient on vent and on Nimbex, sputum culture is growing Staphylococcus aureus patient is seen by Dr. Thayer and started patient on Levaquin, for lower respiratory track infection, patient is off Remdesivir and dexamethasone 10/21, patient is seen by interim controller and appreciate. 04/10 patient with COVID-19 had been treated with dexamethasone and remdesivir and completed ten-day course, patient also received convalescent plama on 03/25. Patient was intubated due to hypoxic secondary to bacterial pneumonia staph aureus and group B strep as well as COVID-19 pneumonia on 03/24 and extubated 04/[address] 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 04/13 patient still complains of shortness of breath and difficulty with participating in physical therapy, patient is being diuresed her urine output is not improved we will place on fluid restriction 1000 cc per day and continue to diurese the patient, will encourage patient participate in physical therapy patient will benefit going to acute rehab before discharging home. 04/14 yesterday we restricted patient fluid intake with 1000 cc per day, being diuresed, is feeling little better feels her legs are not as swollen , patient complains of sore on her toung injured during intubation, be giving her viscous lidocaine for the pain, will continue present management, patient is participating in physical therapy, hiv/aids care nurse is working to find a place for patient for rehab and further recommendation to follow. 04/15 on 04/13 placed patient on fluids restriction and continue to dirused, and repeat CXR showed improvement patient is on RA and clinically stable, her shoulder x-ray did not show any acute injury. 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 04/16 on 04/13 placed patient on fluids restriction and continue to dirused, I urine output is improved and repeat CXR on 04/14 showed improvement patient is on RA and clinically stable, patient with a shoulder pain x-ray was negative for any acute injury suspect the pain may be radiating from neck and may have impingement syndrome to further evaluate will do MRI of the cervical spine, patient remains clinically stable cont
[2020-04-17] MEDS: FLUTICASONE/SALMETEROL 230-21 MCG INHALER 1 PUFF 2 PUFF INHALATION (20:02)
[2020-04-17] MEDS: MONTELUKAST SODIUM 10 MG TABLET PO (21:05)
[2020-04-17 21:28] LABS: Glucose Point of Care 253 (65-105)
[2020-04-18 00:21] LABS: Glucose Point of Care 193 (65-105)
[2020-04-18] MEDS: ALBUTEROL SULFATE NEB 2.5 MG/0.5 ML INH 5 MG INHALATION ×3 (01:51→14:05)
[2020-04-18 01:53] VITALS: PULSE 100; RESP 18
[2020-04-18] MEDS: CENTRAL LINE FLUSH 10 ML IV PUSH ×2 (05:39→12:51)
[2020-04-18 06:00] VITALS: BP 166/85; PULSE 100; RESP 20; TEMP 36.9; O2SAT 90
[2020-04-18 06:16] LABS: Basophils Absolute Auto 0.1 K/mm3 (0.0-0.1); Basophils Percent Auto 0.8 % (0.2-1.2); Eosinophils Absolute Auto 0.4 K/mm3 (0-0.3); Eosinophils Percent Auto 6.5 % (0-4.4); Hemoglobin 10.8 g/dL (12.0-15.0); Immature Granulocyte Absolute 0.04 K/mm3 (0.00-0.031); Immature Granulocyte Percent A 0.6 % (0-0.5); Lymphocytes Absolute Auto 1.17 K/mm3 (0.9-3.2); Lymphocytes Percent Auto 18.7 % (18.3-44.2); Mean Corpuscular HGB Conc 30.9 g/dl (32-36); Mean Corpuscular Hemoglobin 26.2 pg (26-34); Mean Corpuscular Volume 84.7 fl (80-100); Mean Platelet Volume 9.4 fl (7.4-10.4); Monocytes Absolute Auto 0.5 K/mm3 (0.1-0.6); Monocytes Percent Auto 8.3 % (2.6-8.5); Neutrophils Absolute Auto 4.1 K/mm3 (1.3-6.7); Neutrophils Percent Auto 65.1 % (45.5-73.1); Platelet Count Result 230 k/mm3 (150-375); Red Blood Count 4.13 M/mm3 (4.2-5.4); Red Cell Distribution Width 16.4 % (11.5-14.5); White Blood Count 6.3 K/mm3 (4.5-10.0)
[2020-04-18 06:30] LABS: Alanine Aminotransferase 36 U/L (4-35); Albumin Level 3.4 g/dL (3.5-5.1); Alkaline Phosphatase 78 U/L (38-126); Anion Gap 3 mmol/L (8-16); Aspartate Amino Transferase 22 U/L (14-36); Bilirubin,Total 0.8 mg/dL (0.2-1.3); Blood Urea Nitrogen 16 mg/dL (7-17); Calcium 8.7 mg/dL (8.4-10.2); Carbon Dioxide 32 mmol/L (22-30); Chloride 100 mmol/L (98-107); Estimated CRCL calculation 187 ml/min; Estimated Glomerular Filt Rate > 60; Glucose 232 mg/dL (65-105); Magnesium 1.7 mg/dL (1.6-2.3); Potassium 3.6 mmol/L (3.4-5.0); Sodium 135 mmol/L (137-145)
[2020-04-18 07:40] VITALS: PULSE 101; RESP 18; O2SAT 90
[2020-04-18] MEDS: FLUTICASONE/SALMETEROL 230-21 MCG INHALER 1 PUFF 2 PUFF INHALATION (07:44)
[2020-04-18 08:29] LABS: Glucose Point of Care 232 (65-105)
[2020-04-18] MEDS: ONDANSETRON INJ 4 MG/2 ML VIAL IV PUSH ×2 (08:48→12:47)
[2020-04-18] MEDS: ASPIRIN 325 MG TABLET PO (09:54)
[2020-04-18] MEDS: FUROSEMIDE 40 MG TABLET PO (09:56)
[2020-04-18] MEDS: ENOXAPARIN 40 MG/0.4 ML SYRINGE SUB-Q (09:56)
[2020-04-18] MEDS: CITALOPRAM HYDROBROMIDE 20 MG TABLET PO (09:56)
[2020-04-18] MEDS: lisinopriL 10 MG TABLET PO (09:56)
[2020-04-18] MEDS: CHOLECALCIFEROL 1,000 UNITS TABLET 1000 UNITS PO (09:56)
[2020-04-18] MEDS: LORATADINE 10 MG TABLET PO (09:57)
[2020-04-18] MEDS: PANTOPRAZOLE SODIUM IV 40 MG VIAL IV PUSH (09:57)
[2020-04-18] MEDS: INSULIN ASPART (*BKC) 100 UNITS/ML SUB-Q ×2 (10:00→12:44)
--- NOTE | 2020-04-18 10:58 | PM.DS ---
DS: Admitting Diagnosis Admitting Diagnosis Admitting Diagnosis: Shortness of breath DS: Discharge Diagnosis Discharge Diagnosis (1) Acute respiratory failure with hypoxia: Code(s): J96.01 - Acute respiratory failure with hypoxia Status: Acute Assessment and Plan: Due to COVID-19 Tested positive 03/19 Continue to support on vent and wean as possible 03/30 55%/PEEP 12/TV 400 04/17/20 16:25 patient is morbidly obese with BMI of 56 was positive for COVID on 03/19/20 and states for the 1 week she had a cough shortness of breath and was getting progressively over and and symptoms over worse with exertion patient presented emergency department further evaluate patient was quite hypoxic and was placed on BiPAP and continue to monitor however this morning patient symptoms were worsening patient was seen by and service it was decided to intubate the patient currently patient on vent unable to provide any history review of symptoms. 03/31 on 03/24 patient's symptoms worsen patient was intubated currently on vent, recieved convalescent plama on 03/25. completed remdesivir, and currently on dexamathasone, last night patient had a cardiac arrest CPR was resumed after 5 minutes patient ROSC etiology uncertain discussed with margarine maker will continue to monitor and further recommendation to follow 04/01 patient on vent and on Nimbex, sputum culture is growing Staphylococcus aureus patient is seen by Dr. Thayer and started patient on Levaquin, for lower respiratory track infection, patient is off Remdesivir and dexamethasone 10/21, patient is seen by margarine maker and appreciate. 04/10 patient with COVID-19 had been treated with dexamethasone and remdesivir and completed ten-day course, patient also received convalescent plama on 03/25. Patient was intubated due to hypoxic secondary to bacterial pneumonia staph aureus and group B strep as well as COVID-19 pneumonia on 03/24 and extubated 04/[address] 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 04/13 patient still complains of shortness of breath and difficulty with participating in physical therapy, patient is being diuresed her urine output is not improved we will place on fluid restriction 1000 cc per day and continue to diurese the patient, will encourage patient participate in physical therapy patient will benefit going to acute rehab before discharging home. 04/14 yesterday we restricted patient fluid intake with 1000 cc per day, being diuresed, is feeling little better feels her legs are not as swollen , patient complains of sore on her toung injured during intubation, be giving her viscous lidocaine for the pain, will continue present management, patient is participating in physical therapy, human services care specialist is working to find a place for patient for rehab and further recommendation to follow. 04/15 on 04/13 placed patient on fluids restriction and continue to dirused, and repeat CXR showed improvement patient is on RA and clinically stable, her shoulder x-ray did not show any acute injury. 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 04/16 on 04/13 placed patient on fluids restriction and continue to dirused, I urine output is improved and repeat CXR on 04/14 showed improvement patient is on RA and clinically stable, patient with a shoulder pain x-ray was negative for any acute injury suspect the pain may be radiating from neck and may have impingement syndro
[2020-04-18 12:00] LABS: Glucose Point of Care 335 (65-105)
--- NOTE | 2020-04-18 12:15 | PC.NURSE ---
Report called to Tari JEFFERY on [facility].
--- NOTE | 2020-04-18 13:08 | PCDIET ---
Nutrition Follow-Up Complete: Inadequate oral intake related to oral intubation as evidenced by NPO status. Patient to meet estimated nutritional needs. Goal:goal met; continue goal Pt current nutrition is Consistent Carb, level 3 thick liquids, minced and moist level five diet and fluid restriction Nutrition recommendation: agree Last recorded weight is 140.4 kg, down from admit wt of 154kg Bowel Motility: 1 BM today Labs Reviewed:04/18 Albumin 3.4, Na 135, AST 36, Glucose 232, Cr .40 Meds Noted: Novolog, Lasix, Dulcolax, Viatmin D/Ca, Zofran Additional Notes: Pt planning to d/c today. Has been eating well, 75%x3. We will continue to monitor for adequate intake every 5 days if pt remains inpatient.
== END 2020-04-18 14:05 | DRG 130 ==
LOC: ANHED 11:06 → ANHICU 13:52 → ANH3MEDSUR 04-09 17:37 → ANHICU 04-21 12:07
PROVIDERS: Family Medicine; Internal Medicine; Admitting Provider Internal Medicine; Emergency Provider Emergency Medicine; PCP Family Medicine; Visit Provider Family Medicine
DX: U07.1 COVID-19 (principal); J12.82 Pneumonia due to coronavirus disease 2019; R78.81 Bacteremia; J96.01 Acute respiratory failure with hypoxia; I46.9 Cardiac arrest, cause unspecified; E11.65 Type 2 diabetes mellitus with hyperglycemia; N39.0 Urinary tract infection, site not specified; M47.892 Other spondylosis, cervical region; I10 Essential (primary) hypertension; J45.909 Unspecified asthma, uncomplicated; D50.9 Iron deficiency anemia, unspecified; K76.0 Fatty (change of) liver, not elsewhere classified; E66.01 Morbid (severe) obesity due to excess calories; Z68.43 Body mass index [BMI] 50.0-59.9, adult; Z79.899 Other long term (current) drug therapy; Z85.528 Personal history of other malignant neoplasm of kidney; Z87.891 Personal history of nicotine dependence; Z88.0 Allergy status to penicillin; Z88.1 Allergy status to other antibiotic agents; Z88.2 Allergy status to sulfonamides
CPT/HCPCS: 31500; 36415; 36430; 36600; 71045; 72156; 73030; 80048; 80053; 81001; 81003; 82140; 82375; 82728; 82805; 82948; 83036; 83050; 83605; 83615; 83690; 83735; 83880; 84100; 84484; 85025; 85027; 85380; 86140; 86900; 86901; 87040; 87070; 87077; 87086; 87147; 87186; 87205; 92526; 92610; 93005; 93306; 94002; 94003; 94640; 97110; 97161; 97165; 97530; 97535; 99291; A9270; A9577; C1751; C9113; C9803; J0131; J1100; J1650; J1815; J1940; J1956; J2060; J2250; J2405; J2704; J2997; J3010; J3370; J3480; J7050; P9059; U0003; U0005

== ENCOUNTER 2020-04-18 15:36 | IRF | payer OTHER, SELFPAY ==
--- NOTE | ~2020-04-18 | CT_ITS ---
EXAMINATION: CTA chest PE protocol DATE: 04/25/2020 14:22 INDICATION: Shortness of breath. TECHNIQUE: Computed tomography angiography (CTA) of the chest was performed with 100 mL Omnipaque-350 intravenous contrast timed to evaluate the pulmonary arteries. Coronal maximum intensity projection 3D-reconstructions were created by the technologist. Automated exposure control and iterative reconst ruction technique were employed. The dose-length product was 834.20 mGy-cm. COMPARISON: CT abdomen and pelvis 11/27/2019, 10/03/2017 FINDINGS: There are a few nodules in left lower lobe measuring up to 6 mm, stable from 10/03/17, likel y benign. There is moderate atelectasis in basilar right lower lobe. There is mild atelectasis in the inferior lungs. No pleural effusion. The heart size is normal. No pericardial effusion. There are ac kevin pulmonary emboli in basilar left lower lobe. There are acute pulmonary emboli in right upper lobe and right lower lobe. There is a lap band in the proximal stomach. There is mild thoracic spondylosi s. IMPRESSION: 1. Bilateral acute pulmonary emboli. I called this result to Dr. York. Reviewed, dictated and finalized at location A. HOUSE ASSEMBLY WORKER
--- NOTE | ~2020-04-18 | US_ITS ---
EXAMINATION: US venous doppler [facility] DATE: 04/25/2020 14:18 INDICATION: Lower limb swelling, shortness of breath TECHNIQUE: Mauricio scale images without and with compression and Doppler images of the bilateral lower e xtremity veins were obtained. COMPARISON: None FINDINGS: There is thrombosis in the right peroneal veins. The right common femoral vein, profunda femoral vein , femoral vein, popliteal vein, posterior tibial veins, and greater saphenous vein are patent. There is thrombosis in one of two left peroneal veins. The left common femoral vein, profunda femoral vein, femoral vein, popliteal vein, posterior tibial veins, and greater saphenous vein are patent. IMPRESSION: 1. Patent bilateral lower extremity veins. No evidence of deep venous thrombosis. These findings were discussed with the TRC at 1440 hours on 04/25/2020. Reviewed, dictated and finalized at location A. CE ENGINEER IMPRESSION: 1. Patent bilateral lower extremity veins. No evidence of deep venous thrombosi s. These findings were discussed with the TRC at 1440 hours on 04/25/2020.
--- NOTE | ~2020-04-18 | XR_ITS ---
EXAMINATION: XR chest 1V portable DATE: 04/25/2020 07:39 INDICATION: Coarse lung sounds. TECHNIQUE: A single frontal view of the chest was obtained. COMPARISON: Chest single view 04/22/2020, CT abdomen and pelvis 11/27/2019 FINDINGS: Again seen is elevation of right hemidiaphragm. There are airspace opacities in the lower l dianne zones. There is a small right pleural effusion. No pneumothorax. The heart size is normal. A lap band is noted. IMPRESSION: 1. Stable airspace opacities in the lower lung zones, consistent with atelectasis versus pneumonia. 2. Small right pleural effusion. 3. Persistent elevation of right hemidiaphragm. Reviewed, dictated and finalized at location A. ORARY HELP AGENCY REFERRAL CLERK IMPRESSION: 1. Stable airspace opacities in the lower lung zones, consistent with atelectas is versus pneumonia. 2. Small right pleural effusion. 3. Persistent elevation of right hemidiaphragm.
--- NOTE | ~2020-04-18 | US_ITS ---
EXAMINATION: US venous doppler [facility] DATE: 04/25/2020 14:20 INDICATION: DVT. TECHNIQUE: Mauricio scale images with and without compression and Doppler images of the bilateral upper e xtremity veins were obtained. COMPARISON: None. FINDINGS: The bilateral internal jugular vein, subclavian vein, axillary vein, brachial veins, basilic vein, ce phalic vein, radial vein, and ulnar vein are patent. IMPRESSION: 1. Patent bilateral upper extremity veins. No evidence of deep venous thrombosis. Reviewed, dictated and finalized at location B. GLASS BLOWER IMPRESSION: 1. Patent bilateral upper extremity veins. No evidence of deep venous thrombosi s.
--- NOTE | ~2020-04-18 | XR_ITS ---
XR chest 1V portable 04/22/2020 12:58 Indication: Shortness of breath Procedure: AP portable chest Comparison: Comparison to multiple prior studies sequentially, with oldest reviewed study dated 04/06. Findings: Interval removal of central line. Persistent bibasilar airspace disease. Elevated right michelle phragm. No significant pleural effusion, edema or pneumothorax. No acute osseous abnormality. Impression: 1: Persistent bibasilar airspace disease may represent atelectasis and/or pneumonia. Reviewed, dictated and finalized at location B. LY PRACTICE NURSE PRACTITIONER Impression: 1: Persistent bibasilar airspace disease may represent atelectasis and/or pneum onia.
--- NOTE | 2020-04-18 15:34 | ADMGEN ---
Arrived to our floor via bed at 1408. This patient, Tereza Feng, was admitted to [facility] Room 221-01. Patient/family oriented to hospital policies and general routines including ID bracelet, bed and alarms, visiting hours, pain management, procedures, bathroom and other care routines, personal items, smoking policy, room service/diet, and visiting hours. Information on how to activate the Rapid Response Team has been discussed. Patient/Family are encouraged to report perceived risks to care and to ask questions if they do not understand what they are told or what they should do.
[2020-04-18 16:00] VITALS: BMI 50.5
[2020-04-18 17:30] LABS: Glucose Point of Care 205 (65-105)
[2020-04-18] MEDS: INSULIN ASPART (*BKC) 100 UNITS/ML SUB-Q (18:19)
[2020-04-18 20:00] VITALS: PULSE 107; RESP 20; O2SAT 94
[2020-04-18] MEDS: MONTELUKAST SODIUM 10 MG TABLET PO (20:20)
[2020-04-18] MEDS: ENOXAPARIN 40 MG/0.4 ML SYRINGE SUB-Q (20:21)
[2020-04-18 20:56] VITALS: PULSE 102; RESP 20
[2020-04-18] MEDS: ALBUTEROL SULFATE NEB 2.5 MG/0.5 ML INH 5 MG INHALATION (20:56)
[2020-04-18 21:07] VITALS: PULSE 107; RESP 20; O2SAT 94
[2020-04-18 21:10] LABS: Glucose Point of Care 225 (65-105)
[2020-04-18 22:00] VITALS: BP 127/71; PULSE 98; RESP 18; TEMP 36.2; O2SAT 94
[2020-04-18 22:31] VITALS: PULSE 93; O2SAT 92
[2020-04-18] MEDS: ACETAMINOPHEN 325 MG TABLET 650 MG PO (23:50)
[2020-04-19] VITALS (16 sets, daily range): BP systolic 121–139; BP diastolic 73–78; PULSE 93–107; RESP 18–22; TEMP 36.2–36.6; O2SAT 92–99
[2020-04-19] MEDS: ALBUTEROL SULFATE NEB 2.5 MG/0.5 ML INH 5 MG INHALATION ×4 (02:46→21:35)
[2020-04-19 05:53] LABS: Basophils Absolute Auto 0.1 K/mm3 (0.0-0.1); Basophils Percent Auto 0.8 % (0.2-1.2); Eosinophils Absolute Auto 0.4 K/mm3 (0-0.3); Eosinophils Percent Auto 6.6 % (0-4.4); Hematocrit 37.3 % (37.0-47.0); Hemoglobin 11.1 g/dL (12.0-15.0); Immature Granulocyte Absolute 0.05 K/mm3 (0.00-0.031); Immature Granulocyte Percent A 0.8 % (0-0.5); Lymphocytes Absolute Auto 1.19 K/mm3 (0.9-3.2); Lymphocytes Percent Auto 20.1 % (18.3-44.2); Mean Corpuscular HGB Conc 29.8 g/dl (32-36); Mean Corpuscular Hemoglobin 25.6 pg (26-34); Mean Corpuscular Volume 86.1 fl (80-100); Mean Platelet Volume 9.3 fl (7.4-10.4); Monocytes Absolute Auto 0.5 K/mm3 (0.1-0.6); Monocytes Percent Auto 8.3 % (2.6-8.5); Neutrophils Absolute Auto 3.7 K/mm3 (1.3-6.7); Neutrophils Percent Auto 63.4 % (45.5-73.1); Platelet Count Result 224 k/mm3 (150-375); Red Blood Count 4.33 M/mm3 (4.2-5.4); Red Cell Distribution Width 16.8 % (11.5-14.5); White Blood Count 5.9 K/mm3 (4.5-10.0)
[2020-04-19 06:03] LABS: Anion Gap 4 mmol/L (8-16); Blood Urea Nitrogen 16 mg/dL (7-17); Calcium 8.7 mg/dL (8.4-10.2); Carbon Dioxide 33 mmol/L (22-30); Chloride 100 mmol/L (98-107); Estimated CRCL calculation 130 ml/min; Estimated Glomerular Filt Rate > 60; Glucose 203 mg/dL (65-105); Potassium 3.9 mmol/L (3.4-5.0); Sodium 137 mmol/L (137-145)
[2020-04-19 06:52] LABS: Glucose Point of Care 223 (65-105)
[2020-04-19] MEDS: ASCORBIC ACID 500 MG TABLET 1000 MG PO (09:40)
[2020-04-19] MEDS: ENOXAPARIN 40 MG/0.4 ML SYRINGE SUB-Q ×2 (09:40→20:36)
[2020-04-19] MEDS: ZINC SULFATE 220 MG CAPSULE PO (09:41)
[2020-04-19] MEDS: FUROSEMIDE 40 MG TABLET PO (09:41)
[2020-04-19] MEDS: CITALOPRAM HYDROBROMIDE 20 MG TABLET PO (09:41)
[2020-04-19] MEDS: lisinopriL 10 MG TABLET PO (09:41)
[2020-04-19] MEDS: LORATADINE 10 MG TABLET PO (09:41)
[2020-04-19] MEDS: ASPIRIN 325 MG TABLET PO (09:41)
[2020-04-19] MEDS: CHOLECALCIFEROL 1,000 UNITS TABLET 1000 UNITS PO (09:42)
[2020-04-19] MEDS: INSULIN ASPART (*BKC) 100 UNITS/ML SUB-Q ×2 (09:45→13:23)
[2020-04-19 12:10] LABS: Glucose Point of Care 236 (65-105)
--- NOTE | 2020-04-19 13:12 | WPDREHABHP ---
H&P: HPI History of Present Illness Date/Time: 04/19/20 13:12 Chief Complaint: critical illness related myopathy Narrative: Tereza Feng is a 55 year old female HISTORY OF PRESENT ILLNESS:The patient's primary rehab impaired category is neurological. 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 The patient was seen [id number] on April 19, 2020 at 12 noon the patient is up morbidly obese 55-year-old female with diabetes and hypertension who presented to the emergency department at [facility] on March 24, 2020. She complained of shortness of breath. She had not felt well for 1 week prior with complaints of headache, cough, diarrhea, nausea, dry heaves, intermittent chest discomfort, and progressive shortness of breath on lesser and lesser exertion. She stated she has had daily fevers which were more low-grade over the prior 3 days. Her daughter had similar symptoms a few days prior to her developing symptoms, and she tested positive for COVID. The patient subsequently tested positive for COVID on March 19, 2020. She was quite hypoxic in the emergency department and was placed on 60 litter of oxygen at at 85% FiO2 in addition to15L non rebreather. She also had mildly elevated troponins with no ST elevation, suspected to be likely secondary to respiratory failure. Repeat troponins were ordered and revealed decreasing levels. Echo showed ejection fraction of 65%. She was found to have acute nonalcoholic fatty liver disease and CMP monitoring was ordered. Her diabetes was treated with sliding scale insulin. Patient was emergently intubated due to the acute respiratory failure on March 25, 2020. She was sedated and paralyzed with Nimbex drip, placed prone and received convalescent plasma. From March 24, 2020 through March 31, 2020 she completed REM dissuade ear and was on dexamethasone. On March 31, 2020 she had a cardiac arrest, had CPR, and after 5 minutes had ROSC the etiology was unclear. On April 01, 2020 sputum culture was growing Staph aureus and the patient was started on Levaquin, REM this where and dexamethasone were discontinued the patient was extubated on April 08, 2020 and placed on 2L of oxygen per nasal cannula. On April 10, 2020 the patient had improved and was therefore transferred out of ICU, was off antibiotics, and begin working with physical therapy. Fluid volume overload was suspected and gentle diuresis was started. On April 13, 2020 the patient was placed on fluid restriction of 1000cc per day due to continued complaints of shortness of breath, lack of improvement in urine output, and difficulty participating with therapy. On April 15, 2020 the patient's shoulder x-ray did not show any injury to left shoulder pain and weakness suspected to be related to critical illness myopathy. An MRI of cervical spine was completed to rule out impingement syndrome causing neck and shoulder pain, the MRI showed mild cervical spondylosis. A repeat chest x-ray showed improvement , the patient was stable on room air. The patient hospitalization has included acute respiratory failure with hypoxia due to COVID-19, ventilator dependence form 03/25 through 04/08,S aureus sepsis, anemia, leukocytosis, hyponatremia, hypocalcemia, hyperglycemia, AKA, hypoalbuminemia, hypokalemia, UTI, asthma, elevated troponins, nonalcoholic fatty liver disease, type 2 diabetes without complication and hemoglobin A1c 8.5 on March 24, 2020, non STEMI, benign essential hypertension, proximal weakness and pain to left shoulder and neck, episodes of fever, episodes of heart rate above 90 beats per minute, respiration greater than 20 per minute. WBCs greater than 12,000, The patient has been working with therapy, therapy recommends him in patient rehab with 3 hours. She requires intensive therapies and physician daily management to restore loss function due to critical illness myopathy in order to maximizing her functional independence and qu
[2020-04-19] MEDS: FLUTICASONE/SALMETEROL 230-21 MCG INHALER 1 PUFF 2 PUFF INHALATION ×2 (14:14→20:36)
[2020-04-19] MEDS: ACETAMINOPHEN 325 MG TABLET 650 MG PO (14:17)
--- NOTE | 2020-04-19 15:20 | PCSTNOTE ---
Bedside swallow evaluation completed. Please see ST evaluation for details and recommendations.
[2020-04-19 16:47] LABS: Glucose Point of Care 193 (65-105)
[2020-04-19] MEDS: MONTELUKAST SODIUM 10 MG TABLET PO (20:35)
[2020-04-19 21:51] LABS: Glucose Point of Care 213 (65-105)
[2020-04-20] VITALS (10 sets, daily range): BP systolic 129–138; BP diastolic 75–80; PULSE 97–110; RESP 18–22; TEMP 36.1–36.7; O2SAT 92–97
[2020-04-20 06:39] LABS: Glucose Point of Care 175 (65-105)
[2020-04-20] MEDS: FLUTICASONE/SALMETEROL 230-21 MCG INHALER 1 PUFF 2 PUFF INHALATION ×2 (07:53→20:31)
[2020-04-20] MEDS: ALBUTEROL SULFATE NEB 2.5 MG/0.5 ML INH 5 MG INHALATION ×3 (07:53→20:31)
[2020-04-20] MEDS: ASCORBIC ACID 500 MG TABLET 1000 MG PO (08:22)
[2020-04-20] MEDS: ASPIRIN 325 MG TABLET PO (08:22)
[2020-04-20] MEDS: lisinopriL 10 MG TABLET PO (08:23)
[2020-04-20] MEDS: FUROSEMIDE 40 MG TABLET PO (08:23)
[2020-04-20] MEDS: CITALOPRAM HYDROBROMIDE 20 MG TABLET PO (08:23)
[2020-04-20] MEDS: ENOXAPARIN 40 MG/0.4 ML SYRINGE SUB-Q ×2 (08:23→21:05)
[2020-04-20] MEDS: CHOLECALCIFEROL 1,000 UNITS TABLET 1000 UNITS PO (08:23)
[2020-04-20] MEDS: ZINC SULFATE 220 MG CAPSULE PO (08:23)
[2020-04-20] MEDS: LORATADINE 10 MG TABLET PO (08:23)
[2020-04-20] MEDS: BENZONATATE 100 MG CAPSULE 200 MG PO (08:26)
[2020-04-20 11:50] LABS: Glucose Point of Care 242 (65-105)
[2020-04-20] MEDS: INSULIN ASPART (*BKC) 100 UNITS/ML SUB-Q ×2 (11:54→17:28)
[2020-04-20] MEDS: ONDANSETRON HCL ODT 4 MG TABLET PO (12:06)
[2020-04-20 16:54] LABS: Glucose Point of Care 223 (65-105)
[2020-04-20] MEDS: MONTELUKAST SODIUM 10 MG TABLET PO (20:30)
[2020-04-20 21:28] LABS: Glucose Point of Care 223 (65-105)
[2020-04-21] VITALS (12 sets, daily range): BP systolic 124–159; BP diastolic 69–92; PULSE 92–118; RESP 18–22; TEMP 36.2–36.6; O2SAT 92–96; BMI 50.5
[2020-04-21] MEDS: ONDANSETRON HCL ODT 4 MG TABLET PO (01:05)
[2020-04-21] MEDS: ALBUTEROL SULFATE NEB 2.5 MG/0.5 ML INH 5 MG INHALATION ×3 (02:53→19:24)
[2020-04-21 06:30] LABS: Glucose Point of Care 200 (65-105)
[2020-04-21] MEDS: lisinopriL 10 MG TABLET PO (09:47)
[2020-04-21] MEDS: ASCORBIC ACID 500 MG TABLET 1000 MG PO (09:48)
[2020-04-21] MEDS: FUROSEMIDE 40 MG TABLET PO (09:48)
[2020-04-21] MEDS: ZINC SULFATE 220 MG CAPSULE PO (09:48)
[2020-04-21] MEDS: CITALOPRAM HYDROBROMIDE 20 MG TABLET PO (09:49)
[2020-04-21] MEDS: FERROUS SULFATE 324 MG TABLET PO (09:49)
[2020-04-21] MEDS: ENOXAPARIN 40 MG/0.4 ML SYRINGE SUB-Q ×2 (09:49→21:12)
[2020-04-21] MEDS: ASPIRIN 325 MG TABLET PO (09:49)
[2020-04-21] MEDS: CHOLECALCIFEROL 1,000 UNITS TABLET 1000 UNITS PO (09:50)
[2020-04-21] MEDS: LORATADINE 10 MG TABLET PO (09:50)
[2020-04-21] MEDS: FLUTICASONE/SALMETEROL 230-21 MCG INHALER 1 PUFF 2 PUFF INHALATION ×2 (10:44→19:25)
--- NOTE | 2020-04-21 10:56 | RPD ---
INDIVIDUALIZED PLAN OF CARE FOR Tereza Feng Brief Synthesis of Pre-Admission Screen, Post-Admission Evaluation and Therapy Evaluations: The patient presents to rehab with Critical Illness Myopathy. Comorbidities include acute respiratory failure due to COVID-19,anemia, leukocytosis, hyponatremia, hypocalcemia, hyperglycemia, VINCENT, hypoalbuminemia, hypokalemia, UTI, asthma, elevated troponin, dyspnea, sepsis, asthma, non-alcoholic fatty liver disease, diabetes mellitus, essential hypertension, and morbid obesity. The complexity of the patient's medical management, nursing, and therapy needs require an inpatient rehab hospital stay with a physician-led interdisciplinary team approach. The patient?s needs will be best met in an intensive program vs. at a lower level of care. The patient requires physician services for neurology services, medical oversight, and coordination of care. The patient needs physician monitoring and treatment of anemia, monitoring for adverse reactions to new medications, monitoring of infection, pain control, leukocytosis, hyponatremia, hypocalcemia, hyperglycemia, VINCENT, hypoalbuminemia, hypokalemia, UTI, asthma, elevated troponins, dyspnea, sepsis, asthma, non-alcoholic fatty liver disease, diabetes mellitus, and essential hypertension. The patient requires nursing services for frequent neuro checks, anticoagulation therapy, medication management and education, pressure relief and skin care management, monitoring of labs, bowel and bladder training, diabetes management and education, IV administration, and fall/safety precautions. Deficits include:ADLs, Balance, Endurance, Family Training/Education, Mobility, Pain Management, ROM, Safety, Speech, Strength, Swallowing, and Transfers. Senior Applications Engineer/Case Management for: Discharge Planning and Patient/Family Counseling Physical Therapy: 5 days per week for 75 minutes. Treatments may include: Therapeutic Exercise, Gait Training, Neuromuscular Re-education, Transfer Training, Community Reintegration, Bed Mobility, Patient/Family Education, Wheelchair Mobility Group Therapy/Concurrent Therapy Rationales: -Improve attention span during functional activities in a distracted environment. -Enhance problem solving and/or adequate judgment skills during functional activities in a distracted environment. -Promote increased safety awareness in a distracted environment to reduce fall risk with functional tasks, transfers, and ambulation to allow a more safe, self-sufficient return to the home environment. -Improve dynamic balance skills to promote safety and independence with functional activities in a distracted environment for maximum gain. Occupational Therapy: 5 days per week for 75 minutes. Treatments may include: Therapeutic Exercise, Therapeutic Activity, Cognitive Training, Self-Care Transfer Training, Community Reintegration, Home Management, Patient/Family Education, Wheelchair Mobility Training, Energy Conservation Training Group Therapy/Concurrent Therapy Rationales: -Allow therapist to observe and teach generalization and carry-over of skills learned in individual therapy. -Enhance problem solving and sequencing skills during therapeutic activities in a distracted environment. -Promote increased safety awareness in a realistic setting to reduce fall risk with functional tasks due to visual and verbal distractions. -Increase functional level with ADLs, ADL transfers and use of adaptive equipment through therapeutic activities with others while promoting safety to allow a more safe, self-sufficient return home. Speech Therapy: 5 days per week for 30 minutes. Treatments may include: Dysphasia Therapy, Speech/Language/Communication Therapy, Cognitive Training, Patient/Family Education Group Therapy/Concurrent Therapy - Rationale: -Allow therapist to observe and teach generalization and carry-over of skills learned in individual therapy. -Improve comprehension skills with complex or abstract ideas
[2020-04-21 12:07] LABS: Glucose Point of Care 251 (65-105)
[2020-04-21] MEDS: INSULIN ASPART (*BKC) 100 UNITS/ML SUB-Q ×2 (12:10→17:42)
--- NOTE | 2020-04-21 13:05 | PCNSR ---
On 04/21/20, the student, Urvashi Han, provided care and completed [facility] documentation on this patient. I have reviewed the student's documentation and agree with the findings.
[2020-04-21 17:12] LABS: Glucose Point of Care 254 (65-105)
--- NOTE | 2020-04-21 17:32 | WPDNEURORHBP ---
Subjective Date/time seen: 04/21/20 17:32 55 years old with critical illness related myopathy in addition to ongoing history of diabetes mellitus with neuropathy, hypertension has been involved in the physical therapy and occupational therapy are temp is 36.2? pulse 92 respiration 20 pulse ox 95% blood pressure 132/73, or new lab Review of Systems Review of Systems: All systems reviewed & are unremarkable except as noted in HPI and below Exam Const: General: cooperative, comfortable, no acute distress and awake Nutritional Appearance: obese Orientation/consciousness: patient oriented x3 HENMT: Head: normocephalic Ears: hearing grossly normal bilaterally General nose exam: Normal external nose present and No nasal discharge present Face and sinus: normal facial exam Mouth: Yes Normal oral and palatal mucosa present and Yes tongue normal Neck: Neck: full ROM Resp: Effort & Inspection: normal respiratory effort Auscultation: clear to auscultation bilaterally Cardio: Jugular venous distension: no JVD Rate: regular rate Rhythm: regular rhythm GI: Auscultation: normal bowel sounds Neuro: General: patient oriented x3 Cranial nerves: Yes CN's II-XII intact bilaterally Speech: normal speech Motor exam (neuro): 5/5 motor strength present throughout ( generally decreased), Pronator motor function not present and Normal motor muscle tone present throughout Sensory Exam: Sensory deficit (Neuro) ( distally) Plantar Reflex Responses: downgoing: bilateral Objective Data Vital Signs Vital Signs: Vital Signs - 24 hr 04/20/20 20:32 04/20/20 20:45 04/20/20 20:48 Temperature 36.7 C Pulse Rate 106 H 108 H 97 Respiratory Rate 18 18 22 H Blood Pressure 130/76 Pulse Oximetry 92 04/20/20 20:51 04/21/20 02:54 04/21/20 03:00 Temperature Pulse Rate 108 H 99 99 Respiratory Rate 18 Blood Pressure Pulse Oximetry 94 94 04/21/20 05:34 04/21/20 08:00 04/21/20 10:46 Temperature 36.4 C Pulse Rate 94 96 103 H Respiratory Rate 22 H 20 20 Blood Pressure 159/92 H Pulse Oximetry 96 96 04/21/20 10:53 04/21/20 14:00 Temperature 36.2 C L Pulse Rate 96 92 Respiratory Rate 20 20 Blood Pressure 132/73 Pulse Oximetry 95 Intake/Output Intake/Output: Intake & Output 02/08/0104/19/20 04/20/20 04/21/20 23:59 23:59 23:59 23:59 Intake Total 150 1340 850 360 Output Total 1175 250 Balance 150 165 600 360 Meds/Results Medications: Active Medications Generic Name Dose Route Start Last Admin Trade Name Freq PRN Reason Stop Dose Admin Acetaminophen 650 mg 04/18/20 16:43 04/19/20 14:17 Acetaminophen 325 Mg Tablet PO 650 mg Q6H PRN Administration Fever Albuterol 2.5 mg 04/18/20 16:43 Albuterol Sulfate Neb 2.5 Mg/3 Ml Inh INHALATION Q4-6H PRN shortness of breath or wheezing Albuterol 5 mg 04/18/20 20:00 04/21/20 10:44 Albuterol Sulfate Neb 2.5 Mg/0.5 Ml Inh INHALATION 5 mg Q6HRT PAULO Administration Alprazolam 0.25 mg 04/18/20 16:43 Alprazolam (*Crx) 0.25 Mg Tablet PO DAILY PRN anxiety Ascorbic Acid 1,000 mg 04/19/20 09:00 04/21/20 09:48 Ascorbic Acid 500 Mg Tablet PO 1,000 mg DAILY PAULO Administration Aspirin 325 mg 04/19/20 08:00 04/21/20 09:49 Aspirin 325 Mg Tablet PO 325 mg DAILY@0800 PAULO Administration Benzonatate 200 mg 04/18/20 16:43 04/20/20 08:26 Benzonatate 100 Mg Capsule PO 200 mg TID PRN Administration cough Bisacodyl 10 mg 04/18/20 16:43 Bisacodyl 10 Mg Suppository RECTAL QAM PRN Constipation Citalopram Hydrobromide 20 mg 04/19/20 09:00 04/21/20 09:49 Citalopram Hydrobromide 20 Mg Tablet PO 20 mg DAILY PAULO Administration Dextrose 12.5 gm 04/18/20 16:36 Dextrose 50% 25 Gm/50 Ml Syringe IV PUSH PRN PRN Hypoglycemia Protocol Enoxaparin Sodium 40 mg 04/18/20 21:00 04/21/20 09:49 Enoxaparin 40 Mg/0.4 Ml Syringe SUB-Q 40 mg Q12HR
[2020-04-21] MEDS: MONTELUKAST SODIUM 10 MG TABLET PO (21:11)
[2020-04-21] MEDS: HYDROCORTISONE 1% 30 GM CREAM 1 APPLIC TOPICAL (21:12)
[2020-04-21] MEDS: ACETAMINOPHEN 325 MG TABLET 650 MG PO (21:14)
[2020-04-21 21:43] LABS: Glucose Point of Care 256 (65-105)
[2020-04-22] VITALS (14 sets, daily range): BP systolic 127–144; BP diastolic 74–80; PULSE 78–109; RESP 16–22; TEMP 36.2–36.6; O2SAT 88–97
[2020-04-22] MEDS: ALBUTEROL SULFATE NEB 2.5 MG/0.5 ML INH 5 MG INHALATION ×4 (01:28→20:24)
[2020-04-22 06:43] LABS: Glucose Point of Care 203 (65-105)
[2020-04-22] MEDS: INSULIN ASPART (*BKC) 100 UNITS/ML SUB-Q ×2 (07:55→12:29)
[2020-04-22] MEDS: lisinopriL 10 MG TABLET PO (09:21)
[2020-04-22] MEDS: ASPIRIN 325 MG TABLET PO (09:21)
[2020-04-22] MEDS: CITALOPRAM HYDROBROMIDE 20 MG TABLET PO (09:21)
[2020-04-22] MEDS: FUROSEMIDE 40 MG TABLET PO (09:21)
[2020-04-22] MEDS: ENOXAPARIN 40 MG/0.4 ML SYRINGE SUB-Q ×2 (09:24→21:07)
[2020-04-22] MEDS: FLUTICASONE/SALMETEROL 230-21 MCG INHALER 1 PUFF 2 PUFF INHALATION ×2 (09:24→20:24)
[2020-04-22] MEDS: LORATADINE 10 MG TABLET PO (09:25)
[2020-04-22] MEDS: HYDROCORTISONE 1% 30 GM CREAM 1 APPLIC TOPICAL ×2 (09:25→21:12)
--- NOTE | 2020-04-22 11:01 | WPDNEURORHBP ---
Subjective Date/time seen: 55 years old with critical illness related myopathy in addition to ongoing history of diabetes mellitus with neuropathy as well and underlying hypertension has been involved in physical therapy and occupation therapy but not feeling very well complains of pain and discomfort all over Review of Systems Review of Systems: All systems reviewed & are unremarkable except as noted in HPI and below Exam Const: General: cooperative and awake Nutritional Appearance: obese Limitations: physical limitations HENMT: Head: normocephalic Ears: hearing grossly normal bilaterally General nose exam: Normal external nose present Face and sinus: normal facial exam Mouth: Yes Normal oral and palatal mucosa present Eyes: General: appearance normal, both eyes and all related structures Neck: Neck: full ROM Resp: Effort & Inspection: decreased respiratory effort Cardio: Rate: regular rate Rhythm: regular rhythm GI: Percussion: Yes other ( distant sounds) Neuro: General: oriented to place and oriented to time Cranial nerves: Yes CN's II-XII intact bilaterally Gait exam (Neuro): Unable to assess gait Motor exam (neuro): Abnormal motor strength present Sensory Exam: Sensory deficit (Neuro) Deep tendon reflexes (DTR's): Right triceps reflex intensity grade: 1+, Left triceps reflex intensity grade: 1+, Rt Biceps (C5, C6): 1+, Left biceps reflex intensity grade: 1+, Right brachioradialis reflex intensity grade: 1+, Left brachioradialis reflex intensity grade: 1+, Right patellar reflex intensity grade: 1+, Left patellar reflex intensity grade: 1+, Right ankle reflex intensity grade: 1+ and Left ankle reflex intensity grade: 1+ Plantar Reflex Responses: downgoing: bilateral Psych: Appearance: grossly normal Speech and movement: Other speech and movement exam findings present (Psych) ( sad) Affect: Sad affect present Attitude: cooperative Thought process: Normal thought process present Thought content: Yes Normal thought content present Insight: Fair insight present (Psych) Judgement: Fair judgement present (Psych) Objective Data Vital Signs Vital Signs: Vital Signs - 24 hr 04/21/20 14:00 04/21/20 19:26 04/21/20 19:36 Temperature 36.2 C L Pulse Rate 92 108 H 118 H Respiratory Rate 20 18 18 Blood Pressure 132/73 Pulse Oximetry 95 04/21/20 20:00 04/21/20 20:11 04/21/20 21:50 Temperature 36.6 C Pulse Rate 106 H 113 H 106 H Respiratory Rate 22 H 22 H Blood Pressure 124/69 Pulse Oximetry 92 92 92 04/22/20 01:29 04/22/20 01:38 04/22/20 05:24 Temperature 36.2 C L Pulse Rate 95 93 90 Respiratory Rate 18 18 22 H Blood Pressure 144/80 H Pulse Oximetry 91 97 04/22/20 09:46 04/22/20 09:52 Temperature Pulse Rate 107 H 78 Respiratory Rate 18 18 Blood Pressure Pulse Oximetry Intake/Output Intake/Output: Intake & Output 04/19/20 04/20/20 04/21/20 04/22/20 23:59 23:59 23:59 23:59 Intake Total 1340 850 600 120 Output Total 1175 250 500 Balance 165 600 100 120 Meds/Results Medications: Active Medications Generic Name Dose Route Start Last Admin Trade Name Freq PRN Reason Stop Dose Admin Acetaminophen 650 mg 04/18/20 16:43 04/21/20 21:14 Acetaminophen 325 Mg Tablet PO 650 mg Q6H PRN Administration Fever Albuterol 2.5 mg 04/18/20 16:43 Albuterol Sulfate Neb 2.5 Mg/3 Ml Inh INHALATION Q4-6H PRN shortness of breath or wheezing Albuterol 5 mg 04/18/20 20:00 04/22/20 09:45 Albuterol Sulfate Neb 2.5 Mg/0.5 Ml Inh INHALATION 5 mg Q6HRT PAULO Administration Alprazolam 0.25 mg 04/18/20 16:43 Alprazolam (*Crx) 0.25 Mg Tablet PO DAILY PRN anxiety Ascorbic Acid 1,000 mg 04/19/20 09:00 04/22/20 09:25 Ascorbic Acid 500 Mg Tablet PO Not Given DAILY PAULO Aspirin 325 mg 04/19/20 08:00 04/22/20 09:21 Aspirin 325 Mg Tablet PO 325 mg DAILY@0800 PAULO Administration Benzonatate 200 mg 04/18/20 16:43 0
[2020-04-22] MEDS: ONDANSETRON HCL ODT 4 MG TABLET PO (11:20)
[2020-04-22 11:51] LABS: Glucose Point of Care 212 (65-105)
[2020-04-22 12:14] LABS: Anion Gap 6 mmol/L (8-16); Blood Urea Nitrogen 11 mg/dL (7-17); Calcium 8.8 mg/dL (8.4-10.2); Carbon Dioxide 33 mmol/L (22-30); Chloride 97 mmol/L (98-107); Estimated CRCL calculation 153 ml/min; Estimated Glomerular Filt Rate > 60; Glucose 219 mg/dL (65-105); Potassium 4.1 mmol/L (3.4-5.0); Sodium 136 mmol/L (137-145)
[2020-04-22 16:48] LABS: Glucose Point of Care 196 (65-105)
[2020-04-22 18:11] LABS: Add Urine Microscopic? YES; Appearance Urine Cloudy (Clear); Bacteria Urine Trace /hpf; Bilirubin Urine Negative (Negative); Blood Urine 2+ (Negative); Calcium Oxalate Crystals Urine Present /hpf; Color Urine Yellow (Yellow); Glucose Urine UA Negative (Negative); Ketones Urine Trace mg/dL (Negative); Leukocyte Esterase Ur 1+ LEU/UL (Negative); Mucus Urine Heavy /lpf; Nitrate Urine Negative (Negative); Protein Urine 1+ mg/dL (Negative); RBC Urine >75 /hpf (0-2); Specific Grav Ur 1.019 (1.001-1.035); Squamous Epithelial Cell Urine Occasional /hpf (Few); Urobilinogen Urine Negative mg/dL (<2.0)
[2020-04-22] MEDS: MONTELUKAST SODIUM 10 MG TABLET PO (21:06)
[2020-04-22 21:52] LABS: Glucose Point of Care 213 (65-105)
[2020-04-23] VITALS (16 sets, daily range): BP systolic 111–117; BP diastolic 66–79; PULSE 82–117; RESP 16–20; TEMP 36.2–36.9; O2SAT 89–94; BMI 10.0
[2020-04-23] MEDS: ALBUTEROL SULFATE NEB 2.5 MG/0.5 ML INH 5 MG INHALATION ×4 (02:42→21:07)
[2020-04-23 07:09] LABS: Glucose Point of Care 207 (65-105)
[2020-04-23] MEDS: FLUTICASONE/SALMETEROL 230-21 MCG INHALER 1 PUFF 2 PUFF INHALATION ×2 (07:43→21:07)
[2020-04-23] MEDS: INSULIN ASPART (*BKC) 100 UNITS/ML SUB-Q ×2 (08:49→12:06)
[2020-04-23] MEDS: ASPIRIN 325 MG TABLET PO (08:50)
[2020-04-23] MEDS: FUROSEMIDE 40 MG TABLET PO (08:50)
[2020-04-23] MEDS: lisinopriL 10 MG TABLET PO (08:50)
[2020-04-23] MEDS: CITALOPRAM HYDROBROMIDE 20 MG TABLET PO (08:50)
[2020-04-23] MEDS: LORATADINE 10 MG TABLET PO (08:50)
[2020-04-23] MEDS: ENOXAPARIN 40 MG/0.4 ML SYRINGE SUB-Q ×2 (08:50→21:09)
[2020-04-23] MEDS: HYDROCORTISONE 1% 30 GM CREAM 1 APPLIC TOPICAL (08:51)
[2020-04-23 12:06] LABS: Glucose Point of Care 254 (65-105)
--- NOTE | 2020-04-23 12:16 | PCDIET ---
Nutrition Follow-Up Complete: Nutrition Diagnosis: Inadequate oral intake related to patient reports and food preferences as evidenced by 50% or less meal consumption. Nutrition Goal: Meet estimated nutritional needs. Goal in progress. Patient consuming 50% of meals on heart healthy, soft and bite size diet with 1000mL fluid restriction and Ensure Enlive TID. Patient reports not taking supplements due to being tired of creamy textures. Recommend discontinuing Ensure, as other supplement options are either high in sugar or creamy in texture. Patient reports tolerating thin liquids well. States diet is being upgraded to regular texture, as well, which she feels will improve intake. Recommend diabetic, low sodium diet (no fluid restriction). Last recorded weight is 142.2 kg. Recommend obtaining weekly weight. Bowel Motility: Last documented BM on 04/22/20. Labs Reviewed: Glu (207), Na (136) Meds Noted: Albuterol, Vitamin C, Ferrous Sulfate, Lasix, Novolog, Lisinopril, Advair, Vitamin D, Zinc Sulfate Additional Notes: Scab to right cheek; lower chin ulcer. Will continue to monitor with same goal. Nutrition Monitoring and Evaluation: Follow up every 5 days.
--- NOTE | 2020-04-23 14:42 | WPDNEURORHBP ---
Subjective Date/time seen: 04/23/20 14:42 55 years old with critical illness related myopathy in addition to diabetic neuropathy and hypertension additionally has difficulty with movements of the left upper extremity, no new lab, vital signs stable the pulse is 117 pulse ox 92% on the room air Review of Systems Review of Systems: All systems reviewed & are unremarkable except as noted in HPI and below Exam Const: General: tired appearing and uncomfortable Nutritional Appearance: obese Orientation/consciousness: patient oriented x3 HENMT: Head: normocephalic Ears: hearing grossly normal bilaterally General nose exam: Normal external nose present and No nasal discharge present Mouth: Yes Normal oral and palatal mucosa present Eyes: General: appearance normal, both eyes and all related structures Cardio: Rate: regular rate Rhythm: regular rhythm GI: Auscultation: normoactive bowel sounds Skin: General skin exam: no rashes or lesions noted Neuro: General: patient oriented x3 Cranial nerves: Yes CN's II-XII intact bilaterally Cognition (Neuro): normal cognition Gait exam (Neuro): Unable to assess gait Motor exam (neuro): Abnormal motor strength present Sensory Exam: Sensory deficit (Neuro) Plantar Reflex Responses: downgoing: bilateral Psych: Speech and movement: Clear speech present Affect: Sad affect present Attitude: cooperative Thought process: Normal thought process present Insight: Fair insight present (Psych) Judgement: Fair judgement present (Psych) Objective Data Vital Signs Vital Signs: Vital Signs - 24 hr 04/22/20 20:15 04/22/20 20:24 04/22/20 20:29 Temperature Pulse Rate 103 H 88 Respiratory Rate 18 20 Blood Pressure Pulse Oximetry 92 88 L 04/22/20 20:38 04/22/20 22:00 04/22/20 22:03 Temperature 36.6 C Pulse Rate 108 H 108 H 103 H Respiratory Rate 20 18 Blood Pressure 127/76 Pulse Oximetry 96 92 04/23/20 02:44 04/23/20 02:45 04/23/20 02:50 Temperature Pulse Rate 94 94 94 Respiratory Rate 20 18 Blood Pressure Pulse Oximetry 94 04/23/20 06:00 04/23/20 07:44 04/23/20 07:45 Temperature 36.2 C L Pulse Rate 100 105 H Respiratory Rate 18 20 Blood Pressure 115/77 Pulse Oximetry 89 L 91 04/23/20 07:53 04/23/20 08:00 04/23/20 13:00 Temperature Pulse Rate 108 H 108 H 117 H Respiratory Rate 20 20 Blood Pressure Pulse Oximetry 91 92 Intake/Output Intake/Output: Intake & Output 04/20/20 04/21/20 04/22/20 04/23/20 23:59 23:59 23:59 23:59 Intake Total 850 600 720 480 Output Total 086 730 0643 500 Balance 600 100 -430 -20 Meds/Results Medications: Active Medications Generic Name Dose Route Start Last Admin Trade Name Freq PRN Reason Stop Dose Admin Acetaminophen 650 mg 04/18/20 16:43 04/21/20 21:14 Acetaminophen 325 Mg Tablet PO 650 mg Q6H PRN Administration Fever Albuterol 2.5 mg 04/18/20 16:43 Albuterol Sulfate Neb 2.5 Mg/3 Ml Inh INHALATION Q4-6H PRN shortness of breath or wheezing Albuterol 5 mg 04/18/20 20:00 04/23/20 07:42 Albuterol Sulfate Neb 2.5 Mg/0.5 Ml Inh INHALATION 5 mg Q6HRT PAULO Administration Alprazolam 0.25 mg 04/18/20 16:43 Alprazolam (*Crx) 0.25 Mg Tablet PO DAILY PRN anxiety Ascorbic Acid 1,000 mg 04/19/20 09:00 04/23/20 12:04 Ascorbic Acid 500 Mg Tablet PO Not Given DAILY PAULO Aspirin 325 mg 04/19/20 08:00 04/23/20 08:50 Aspirin 325 Mg Tablet PO 325 mg DAILY@0800 PAULO Administration Benzonatate 200 mg 04/18/20 16:43 04/20/20 08:26 Benzonatate 100 Mg Capsule PO 200 mg TID PRN Administration cough Bisacodyl 10 mg 04/18/20 16:43 Bisacodyl 10 Mg Suppository RECTAL QAM PRN Constipation Citalopram Hydrobromide 20 mg 04/19/20 09:00 04/23/20 08:50 Citalopram Hydrobromide 20 Mg Tablet PO 20 mg DAILY PAULO Administration Dextrose 12.5 gm 04/18/20 16:36 Dextrose 50% 25 Gm/50 M
--- NOTE | 2020-04-23 15:12 | PC.NURSE ---
Dr. Mccoy made aware of patient refusing vitamins x2 days, also increased fluid restriction to 1200cc's and added CCD diet to heart healthy
[2020-04-23 17:14] LABS: Glucose Point of Care 178 (65-105)
[2020-04-23] MEDS: MONTELUKAST SODIUM 10 MG TABLET PO (21:10)
[2020-04-24] VITALS (16 sets, daily range): BP systolic 103–141; BP diastolic 58–84; PULSE 88–115; RESP 18–20; TEMP 36.2–36.8; O2SAT 90–97
[2020-04-24 00:40] LABS: Glucose Point of Care 187 (65-105)
[2020-04-24] MEDS: ALBUTEROL SULFATE NEB 2.5 MG/0.5 ML INH 5 MG INHALATION ×4 (03:00→20:13)
[2020-04-24 06:51] LABS: Glucose Point of Care 189 (65-105)
[2020-04-24] MEDS: FLUTICASONE/SALMETEROL 230-21 MCG INHALER 1 PUFF 2 PUFF INHALATION ×2 (09:04→20:14)
[2020-04-24] MEDS: CITALOPRAM HYDROBROMIDE 20 MG TABLET PO (09:38)
[2020-04-24] MEDS: ENOXAPARIN 40 MG/0.4 ML SYRINGE SUB-Q ×2 (09:38→21:09)
[2020-04-24] MEDS: FUROSEMIDE 40 MG TABLET PO (09:38)
[2020-04-24] MEDS: ASPIRIN 325 MG TABLET PO (09:38)
[2020-04-24] MEDS: LORATADINE 10 MG TABLET PO (09:38)
[2020-04-24] MEDS: lisinopriL 10 MG TABLET PO (09:38)
[2020-04-24] MEDS: ZINC SULFATE 220 MG CAPSULE PO (09:38)
[2020-04-24] MEDS: CHOLECALCIFEROL 1,000 UNITS TABLET 1000 UNITS PO (09:38)
[2020-04-24] MEDS: ASCORBIC ACID 500 MG TABLET 1000 MG PO (09:38)
[2020-04-24] MEDS: HYDROCORTISONE 1% 30 GM CREAM 1 APPLIC TOPICAL ×2 (09:41→21:10)
[2020-04-24] MEDS: ACETAMINOPHEN 325 MG TABLET 650 MG PO (12:11)
[2020-04-24 12:19] LABS: Glucose Point of Care 213 (65-105)
[2020-04-24] MEDS: INSULIN ASPART (*BKC) 100 UNITS/ML SUB-Q (12:19)
[2020-04-24 17:57] LABS: Glucose Point of Care 172 (65-105)
[2020-04-24] MEDS: MONTELUKAST SODIUM 10 MG TABLET PO (21:10)
[2020-04-24 21:58] LABS: Glucose Point of Care 268 (65-105)
[2020-04-25] VITALS (8 sets, daily range): BP systolic 128–136; BP diastolic 76–85; PULSE 88–108; RESP 18–20; TEMP 36.3–36.7; O2SAT 93–96
[2020-04-25] MEDS: ALBUTEROL SULFATE NEB 2.5 MG/0.5 ML INH 5 MG INHALATION ×2 (03:29→09:07)
[2020-04-25 07:15] LABS: Glucose Point of Care 203 (65-105)
[2020-04-25 07:51] LABS: Basophils Percent Auto 0.8 % (0.2-1.2); Eosinophils Absolute Auto 0.2 K/mm3 (0-0.3); Eosinophils Percent Auto 4.1 % (0-4.4); Hematocrit 37.2 % (37.0-47.0); Hemoglobin 11.8 g/dL (12.0-15.0); Immature Granulocyte Absolute 0.04 K/mm3 (0.00-0.031); Immature Granulocyte Percent A 0.8 % (0-0.5); Lymphocytes Absolute Auto 1.03 K/mm3 (0.9-3.2); Lymphocytes Percent Auto 21.3 % (18.3-44.2); Mean Corpuscular HGB Conc 31.7 g/dl (32-36); Mean Corpuscular Hemoglobin 27.1 pg (26-34); Mean Corpuscular Volume 85.5 fl (80-100); Mean Platelet Volume 9.3 fl (7.4-10.4); Monocytes Absolute Auto 0.5 K/mm3 (0.1-0.6); Monocytes Percent Auto 9.5 % (2.6-8.5); Neutrophils Absolute Auto 3.1 K/mm3 (1.3-6.7); Neutrophils Percent Auto 63.5 % (45.5-73.1); Platelet Count Result 194 k/mm3 (150-375); Red Blood Count 4.35 M/mm3 (4.2-5.4); White Blood Count 4.8 K/mm3 (4.5-10.0)
[2020-04-25 08:00] LABS: INR 0.9; Prothrombin Time 12.9 Seconds (11.1-14.7)
[2020-04-25] MEDS: ONDANSETRON HCL ODT 4 MG TABLET PO (08:57)
[2020-04-25] MEDS: ENOXAPARIN 40 MG/0.4 ML SYRINGE SUB-Q (09:00)
[2020-04-25] MEDS: ZINC SULFATE 220 MG CAPSULE PO (09:01)
[2020-04-25] MEDS: CITALOPRAM HYDROBROMIDE 20 MG TABLET PO (09:01)
[2020-04-25] MEDS: ASPIRIN 325 MG TABLET PO (09:01)
[2020-04-25] MEDS: lisinopriL 10 MG TABLET PO (09:02)
[2020-04-25] MEDS: FERROUS SULFATE 324 MG TABLET PO (09:02)
[2020-04-25] MEDS: FUROSEMIDE 40 MG TABLET PO (09:02)
[2020-04-25] MEDS: LORATADINE 10 MG TABLET PO (09:02)
[2020-04-25] MEDS: ASCORBIC ACID 500 MG TABLET 1000 MG PO (09:04)
[2020-04-25] MEDS: CHOLECALCIFEROL 1,000 UNITS TABLET 1000 UNITS PO (09:05)
[2020-04-25] MEDS: HYDROCORTISONE 1% 30 GM CREAM 1 APPLIC TOPICAL (09:05)
[2020-04-25] MEDS: FLUTICASONE/SALMETEROL 230-21 MCG INHALER 1 PUFF 2 PUFF INHALATION (09:07)
--- NOTE | 2020-04-25 11:15 | PC.NURSE ---
Patient had a bloody emesis in cpap mask this a.m. when the slot shift supervisor nurse removed mask. Night nurse notified Dr. Mccoy and orders received.
--- NOTE | 2020-04-25 11:16 | PC.NURSE ---
Dr. York Design Project Manager was here to see patient. Orders received.
[2020-04-25 11:18] LABS: D Dimer 0.64 ug/mL (<0.48)
[2020-04-25 12:03] LABS: Glucose Point of Care 224 (65-105)
--- NOTE | 2020-04-25 13:04 | PM.CNPUL ---
Assessment and Plan Assessment and plan (1) Hemoptysis: Onset Date: 04/25/20 Code(s): R04.2 - Hemoptysis Status: Acute Assessment and Plan: Patient with a history of severe COVID pneumonia and now extubated on room air during the day and auto PAP at night. Patient had 2 episodes of blood-streaked sputum this morning. There are no oral lesions that demonstrate active bleeding, there is no history of epistaxis or hematemesis. she has no fever or new sputum production and her chest x-ray shows no new focal infiltrates suggesting pneumonia. Given that patient is post COVID which can cause a hypercoagulable state I will check a D-dimer and if this is positive we will order CT angiogram of the chest to exclude pulmonary embolism. I will also order upper and lower extremity Dopplers to exclude DVT. Patient is on Lovenox 40 mg subc q.12 hours. If there is no evidence of any PE or DVT I will decrease to 40 q.day. Will follow with you I discussed with Dr. Mirza. History of Present Illness History of Present Illness Consult date: 04/25/20 Reason for consult: other (hemoptysis) Chief complaint: Critical Illness Myopathy Narrative: Patient is a 55-year-old woman with a history of morbid obesity, hypertension and diabetes who to who tested positive for COVID on 03/18/2020. Patient presented to the ER on 03/22/2020 but was discharged home. Patient returned on 03/24 with severe hypoxemic respiratory failure and required intubation on 03/25/2020. Patient was treated with REM de severe, dexamethasone in convalescent plasma. Patient required paralysis, prone ventilation and the course was complicated by a cardiac arrest on 03/31/2020. Patient improved and was extubated on 04/08. Patient was transferred to the rehabilitation unit in [facility]. Patient had an episode of hemoptysis on 04/25 and I was consulted. I spoke with the nurse and patient did well overnight on her auto PAP with an FiO2 of 26%. Patient was on room air at 93% when I saw her this morning. Patient states that she had 1-2 coughing episodes with blood-streaked sputum and no 5 bright red blood. Patient was wondering if the blood came from her tongue which has an ulcer from her intubation. Patient denies any fever, chills, chest pain, swollen extremities or acute onset shortness of breath. Patient denied any vomiting at the time of the hemoptysis. Patient denies any nose bleeds. She states that she is still very weak but slowly getting better. Review of Systems Review of Systems: All systems reviewed & are unremarkable except as noted in HPI and below Eyes: Eyes: Reports no additional eye complaints ENT: Reports system reviewed and no additional complaints, except as documented and Reports sinus pressure Cardiovascular: Cardiovascular: Reports no additional cardiovascular complaints Respiratory: Respiratory: Reports no additional respiratory complaints Gastrointestinal: Gastrointestinal: Reports no additional gastrointestinal complaints Musculoskeletal: Musculoskeletal: Reports no additional musculoskeletal complaints Integumentary/Breasts: Skin/Breast: Reports system reviewed and no additional complaints, except as docu Neurologic: Reports system reviewed and no additional complaints, except as documented Comments: diffuse weakness Psychiatric: Psychiatric: Reports no additional psychiatric complaints and Reports behavioral changes Endocrine: Endocrine: Reports no additional endocrine complaints [facility] Past Medical History Medical History (Updated 04/25/20 @ 13:10 by David York MD) Anxiety Asthma Benign essential hypertension COVID-19 (~03/18/20) acute respiratory failure with hypoxia due to COVID-19, ventilator dependence form 03/25 through 04/08,S aureus sepsis, anemia, leukocytosis, hyponatremia, hypocalcemia, hyperglycemia, AKA, hypoalbuminemia, hypokalemia, UTI, asthma, elevated troponins, nonalcoholic fatty liver disease
--- NOTE | 2020-04-25 13:15 | WPDNEURORHBP ---
Subjective Date/time seen: 04/25/20 13:15 status post critical illness with resultant myopathy in addition to the ongoing history of diabetic neuropathy and hypertension, noted to have the blood in her mouth this morning in addition to slight difficulties in breathing the pulmonary consultation was obtained and at present being worked up Review of Systems Review of Systems: All systems reviewed & are unremarkable except as noted in HPI and below Exam Const: General: cooperative and comfortable Nutritional Appearance: obese Orientation/consciousness: patient oriented x3 Limitations: physical limitations ( left upper extremity limited movements with severe pain) HENMT: Head: normocephalic Ears: hearing grossly normal bilaterally General nose exam: Normal external nose present Face and sinus: normal facial exam Mouth: Yes Normal oral and palatal mucosa present, Yes tongue normal ( not bleeding) and Yes oropharynx normal Throat: uvula midline Eyes: General: appearance normal, both eyes and all related structures Visual Hector: normal visual hector by confrontation Alignment and Position: alignment normal Periorbital: periorbital findings normal Eyelids: eyelids normal Conjunctivae: conjunctivae normal Sclera: sclerae normal Cornea: corneas normal Pupils: Equal, round and reactive pupils present Neck: Neck: full ROM Resp: Effort & Inspection: normal respiratory effort Auscultation: clear to auscultation bilaterally Cardio: Jugular venous distension: no JVD Rate: regular rate Rhythm: regular rhythm GI: Auscultation: normal bowel sounds Neuro: General: patient oriented x3 Cranial nerves: Yes CN's II-XII intact bilaterally Cognition (Neuro): normal cognition Speech: normal speech Gait exam (Neuro): Unable to assess gait Motor exam (neuro): Abnormal motor strength present ( generally decreased with left upper extremity limited) Deep tendon reflexes (DTR's): Right triceps reflex intensity grade: 1+, Left triceps reflex intensity grade: 1+, Rt Biceps (C5, C6): 1+, Left biceps reflex intensity grade: 1+, Right brachioradialis reflex intensity grade: 1+, Left brachioradialis reflex intensity grade: 1+, Right patellar reflex intensity grade: 1+, Left patellar reflex intensity grade: 1+, Right ankle reflex intensity grade: 1+ and Left ankle reflex intensity grade: 1+ Plantar Reflex Responses: downgoing: bilateral Coordination: [id number] test normal ( right side) Extrem: General: full ROM Psych: Appearance: grossly normal Mental Status: mental status grossly normal Speech and movement: Normal speech and movement present Affect: normal affect Attitude: cooperative Thought process: Normal thought process present Thought content: Yes Normal thought content present Insight: Good insight present (Psych) Judgement: Good judgement present (Psych) Objective Data Vital Signs Vital Signs: Vital Signs - 24 hr 04/24/20 14:00 04/24/20 14:33 04/24/20 20:16 Temperature 36.7 C Pulse Rate 103 H 94 107 H Respiratory Rate 20 18 20 Blood Pressure 103/58 L Pulse Oximetry 93 90 04/24/20 20:19 04/24/20 20:20 04/24/20 21:45 Temperature 36.8 C Pulse Rate 105 H 108 H 115 H Respiratory Rate 20 18 18 Blood Pressure 110/76 Pulse Oximetry 94 91 04/24/20 22:40 04/25/20 03:29 04/25/20 03:37 Temperature Pulse Rate 108 H 94 95 Respiratory Rate 20 20 Blood Pressure Pulse Oximetry 94 96 04/25/20 04:49 04/25/20 08:00 04/25/20 09:05 Temperature 36.3 C L Pulse Rate 97 97 88 Respiratory Rate 18 18 20 Blood Pressure 136/85 Pulse Oximetry 96 93 04/25/20 09:08 04/25/20 09:15 Temperature Pulse Rate 92 Respiratory Rate 20 Blood Pressure Pulse Oximetry 93 Intake/Output Intake/Output: Intake & Output 04/22/20 04/23/20 04/24/20 04/25/20 23:59 23:59 23:59 23:59 Intake Total 640 418 8532 10 Output Total 1272 556 3990 600 Balance -430 220 -540 -590 Meds/Results Medications: Active
--- NOTE | 2020-04-25 13:30 | PCOTNOTE ---
Attempted to see Patient at her scheduled therapy session. Patient being transferred to a stretcher for going down to have a ultrasound and a CT scan at this time. Patient unable to be seen at this time.
--- NOTE | 2020-04-25 14:30 | PCOTNOTE ---
Checked back with Patient this afternoon following having testing done. Per RN, do not treat this afternoon due to Patient awaiting test results and having a decline in patient condition with test results. Patient did not receive full minutes this date.
--- NOTE | 2020-04-25 15:01 | PCPTNOTE ---
The patient treatment was not able to be completed on 04/25/20 due to waiting on results. Attempted to see patient in PM, however per RN, do not see patient this PM. They are waiting on results from CT scan and ultrasound. Patient short 15 minutes of PT this date. Will plan to continue treatment per plan of care. Wendy Hernandez, SPEECH CLINICIAN
[2020-04-25 15:21] LABS: Basophils Percent Auto 0.5 % (0.2-1.2); Eosinophils Absolute Auto 0.1 K/mm3 (0-0.3); Eosinophils Percent Auto 2.5 % (0-4.4); Hematocrit 37.2 % (37.0-47.0); Hemoglobin 11.9 g/dL (12.0-15.0); Immature Granulocyte Absolute 0.04 K/mm3 (0.00-0.031); Immature Granulocyte Percent A 0.7 % (0-0.5); Lymphocytes Absolute Auto 1.01 K/mm3 (0.9-3.2); Lymphocytes Percent Auto 18.2 % (18.3-44.2); Mean Corpuscular Hemoglobin 27.4 pg (26-34); Mean Corpuscular Volume 85.5 fl (80-100); Mean Platelet Volume 9.2 fl (7.4-10.4); Monocytes Absolute Auto 0.5 K/mm3 (0.1-0.6); Monocytes Percent Auto 8.6 % (2.6-8.5); Neutrophils Absolute Auto 3.9 K/mm3 (1.3-6.7); Neutrophils Percent Auto 69.5 % (45.5-73.1); Platelet Count Result 179 k/mm3 (150-375); Red Blood Count 4.35 M/mm3 (4.2-5.4); Red Cell Distribution Width 17.5 % (11.5-14.5); White Blood Count 5.6 K/mm3 (4.5-10.0)
[2020-04-25 15:31] LABS: Prothrombin Time 13.6 Seconds (11.1-14.7)
[2020-04-25 15:32] LABS: Partial Thromboplastin Time 29.8 SECONDS (22.3-36.8)
--- NOTE | 2020-04-25 16:18 | PC.NURSE ---
Talked with Dr. Mccoy and Dr. York and patient will be transferred to medical floor to receive heparin drip. were here and talked to patient about CT scan results and transfer to medical floor.
--- NOTE | 2020-06-09 11:11 | PM.TDS ---
Transfer Discharge Sum: Prov Provider Date of admission: 04/18/20 15:36 Primary care physician: Mansi Byrnes MD Admitting clinician: Andrae Mccoy MD Consults: 04/18/20 Wound/ET Consult Routine Reason for Consult:: wound to back of head (had been in ICU/intubated and wears BIPAP) 04/25/20 Consult to Physician Routine Comment: coughed up blood lungs diminished / course Consulting Provider: David York Reason for consultation: same as above Has provider been notified: Yes DS: Admitting Diagnosis Admitting Diagnosis Admitting Diagnosis: generalized weakness with multiple medical problems DS: Discharge Diagnosis Discharge Diagnosis (1) Post-COVID syndrome: Code(s): B94.8 - Sequelae of other specified infectious and parasitic diseases Status: Acute (2) Colitis: Code(s): K52.9 - Noninfective gastroenteritis and colitis, unspecified Status: Acute (3) Diabetes mellitus with cardiac complication: Code(s): E11.59 - Type 2 diabetes mellitus with other circulatory complications Status: Acute (4) skilled nursing (current) use of insulin: Code(s): 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 Status: Acute (5) Debilitated patient: Code(s): R53.81 - Other malaise Status: Acute (6) Type 2 diabetes mellitus with albuminuria: Code(s): E11.29 - Type 2 diabetes mellitus with other diabetic kidney complication; R80.9 - Proteinuria, unspecified Status: Acute (7) History of severe acute respiratory syndrome coronavirus 2 (SARS-CoV-2) disease: Code(s): Z86.16 - Personal history of COVID-19 Status: Acute (8) Hx of myocardial infarction: Code(s): I25.2 - Old myocardial infarction Status: Acute (9) Pulmonary embolus: Qualifiers: Pulmonary embolism type: unspecified Chronicity: acute Acute cor pulmonale presence: unspecified Qualified Code(s): I26.99 - Other pulmonary embolism without acute cor pulmonale Code(s): I26.99 - Other pulmonary embolism without acute cor pulmonale Status: Acute (10) High risk medication use: Code(s): Z79.899 - Other exterminator helper termite (current) drug therapy Status: Acute (11) Super obesity: Code(s): E66.9 - Obesity, unspecified Status: Acute (12) Severe persistent asthma: Qualifiers: Asthma complication type: uncomplicated Qualified Code(s): J45.50 - Severe persistent asthma, uncomplicated Code(s): J45.50 - Severe persistent asthma, uncomplicated Status: Acute (13) VINNIE (obstructive sleep apnea): Code(s): G47.33 - Obstructive sleep apnea (adult) (pediatric) Status: Acute (14) Benign essential hypertension: Code(s): I10 - Essential (primary) hypertension Status: Chronic (15) Mixed hyperlipidemia: Code(s): E78.2 - Mixed hyperlipidemia Status: Acute (16) Non-alcoholic fatty liver disease: Code(s): K76.0 - Fatty (change of) liver, not elsewhere classified Status: Acute (17) Generalized anxiety disorder: Code(s): F41.1 - Generalized anxiety disorder Status: Acute (18) Incidental lung nodule, > 3mm and < 8mm: Code(s): R91.1 - Solitary pulmonary nodule Status: Acute (19) Bariatric surgery status: Code(s): Z98.84 - Bariatric surgery status Status: Acute (20) History of kidney cancer: Code(s): Z85.528 - Personal history of other malignant neoplasm of kidney Status: Acute (21) Fibrocystic breast disease (FCBD): Code(s): N60.19 - Diffuse cystic mastopathy of unspecified breast Status: Acute (22) Brachial plexus injury: Qualifiers: Encounter type: subsequent encounter Qualified Code(s): S14.3XXD - Injury of brachial plexus, subsequent encounter Code(s): S14.3XXA - Injury of brachial plexus, initial encounter Status: Acute (23) Myelopathy: Code(s): G95.9 - Disease of s
== END 2020-04-25 16:42 | disposition short-term general hospital (02) | DRG 91 ==
LOC: ANHTRC 04-25 12:10 → ANH3MEDSUR 04-25 16:40 → ANHTRC 05-06 14:33
PROVIDERS: Internal Medicine Pulmonary Disease; Admitting Provider Psychiatry & Neurology Neurology; PCP Family Medicine; Visit Provider Psychiatry & Neurology Neurology
DX: G72.81 Critical illness myopathy (principal); I26.99 Other pulmonary embolism without acute cor pulmonale; Z68.43 Body mass index [BMI] 50.0-59.9, adult; R04.2 Hemoptysis; E11.65 Type 2 diabetes mellitus with hyperglycemia; Z86.74 Personal history of sudden cardiac arrest; Z86.16 Personal history of COVID-19; D50.9 Iron deficiency anemia, unspecified; E66.01 Morbid (severe) obesity due to excess calories; E11.42 Type 2 diabetes mellitus with diabetic polyneuropathy; I10 Essential (primary) hypertension; J45.909 Unspecified asthma, uncomplicated; K76.0 Fatty (change of) liver, not elsewhere classified; M47.812 Spondylosis without myelopathy or radiculopathy, cervical region; M79.89 Other specified soft tissue disorders; R91.1 Solitary pulmonary nodule; Z85.528 Personal history of other malignant neoplasm of kidney; Z98.84 Bariatric surgery status; Z87.891 Personal history of nicotine dependence; Z79.4 Long term (current) use of insulin
CPT/HCPCS: 36415; 71045; 71275; 80048; 81001; 82948; 85025; 85380; 85610; 85730; 87086; 92523; 92526; 92610; 93970; 94640; 94660; 97110; 97112; 97162; 97167; 97530; 97535; 97542; A9270; J1650; J1815; Q9967

== ENCOUNTER 2020-04-25 18:29 | Inpatient (IN) | payer OTHER, SELFPAY ==
--- NOTE | ~2020-04-25 | MR_ITS ---
EXAMINATION: MR lumbar spine wo/w con DATE: 04/30/2020 14:25 INDICATION: Foot drop. TECHNIQUE: Magnetic resonance imaging (MRI) of the lumbar spine was performed without and with 20 mL Multihance intravenous contrast. Sequences included sagittal T2-weighted FSE, sagittal T2-weighted FS FSE, and sagittal and axial T1-weighted FSE. Postcontrast sequences included axial T2-weighted FSE, sagittal T1-weighted FSE, and axial and sagittal T1-weighted FS FSE. COMPARISON: CT abdomen and pelvis dated 11/27/2019 FINDINGS: Chronic L4 spondylolysis with bilateral pars intra-articular is defects and 7 mm anterolisthesis on L 5. There is severe associated disc height loss with prominent fibrofatty degenerative endplate change s at both sides of the disc space. Otherwise normal marrow signal. Mild disc desiccation and mild dis c height loss at T11-T12, T12-L1 and L5-S1. Vertebral body heights are normal. The conus medullaris t erminates at T12. There is normal signal in the caudal spinal cord. Paravertebral soft tissues are un remarkable. No abnormally enhancing lesions identified. The following disc levels are specifically di scussed: T12-L1: Disc is minimally bulging. There is mild right and minimal left facet joint osteoarthritis. T here is no neural foraminal stenosis. There is no central canal stenosis. L1-L2: The disc does not extend beyond the endplate margin. There is mild bilateral facet joint osteo arthritis. There is no neural foraminal stenosis. There is no central canal stenosis. L2-L3: Disc is minimally bulging. There is mild right facet joint osteoarthritis. There is no neural foraminal stenosis. There is no central canal stenosis. L3-L4: The disc does not extend beyond the endplate margin. There is mild bilateral facet joint osteo arthritis. There is no neural foraminal stenosis. There is no central canal stenosis. L4-L5: Disc is bulging with superimposed annular fissure and small central disc extrusion with disc m aterial extending up to 5 mm cephalad to the level of the inferior endplate of L4. There is hypertrop hy of the ligamentum flavum. There is moderate bilateral facet joint osteoarthritis with bilateral L 4 pars interarticularis defects. There is mild right and moderate left neural foraminal stenosis. The re is minimal central canal stenosis. L5-S1: Disc is mildly bulging. There is severe bilateral facet joint osteoarthritis. There is mild bi lateral neural foraminal stenosis. There is no central canal stenosis. IMPRESSION: 1. Chronic L4 spondylolysis with bilateral pars intra-articular is defects, similar anterolisthesis o n L5 and severe associated spondylosis. 2. Mild spondylosis in the remainder of the lumbar and visualized lower thoracic spine. Reviewed, dictated and finalized at location A. BOARD MAN IMPRESSION: 1. Chronic L4 spondylolysis with bilateral pars intra-articular is defects, sim ilar anterolisthesis on L5 and severe associated spondylosis. 2. Mild spondylosis in the remainder of the lumbar and visualized lower thoraci c spine.
--- NOTE | ~2020-04-25 | XR_ITS ---
XR forearm LT 2V DATE: 04/30/2020 14:30 INDICATION: Pain and limited range of motion TECHNIQUE: AP and lateral views COMPARISON: None FINDINGS: No fracture or dislocation, periosteal reaction or bone destruction. Normal alignment at th e elbow and wrist joints. IMPRESSION: Negative Reviewed, dictated and finalized at location B. HER SCRAPER IMPRESSION: Negative
--- NOTE | ~2020-04-25 | XR_ITS ---
XR chest 1V portable DATE: 04/27/2020 09:06 INDICATION: Shortness of breath. Bilateral pulmonary emboli. History of asthma. Smoker. TECHNIQUE: Portable upright AP chest on April 27, 2020 at 0908 hours COMPARISON: April 25, 2020 CT pulmonary scan 04/25/2020 portable AP chest FINDINGS: There is moderate elevation right leaf of diaphragm. There are bilateral mid and predominan tly lower lung infiltrates. Minimal blunting of the right costophrenic angle may indicate pleural eff usion. Heart size appears within normal limits. No pneumothorax. (Lap band device overlies left upper quadrant of abdomen. IMPRESSION: Bilateral predominantly lower lung infiltrates. Reviewed, dictated and finalized at location A. ER TENDER
--- NOTE | ~2020-04-25 | MR_ITS ---
EXAMINATION: MR brain/brain stem wo con DATE: 05/02/2020 12:42 INDICATION: Left upper limb weakness TECHNIQUE: Magnetic resonance imaging (MRI) of the brain and brainstem was performed without intraven ous contrast. Sequences included sagittal and axial T1-weighted SE, axial diffusion-weighted FS SE, a xial T2*-weighted GRE, axial T2-weighted FLAIR, and axial T2-weighted FSE. Apparent diffusion coeffic ient (ADC) maps were created. COMPARISON: None. FINDINGS: There are no areas of restricted diffusion to suggest acute infarction. No intracranial hemorrhage or abnormal intracranial mass lesion. Minimal scattered areas of nonspecific increased T2-weighted sign al intensity in the cerebral white matter, predominantly involving the periventricular white matter w hich is within normal limits for age. There are no intraparenchymal signal abnormalities seen on the other pulse sequences. The ventricles are symmetric and normal in size. There are no abnormal extra-a xial fluid collections. Flow voids are seen in the cerebral arteries on the T2-weighted sequences con sistent with their expected patency. Mild right-sided and moderate left-sided mucosal thickening bila teral maxillary sinuses with small amount of posterior layering fluid/mucus in the left maxillary sin us. Bilateral mastoid effusions. Visualized orbits and soft tissues are unremarkable. IMPRESSION: 1. Normal aging brain. No acute intracranial process. 2. Bilateral maxillary sinus disease, left greater than right. 3. Bilateral mastoid effusions. Reviewed, dictated and finalized at location A. ERECTOR
--- NOTE | ~2020-04-25 | XR_ITS ---
XR shoulder LT min 2V DATE: 04/30/2020 14:30 INDICATION: Pain and limited range of motion TECHNIQUE: 3 views COMPARISON: None FINDINGS: No fracture or dislocation is evident. No abnormal soft tissue calcification of the left sh oulder. IMPRESSION: No fracture or dislocation Reviewed, dictated and finalized at location B. SUPPORT SERVICE TECH IMPRESSION: No fracture or dislocation
--- NOTE | ~2020-04-25 | XR_ITS ---
XR elbow LT 2V DATE: 04/30/2020 14:30 INDICATION: Pain and limited range of motion TECHNIQUE: AP and lateral views COMPARISON: None FINDINGS: No fracture or dislocation or joint effusion. No periosteal reaction or bone destruction. IMPRESSION: Negative Reviewed, dictated and finalized at location B. MOBILE BRAKES BONDER IMPRESSION: Negative
--- NOTE | ~2020-04-25 | MR_ITS ---
EXAMINATION: MR chest wo/w con DATE: 05/02/2020 13:12 INDICATION: Left upper extremity weakness TECHNIQUE: Magnetic resonance imaging (MRI) of the left upper chest utilizing a brachial plexus marilia col was performed without and with 20 mL Multihance intravenous contrast. Sequences included axial, s agittal and coronal T1-weighted FSE, coronal T2-weighted FS FSE, sagittal and coronal fluid sensitive FSE STIR and post contrast axial, sagittal and coronal T1-weighted FS FSE. COMPARISON: Chest CT dated 04/25/2020 FINDINGS: Cervical vertebral body heights are normal. Mild disc height loss with disc bulges at C4-C5 and C5-C6 resulting in mild central canal stenosis. Cervical cord appears normal with normal signal and no abn ormally enhancing lesions. The roots, trunks, divisions and cords of the left brachial plexus appear normal following a normal course with normal signal and thickness with no abnormal enhancement. No im pinging mass or fluid collections identified along the course. No pathologically enlarged left axilla ry lymphadenopathy. Asymmetric small left glenohumeral joint effusion. Mild edema within the left sub scapularis and infraspinatus muscle bellies. Although not performed as a dedicated left shoulder MRI the left rotator cuff tendons appear to remain intact. There is some cystic change at the anteroinfer ior left glenoid. Bone marrow signal is otherwise unremarkable. IMPRESSION: 1. Normal appearance to left brachial plexus with no normal masses or abnormally enhancing lesions. 2. Small left glenohumeral joint effusion with nonspecific mild muscular edema along the deep aspect of the subscapularis and infraspinatus muscles without evident rotator cuff tendon tear. 3. Likely degenerative subarticular cystic change along the anteroinferior glenoid. Reviewed, dictated and finalized at location A. OPERATOR IMPRESSION: 1. Normal appearance to left brachial plexus with no normal masses or abnormall y enhancing lesions. 2. Small left glenohumeral joint effusion with nonspecific mild muscular edema along the deep aspect of the subscapularis and infraspinatus muscles without ev ident rotator cuff tendon tear. 3. Likely degenerative subarticular cystic change along the anteroinferior lucretia oid.
[2020-04-25 16:30] VITALS: O2SAT 94; BMI 50.7
--- NOTE | 2020-04-25 16:30 | PC.NURSE ---
This patient, Tereza Feng, was admitted to [facility] Surg Room 311-01. Patient/family oriented to hospital policies and general routines including ID bracelet, bed and alarms, visiting hours, pain management, procedures, bathroom and other care routines, personal items, smoking policy, room service/diet, and visiting hours. Information on how to activate the Rapid Response Team has been discussed. Patient/Family are encouraged to report perceived risks to care and to ask questions if they do not understand what they are told or what they should do.
--- NOTE | 2020-04-25 18:45 | PM.IMHP ---
H&P: HPI History of Present Illness Date/Time: 04/25/20 18:45 Chief Complaint: Shortness of breath with pulmonary emboli Narrative: Tereza Feng is a 55 year old female who is a direct admit from [facility]. The patient had been in [facility] for approximately 1 week. The patient stated that she has been more short of breath and so pulmonary has been asked to see the patient. Her D-dimer was elevated so that she had a CTA performed had an elevated D-dimer previously. The patient had been diagnosed with covid 19 on March 18, 2020. She stated that she got exposed from her daughter. The patient had been in intensive care unit and actually went into respiratory arrest and was coded. The patient had an extensive intubation and ICU stay. It looks like the patient was discharged from the hospital on 04/18/2020 and sent to [facility]. She was having difficulty breathing this morning as well. She initially had a chest x-ray which was read as stable airspace opacities in the lower lung zones small right pleural effusion persistent elevation the right hemidiaphragm. PE without evidence of heart strain and negative upper lower extremity Dopplers. Patient was hemodynamically stable and was discharged from [facility] and became a direct admit into [facility]. The patient has been on a CPAP at night. The patient was on Lovenox twice a day. It was recommended that the patient be placed on a heparin drip. Patient was admitted from [facility] as inpatient status date of service 04/25/2020. Review of Systems Review of Systems: All systems reviewed & are unremarkable except as noted in HPI and below Constitutional: Constitutional: Reports as per HPI and Reports no additional constitutional complaints Eyes: Eyes: Reports as per HPI and Reports no additional eye complaints ENT: Reports system reviewed and no additional complaints, except as documented and Reports Normal hearing present Cardiovascular: Cardiovascular: Reports no additional cardiovascular complaints Respiratory: Respiratory: Reports no additional respiratory complaints and Reports no additional respiratory complaints Gastrointestinal: Gastrointestinal: Reports as per HPI and Reports no additional gastrointestinal complaints Musculoskeletal: Musculoskeletal: Reports no additional musculoskeletal complaints Integumentary/Breasts: Skin/Breast: Reports system reviewed and no additional complaints, except as docu and Reports as per HPI Neurologic: Reports system reviewed and no additional complaints, except as documented, Reports as per HPI and Reports Normal hearing present Psychiatric: Psychiatric: Reports no additional psychiatric complaints and Reports as per HPI Endocrine: Endocrine: Reports no additional endocrine complaints Hematologic/Lymphatic: Hematologic/Lymphatic: Reports no additional hematologic/lymphatic complaints Allergic/Immunologic: Allergic/Immunologic: Reports no additional allergic/immunologic complaints [facility] Past Medical History Medical History (Updated 04/25/20 @ 19:17 by Gala Luther NP) Anxiety Asthma Benign essential hypertension COVID-19 (~03/18/20) acute respiratory failure with hypoxia due to COVID-19, ventilator dependence form 03/25 through 04/08,S aureus sepsis, anemia, leukocytosis, hyponatremia, hypocalcemia, hyperglycemia, AKA, hypoalbuminemia, hypokalemia, UTI, asthma, elevated troponins, nonalcoholic fatty liver disease, type 2 diabetes without complication and hemoglobin A1c 8.5 on March 24, 2020, non STEMI, benign essential hypertension 1.5.21 covid positive 1.30.21 covid negative Hiatal hernia History of kidney cancer Incidental lung nodule, > 3mm and < 8mm 8 mm left lower lobe nodule noted on chest CT taken 11/26/2019. Iron deficiency anemia Morbid obesity Non-alcoholic fatty liver disease Postmenopausal Pulmonary nodules Stable most likely benign Respiratory arrest Coded and revived Type 2 diabetes mellitus without complications Hemoglobin A1c was 8
[2020-04-25 19:12] LABS: Basophils Percent Auto 0.5 % (0.2-1.2); Eosinophils Absolute Auto 0.2 K/mm3 (0-0.3); Eosinophils Percent Auto 3.6 % (0-4.4); Hematocrit 37.7 % (37.0-47.0); Hemoglobin 11.8 g/dL (12.0-15.0); Immature Granulocyte Absolute 0.05 K/mm3 (0.00-0.031); Immature Granulocyte Percent A 0.9 % (0-0.5); Lymphocytes Absolute Auto 1.18 K/mm3 (0.9-3.2); Mean Corpuscular HGB Conc 31.3 g/dl (32-36); Mean Corpuscular Hemoglobin 26.9 pg (26-34); Mean Corpuscular Volume 86.1 fl (80-100); Mean Platelet Volume 9.2 fl (7.4-10.4); Monocytes Absolute Auto 0.5 K/mm3 (0.1-0.6); Monocytes Percent Auto 8.9 % (2.6-8.5); Neutrophils Absolute Auto 3.7 K/mm3 (1.3-6.7); Neutrophils Percent Auto 65.1 % (45.5-73.1); Platelet Count Result 200 k/mm3 (150-375); Red Blood Count 4.38 M/mm3 (4.2-5.4); Red Cell Distribution Width 17.4 % (11.5-14.5); White Blood Count 5.6 K/mm3 (4.5-10.0)
[2020-04-25 19:21] LABS: Prothrombin Time 13.4 Seconds (11.1-14.7)
[2020-04-25 19:22] LABS: Partial Thromboplastin Time 27.8 SECONDS (22.3-36.8)
[2020-04-25] MEDS: HEPARIN SOD/D5W 100 UNITS/ML 25,000 UNITS/250 ML BAG 15 UNITS IV CONT (19:40)
[2020-04-25] MEDS: ALBUTEROL SULFATE NEB 2.5 MG/0.5 ML INH 5 MG INHALATION (20:35)
[2020-04-25] MEDS: FLUTICASONE/SALMETEROL 230-21 MCG INHALER 1 PUFF 2 PUFF INHALATION (20:36)
[2020-04-25 20:37] VITALS: PULSE 107; RESP 20
[2020-04-25 20:41] VITALS: PULSE 107; RESP 20; O2SAT 97
[2020-04-25] MEDS: MONTELUKAST SODIUM 10 MG TABLET PO (21:09)
[2020-04-25] MEDS: ALPRAZolam (*CRX) 0.25 MG TABLET PO (21:09)
[2020-04-25 21:19] VITALS: PULSE 107; RESP 20; O2SAT 97
[2020-04-25 21:53] LABS: Glucose Point of Care 168 (65-105)
[2020-04-25 22:00] VITALS: BP 136/97; PULSE 110; RESP 20; TEMP 35.9; O2SAT 96
[2020-04-25 23:36] VITALS: PULSE 110; O2SAT 96
[2020-04-26] VITALS (22 sets, daily range): BP systolic 132–155; BP diastolic 86–97; PULSE 99–116; RESP 16–24; TEMP 36.3–37.2; O2SAT 93–100
--- NOTE | 2020-04-26 | ECHO_ITS ---
Patient Info Name: Tereza Feng Age: 55 years : 1965 Gender: Female Ht: 66 in Wt: 314 lbs BSA: 2.66 m2 HR: 102 bpm BP: 153 / 97 mmHg Heart Rhythm: Sinus Rhythm Technical Quality: Fair Exam Date: 04/26/2020 10:56 AM Exam Location: [facility] Pulmonary Exam Room: [facility] Patient Status: Inpatient Admit Date: 04/25/2020 Staff Ordering Physician: Gala Luther NP Drilling Field Operator: Greta Saleh RDCS Attending Provider: Lisa Banuelos PA-C Referring Physician: Ashkan BEAR; Exam Type: CA echo doppler color flow Study Info Indications - sob pulm embolism Complete two-dimensional, color flow and Doppler transthoracic echocardiogram is performed. Summary 1. Complete two-dimensional, color flow and Doppler transthoracic echocardiogram is performed. 2. Left ventricular systolic function is normal, estimated at 65-70%. 3. The left ventricular diastolic function is grade I diastolic dysfunction. 4. No significant valvular abnormality. 5. Compared to an examination done last month there is nothing changed. Left Ventricle Left ventricular chamber dimension is normal. Left ventricular systolic function is normal, estimated at 65-70%. There is mild concentric increased left ventricular wall thickness. The left ventricular diastolic function is grade I diastolic dysfunction. Right Ventricle Right ventricular chamber dimension is normal. Left Atria Left atrial chamber dimension is normal. Right Atria Right atrial chamber dimension is normal. Aortic Valve The aortic valve is normal. Pulmonic Valve The pulmonic valve is not well visualized. Mitral Valve The mitral valve has normal leaflets. Tricuspid Valve The tricuspid valve leaflets are normal. Pericardium/Pleural The pericardium appears normal. Aorta The aortic root size at the sinus of Valsalva is normal. Left Ventricular Outflow Tract Name Value Normal LVOT 2D LVOT Diameter 2.1 cm LVOT Doppler LVOT Peak Gradient 5 mmHg LVOT Mean Gradient 4 mmHg LVOT VTI 20 cm LVOT VTI/AV VTI Ratio 1.0 LVOT Stroke Volume 69 ml LVOT CO 18.5 l/min LVOT CI 7.0 l/min/m2 Pulmonic Valve Name Value Normal PV Doppler PV Peak Gradient 5 mmHg Mitral Valve Name Value Normal MV Doppler MV Decel Ector 431 cm/s2 MV PHT 43 ms MV Area (PHT)
--- NOTE | 2020-04-26 02:10 | PC.NURSE ---
Patient took off her CPAP she said My oxygen was dropping, while I was on it. Notified staff of oxygen level. Patient was 77% on 3L of oxygen. Increase oxygen to 5L and sat her up, oxygen did improve to 97%. Notified respiratory, they assessed the patient and encouraged her to go back on her CPAP, patient refusing at this time. Oxygen level maintained in the upper 90%, on 4L of oxygen. Patient still complaining of shortness of breath and rate is 24 a minute. Notified MD of oxygen level dropping and her current status. Orders are to be put in. Will continue to monitor patient and notify MD if needed.
[2020-04-26 02:45] LABS: Alveolar/Arterial O2 Gradient 98.2 mmHg; Fractional Inspired Oxygen 36 %; HCO3 ABG 30.5 mEq/l (22.0-26.0); Oxygen Content ABG 17.3 %vol (16.0-22.0); Oxygen Saturation ABG 97.7 % (95.0-100.0); Oxyhemoglobin 96.2 % THb (90.0-100.0); PCO2 ABG 48.8 mmHg (35.0-45.0); PO2 ABG 101.9 mmHg (80.0-100.0); PO2 FiO2 Ratio Arterial Blood 2.83 %; Total Hemoglobin 12.7 g/dL (12.0-18.0); pH ABG 7.414 (7.350-7.450)
[2020-04-26 02:46] LABS: Device NASAL CANNULA; Modified Allen's Test Pass; Site Drawn RIGHT RADIAL
[2020-04-26 03:05] LABS: Partial Thromboplastin Time 41.9 SECONDS (22.3-36.8)
[2020-04-26] MEDS: HEPARIN SODIUM 5,000 UNITS/ML VIAL 7500 UNITS IV PUSH ×2 (03:32→15:52)
[2020-04-26] MEDS: LORazepam INJ (*CRX) 2 MG/ML VIAL 0.5 MG IV PUSH (04:07)
[2020-04-26 08:12] LABS: Alanine Aminotransferase 32 U/L (4-35); Albumin Level 3.4 g/dL (3.5-5.1); Alkaline Phosphatase 67 U/L (38-126); Anion Gap 6 mmol/L (8-16); Aspartate Amino Transferase 32 U/L (14-36); Bilirubin,Total 0.7 mg/dL (0.2-1.3); Blood Urea Nitrogen 10 mg/dL (7-17); Calcium 8.6 mg/dL (8.4-10.2); Carbon Dioxide 30 mmol/L (22-30); Chloride 99 mmol/L (98-107); Estimated CRCL calculation 186 ml/min; Estimated Glomerular Filt Rate > 60; Glucose 229 mg/dL (65-105); Magnesium 1.8 mg/dL (1.6-2.3); Partial Thromboplastin Time 72.1 SECONDS (22.3-36.8); Sodium 135 mmol/L (137-145)
[2020-04-26] MEDS: ALBUTEROL SULFATE NEB 2.5 MG/0.5 ML INH 5 MG INHALATION ×3 (08:21→20:23)
[2020-04-26] MEDS: FLUTICASONE/SALMETEROL 230-21 MCG INHALER 1 PUFF 2 PUFF INHALATION ×2 (08:21→20:24)
[2020-04-26] MEDS: HEPARIN SOD/D5W 100 UNITS/ML 25,000 UNITS/250 ML BAG 19 UNITS IV CONT (09:31)
[2020-04-26] MEDS: INSULIN ASPART (*BKC) 100 UNITS/ML SUB-Q (09:43)
[2020-04-26 09:55] LABS: Glucose Point of Care 204 (65-105)
[2020-04-26] MEDS: FUROSEMIDE 40 MG TABLET PO (11:21)
[2020-04-26] MEDS: LORATADINE 10 MG TABLET PO (11:21)
[2020-04-26] MEDS: lisinopriL 10 MG TABLET PO (11:21)
[2020-04-26] MEDS: CITALOPRAM HYDROBROMIDE 20 MG TABLET PO (11:22)
[2020-04-26 11:27] LABS: Add Urine Microscopic? YES; Amorphous Sediment Urine Few; Appearance Urine Turbid (Clear); Bacteria Urine Trace /hpf; Bilirubin Urine Negative (Negative); Blood Urine 3+ (Negative); Color Urine Amber (Yellow); Glucose Urine UA Negative (Negative); Ketones Urine Negative (Negative); Leukocyte Esterase Ur Trace LEU/UL (Negative); Mucus Urine Heavy /lpf; Nitrate Urine Negative (Negative); Protein Urine 2+ mg/dL (Negative); RBC Urine >75 /hpf (0-2); Specific Grav Ur 1.025 (1.001-1.035); Squamous Epithelial Cell Urine Occasional /hpf (Few); WBC Urine 51-75 /hpf
--- NOTE | 2020-04-26 13:05 | PM.IMPN ---
Progress Note: A&P Assessment and Plan (1) Pulmonary embolus: Code(s): I26.99 - Other pulmonary embolism without acute cor pulmonale Status: Acute Assessment and Plan: Patient with prolonged recovery from COVID-19 s/p intubation in the ICU admitted from the [facility] due to bilateral pulmonary emboli. She had been receiving 40mg SQ Lovenox BID since 03/24 for DVT prophylaxis. CTA chest 04/25 demonstrates bilateral acute pulmonary emboli without evidence of right heart strain. Echocardiogram pending. Venous dopplers show no evidence of DVT in MAMTA upper or lower extremities. Continue pulmonology recommendations. She was initiated on heparin drip 04/25/20. (2) Diabetes mellitus: Code(s): E11.9 - Type 2 diabetes mellitus without complications Status: Chronic Assessment and Plan: A1c 9.1% 03/31/20. Blood sugars are stable, continue to monitor with Accu-Cheks and cover with sliding scale insulin. (3) COVID-19: Onset Date: ~03/18/20 Code(s): U07.1 - COVID-19 Status: Acute Assessment and Plan: COVID positive 03/18/20. Admitted 03/24/20 with severe hypoxemic respiratory failure required intubation 03/25 - 04/08/20. Complicated by cardiac arrest 03/31/2019. Discharged to [facility] 04/18/20. Tolerating 1 L/min nasal cannula at 96% O2 saturations. BiPAP at night and with naps. Continue pulmonology recommendations - appreciate input. (4) Asthma: Code(s): J45.909 - Unspecified asthma, uncomplicated Status: Chronic Assessment and Plan: She remains on singular and albuterol nebulizer. (5) Anxiety: Code(s): F41.9 - Anxiety disorder, unspecified Status: Chronic Assessment and Plan: Continue with Xanax and Celexa. (6) Benign essential hypertension: Code(s): I10 - Essential (primary) hypertension Status: Chronic Assessment and Plan: A bit elevated today maintained on home lisinopril and lasix. Monitor BP and adjust treatment as needed. Subjective Date/time seen: 04/26/20 1200 Interval history: Ms. Feng is a 55yo F admitted for bilateral pulmonary emboli in the setting of prolonged COVID recovery after being on mechanical ventilation in the ICU. She reports shortness of breath that worsened yesterday, and her breathing today feels about the same as yesterday. She denies chest pain or pain anywhere else. She tells me she had low oxygen saturations last night but once she had the BiPAP mask on she was able to rest. She is tired. Review of Systems Review of Systems: All systems reviewed & are unremarkable except as noted in HPI and below Exam Narrative: Exam Narrative: General: Morbidly obese female resting sitting in bed in no acute distress. HEENT: Normocephalic, EOMI, oral mucosa tacky. Healing scab to left cheek is from the vent tubing. Cardiovascular: Rate and rhythm are regular. Respiratory: Dimished breath sounds MAMTA ++ with upper airway wheezing. Respirations even and mildly labored. Tolerating 1L/min nasal cannula 96% O2 saturation during my encounter. Abdomen: Soft, non-tender, non-distended, bowel sounds present. Extremities: Peripheral pulses intact. No edema. Skin is dry. Neuro: No focal neurological deficits. Speech is clear. Objective Data Vital Signs Vital Signs: Last Vital Signs Temp 97.4 F L 04/26/20 12:00 Pulse 105 H 02/13/21 13:31 Resp 20 04/26/20 13:31 BP 155/91 H 04/26/20 12:00 Pulse Ox 95 04/26/20 13:26 Intake/Output Intake/Output: Intake & Output 04/23/20 04/24/20 04/25/20 04/26/20 23:59 23:59 23:59 23:59 Intake Total 240 490 Output Total 1000 Balance 240 -510 Meds/Results Medications: Active Medications Gen
--- NOTE | 2020-04-26 13:56 | WPDNEURCNPN ---
Assessment and Plan Assessment and plan (1) Anxiety: Code(s): F41.9 - Anxiety disorder, unspecified Status: Chronic (2) Pulmonary embolus: Code(s): I26.99 - Other pulmonary embolism without acute cor pulmonale Status: Acute (3) Diabetes mellitus: Code(s): E11.9 - Type 2 diabetes mellitus without complications Status: Acute (4) Difficulty breathing: Code(s): R06.89 - Other abnormalities of breathing Status: Acute (5) Hemoptysis: Onset Date: 04/25/20 Code(s): R04.2 - Hemoptysis Status: Acute (6) COVID-19: Onset Date: ~03/18/20 Code(s): U07.1 - COVID-19 Status: Acute (7) Neuropathy: Code(s): G62.9 - Polyneuropathy, unspecified Status: Acute (8) Myopathy: Code(s): G72.9 - Myopathy, unspecified Status: Acute (9) Non-alcoholic fatty liver disease: Code(s): K76.0 - Fatty (change of) liver, not elsewhere classified Status: Acute (10) History of kidney cancer: Code(s): Z85.528 - Personal history of other malignant neoplasm of kidney Status: Acute (11) Super obesity: Code(s): E66.9 - Obesity, unspecified Status: Acute Additional Plan pulmonary emboli with underlying intensive care treatment related myopathy and neuropathy related to underlying diabetes mellitus Consult date: 04/26/20 Time Seen: 13:00 HPI: Tereza Feng is a 55 year old female admitted to the regular floor on transfer from the rehab floor where she was admitted for the diagnosis of myopathy and also neuropathy but while she was involved the physical therapy and occupational therapy he was noted to be increasingly short of breath when a pulmonary consultation was obtained. D-dimer was elevated, CTA was abnormal patient was seen by the transportation coordinator is started on heparin drip and transferred to the floor, Doppler studies of the lower extremities were negative for DVT and at present echocardiogram is pending, patient is receiving continuous heparin infusion, insulin and all her other medications Review of Systems Review of Systems: All systems reviewed & are unremarkable except as noted in HPI and below PMFSH Past Medical History Medical History Anxiety Asthma Benign essential hypertension COVID-19 (~03/18/20) acute respiratory failure with hypoxia due to COVID-19, ventilator dependence form 03/25 through 04/08,S aureus sepsis, anemia, leukocytosis, hyponatremia, hypocalcemia, hyperglycemia, AKA, hypoalbuminemia, hypokalemia, UTI, asthma, elevated troponins, nonalcoholic fatty liver disease, type 2 diabetes without complication and hemoglobin A1c 8.5 on March 24, 2020, non STEMI, benign essential hypertension 1.5.21 covid positive 1.30.21 covid negative Hiatal hernia History of kidney cancer Incidental lung nodule, > 3mm and < 8mm 8 mm left lower lobe nodule noted on chest CT taken 11/26/2019. Iron deficiency anemia Morbid obesity Non-alcoholic fatty liver disease Postmenopausal Pulmonary nodules Stable most likely benign Respiratory arrest Coded and revived Type 2 diabetes mellitus without complications Hemoglobin A1c was 8.5% on 03/24/2020. Ventral hernia without obstruction or gangrene Surgical History Surgical History History of ventral hernia repair Several hernia repairs LAP-BAND surgery status Family History Family History Mother Aneurysm Father Myasthenia gravis Other Diabetes mellitus Hypertension Social History Social History Social History: The patient lived in [place] with her 21-year-old daughter. 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 She is a former smoker and quit 1997. No alcohol abuse. Rarely smokes marijuana . She designates her father, Aditya Braun
--- NOTE | 2020-04-26 15:10 | PM.PNPUL ---
Progress Note: A&P Assessment and Plan (1) Pulmonary embolus: Code(s): I26.99 - Other pulmonary embolism without acute cor pulmonale Status: Acute Assessment and Plan: Seems to be tolerating heparin drip. If she continues to tolerate it for a total of 48 hours without significant hemoptysis or other signs of bleeding she can be transitioned to an oral NOAC such as apixaban. (2) RLL pneumonia: Code(s): J18.9 - Pneumonia, unspecified organism Status: Acute Assessment and Plan: Clear right lower lobe infiltrate with air bronchograms consistent with pneumonia. Since there are no recent CT scans to compare to I do not know if this is an old or new phenomenon. If she has received antibiotics for this in the past 2 weeks no further treatment is needed. If not I do recommend starting broad-spectrum antibiotics for a total of 7 days. (3) Elevated troponin: Code(s): R77.8 - Other specified abnormalities of plasma proteins Status: Acute Subjective Date/time seen: 04/26/20 15:10 Interval history: The patient is doing well. This is a 55-year-old obese female with multiple medical problems including recent COVID-19 infection, obstructive sleep apnea. She developed hemoptysis and was diagnosed with acute bilateral pulmonary embolism which were segmental and subsegmental in nature. She is hemodynamically stable and was started on a heparin drip and her most recent PTTs are in the therapeutic range. She is comfortable and has no complaints. Also on her CT scan she had a right lower lobe pneumonia. I am not sure if she was treated with antibiotics in the last couple of weeks if she has not she should start treatment. Review of Systems Review of Systems: All systems reviewed & are unremarkable except as noted in HPI and below Exam Const: General: cooperative, healthy appearing, comfortable, no acute distress, alert, awake, Physically active, ill appearing and tired appearing Nutritional Appearance: average body habitus and overweight Orientation/consciousness: oriented to person, oriented to place, oriented to time and patient oriented x3 Limitations: no limitations HENMT: Head: normal to inspection, No palpable skull fracture present, normocephalic and atraumatic Ears: hearing grossly normal bilaterally and external ears normal General nose exam: Normal external nose present, Normal nares present and No nasal polyps present Face and sinus: other (Scabbed area to right side of her face) Mouth: Yes Normal oral and palatal mucosa present Eyes: General: appearance normal, both eyes and all related structures Alignment and Position: alignment normal Periorbital: periorbital findings normal Eyelids: eyelids normal Conjunctivae: conjunctivae normal Sclera: sclerae normal Cornea: corneas normal Pupils: Equal, round and reactive pupils present and Pupil accommodation reflex normal EOM: EOMs intact bilaterally Neck: Neck: normal visual inspection, full ROM, no lymphadenopathy, trachea midline and supple Thyroid: thyroid normal Carotids: normal carotid upstroke Lymphatic: no lymphadenopathy noted Chest: Chest palpation & inspection: normal inspection of the chest Resp: Effort & Inspection: normal respiratory effort Auscultation: wheezes scattered wheezes Percussion: percussion normal Cardio: Palpation: normal PMI Rate: tachycardic Rhythm: regular rhythm Heart sounds: S1 normal heart sound present and S2 normal heart sound present Peripheral pulses: Peripheral pulses 2+ throughout GI: Inspection: normal to inspection Percussion: Yes normal to percussion Auscultation: normal bowel sounds Rectal Exam: deferred Skin: General skin exam: normal color Lesions: no lesions Rashes: no rashes Trauma: no lacerations or abrasions Wounds: no wounds Hair: normal Nails: normal Neuro: General: oriented to person, oriented to place, oriented to time and patient oriented x3 Cranial nerves: Yes Equa
[2020-04-26 16:17] LABS: Glucose Point of Care 192 (65-105)
[2020-04-26 17:18] LABS: Glucose Point of Care 192 (65-105)
[2020-04-26] MEDS: MONTELUKAST SODIUM 10 MG TABLET PO (20:17)
[2020-04-26] MEDS: HEPARIN SOD/D5W 100 UNITS/ML 25,000 UNITS/250 ML BAG 23 UNITS IV CONT (21:45)
[2020-04-26] MEDS: ALPRAZolam (*CRX) 0.25 MG TABLET PO (23:32)
[2020-04-27] VITALS (17 sets, daily range): BP systolic 120–156; BP diastolic 73–93; PULSE 94–122; RESP 15–24; TEMP 35.9–36.7; O2SAT 94–100
[2020-04-27] MEDS: ALBUTEROL SULFATE NEB 2.5 MG/0.5 ML INH 5 MG INHALATION ×2 (02:05→07:55)
[2020-04-27 04:13] LABS: Basophils Percent Auto 0.5 % (0.2-1.2); Eosinophils Absolute Auto 0.2 K/mm3 (0-0.3); Eosinophils Percent Auto 2.5 % (0-4.4); Hematocrit 38.8 % (37.0-47.0); Hemoglobin 12.1 g/dL (12.0-15.0); Immature Granulocyte Absolute 0.06 K/mm3 (0.00-0.031); Immature Granulocyte Percent A 0.8 % (0-0.5); Lymphocytes Absolute Auto 1.73 K/mm3 (0.9-3.2); Lymphocytes Percent Auto 22.4 % (18.3-44.2); Mean Corpuscular HGB Conc 31.2 g/dl (32-36); Mean Corpuscular Hemoglobin 26.9 pg (26-34); Mean Corpuscular Volume 86.4 fl (80-100); Mean Platelet Volume 9.2 fl (7.4-10.4); Monocytes Absolute Auto 0.6 K/mm3 (0.1-0.6); Monocytes Percent Auto 7.6 % (2.6-8.5); Neutrophils Absolute Auto 5.1 K/mm3 (1.3-6.7); Neutrophils Percent Auto 66.2 % (45.5-73.1); Platelet Count Result 200 k/mm3 (150-375); Red Blood Count 4.49 M/mm3 (4.2-5.4); Red Cell Distribution Width 17.5 % (11.5-14.5); White Blood Count 7.7 K/mm3 (4.5-10.0)
[2020-04-27 04:27] LABS: Partial Thromboplastin Time 90.2 SECONDS (22.3-36.8)
[2020-04-27 04:35] LABS: Anion Gap 4 mmol/L (8-16); Blood Urea Nitrogen 10 mg/dL (7-17); Calcium 8.9 mg/dL (8.4-10.2); Carbon Dioxide 36 mmol/L (22-30); Chloride 96 mmol/L (98-107); Estimated CRCL calculation 186 ml/min; Estimated Glomerular Filt Rate > 60; Glucose 193 mg/dL (65-105); Magnesium 1.7 mg/dL (1.6-2.3); Potassium 3.5 mmol/L (3.4-5.0); Sodium 136 mmol/L (137-145)
[2020-04-27 08:19] LABS: Glucose Point of Care 245 (65-105)
[2020-04-27] MEDS: HEPARIN SOD/D5W 100 UNITS/ML 25,000 UNITS/250 ML BAG 23 UNITS IV CONT ×2 (08:51→19:58)
[2020-04-27] MEDS: CITALOPRAM HYDROBROMIDE 20 MG TABLET PO (08:53)
[2020-04-27] MEDS: ALPRAZolam (*CRX) 0.25 MG TABLET PO (08:54)
[2020-04-27] MEDS: INSULIN ASPART (*BKC) 100 UNITS/ML SUB-Q ×2 (08:55→12:07)
[2020-04-27 09:06] LABS: Base Excess ABG 2.5 mEq/l (+/-2.0); Fractional Inspired Oxygen 40 %; Oxygen Saturation ABG 93.7 % (95.0-100.0); Oxyhemoglobin 92.2 % THb (90.0-100.0); PO2 ABG 84.8 mmHg (80.0-100.0); PO2 FiO2 Ratio Arterial Blood 2.12 %; Total Hemoglobin 13.8 g/dL (12.0-18.0)
[2020-04-27 09:07] LABS: pH ABG 7.213 (7.350-7.450)
[2020-04-27 09:08] LABS: Device BIPAP; Modified Allen's Test Pass; PCO2 ABG 83.8 mmHg (35.0-45.0); Site Drawn LEFT RADIAL
[2020-04-27 09:09] LABS: Expiratory Pressure 6 cmH2O; Inspiratory Pressure 12 cmH2O
--- NOTE | 2020-04-27 11:07 | PM.PNPUL ---
Progress Note: A&P Assessment and Plan (1) Pulmonary embolus: Code(s): I26.99 - Other pulmonary embolism without acute cor pulmonale Status: Acute Assessment and Plan: Seems to be tolerating heparin drip. If she continues to tolerate it for a total of 48 hours without significant hemoptysis or other signs of bleeding she can be transitioned to an oral NOAC such as apixaban. (2) RLL pneumonia: Code(s): J18.9 - Pneumonia, unspecified organism Status: Acute Assessment and Plan: Will start vancomycin and aztreonam IV for 7 days for right lower lobe pneumonia as the patient has clinical signs and symptoms to support it. (3) Elevated troponin: Code(s): R77.8 - Other specified abnormalities of plasma proteins Status: Acute (4) Asthma exacerbation: Code(s): J45.901 - Unspecified asthma with (acute) exacerbation Status: Acute Assessment and Plan: She may have con commitment COPD along with her asthma given her 10-15 pack-year smoking history. an outpatient pulmonary function test would be helpful. -Start ipratropium 0.5 mg Q 6 hours scheduled nebulized - start Pulmicort 1.0 mg nebulized q.12 hours - change albuterol to 2.5 mg q.4 hours p.r.n. only in light of tachycardia. (5) Acute and chronic respiratory failure with hypercapnia: Code(s): J96.22 - Acute and chronic respiratory failure with hypercapnia Status: Acute Assessment and Plan: Continue current changes to BiPAP with settings of 20/4 and a backup rate of 18 titrate in for an FiO2 of 88-92% as needed. I suspect the patient does have underlying undiagnosed obstructive sleep apnea and will need a sleep study done as an outpatient. Subjective Date/time seen: 04/27/20 11:07 Interval history: she had increased shortness of breath this morning with tachypnea and ABG showed acute on chronic hypercapnic respiratory failure which was worse than prior ABGs. I changed her BiPAP settings to 20 / 4 with a backup rate of 18 and titrating for an FiO2 of 88-92%. She is feeling much better with the settings. She does admit to coughing up greenish sputum for the past few days and she has increased wheezing. She has a 10-15 pack year smoking history and quit 25 years ago and she has a known history of asthma which was stable up until recently. Review of Systems Review of Systems: All systems reviewed & are unremarkable except as noted in HPI and below Exam Const: General: cooperative, healthy appearing, comfortable, no acute distress, alert, awake, Physically active, ill appearing and tired appearing Nutritional Appearance: average body habitus and overweight Orientation/consciousness: oriented to person, oriented to place, oriented to time and patient oriented x3 Limitations: no limitations HENMT: Head: normal to inspection, No palpable skull fracture present, normocephalic and atraumatic Ears: hearing grossly normal bilaterally and external ears normal General nose exam: Normal external nose present, Normal nares present and No nasal polyps present Face and sinus: other (Scabbed area to right side of her face) Mouth: Yes Normal oral and palatal mucosa present Eyes: General: appearance normal, both eyes and all related structures Alignment and Position: alignment normal Periorbital: periorbital findings normal Eyelids: eyelids normal Conjunctivae: conjunctivae normal Sclera: sclerae normal Cornea: corneas normal Pupils: Equal, round and reactive pupils present and Pupil accommodation reflex normal EOM: EOMs intact bilaterally Neck: Neck: normal visual inspection, full ROM, no lymphadenopathy, trachea midline and supple Thyroid: thyroid normal Carotids: normal carotid upstroke Lymphatic: no lymphadenopathy noted Chest: Chest palpation & inspection: normal inspection of the chest Resp: Effort & Inspection: normal respiratory effort Auscultation: wheezes scattered wheezes and diminished lung s
[2020-04-27 11:13] LABS: Alveolar/Arterial O2 Gradient 148.7 mmHg; Base Excess ABG 7.2 mEq/l (+/-2.0); Fractional Inspired Oxygen 40 %; HCO3 ABG 33.7 mEq/l (22.0-26.0); Oxygen Content ABG 16.8 %vol (16.0-22.0); Oxygen Saturation ABG 94.2 % (95.0-100.0); Oxyhemoglobin 92.7 % THb (90.0-100.0); PCO2 ABG 55.9 mmHg (35.0-45.0); PO2 ABG 72.2 mmHg (80.0-100.0); Total Hemoglobin 12.9 g/dL (12.0-18.0); pH ABG 7.398 (7.350-7.450)
[2020-04-27 11:14] LABS: Device NON-INVASIVE VENT; Modified Allen's Test Pass; Non-Invasive Expiratory Pressure 4 CMH2O; Non-Invasive Inspiratory Pressure 20 CMH2O; Non-Invasive Vent Rate 18 /MIN; Site Drawn LEFT RADIAL
[2020-04-27 12:08] LABS: Procalcitonin 0.2 ng/mL
[2020-04-27 12:42] LABS: Glucose Point of Care 245 (65-105)
--- NOTE | 2020-04-27 12:56 | P.PNIM_ITS ---
Progress Note: A&P Assessment and Plan (1) Pulmonary embolus: Qualifiers: Pulmonary embolism type: unspecified Chronicity: acute Acute cor pulmonale presence: unspecified Qualified Code(s): I26.99 - Other pulmonary embolism without acute cor pulmonale Code(s): I26.99 - Other pulmonary embolism without acute cor pulmonale Status: Acute Assessment and Plan: * Patient with prolonged recovery from COVID-19 s/p intubation in the ICU admitted from the [facility] due to bilateral pulmonary emboli. * CTA chest 04/25 demonstrates bilateral acute pulmonary emboli without evidence of right heart strain. Echocardiogram with no acute changes compared to last e cho last month. * Venous dopplers show no evidence of DVT in MAMTA upper or lower extremities. * Continue pulmonology recommendations. She was initiated on heparin drip 04/25/201939 (2) Diabetes mellitus: Qualifiers: Diabetes mellitus type: type 2 Diabetes mellitus snf insulin use: without snf use Diabetes mellitus complication status: without complication Qualified Code(s): E11.9 - Type 2 diabetes mellitus without complications Code(s): E11.9 - Type 2 diabetes mellitus without complications Status: Chronic Assessment and Plan: * A1c 9.1% 03/31/20. Blood sugars are a bit elevated today; increase to high- dose SSI, continue to monitor with Accu-Cheks and adjust treatment as needed. (3) RLL pneumonia: Qualifiers: Pneumonia type: due to unspecified organism Qualified Code(s): J18.9 - Pneumonia, unspecified organism Code(s): J18.9 - Pneumonia, unspecified organism Status: Acute Assessment and Plan: * Right lower lobe pneumonia noted on CT chest. * Dr. Kidd started antibiotics with vancomycin and aztreonam (day 1). (4) Acute and chronic respiratory failure with hypercapnia: Code(s): J96.22 - Acute and chronic respiratory failure with hypercapnia Status: Acute Assessment and Plan: * On BiPAP today with 4L/min maintaining adequate saturations. (5) COVID-19: Onset Date: ~03/18/20 Code(s): U07.1 - COVID-19 Status: Acute Assessment and Plan: * COVID positive 03/18/20. Admitted 03/24/20 with severe hypoxemic respiratory failure required intubation 03/25 - 04/08/20. Complicated by cardiac arrest 03/31/2019. Discharged to [facility] 04/18/20. * Appreciate pulmonology recommendations. See above. (6) Asthma: Qualifiers: Asthma severity: unspecified severity Asthma persistence: unspecified Asthma complication type: unspecified Qualified Code(s): J45.909 - Unspecified asthma, uncomplicated Code(s): J45.909 - Unspecified asthma, uncomplicated Status: Chronic Assessment and Plan: * She remains on albuterol nebulizers; Atrovent and Pulmicort or added today. (7) Anxiety: Code(s): F41.9 - Anxiety disorder, unspecified Status: Chronic Assessment and Plan: * Continue with Xanax and Celexa. (8) Benign essential hypertension: Code(s): I10 - Essential (primary) hypertension Status: Chronic Assessment and Plan: * Stable this afternoon last 120/73 maintained on home lisinopril and lasix. Monitor BP and adjust treatment as needed.
--- NOTE | 2020-04-27 12:56 | PM.IMPN ---
Progress Note: A&P Assessment and Plan (1) Pulmonary embolus: Qualifiers: Pulmonary embolism type: unspecified Chronicity: acute Acute cor pulmonale presence: unspecified Qualified Code(s): I26.99 - Other pulmonary embolism without acute cor pulmonale Code(s): I26.99 - Other pulmonary embolism without acute cor pulmonale Status: Acute Assessment and Plan: Patient with prolonged recovery from COVID-19 s/p intubation in the ICU admitted from the [facility] due to bilateral pulmonary emboli. CTA chest 04/25 demonstrates bilateral acute pulmonary emboli without evidence of right heart strain. Echocardiogram with no acute changes compared to last echo last month. Venous dopplers show no evidence of DVT in MAMTA upper or lower extremities. Continue pulmonology recommendations. She was initiated on heparin drip 04/25/201939 (2) Diabetes mellitus: Qualifiers: Diabetes mellitus type: type 2 Diabetes mellitus half-way insulin use: without director long term care use Diabetes mellitus complication status: without complication Qualified Code(s): E11.9 - Type 2 diabetes mellitus without complications Code(s): E11.9 - Type 2 diabetes mellitus without complications Status: Chronic Assessment and Plan: A1c 9.1% 03/31/20. Blood sugars are a bit elevated today; increase to high-dose SSI, continue to monitor with Accu-Cheks and adjust treatment as needed. (3) RLL pneumonia: Qualifiers: Pneumonia type: due to unspecified organism Qualified Code(s): J18.9 - Pneumonia, unspecified organism Code(s): J18.9 - Pneumonia, unspecified organism Status: Acute Assessment and Plan: Right lower lobe pneumonia noted on CT chest. Dr. Kidd started antibiotics with vancomycin and aztreonam (day 1). (4) Acute and chronic respiratory failure with hypercapnia: Code(s): J96.22 - Acute and chronic respiratory failure with hypercapnia Status: Acute Assessment and Plan: On BiPAP today with 4L/min maintaining adequate saturations. (5) COVID-19: Onset Date: ~03/18/20 Code(s): U07.1 - COVID-19 Status: Acute Assessment and Plan: COVID positive 03/18/20. Admitted 03/24/20 with severe hypoxemic respiratory failure required intubation 03/25 - 04/08/20. Complicated by cardiac arrest 03/31/2019. Discharged to [facility] 04/18/20. Appreciate pulmonology recommendations. See above. (6) Asthma: Qualifiers: Asthma severity: unspecified severity Asthma persistence: unspecified Asthma complication type: unspecified Qualified Code(s): J45.909 - Unspecified asthma, uncomplicated Code(s): J45.909 - Unspecified asthma, uncomplicated Status: Chronic Assessment and Plan: She remains on albuterol nebulizers; Atrovent and Pulmicort or added today. (7) Anxiety: Code(s): F41.9 - Anxiety disorder, unspecified Status: Chronic Assessment and Plan: Continue with Xanax and Celexa. (8) Benign essential hypertension: Code(s): I10 - Essential (primary) hypertension Status: Chronic Assessment and Plan: Stable this afternoon last 120/73 maintained on home lisinopril and lasix. Monitor BP and adjust treatment as needed. Subjective Date/time seen: 04/27/20 12:00 Interval history: Ms. Feng is a 55yo F admitted for bilateral pulmonary emboli in the setting of prolonged COVID recovery after being on mechanical ventilation in the ICU. She had worsening shortness of breath this morning and straining attempting to cough out thick sputum per nursing. Pulmonology adjusted ventilator
--- NOTE | 2020-04-27 13:31 | PCOTNOTE ---
Attempted OT evaluation this date; per RN hold today and attempt evaluation tomorrow.
[2020-04-27] MEDS: AZTREONAM 2 GM in DEXTROSE 5% 100 ML 200 ML IVPB ×2 (13:37→19:59)
[2020-04-27] MEDS: IPRATROPIUM BR 0.02% INH SOLN 0.5 MG/2.5 ML VIAL INHALATION ×2 (13:49→22:07)
[2020-04-27] MEDS: ALBUTEROL SULFATE NEB 2.5 MG/0.5 ML INH INHALATION ×2 (13:49→22:07)
--- NOTE | 2020-04-27 15:47 | PCPTNOTE ---
Shira attempted...declined by nursing...stating that patient is 'very sick' today, 'she has had a 'setback'...defer for today, and possibly put the patient on HOLD tomorrow if not improved
[2020-04-27 17:54] LABS: Glucose Point of Care 187 (65-105)
[2020-04-27 21:16] LABS: Glucose Point of Care 179 (65-105)
[2020-04-27] MEDS: BUDESONIDE RESPULE NEB 0.5 MG/2 ML AMP 1 MG INHALATION (22:08)
[2020-04-28] VITALS (19 sets, daily range): BP systolic 134–144; BP diastolic 73–82; PULSE 85–112; RESP 18–25; TEMP 36–36.8; O2SAT 96–100
[2020-04-28] MEDS: ALBUTEROL SULFATE NEB 2.5 MG/0.5 ML INH INHALATION ×3 (03:25→13:16)
[2020-04-28] MEDS: IPRATROPIUM BR 0.02% INH SOLN 0.5 MG/2.5 ML VIAL INHALATION ×4 (03:25→21:24)
[2020-04-28] MEDS: AZTREONAM 2 GM in DEXTROSE 5% 100 ML 200 ML IVPB (05:14)
[2020-04-28] MEDS: HEPARIN SOD/D5W 100 UNITS/ML 25,000 UNITS/250 ML BAG 23 UNITS IV CONT (06:41)
[2020-04-28 06:43] LABS: Basophils Absolute Auto 0.1 K/mm3 (0.0-0.1); Basophils Percent Auto 1.1 % (0.2-1.2); Eosinophils Absolute Auto 0.2 K/mm3 (0-0.3); Eosinophils Percent Auto 2.5 % (0-4.4); Hematocrit 36.2 % (37.0-47.0); Hemoglobin 11.4 g/dL (12.0-15.0); Immature Granulocyte Absolute 0.07 K/mm3 (0.00-0.031); Immature Granulocyte Percent A 1.1 % (0-0.5); Lymphocytes Absolute Auto 1.26 K/mm3 (0.9-3.2); Mean Corpuscular HGB Conc 31.5 g/dl (32-36); Mean Corpuscular Hemoglobin 27.1 pg (26-34); Mean Platelet Volume 9.4 fl (7.4-10.4); Monocytes Absolute Auto 0.5 K/mm3 (0.1-0.6); Monocytes Percent Auto 7.9 % (2.6-8.5); Neutrophils Absolute Auto 4.3 K/mm3 (1.3-6.7); Neutrophils Percent Auto 67.4 % (45.5-73.1); Platelet Count Result 169 k/mm3 (150-375); Red Blood Count 4.21 M/mm3 (4.2-5.4); Red Cell Distribution Width 16.9 % (11.5-14.5); White Blood Count 6.3 K/mm3 (4.5-10.0)
[2020-04-28 06:54] LABS: Alanine Aminotransferase 31 U/L (4-35); Albumin Level 3.5 g/dL (3.5-5.1); Alkaline Phosphatase 76 U/L (38-126); Anion Gap 1 mmol/L (8-16); Aspartate Amino Transferase 23 U/L (14-36); Bilirubin,Total 0.8 mg/dL (0.2-1.3); Blood Urea Nitrogen 9 mg/dL (7-17); Calcium 9.3 mg/dL (8.4-10.2); Carbon Dioxide 36 mmol/L (22-30); Chloride 96 mmol/L (98-107); Estimated CRCL calculation 153 ml/min; Estimated Glomerular Filt Rate > 60; Glucose 219 mg/dL (65-105); Magnesium 1.6 mg/dL (1.6-2.3); Potassium 3.4 mmol/L (3.4-5.0); Sodium 133 mmol/L (137-145)
[2020-04-28] MEDS: BUDESONIDE RESPULE NEB 0.5 MG/2 ML AMP 1 MG INHALATION ×2 (08:09→21:24)
[2020-04-28 08:35] LABS: Glucose Point of Care 233 (65-105)
[2020-04-28] MEDS: INSULIN ASPART (*BKC) 100 UNITS/ML SUB-Q ×3 (09:08→18:13)
[2020-04-28] MEDS: CITALOPRAM HYDROBROMIDE 20 MG TABLET PO (09:15)
[2020-04-28] MEDS: lisinopriL 10 MG TABLET PO (09:15)
[2020-04-28] MEDS: polyethylene glycoL 3350 17 GM POWD.PACK PO (09:16)
[2020-04-28] MEDS: POTASSIUM CHLORIDE 20 MEQ TABLET PO (09:24)
[2020-04-28] MEDS: FUROSEMIDE 40 MG TABLET PO (09:47)
[2020-04-28] MEDS: MAGNESIUM SULF 1 GM/D5W 100 ML 1 GM/100 ML BAG IVPB (10:05)
--- NOTE | 2020-04-28 10:25 | P.PNIM_ITS ---
Progress Note: A&P Assessment and Plan (1) Pulmonary embolus: Qualifiers: Pulmonary embolism type: unspecified Chronicity: acute Acute cor pulmonale presence: unspecified Qualified Code(s): I26.99 - Other pulmonary embolism without acute cor pulmonale Code(s): I26.99 - Other pulmonary embolism without acute cor pulmonale Status: Acute Assessment and Plan: * Patient with prolonged recovery from COVID-19 s/p intubation in the ICU admitted from the [facility] due to bilateral pulmonary emboli. * CTA chest 04/25 demonstrates bilateral acute pulmonary emboli without evidence of right heart strain. Echocardiogram with no acute changes compared to last e cho last month. * Venous dopplers show no evidence of DVT in MAMTA upper or lower extremities. * Continue pulmonology recommendations. She was initiated on heparin drip 04/25/20. Discussed with Dr Kidd; We will transition off heparin gtt to Eliquis this evening. (2) Diabetes mellitus: Qualifiers: Diabetes mellitus type: type 2 Diabetes mellitus penitentiary insulin use: without intermediate frame tender use Diabetes mellitus complication status: without complication Qualified Code(s): E11.9 - Type 2 diabetes mellitus without complications Code(s): E11.9 - Type 2 diabetes mellitus without complications Status: Chronic Assessment and Plan: * A1c 9.1% 03/31/20. Blood sugars remain elevated despite increasing to high- dose SSI. Addition of steroids today may increase blood glucose levels further. Add lantus tonight 04/28 and monitor. * Continue to monitor with Accu-Cheks and adjust treatment as needed. (3) RLL pneumonia: Qualifiers: Pneumonia type: due to unspecified organism Qualified Code(s): J18.9 - Pneumonia, unspecified organism Code(s): J18.9 - Pneumonia, unspecified organism Status: Acute Assessment and Plan: * Right lower lobe pneumonia noted on CT chest. * Dr. Kidd recommends antibiotics with vancomycin and aztreonam (day 2 of 7). (4) Acute and chronic respiratory failure with hypercapnia: Code(s): J96.22 - Acute and chronic respiratory failure with hypercapnia Status: Acute Assessment and Plan: * She is tolerating 4L/min nasal cannula with adequate O2 saturations 97-100% however she feels like she is not able to take in a deep breath thus feels more comfortable on the BiPAP at this time. She is using BiPAP at night and as needed during the day. * Pulmonology recommends she may additionally suffer from COPD as well as VINNIE. Further outpatient testing with PFTs and sleep study could be beneficial. (5) COVID-19: Onset Date: ~03/18/20 Code(s): U07.1 - COVID-19 Status: Acute Assessment and Plan: * COVID positive 03/18/20. Admitted 03/24/20 with severe hypoxemic respiratory failure required intubation 03/25 - 04/08/20. Complicated by cardiac arrest 03/31/2019. Discharged to [facility] 04/18/20. * Appreciate pulmonology recommendations. See above. (6) Asthma: Qualifiers: Asthma severity: unspecified severity Asthma persistence: unspecified Asthma complication type: unspecified Qualified Code(s): J45.909 - Unspecified asthma, uncomplicated Code(s): J45.909 - Unspecified asthma, uncomplicated Status: Chronic Assessment and Plan: * She remains on albuterol, Atrovent and Pulmicort nebs. * Discussed with Dr Kidd who
--- NOTE | 2020-04-28 10:25 | PM.IMPN ---
Progress Note: A&P Assessment and Plan (1) Pulmonary embolus: Qualifiers: Pulmonary embolism type: unspecified Chronicity: acute Acute cor pulmonale presence: unspecified Qualified Code(s): I26.99 - Other pulmonary embolism without acute cor pulmonale Code(s): I26.99 - Other pulmonary embolism without acute cor pulmonale Status: Acute Assessment and Plan: Patient with prolonged recovery from COVID-19 s/p intubation in the ICU admitted from the [facility] due to bilateral pulmonary emboli. CTA chest 04/25 demonstrates bilateral acute pulmonary emboli without evidence of right heart strain. Echocardiogram with no acute changes compared to last echo last month. Venous dopplers show no evidence of DVT in MAMTA upper or lower extremities. Continue pulmonology recommendations. She was initiated on heparin drip 04/25/20. Discussed with Dr Kidd; We will transition off heparin gtt to Eliquis this evening. (2) Diabetes mellitus: Qualifiers: Diabetes mellitus type: type 2 Diabetes mellitus half-way insulin use: without pediatric nephrologist use Diabetes mellitus complication status: without complication Qualified Code(s): E11.9 - Type 2 diabetes mellitus without complications Code(s): E11.9 - Type 2 diabetes mellitus without complications Status: Chronic Assessment and Plan: A1c 9.1% 03/31/20. Blood sugars remain elevated despite increasing to high-dose SSI. Addition of steroids today may increase blood glucose levels further. Add lantus tonight 04/28 and monitor. Continue to monitor with Accu-Cheks and adjust treatment as needed. (3) RLL pneumonia: Qualifiers: Pneumonia type: due to unspecified organism Qualified Code(s): J18.9 - Pneumonia, unspecified organism Code(s): J18.9 - Pneumonia, unspecified organism Status: Acute Assessment and Plan: Right lower lobe pneumonia noted on CT chest. Dr. Kidd recommends antibiotics with vancomycin and aztreonam (day 2 of 7). (4) Acute and chronic respiratory failure with hypercapnia: Code(s): J96.22 - Acute and chronic respiratory failure with hypercapnia Status: Acute Assessment and Plan: She is tolerating 4L/min nasal cannula with adequate O2 saturations 97-100% however she feels like she is not able to take in a deep breath thus feels more comfortable on the BiPAP at this time. She is using BiPAP at night and as needed during the day. Pulmonology recommends she may additionally suffer from COPD as well as VINNIE. Further outpatient testing with PFTs and sleep study could be beneficial. (5) COVID-19: Onset Date: ~03/18/20 Code(s): U07.1 - COVID-19 Status: Acute Assessment and Plan: COVID positive 03/18/20. Admitted 03/24/20 with severe hypoxemic respiratory failure required intubation 03/25 - 04/08/20. Complicated by cardiac arrest 03/31/2019. Discharged to [facility] 04/18/20. Appreciate pulmonology recommendations. See above. (6) Asthma: Qualifiers: Asthma severity: unspecified severity Asthma persistence: unspecified Asthma complication type: unspecified Qualified Code(s): J45.909 - Unspecified asthma, uncomplicated Code(s): J45.909 - Unspecified asthma, uncomplicated Status: Chronic Assessment and Plan: She remains on albuterol, Atrovent and Pulmicort nebs. Discussed with Dr Kidd who recommends systemic steroids for 5 days then discontinue without taper, IV vs. PO. Unfortunately patient is declining some oral medications and having trouble finishing all oral medications in applesauce/pudding and I feel IV is more appropriate at this time. (7) Anxiety: Code(s): F41.9 - Anxiety jane
--- NOTE | 2020-04-28 11:08 | PCOTNOTE ---
OT evaluation attempted. Hold per RN this date as patient is requiring bipap consistently and will need to be seen by pulmonology. Will attempt OT evaluation tomorrow as medically appropriate.
--- NOTE | 2020-04-28 12:04 | PM.PNPUL ---
Progress Note: A&P Assessment and Plan (1) Pulmonary embolus: Qualifiers: Pulmonary embolism type: unspecified Chronicity: acute Acute cor pulmonale presence: unspecified Qualified Code(s): I26.99 - Other pulmonary embolism without acute cor pulmonale Code(s): I26.99 - Other pulmonary embolism without acute cor pulmonale Status: Acute Assessment and Plan: Seems to be tolerating heparin drip. If she continues to tolerate it for a total of 48 hours without significant hemoptysis or other signs of bleeding she can be transitioned to an oral NOAC such as apixaban. (2) RLL pneumonia: Qualifiers: Pneumonia type: due to unspecified organism Qualified Code(s): J18.9 - Pneumonia, unspecified organism Code(s): J18.9 - Pneumonia, unspecified organism Status: Acute Assessment and Plan: Will start vancomycin and aztreonam IV for 7 days for right lower lobe pneumonia as the patient has clinical signs and symptoms to support it. (3) Elevated troponin: Code(s): R77.8 - Other specified abnormalities of plasma proteins Status: Acute (4) Asthma exacerbation: Code(s): J45.901 - Unspecified asthma with (acute) exacerbation Status: Acute Assessment and Plan: She may have con commitment COPD along with her asthma given her 10-15 pack-year smoking history. an outpatient pulmonary function test would be helpful. -Start ipratropium 0.5 mg Q 6 hours scheduled nebulized - start Pulmicort 1.0 mg nebulized q.12 hours - change albuterol to 2.5 mg q.4 hours p.r.n. only in light of tachycardia. - Start systemic steroids per your choice either 40 mg of IV methylprednisolone q.6 hours or prednisone 40 mg daily for a total of 5 days then discontinue without taper. Monitor blood sugars closely while on systemic steroids and treat as needed with sliding scale insulin. (5) Acute and chronic respiratory failure with hypercapnia: Code(s): J96.22 - Acute and chronic respiratory failure with hypercapnia Status: Acute Assessment and Plan: Continue current changes to BiPAP with settings of 20/4 and a backup rate of 18 titrate in for an FiO2 of 88-92% as needed. I suspect the patient does have underlying undiagnosed obstructive sleep apnea and will need a sleep study done as an outpatient. Subjective Date/time seen: 04/28/20 12:04 Interval history: Tereza is feeling slightly better today but still complains of chest tightness and her upper airways. I suggested to the hospitalist to start her on systemic steroids for 5 days today and hopefully she will improve with that. Review of Systems Review of Systems: All systems reviewed & are unremarkable except as noted in HPI and below Exam Const: General: cooperative, healthy appearing, comfortable, no acute distress, alert, awake, Physically active, ill appearing and tired appearing Nutritional Appearance: average body habitus and overweight Orientation/consciousness: oriented to person, oriented to place, oriented to time and patient oriented x3 Limitations: no limitations HENMT: Head: normal to inspection, No palpable skull fracture present, normocephalic and atraumatic Ears: hearing grossly normal bilaterally and external ears normal General nose exam: Normal external nose present, Normal nares present and No nasal polyps present Face and sinus: other (Scabbed area to right side of her face) Mouth: Yes Normal oral and palatal mucosa present Eyes: General: appearance normal, both eyes and all related structures Alignment and Position: alignment normal Periorbital: periorbital findings normal Eyelids: eyelids normal Conjunctivae: conjunctivae normal Sclera: sclerae normal Cornea: corneas normal Pupils: Equal, round and reactive pupils present and Pupil accommodation reflex normal EOM: EOMs intact bilaterally Neck: Neck: normal visual inspection, full ROM, no lymphadenopathy, trachea midline and sup
[2020-04-28] MEDS: methylPREDNISolone SOD SUCC 40 MG VIAL IV PUSH ×2 (12:14→18:13)
[2020-04-28 12:15] LABS: Glucose Point of Care 259 (65-105)
--- NOTE | 2020-04-28 13:43 | PCSTNOTE ---
The patient was seen for an informal Bedside Swallow Evaluation. Because she was lying reclined in bed with BiPAP in place, a formal Bedside Swallow Evaluation was not completed. This patient has been seen for direct Speech Therapy for swallowing both while on TR, and then prior to that while she was on acute following extubation secondary to COVID pneumonia. This patient had graduated from pureed diet and thickened liquids to Soft and Bite-Sized diet through the course of her therapy. She also had been completing swallowing strengthening exercises daily and addressing her moderately-severely reduced vocal loudness (secondary to intubation). She had made improvements in the area of swallowing strengthening exercises although vocal loudness remained significantly reduced. Last week, she suffered blood clots in the lungs and was transferred from [facility] back to acute care. Today a Bedside Swallow Evaluation was ordered. Today, as mentioned above, she was not offered any oral presentations due to poor positioning for feeding. We discussed appropriate diet level; therapist suggested Minced and Moist Level 5, which would decrease the physical effort required for chewing and patient agreed. Patient reported she has been handling thin liquids, and nurse, Lucila, agreed that she had been exhibiting no coughing given medicine and water. Patient was asked about completing swallowing strengthening exercises and the patient indicated that she felt she would be unable to complete laryngeal elevation/adduction exercises while on the BiPap machine. Therapist reviewed effortful swallow exercise and lingual exercises for strength and was asked to complete these exercises independently and patient voiced understanding and agreed. It was decided that patient will be placed on Minced and Moist/Regular Liquids, will complete exercises independently and Speech Therapy will not be initiated until patient better able to participate. Patient was in agreement with this recommendation. Therapist contacted [facility] Hospitalist, who voiced understanding and was in agreement with diet consistencies and plan to hold off on direct Speech Therapy at this time. Therapist will visit patient daily to informally assess appropriateness of diet and initiate direct Speech Therapy when able.
[2020-04-28] MEDS: AZTREONAM 2 GM in DEXTROSE 5% 100 ML 125 ML IVPB ×2 (14:09→20:58)
[2020-04-28 15:13] LABS: Vancomycin Trough 18.9 ug/mL (10.0-20.0)
[2020-04-28] MEDS: APIXABAN 5 MG TABLET 10 MG PO (17:33)
[2020-04-28 17:50] LABS: Glucose Point of Care 262 (65-105)
[2020-04-28] MEDS: MAGNESIUM OXIDE 200 MG TABLET PO ×2 (18:12→20:44)
[2020-04-28 18:37] LABS: Glucose Point of Care 276 (65-105)
[2020-04-28 20:18] LABS: Glucose Point of Care 362 (65-105)
[2020-04-28] MEDS: HYDROCORTISONE 1% 30 GM CREAM 1 APPLIC TOPICAL (20:37)
[2020-04-28] MEDS: MONTELUKAST SODIUM 10 MG TABLET PO (20:44)
[2020-04-28] MEDS: INSULIN GLARGINE (*BKC) 100 UNITS/ML 15 UNITS SUB-Q (20:51)
[2020-04-29] VITALS (15 sets, daily range): BP systolic 120–137; BP diastolic 62–84; PULSE 68–100; RESP 18–22; TEMP 36.3–36.7; O2SAT 94–99
[2020-04-29] MEDS: methylPREDNISolone SOD SUCC 40 MG VIAL IV PUSH ×4 (00:15→18:25)
[2020-04-29] MEDS: IPRATROPIUM BR 0.02% INH SOLN 0.5 MG/2.5 ML VIAL INHALATION ×4 (02:16→20:28)
[2020-04-29] MEDS: AZTREONAM 2 GM in DEXTROSE 5% 100 ML 125 ML IVPB ×2 (05:51→14:18)
[2020-04-29] MEDS: BUDESONIDE RESPULE NEB 0.5 MG/2 ML AMP 1 MG INHALATION ×2 (07:57→20:28)
[2020-04-29 08:00] LABS: Anion Gap 2 mmol/L (8-16); Blood Urea Nitrogen 12 mg/dL (7-17); Calcium 9.1 mg/dL (8.4-10.2); Carbon Dioxide 37 mmol/L (22-30); Chloride 94 mmol/L (98-107); Estimated CRCL calculation 153 ml/min; Estimated Glomerular Filt Rate > 60; Glucose 316 mg/dL (65-105); Magnesium 1.9 mg/dL (1.6-2.3); Potassium 4.4 mmol/L (3.4-5.0); Sodium 133 mmol/L (137-145)
[2020-04-29 08:37] LABS: Glucose Point of Care 310 (65-105)
[2020-04-29] MEDS: INSULIN ASPART (*BKC) 100 UNITS/ML SUB-Q ×3 (10:15→18:23)
[2020-04-29] MEDS: polyethylene glycoL 3350 17 GM POWD.PACK PO (10:16)
[2020-04-29] MEDS: CITALOPRAM HYDROBROMIDE 20 MG TABLET PO (10:17)
[2020-04-29] MEDS: MAGNESIUM OXIDE 200 MG TABLET PO ×2 (10:17→21:11)
--- NOTE | 2020-04-29 10:17 | PM.PNPUL ---
Progress Note: A&P Assessment and Plan (1) Pulmonary embolus: Qualifiers: Pulmonary embolism type: unspecified Chronicity: acute Acute cor pulmonale presence: unspecified Qualified Code(s): I26.99 - Other pulmonary embolism without acute cor pulmonale Code(s): I26.99 - Other pulmonary embolism without acute cor pulmonale Status: Acute Assessment and Plan: Seems to be tolerating heparin drip. If she continues to tolerate it for a total of 48 hours without significant hemoptysis or other signs of bleeding she can be transitioned to an oral NOAC such as apixaban. (2) RLL pneumonia: Qualifiers: Pneumonia type: due to unspecified organism Qualified Code(s): J18.9 - Pneumonia, unspecified organism Code(s): J18.9 - Pneumonia, unspecified organism Status: Acute Assessment and Plan: Will start vancomycin and aztreonam IV for 7 days for right lower lobe pneumonia as the patient has clinical signs and symptoms to support it. (3) Elevated troponin: Code(s): R77.8 - Other specified abnormalities of plasma proteins Status: Inactive (4) Asthma exacerbation: Code(s): J45.901 - Unspecified asthma with (acute) exacerbation Status: Acute Assessment and Plan: She may have con commitment COPD along with her asthma given her 10-15 pack-year smoking history. an outpatient pulmonary function test would be helpful. -Start ipratropium 0.5 mg Q 6 hours scheduled nebulized - start Pulmicort 1.0 mg nebulized q.12 hours - change albuterol to 2.5 mg q.4 hours p.r.n. only in light of tachycardia. - Start systemic steroids per your choice either 40 mg of IV methylprednisolone q.6 hours or prednisone 40 mg daily for a total of 5 days then discontinue without taper. Monitor blood sugars closely while on systemic steroids and treat as needed with sliding scale insulin. (5) Acute and chronic respiratory failure with hypercapnia: Code(s): J96.22 - Acute and chronic respiratory failure with hypercapnia Status: Acute Assessment and Plan: Continue current changes to BiPAP with settings of 20/4 and a backup rate of 18 titrate in for an FiO2 of 88-92% as needed. I suspect the patient does have underlying undiagnosed obstructive sleep apnea and will need a sleep study done as an outpatient. (6) VINNIE (obstructive sleep apnea): Code(s): G47.33 - Obstructive sleep apnea (adult) (pediatric) Status: Acute Assessment and Plan: she will need a split night sleep study as an outpatient. Subjective Date/time seen: 04/29/20 10:17 Interval history: She is feeling much better since starting systemic corticosteroids. She feels like she does not need the BiPAP as much and was switched to nasal cannula this morning. Review of Systems Review of Systems: All systems reviewed & are unremarkable except as noted in HPI and below Exam Const: General: cooperative, healthy appearing, comfortable, no acute distress, alert, awake, Physically active, ill appearing and tired appearing Nutritional Appearance: average body habitus and overweight Orientation/consciousness: oriented to person, oriented to place, oriented to time and patient oriented x3 Limitations: no limitations HENMT: Head: normal to inspection, No palpable skull fracture present, normocephalic and atraumatic Ears: hearing grossly normal bilaterally and external ears normal General nose exam: Normal external nose present, Normal nares present and No nasal polyps present Face and sinus: other (Scabbed area to right side of her face) Mouth: Yes Normal oral and palatal mucosa present Eyes: General: appearance normal, both eyes and all related structures Alignment and Position: alignment normal Periorbital: periorbital findings normal Eyelids: eyelids normal Conjunctivae: conjunctivae normal Sclera: sclerae normal Cornea: corneas normal Pupils: Equal, round and reactive pupils present an
[2020-04-29] MEDS: APIXABAN 5 MG TABLET 10 MG PO ×2 (10:18→21:11)
[2020-04-29] MEDS: lisinopriL 10 MG TABLET PO (10:18)
[2020-04-29] MEDS: acetaZOLAMIDE TAB 250 MG TABLET 500 MG PO ×2 (10:19→18:23)
--- NOTE | 2020-04-29 12:10 | PCSTNOTE ---
Therapist spoke with patient today concerning appropriateness of diet consistency and patient agreed that Minced and Moist is helping her to conserve energy and that she prefers it at this time. Reports she is not having difficulty with regular diet. Wants to return to [facility]. Reports voice was more strong yesterday than it had been the whole time she has been here but that it is a little softer today than yesterday (when therapist saw patient yesterday, her voice was softer than it is today). Continue to monitor diet appropriate-ness. Will not resume ST until time for diet upgrade
[2020-04-29 12:19] LABS: Glucose Point of Care 344 (65-105)
--- NOTE | 2020-04-29 14:03 | PM.IMPN ---
Progress Note: A&P Assessment and Plan (1) Pulmonary embolus: Qualifiers: Pulmonary embolism type: unspecified Chronicity: acute Acute cor pulmonale presence: unspecified Qualified Code(s): I26.99 - Other pulmonary embolism without acute cor pulmonale Code(s): I26.99 - Other pulmonary embolism without acute cor pulmonale Status: Acute Assessment and Plan: Patient with prolonged recovery from COVID-19 s/p intubation in the ICU admitted from the [facility] due to bilateral pulmonary emboli. -CTA chest 04/25 demonstrates bilateral acute pulmonary emboli without evidence of right heart strain - Echocardiogram with no acute changes compared to last echo last month. -Venous dopplers show no evidence of DVT in MAMTA upper or lower extremities. -She was initiated on heparin drip 04/25/20 and transitioned to Eliquis 04/28/20 (2) Diabetes mellitus: Qualifiers: Diabetes mellitus type: type 2 Diabetes mellitus correction insulin use: without termite treater helper use Diabetes mellitus complication status: without complication Qualified Code(s): E11.9 - Type 2 diabetes mellitus without complications Code(s): E11.9 - Type 2 diabetes mellitus without complications Status: Inactive Assessment and Plan: Last glucose 344 -High due to steroids and uncontrolled T2DM. Last A1c last month 9.1 but states A1c was 7.7 -Continue lantus but increase dose today -Pt was not on any DM medications before her COVID hospitlization due to diet control and inability to tolerate oral medications - she was discharged on lantus (u100) 55U every 12 hours when discharging from the hospital to rehab. -Continue SSI and lantus and will adjust accordingly. Will Consider meal time scheduled insulin for her (3) RLL pneumonia: Qualifiers: Pneumonia type: due to unspecified organism Qualified Code(s): J18.9 - Pneumonia, unspecified organism Code(s): J18.9 - Pneumonia, unspecified organism Status: Acute Assessment and Plan: Right lower lobe pneumonia noted on CT chest. -Dr. Kidd recommends antibiotics with vancomycin and aztreonam (day 3 of 7) (4) Acute and chronic respiratory failure with hypercapnia: Code(s): J96.22 - Acute and chronic respiratory failure with hypercapnia Status: Acute Assessment and Plan: She is tolerating 5L/min nasal cannula with adequate O2 saturations 97-100% -Continue bipap at night She likely has VINNIE or obesity hypoventilation syndrome. Further outpatient testing with PFTs and sleep study could be beneficial. (5) COVID-19: Onset Date: ~03/18/20 Code(s): U07.1 - COVID-19 Status: Acute Assessment and Plan: COVID positive 03/18/20. Admitted 03/24/20 with severe hypoxemic respiratory failure required intubation 03/25 - 04/08/20. Complicated by cardiac arrest 03/31/2019. Discharged to [facility] 04/18/20. (6) Asthma: Qualifiers: Asthma severity: unspecified severity Asthma persistence: unspecified Asthma complication type: unspecified Qualified Code(s): J45.909 - Unspecified asthma, uncomplicated Code(s): J45.909 - Unspecified asthma, uncomplicated Status: Chronic Assessment and Plan: Continue steroids, albuterol, Atrovent and Pulmicort nebs. (7) Anxiety: Code(s): F41.9 - Anxiety disorder, unspecified Status: Chronic Assessment and Plan: Continue with Xanax and Celexa. (8) Benign essential hypertension: Code(s): I10 - Essential (primary) hypertension Status: Chronic Assessment and Plan: Ctoninue llisinopril and lasix. (9) Ramos catheter in place: Code(s): Z97.8 - Presence of other specified devices Status: Acute Assessment and Plan: In place since prolonged hospitilization from COVID -Will try voding trial tomorrow Time Spent With Patient Time with patient: 25 - 35 minutes Subjective Date/time se
[2020-04-29 17:16] LABS: Glucose Point of Care 369 (65-105)
[2020-04-29] MEDS: ACETAMINOPHEN ELIXIR 325 MG/10.15 ML UDC 650 MG PO (19:20)
[2020-04-29] MEDS: MONTELUKAST SODIUM 10 MG TABLET PO (21:10)
[2020-04-29] MEDS: INSULIN GLARGINE (*BKC) 100 UNITS/ML 20 UNITS SUB-Q (21:16)
[2020-04-29] MEDS: AZTREONAM 2 GM in DEXTROSE 5% 100 ML 200 ML IVPB (21:17)
[2020-04-29 21:49] LABS: Glucose Point of Care 373 (65-105)
[2020-04-29] MEDS: INSULIN ASPART (*BKC) 100 UNITS/ML 6 UNITS SUB-Q (21:56)
[2020-04-30] VITALS (13 sets, daily range): BP systolic 120–145; BP diastolic 71–78; PULSE 72–91; RESP 20–22; TEMP 36.1–36.6; O2SAT 93–97
[2020-04-30] MEDS: methylPREDNISolone SOD SUCC 40 MG VIAL IV PUSH ×5 (00:17→23:52)
[2020-04-30] MEDS: IPRATROPIUM BR 0.02% INH SOLN 0.5 MG/2.5 ML VIAL INHALATION ×4 (02:55→21:22)
[2020-04-30] MEDS: AZTREONAM 2 GM in DEXTROSE 5% 100 ML 200 ML IVPB ×2 (05:14→20:16)
[2020-04-30 06:14] LABS: Hematocrit 38.6 % (37.0-47.0); Hemoglobin 12.2 g/dL (12.0-15.0); Mean Corpuscular HGB Conc 31.6 g/dl (32-36); Mean Corpuscular Volume 85.4 fl (80-100); Mean Platelet Volume 9.5 fl (7.4-10.4); Platelet Count Result 228 k/mm3 (150-375); Red Blood Count 4.52 M/mm3 (4.2-5.4); Red Cell Distribution Width 16.3 % (11.5-14.5)
[2020-04-30 06:28] LABS: Alanine Aminotransferase 24 U/L (4-35); Albumin Level 3.9 g/dL (3.5-5.1); Alkaline Phosphatase 64 U/L (38-126); Anion Gap 8 mmol/L (8-16); Aspartate Amino Transferase 23 U/L (14-36); Bilirubin,Total 0.6 mg/dL (0.2-1.3); Blood Urea Nitrogen 16 mg/dL (7-17); Calcium 9.7 mg/dL (8.4-10.2); Carbon Dioxide 24 mmol/L (22-30); Chloride 101 mmol/L (98-107); Estimated CRCL calculation 153 ml/min; Estimated Glomerular Filt Rate > 60; Glucose 340 mg/dL (65-105); Potassium 4.5 mmol/L (3.4-5.0); Sodium 133 mmol/L (137-145)
[2020-04-30] MEDS: BUDESONIDE RESPULE NEB 0.5 MG/2 ML AMP 1 MG INHALATION ×2 (07:30→21:21)
[2020-04-30 08:15] LABS: Glucose Point of Care 361 (65-105)
[2020-04-30] MEDS: INSULIN ASPART (*BKC) 100 UNITS/ML SUB-Q ×6 (09:13→17:52)
[2020-04-30] MEDS: acetaZOLAMIDE TAB 250 MG TABLET 500 MG PO (09:15)
[2020-04-30] MEDS: APIXABAN 5 MG TABLET 10 MG PO ×2 (09:16→20:15)
[2020-04-30] MEDS: CITALOPRAM HYDROBROMIDE 20 MG TABLET PO (09:16)
[2020-04-30] MEDS: lisinopriL 10 MG TABLET PO (09:18)
[2020-04-30] MEDS: polyethylene glycoL 3350 17 GM POWD.PACK PO (09:20)
[2020-04-30] MEDS: MAGNESIUM OXIDE 200 MG TABLET PO ×2 (09:20→20:15)
--- NOTE | 2020-04-30 10:21 | PM.IMPN ---
Progress Note: A&P Assessment and Plan (1) Pulmonary embolus: Qualifiers: Pulmonary embolism type: unspecified Chronicity: acute Acute cor pulmonale presence: unspecified Qualified Code(s): I26.99 - Other pulmonary embolism without acute cor pulmonale Code(s): I26.99 - Other pulmonary embolism without acute cor pulmonale Status: Acute Assessment and Plan: Patient with prolonged recovery from COVID-19 s/p intubation in the ICU admitted from the [facility] due to bilateral pulmonary emboli. -CTA chest 04/25 demonstrates bilateral acute pulmonary emboli without evidence of right heart strain - Echocardiogram with no acute changes compared to last echo last month. -Venous dopplers show no evidence of DVT in MAMTA upper or lower extremities. -She was initiated on heparin drip 04/25/20 and transitioned to Eliquis 04/28/20 (2) Diabetes mellitus: Qualifiers: Diabetes mellitus type: type 2 Diabetes mellitus senior care insulin use: without filler leaf cutter long use Diabetes mellitus complication status: without complication Qualified Code(s): E11.9 - Type 2 diabetes mellitus without complications Code(s): E11.9 - Type 2 diabetes mellitus without complications Status: Inactive Assessment and Plan: Last glucose 361 -High due to steroids and uncontrolled T2DM. Last A1c last month 9.1 but states A1c was 7.7 last ry -Continue lantus 30u -Start scheduled meal time insulin with SSI -Pt was not on any DM medications before her COVID hospitlization due to diet control and inability to tolerate oral medications - she was discharged on lantus (u100) 55U every 12 hours when discharging from the hospital to rehab. -Continue SSI and lantus and will adjust accordingly. Will Consider meal time scheduled insulin for her (3) RLL pneumonia: Qualifiers: Pneumonia type: due to unspecified organism Qualified Code(s): J18.9 - Pneumonia, unspecified organism Code(s): J18.9 - Pneumonia, unspecified organism Status: Acute Assessment and Plan: Right lower lobe pneumonia noted on CT chest. -Dr. Kidd recommends antibiotics with vancomycin and aztreonam (day 4 of 7) (4) Acute and chronic respiratory failure with hypercapnia: Code(s): J96.22 - Acute and chronic respiratory failure with hypercapnia Status: Acute Assessment and Plan: No on RA -Continue bipap at night She likely has VINNIE or obesity hypoventilation syndrome. Further outpatient testing with PFTs and sleep study could be beneficial. (5) COVID-19: Onset Date: ~03/18/20 Code(s): U07.1 - COVID-19 Status: Acute Assessment and Plan: COVID positive 03/18/20. Admitted 03/24/20 with severe hypoxemic respiratory failure required intubation 03/25 - 04/08/20. Complicated by cardiac arrest 03/31/2019. Discharged to [facility] 04/18/20. (6) Asthma: Qualifiers: Asthma severity: unspecified severity Asthma persistence: unspecified Asthma complication type: unspecified Qualified Code(s): J45.909 - Unspecified asthma, uncomplicated Code(s): J45.909 - Unspecified asthma, uncomplicated Status: Chronic Assessment and Plan: Continue steroids, albuterol, Atrovent and Pulmicort nebs. (7) Anxiety: Code(s): F41.9 - Anxiety disorder, unspecified Status: Chronic Assessment and Plan: Continue with Xanax and Celexa. (8) Benign essential hypertension: Code(s): I10 - Essential (primary) hypertension Status: Chronic Assessment and Plan: Ctoninue llisinopril and lasix. (9) Ramos catheter in place: Code(s): Z97.8 - Presence of other specified devices Status: Acute Assessment and Plan: In place since prolonged hospitilization from COVID -voiding trial today (10) Foot drop, right: Code(s): M21.371 - Foot drop, right foot Status: Acute Assessment and Plan: Pedro
[2020-04-30 12:55] LABS: Glucose Point of Care 347 (65-105)
--- NOTE | 2020-04-30 12:55 | PM.PNPUL ---
Progress Note: A&P Assessment and Plan (1) Pulmonary embolus: Qualifiers: Pulmonary embolism type: unspecified Chronicity: acute Acute cor pulmonale presence: unspecified Qualified Code(s): I26.99 - Other pulmonary embolism without acute cor pulmonale Code(s): I26.99 - Other pulmonary embolism without acute cor pulmonale Status: Acute Assessment and Plan: Seems to be tolerating heparin drip. If she continues to tolerate it for a total of 48 hours without significant hemoptysis or other signs of bleeding she can be transitioned to an oral NOAC such as apixaban. (2) RLL pneumonia: Qualifiers: Pneumonia type: due to unspecified organism Qualified Code(s): J18.9 - Pneumonia, unspecified organism Code(s): J18.9 - Pneumonia, unspecified organism Status: Acute Assessment and Plan: Will start vancomycin and aztreonam IV for 7 days for right lower lobe pneumonia as the patient has clinical signs and symptoms to support it. (3) Elevated troponin: Code(s): R77.8 - Other specified abnormalities of plasma proteins Status: Inactive (4) Asthma exacerbation: Qualifiers: Asthma severity: moderate Asthma persistence: persistent Qualified Code(s): J45.41 - Moderate persistent asthma with (acute) exacerbation Code(s): J45.901 - Unspecified asthma with (acute) exacerbation Status: Acute Assessment and Plan: She is clinically improved with systemic steroids And oxygenation is weaning. She may have con commitment COPD along with her asthma given her 10-15 pack-year smoking history. an outpatient pulmonary function test would be helpful. -Start ipratropium 0.5 mg Q 6 hours scheduled nebulized - start Pulmicort 1.0 mg nebulized q.12 hours - change albuterol to 2.5 mg q.4 hours p.r.n. only in light of tachycardia. - Start systemic steroids per your choice either 40 mg of IV methylprednisolone q.6 hours or prednisone 40 mg daily for a total of 5 days then discontinue without taper. Monitor blood sugars closely while on systemic steroids and treat as needed with sliding scale insulin. (5) Acute and chronic respiratory failure with hypercapnia: Code(s): J96.22 - Acute and chronic respiratory failure with hypercapnia Status: Acute Assessment and Plan: Continue current changes to BiPAP with settings of 20/4 and a backup rate of 18 titrate in for an FiO2 of 88-92% as needed. I suspect the patient does have underlying undiagnosed obstructive sleep apnea and will need a sleep study done as an outpatient. (6) VINNIE (obstructive sleep apnea): Code(s): G47.33 - Obstructive sleep apnea (adult) (pediatric) Status: Acute Assessment and Plan: she will need a split night sleep study as an outpatient. Subjective Date/time seen: 04/30/20 12:55 Interval history: She is feeling much better today. And she is on room air without oxygen. She is still using NIV at night. It is likely that she has significant sleep apnea and I have ordered an outpatient split night sleep study to be done. Review of Systems Review of Systems: All systems reviewed & are unremarkable except as noted in HPI and below Exam Const: General: cooperative, healthy appearing, comfortable, no acute distress, alert, awake, Physically active, ill appearing and tired appearing Nutritional Appearance: average body habitus and overweight Orientation/consciousness: oriented to person, oriented to place, oriented to time and patient oriented x3 Limitations: no limitations HENMT: Head: normal to inspection, No palpable skull fracture present, normocephalic and atraumatic Ears: hearing grossly normal bilaterally and external ears normal General nose exam: Normal external nose present, Normal nares present and No nasal polyps present Face and sinus: other (Scabbed area to right side of her face) Mouth: Yes Normal oral and palatal mucosa present Eyes:
[2020-04-30] MEDS: FERROUS SULFATE 324 MG TABLET PO (13:05)
--- NOTE | 2020-04-30 13:49 | PCSTNOTE ---
Please refer to the Bedside Swallow Evaluation in the EMR. Please note, silent aspiration cannot be ruled out at bedside.
[2020-04-30 13:55] LABS: Vancomycin Trough 27.7 ug/mL (10.0-20.0)
[2020-04-30] MEDS: AZTREONAM 2 GM in DEXTROSE 5% 100 ML IVPB (15:10)
[2020-04-30 18:41] LABS: Glucose Point of Care 362 (65-105)
[2020-04-30] MEDS: INSULIN GLARGINE (*BKC) 100 UNITS/ML 30 UNITS SUB-Q (20:13)
[2020-04-30] MEDS: MONTELUKAST SODIUM 10 MG TABLET PO (20:15)
[2020-04-30 21:28] LABS: Glucose Point of Care 393 (65-105)
[2020-05-01] VITALS (10 sets, daily range): BP systolic 117–150; BP diastolic 66–83; PULSE 77–89; RESP 16–20; TEMP 36.4–36.9; O2SAT 93–99
[2020-05-01] MEDS: IPRATROPIUM BR 0.02% INH SOLN 0.5 MG/2.5 ML VIAL INHALATION ×2 (02:58→08:32)
--- NOTE | 2020-05-01 03:25 | PC.NURSE ---
Midnight Vancomycin dose on 05/01/20 was given late. This nurse received report from [facility] that the vanc trough was too high and to hold this dose. This nurse was unaware that the pharmacy had changed the dose frequency and the med was to be hung at 0000 on 05/01/20. It was hung late at 0319 on 05/01/20 instead.
[2020-05-01] MEDS: methylPREDNISolone SOD SUCC 40 MG VIAL IV PUSH ×4 (05:59→22:52)
[2020-05-01] MEDS: AZTREONAM 2 GM in DEXTROSE 5% 100 ML 200 ML IVPB ×3 (06:20→22:37)
[2020-05-01 06:39] LABS: Anion Gap 6 mmol/L (8-16); Blood Urea Nitrogen 20 mg/dL (7-17); Calcium 9.2 mg/dL (8.4-10.2); Carbon Dioxide 22 mmol/L (22-30); Chloride 103 mmol/L (98-107); Estimated CRCL calculation 130 ml/min; Estimated Glomerular Filt Rate > 60; Glucose 395 mg/dL (65-105); Potassium 4.3 mmol/L (3.4-5.0); Sodium 131 mmol/L (137-145)
[2020-05-01] MEDS: BUDESONIDE RESPULE NEB 0.5 MG/2 ML AMP 1 MG INHALATION (08:31)
[2020-05-01] MEDS: INSULIN ASPART (*BKC) 100 UNITS/ML SUB-Q ×4 (09:27→18:05)
[2020-05-01] MEDS: APIXABAN 5 MG TABLET 10 MG PO ×2 (09:28→20:20)
[2020-05-01] MEDS: MAGNESIUM OXIDE 200 MG TABLET PO ×2 (09:28→20:21)
[2020-05-01] MEDS: CITALOPRAM HYDROBROMIDE 20 MG TABLET PO (09:29)
[2020-05-01] MEDS: lisinopriL 10 MG TABLET PO (09:29)
--- NOTE | 2020-05-01 10:23 | PM.PNPUL ---
Progress Note: A&P Assessment and Plan (1) Pulmonary embolus: Qualifiers: Pulmonary embolism type: unspecified Chronicity: acute Acute cor pulmonale presence: unspecified Qualified Code(s): I26.99 - Other pulmonary embolism without acute cor pulmonale Code(s): I26.99 - Other pulmonary embolism without acute cor pulmonale Status: Acute Assessment and Plan: Seems to be tolerating heparin drip. If she continues to tolerate it for a total of 48 hours without significant hemoptysis or other signs of bleeding she can be transitioned to an oral NOAC such as apixaban. (2) RLL pneumonia: Qualifiers: Pneumonia type: due to unspecified organism Qualified Code(s): J18.9 - Pneumonia, unspecified organism Code(s): J18.9 - Pneumonia, unspecified organism Status: Acute Assessment and Plan: Will start vancomycin and aztreonam IV for 7 days for right lower lobe pneumonia as the patient has clinical signs and symptoms to support it. (3) Elevated troponin: Code(s): R77.8 - Other specified abnormalities of plasma proteins Status: Inactive (4) Asthma exacerbation: Qualifiers: Asthma severity: moderate Asthma persistence: persistent Qualified Code(s): J45.41 - Moderate persistent asthma with (acute) exacerbation Code(s): J45.901 - Unspecified asthma with (acute) exacerbation Status: Acute Assessment and Plan: She is clinically improved with systemic steroids And oxygenation is weaning. She may have con commitment COPD along with her asthma given her 10-15 pack-year smoking history. an outpatient pulmonary function test would be helpful. - Today I will discontinue nebulized Pulmicort and nebulized ipratropium - will resume Advair 230/21 mcg 2 puffs b.i.d. via chamber device - will start Spiriva 18 mcg 1 puff daily. - continue systemic steroids per your choice either 40 mg of IV methylprednisolone q.6 hours or prednisone 40 mg daily for a total of 5 days then discontinue without taper. Monitor blood sugars closely while on systemic steroids and treat as needed with sliding scale insulin. (5) Acute and chronic respiratory failure with hypercapnia: Code(s): J96.22 - Acute and chronic respiratory failure with hypercapnia Status: Acute Assessment and Plan: Continue current changes to BiPAP with settings of 20/4 and a backup rate of 18 titrate in for an FiO2 of 88-92% as needed. I suspect the patient does have underlying undiagnosed obstructive sleep apnea and will need a sleep study done as an outpatient. (6) VINNIE (obstructive sleep apnea): Code(s): G47.33 - Obstructive sleep apnea (adult) (pediatric) Status: Acute Assessment and Plan: she will need a split night sleep study as an outpatient. Subjective Date/time seen: 05/01/20 10:23 Interval history: she is continually improving day by day. She complains of hoarseness this is likely due to high dose nebulized Pulmicort. But otherwise her breathing has greatly improved. Review of Systems Review of Systems: All systems reviewed & are unremarkable except as noted in HPI and below Exam Const: General: cooperative, healthy appearing, comfortable, no acute distress, alert, awake, Physically active, ill appearing and tired appearing Nutritional Appearance: average body habitus and overweight Orientation/consciousness: oriented to person, oriented to place, oriented to time and patient oriented x3 Limitations: no limitations HENMT: Head: normal to inspection, No palpable skull fracture present, normocephalic and atraumatic Ears: hearing grossly normal bilaterally and external ears normal General nose exam: Normal external nose present, Normal nares present and No nasal polyps present Face and sinus: other (Scabbed area to right side of her face) Mouth: Yes Normal oral and palatal mucosa present Eyes: General: appearance normal, both eyes and a
[2020-05-01 10:33] LABS: Glucose Point of Care 348 (65-105)
[2020-05-01 12:47] LABS: Glucose Point of Care 311 (65-105)
[2020-05-01] MEDS: ACETAMINOPHEN ELIXIR 325 MG/10.15 ML UDC 650 MG PO ×2 (12:56→20:28)
[2020-05-01] MEDS: INSULIN ASPART (*BKC) 100 UNITS/ML 7 UNITS SUB-Q ×2 (13:04→18:06)
--- NOTE | 2020-05-01 13:10 | PM.IMPN ---
Progress Note: A&P Assessment and Plan (1) Pulmonary embolus: Qualifiers: Pulmonary embolism type: unspecified Chronicity: acute Acute cor pulmonale presence: unspecified Qualified Code(s): I26.99 - Other pulmonary embolism without acute cor pulmonale Code(s): I26.99 - Other pulmonary embolism without acute cor pulmonale Status: Acute Assessment and Plan: Patient with prolonged recovery from COVID-19 s/p intubation in the ICU admitted from the [facility] due to bilateral pulmonary emboli. -CTA chest 04/25 demonstrates bilateral acute pulmonary emboli without evidence of right heart strain - Echocardiogram with no acute changes compared to last echo last month. -Venous dopplers show no evidence of DVT in MAMTA upper or lower extremities. 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 Last A1c last month 9.1 but states A1c was 7.7 last March -Increase lantus to 40u -Increase scheduled meal time insulin to 7u with SSI -Pt was not on any DM medications before her COVID hospitlization due to diet control and inability to tolerate oral medications - she was discharged on lantus (u100) 55U every 12 hours when discharging from the hospital to rehab. (3) RLL pneumonia: Qualifiers: Pneumonia type: due to unspecified organism Qualified Code(s): J18.9 - Pneumonia, unspecified organism Code(s): J18.9 - Pneumonia, unspecified organism Status: Acute Assessment and Plan: Right lower lobe pneumonia noted on CT chest. -Dr. Kidd recommends antibiotics with vancomycin and aztreonam (day 5 of 7) (4) Acute and chronic respiratory failure with hypercapnia: Code(s): J96.22 - Acute and chronic respiratory failure with hypercapnia Status: Acute Assessment and Plan: No on RA -Continue bipap at night She likely has VINNIE or obesity hypoventilation syndrome. Further outpatient testing with PFTs and sleep study could be beneficial. (5) COVID-19: Onset Date: ~03/18/20 Code(s): U07.1 - COVID-19 Status: Acute Assessment and Plan: COVID positive 03/18/20. Admitted 03/24/20 with severe hypoxemic respiratory failure required intubation 03/25 - 04/08/20. Complicated by cardiac arrest 03/31/2019. Discharged to [facility] 04/18/20. (6) Asthma: Qualifiers: Asthma severity: unspecified severity Asthma persistence: unspecified Asthma complication type: unspecified Qualified Code(s): J45.909 - Unspecified asthma, uncomplicated Code(s): J45.909 - Unspecified asthma, uncomplicated Status: Chronic Assessment and Plan: Continue steroids, albuterol, advir and spiriva (7) Anxiety: Code(s): F41.9 - Anxiety disorder, unspecified Status: Chronic Assessment and Plan: Continue with Xanax and Celexa. (8) Benign essential hypertension: Code(s): I10 - Essential (primary) hypertension Status: Chronic Assessment and Plan: Ctoninue llisinopril and lasix. (9) Ramos catheter in place: Code(s): Z97.8 - Presence of other specified devices Status: Acute Assessment and Plan: Removed -no issues with voiding today (10) Foot drop, right: Code(s): M21.371 - Foot drop, right foot Status: Acute Assessment and Plan: MRI of cspine and lspine without acute pathology -Pt also has neuropathy and weakness to the left arm which cervical spine MRI do
--- NOTE | 2020-05-01 15:16 | PCSTNOTE ---
The patient treatment was not able to be completed on 05/01/20 due to fatigue secondary to having other therapies today with Physical Therapy prior to Speech Therapy. Will plan to continue treatment per plan of care.
[2020-05-01 18:10] LABS: Glucose Point of Care 267 (65-105)
[2020-05-01] MEDS: MONTELUKAST SODIUM 10 MG TABLET PO (20:21)
[2020-05-01] MEDS: INSULIN GLARGINE (*BKC) 100 UNITS/ML 40 UNITS SUB-Q (20:22)
[2020-05-01 22:14] LABS: Glucose Point of Care 367 (65-105)
[2020-05-02] VITALS (9 sets, daily range): BP systolic 117–146; BP diastolic 76–84; PULSE 56–120; RESP 16–20; TEMP 36.4–36.6; O2SAT 87–96
[2020-05-02] MEDS: methylPREDNISolone SOD SUCC 40 MG VIAL IV PUSH ×2 (06:05→13:30)
[2020-05-02] MEDS: AZTREONAM 2 GM in DEXTROSE 5% 100 ML 200 ML IVPB ×3 (06:05→20:50)
[2020-05-02 08:12] LABS: Glucose Point of Care 272 (65-105)
[2020-05-02] MEDS: FLUTICASONE/SALMETEROL 230-21 MCG INHALER 1 PUFF 2 PUFF INHALATION ×2 (08:31→20:51)
[2020-05-02] MEDS: APIXABAN 5 MG TABLET 10 MG PO ×2 (09:00→20:30)
[2020-05-02] MEDS: CITALOPRAM HYDROBROMIDE 20 MG TABLET PO (09:00)
[2020-05-02] MEDS: LORATADINE 10 MG TABLET PO (09:01)
[2020-05-02] MEDS: MAGNESIUM OXIDE 200 MG TABLET PO ×2 (09:01→20:30)
[2020-05-02] MEDS: lisinopriL 10 MG TABLET PO (09:01)
[2020-05-02] MEDS: INSULIN ASPART (*BKC) 100 UNITS/ML SUB-Q ×3 (09:02→18:11)
[2020-05-02] MEDS: INSULIN ASPART (*BKC) 100 UNITS/ML 7 UNITS SUB-Q ×3 (09:02→18:12)
[2020-05-02] MEDS: ACETAMINOPHEN ELIXIR 325 MG/10.15 ML UDC 650 MG PO ×2 (10:18→18:10)
--- NOTE | 2020-05-02 10:55 | PCNWS ---
Weekly nutritional screen. Patient is tolerating current diet of DBCC-Soft and Bite Sized, Level 6 with Glucerna shakes BID. Adequate intake-greater than 75% documented. No weight loss reported. No further nutritional needs at this time.
--- NOTE | 2020-05-02 11:22 | HOMEO2EVAL ---
Home Oxygen Evaluation RC: Home Oxygen (O2) Evaluation Start: 05/02/20 09:31 Freq: ONCE Status: Active Protocol: RPE Activity Type Activity Date Activity User E-Sign Co-Sign Detail Recorded Client Recorded Date Recorded By Document 05/02/20 10:30 CLARK [email or web address] 05/02/20 11:22 CLARK Document 05/02/20 10:35 CLARK [email or web address] 05/02/20 11:22 CLARK Document 05/02/20 10:38 CLARK [email or web address] 05/02/20 11:22 CLARK Document 05/02/20 10:40 CLARK [email or web address] 05/02/20 11:22 CLARK Document 05/02/20 10:45 CLARK [email or web address] 05/02/20 11:22 CLARK 05/02/20 05/02/20 05/02/20 10:30 10:35 10:38 Home O2 Evaluation Test Phase Resting Exercise Exercise Oxygen Delivery Room Air Room Air Nasal Cannula Oxygen Flow Rate (L/min) 1 Pulse Oximetry (90-100 %) 93 87 L 87 L Pulse Rate (60-100 beats/min) 108 H 118 H Activity Tolerance Home Oxygen Evaluation Comments Treatment Charges O2 Evaluation - Inpatient 05/02/20 05/02/20 10:40 10:45 Home O2 Evaluation Test Phase Exercise Resting Oxygen Delivery Nasal Cannula Room Air Oxygen Flow Rate (L/min) 2 Pulse Oximetry (90-100 %) 89 L 94 Pulse Rate (60-100 beats/min) 120 H 100 Activity Tolerance Poor Home Oxygen Evaluation Comments Pt did arm and leg exercises to monitor exertion level. Pt doesnt ambulate. Requires 2 Liters with exertion Treatment Charges
[2020-05-02 11:27] LABS: Vancomycin Trough 11.5 ug/mL (10.0-20.0)
--- NOTE | 2020-05-02 11:35 | PCRCNOTE ---
Home O2 eval done, Pt requires 2 liters with exertion. Room air at rest.
[2020-05-02] MEDS: LORazepam INJ (*CRX) 2 MG/ML VIAL 0.5 MG IV PUSH ×2 (11:46→12:01)
--- NOTE | 2020-05-02 12:35 | PM.PNPUL ---
Progress Note: A&P Assessment and Plan (1) Pulmonary embolus: Qualifiers: Pulmonary embolism type: unspecified Chronicity: acute Acute cor pulmonale presence: unspecified Qualified Code(s): I26.99 - Other pulmonary embolism without acute cor pulmonale Code(s): I26.99 - Other pulmonary embolism without acute cor pulmonale Status: Acute Assessment and Plan: Seems to be tolerating heparin drip. If she continues to tolerate it for a total of 48 hours without significant hemoptysis or other signs of bleeding she can be transitioned to an oral NOAC such as apixaban. (2) RLL pneumonia: Qualifiers: Pneumonia type: due to unspecified organism Qualified Code(s): J18.9 - Pneumonia, unspecified organism Code(s): J18.9 - Pneumonia, unspecified organism Status: Acute Assessment and Plan: Will start vancomycin and aztreonam IV for 7 days for right lower lobe pneumonia as the patient has clinical signs and symptoms to support it. (3) Elevated troponin: Code(s): R77.8 - Other specified abnormalities of plasma proteins Status: Inactive (4) Asthma exacerbation: Qualifiers: Asthma severity: moderate Asthma persistence: persistent Qualified Code(s): J45.41 - Moderate persistent asthma with (acute) exacerbation Code(s): J45.901 - Unspecified asthma with (acute) exacerbation Status: Acute Assessment and Plan: She is clinically improved with systemic steroids And oxygenation is weaning. She may have con commitment COPD along with her asthma given her 10-15 pack-year smoking history. an outpatient pulmonary function test would be helpful. - Today I will discontinue nebulized Pulmicort and nebulized ipratropium - will resume Advair 230/21 mcg 2 puffs b.i.d. via chamber device - will start Spiriva 18 mcg 1 puff daily. - continue systemic steroids per your choice either 40 mg of IV methylprednisolone q.6 hours or prednisone 40 mg daily for a total of 5 days then discontinue without taper. Monitor blood sugars closely while on systemic steroids and treat as needed with sliding scale insulin. (5) Acute and chronic respiratory failure with hypercapnia: Code(s): J96.22 - Acute and chronic respiratory failure with hypercapnia Status: Acute Assessment and Plan: Continue current changes to BiPAP with settings of 20/4 and a backup rate of 18 titrate in for an FiO2 of 88-92% as needed. I suspect the patient does have underlying undiagnosed obstructive sleep apnea and will need a sleep study done as an outpatient. (6) VINNIE (obstructive sleep apnea): Code(s): G47.33 - Obstructive sleep apnea (adult) (pediatric) Status: Acute Assessment and Plan: she will need a split night sleep study as an outpatient. Additional Plan Once she has completed 7 days of current IV antibiotics she can be discharged home from my point of view. She can follow up with our pulmonary office in 4-6 weeks. She will not be discharged on BiPAP or NIV but instead will have an outpatient split night sleep study to assess the severity of her obstructive sleep apnea and placed on CPAP if needed at that time. Subjective Date/time seen: 05/02/20 12:35 Interval history: she is doing very well and is on room air. Once she has completed 5 days of systemic steroids and 7 days of current IV antibiotics she can be discharged home. She will still need rehab at home but it sounds like she has significant support from family members, home health care and PT OT. Review of Systems Review of Systems: All systems reviewed & are unremarkable except as noted in HPI and below Exam Const: General: cooperative, healthy appearing, comfortable, no acute distress, alert, awake, Physically active, ill appearing and tired appearing Nutritional Appearance: average body habitus and overweight Orientation/consciousness: oriented to person, oriented to place, o
[2020-05-02] MEDS: FERROUS SULFATE 324 MG TABLET PO (13:30)
[2020-05-02 13:38] LABS: Glucose Point of Care 359 (65-105)
--- NOTE | 2020-05-02 14:14 | PM.IMPN ---
Progress Note: A&P Assessment and Plan (1) Pulmonary embolus: Qualifiers: Pulmonary embolism type: unspecified Chronicity: acute Acute cor pulmonale presence: unspecified Qualified Code(s): I26.99 - Other pulmonary embolism without acute cor pulmonale Code(s): I26.99 - Other pulmonary embolism without acute cor pulmonale Status: Acute Assessment and Plan: Patient with prolonged recovery from COVID-19 s/p intubation in the ICU admitted from the [facility] due to bilateral pulmonary emboli. -CTA chest 04/25 demonstrates bilateral acute pulmonary emboli without evidence of right heart strain - Echocardiogram with no acute changes compared to last echo last month. -Venous dopplers show no evidence of DVT in MAMTA upper or lower extremities. -She was initiated on heparin drip 04/25/20 and transitioned to Eliquis 04/28/20 -hgb stable (2) Diabetes mellitus: Qualifiers: Diabetes mellitus type: type 2 Diabetes mellitus lobsterman insulin use: without [facility] use Diabetes mellitus complication status: without complication Qualified Code(s): E11.9 - Type 2 diabetes mellitus without complications Code(s): E11.9 - Type 2 diabetes mellitus without complications Status: Inactive Assessment and Plan: Last glucose 359 -High due to steroids and uncontrolled T2DM. Last A1c last month 9.1 but states A1c was 7.7 last March -Continue lantus to 40u -Continue meal time insulin to 7u with SSI -Will stop steroids today so that will help -Pt was not on any DM medications before her COVID hospitlization due to diet control and inability to tolerate oral medications - she was discharged on lantus (u100) 55U every 12 hours when discharging from the hospital to rehab. (3) RLL pneumonia: Qualifiers: Pneumonia type: due to unspecified organism Qualified Code(s): J18.9 - Pneumonia, unspecified organism Code(s): J18.9 - Pneumonia, unspecified organism Status: Acute Assessment and Plan: Right lower lobe pneumonia noted on CT chest. -Dr. Kidd recommends antibiotics with vancomycin and aztreonam (day 6 of 7) (4) Acute and chronic respiratory failure with hypercapnia: Code(s): J96.22 - Acute and chronic respiratory failure with hypercapnia Status: Acute Assessment and Plan: No on RA -Continue bipap at night She likely has VINNIE or obesity hypoventilation syndrome. Further outpatient testing with PFTs and sleep study could be beneficial. (5) COVID-19: Onset Date: ~03/18/20 Code(s): U07.1 - COVID-19 Status: Acute Assessment and Plan: COVID positive 03/18/20. Admitted 03/24/20 with severe hypoxemic respiratory failure required intubation 03/25 - 04/08/20. Complicated by cardiac arrest 03/31/2019. Discharged to [facility] 04/18/20. (6) Asthma: Qualifiers: Asthma severity: unspecified severity Asthma persistence: unspecified Asthma complication type: unspecified Qualified Code(s): J45.909 - Unspecified asthma, uncomplicated Code(s): J45.909 - Unspecified asthma, uncomplicated Status: Chronic Assessment and Plan: Continue steroids, albuterol, advir and spiriva (7) Anxiety: Code(s): F41.9 - Anxiety disorder, unspecified Status: Chronic Assessment and Plan: Continue with Xanax and Celexa. (8) Benign essential hypertension: Code(s): I10 - Essential (primary) hypertension Status: Chronic Assessment and Plan: Ctoninue llisinopril and lasix. (9) Ramos catheter in place: Code(s): Z97.8 - Presence of other specified devices Status: Acute Assessment and Plan: Removed -no issues with voiding today (10) Foot drop, right: Code(s): M21.371 - Foot drop, right foot Status: Acute Assessment and Plan: MRI of cspine and lspine and brain without acute pathology -Pt also has neuropathy and weaknes
[2020-05-02] MEDS: MONTELUKAST SODIUM 10 MG TABLET PO (20:30)
[2020-05-02] MEDS: INSULIN GLARGINE (*BKC) 100 UNITS/ML 40 UNITS SUB-Q (20:31)
[2020-05-02 20:40] LABS: Glucose Point of Care 318 (65-105)
[2020-05-02 20:41] LABS: Glucose Point of Care 348 (65-105)
[2020-05-02 21:58] LABS: SARS-CoV-2 RNA PCR Negative
[2020-05-03 00:16] VITALS: PULSE 81; O2SAT 95
[2020-05-03 02:27] LABS: Glucose Point of Care 343 (65-105)
[2020-05-03] MEDS: ACETAMINOPHEN ELIXIR 325 MG/10.15 ML UDC 650 MG PO (05:14)
[2020-05-03 05:19] VITALS: PULSE 83; O2SAT 96
[2020-05-03 06:00] VITALS: BP 131/70; PULSE 72; RESP 18; TEMP 36.4; O2SAT 99
[2020-05-03] MEDS: AZTREONAM 2 GM in DEXTROSE 5% 100 ML 200 ML IVPB (06:07)
[2020-05-03 06:37] LABS: Hematocrit 36.6 % (37.0-47.0); Hemoglobin 11.7 g/dL (12.0-15.0); Mean Corpuscular Volume 84.3 fl (80-100); Mean Platelet Volume 9.4 fl (7.4-10.4); Platelet Count Result 213 k/mm3 (150-375); Red Blood Count 4.34 M/mm3 (4.2-5.4); White Blood Count 8.8 K/mm3 (4.5-10.0)
[2020-05-03 06:48] LABS: Alanine Aminotransferase 19 U/L (4-35); Albumin Level 3.2 g/dL (3.5-5.1); Alkaline Phosphatase 50 U/L (38-126); Anion Gap 5 mmol/L (8-16); Aspartate Amino Transferase 16 U/L (14-36); Bilirubin,Total 0.3 mg/dL (0.2-1.3); Blood Urea Nitrogen 21 mg/dL (7-17); Calcium 8.7 mg/dL (8.4-10.2); Carbon Dioxide 26 mmol/L (22-30); Chloride 103 mmol/L (98-107); Estimated CRCL calculation 153 ml/min; Estimated Glomerular Filt Rate > 60; Glucose 223 mg/dL (65-105); Potassium 3.4 mmol/L (3.4-5.0); Sodium 134 mmol/L (137-145)
[2020-05-03 07:39] LABS: Glucose Point of Care 190 (65-105)
[2020-05-03] MEDS: APIXABAN 5 MG TABLET 10 MG PO ×2 (08:38→20:40)
[2020-05-03] MEDS: MAGNESIUM OXIDE 200 MG TABLET PO ×2 (08:40→20:40)
[2020-05-03] MEDS: CITALOPRAM HYDROBROMIDE 20 MG TABLET PO (08:40)
[2020-05-03] MEDS: lisinopriL 10 MG TABLET PO (08:40)
[2020-05-03] MEDS: LORATADINE 10 MG TABLET PO (08:40)
[2020-05-03] MEDS: INSULIN ASPART (*BKC) 100 UNITS/ML 7 UNITS SUB-Q ×3 (09:08→18:00)
[2020-05-03] MEDS: FLUTICASONE/SALMETEROL 230-21 MCG INHALER 1 PUFF 2 PUFF INHALATION ×2 (09:57→21:00)
[2020-05-03] MEDS: HYDROcodone/acetaminophen (*CRX) 5-325 MG TABLET 1 TAB PO ×2 (10:45→16:05)
--- NOTE | 2020-05-03 11:22 | PM.IMPN ---
Progress Note: A&P Assessment and Plan (1) Pulmonary embolus: Qualifiers: Pulmonary embolism type: unspecified Chronicity: acute Acute cor pulmonale presence: unspecified Qualified Code(s): I26.99 - Other pulmonary embolism without acute cor pulmonale Code(s): I26.99 - Other pulmonary embolism without acute cor pulmonale Status: Acute Assessment and Plan: Patient with prolonged recovery from COVID-19 s/p intubation in the ICU admitted from the [facility] due to bilateral pulmonary emboli. -CTA chest 04/25 demonstrates bilateral acute pulmonary emboli without evidence of right heart strain - Echocardiogram with no acute changes compared to last echo last month. -Venous dopplers show no evidence of DVT in MAMTA upper or lower extremities. -She was initiated on heparin drip 04/25/20 and transitioned to Eliquis 04/28/20 -hgb stable (2) Diabetes mellitus: Qualifiers: Diabetes mellitus type: type 2 Diabetes mellitus director long term care insulin use: without prison use Diabetes mellitus complication status: without complication Qualified Code(s): E11.9 - Type 2 diabetes mellitus without complications Code(s): E11.9 - Type 2 diabetes mellitus without complications Status: Inactive Assessment and Plan: Last glucose 190 -High this stay due to steroids and uncontrolled T2DM. Steroids have been stopped -Continue lantus to 40u with parameters -Continue meal time insulin to 7u with SSI with parameters -Pt was not on any DM medications before her COVID hospitlization due to diet control and inability to tolerate oral medications - she was discharged on lantus 55U every 12 hours when discharging from the hospital to rehab. (3) RLL pneumonia: Qualifiers: Pneumonia type: due to unspecified organism Qualified Code(s): J18.9 - Pneumonia, unspecified organism Code(s): J18.9 - Pneumonia, unspecified organism Status: Acute Assessment and Plan: Right lower lobe pneumonia noted on CT chest. -She completed 7 days of vancomycin and aztreonam (4) Acute and chronic respiratory failure with hypercapnia: Code(s): J96.22 - Acute and chronic respiratory failure with hypercapnia Status: Acute Assessment and Plan: No on RA -Continue bipap at night She likely has VINNIE or obesity hypoventilation syndrome. Further outpatient testing with PFTs and sleep study could be beneficial. (5) COVID-19: Onset Date: ~03/18/20 Code(s): U07.1 - COVID-19 Status: Acute Assessment and Plan: COVID positive 03/18/20. Admitted 03/24/20 with severe hypoxemic respiratory failure required intubation 03/25 - 04/08/20. Complicated by cardiac arrest 03/31/2019. Discharged to [facility] 04/18/20. (6) Asthma: Qualifiers: Asthma severity: unspecified severity Asthma persistence: unspecified Asthma complication type: unspecified Qualified Code(s): J45.909 - Unspecified asthma, uncomplicated Code(s): J45.909 - Unspecified asthma, uncomplicated Status: Chronic Assessment and Plan: Continue steroids, albuterol, advir and spiriva (7) Anxiety: Code(s): F41.9 - Anxiety disorder, unspecified Status: Chronic Assessment and Plan: Continue with Xanax and Celexa. (8) Benign essential hypertension: Code(s): I10 - Essential (primary) hypertension Status: Chronic Assessment and Plan: Ctoninue llisinopril and lasix. (9) Ramos catheter in place: Code(s): Z97.8 - Presence of other specified devices Status: Acute Assessment and Plan: Removed -no issues with voiding today (10) Foot drop, right: Code(s): M21.371 - Foot drop, right foot Status: Acute Assessment and Plan: MRI of cspine and lspine and brain without acute pathology -Pt also has neuropathy and weakness to the left arm which cervical spine MRI does not show acute abnormalit
[2020-05-03 11:49] LABS: Glucose Point of Care 128 (65-105)
--- NOTE | 2020-05-03 13:58 | WPDNEUROPN ---
Progress Note: A&P Assessment and Plan (1) Myelopathy: Code(s): G95.9 - Disease of spinal cord, unspecified Status: Acute (2) Foot drop, right: Code(s): M21.371 - Foot drop, right foot Status: Acute (3) VINNIE (obstructive sleep apnea): Code(s): G47.33 - Obstructive sleep apnea (adult) (pediatric) Status: Acute (4) Acute respiratory failure with hypoxia: Code(s): J96.01 - Acute respiratory failure with hypoxia Status: Acute (5) Type 2 diabetes mellitus without complications: Qualifiers: Diabetes mellitus rn long term care insulin use: without rn long term care use Qualified Code(s): E11.9 - Type 2 diabetes mellitus without complications Code(s): E11.9 - Type 2 diabetes mellitus without complications Status: Acute Additional Plan medically improving, still has left shoulder weakness with more involvement of the deltoid and biceps and triceps will need the EMG nerve conduction study but before that MRI of cervical spine Review of Systems Review of Systems: All systems reviewed & are unremarkable except as noted in HPI and below Exam Const: General: cooperative, comfortable and no acute distress Nutritional Appearance: obese Orientation/consciousness: patient oriented x3 HENMT: Head: normocephalic Ears: hearing grossly normal bilaterally General nose exam: Normal external nose present and No nasal discharge present Face and sinus: normal facial exam Eyes: General: appearance normal, both eyes and all related structures Neck: Neck: full ROM Resp: Effort & Inspection: able to speak in complete sentences Auscultation: clear to auscultation bilaterally Cardio: Rate: regular rate Rhythm: regular rhythm GI: Auscultation: normoactive bowel sounds Skin: General skin exam: no rashes or lesions noted Neuro: General: patient oriented x3 Cranial nerves: Yes CN's II-XII intact bilaterally Cognition (Neuro): normal cognition Motor exam (neuro): Abnormal motor strength present ( left upper extremity proximal weakness) Sensory Exam: Sensory deficit (Neuro) Deep tendon reflexes (DTR's): Right triceps reflex intensity grade: 1+, Left triceps reflex intensity grade: 0, Rt Biceps (C5, C6): 1+, Left biceps reflex intensity grade: 0, Right brachioradialis reflex intensity grade: 1+, Right patellar reflex intensity grade: 1+, Left patellar reflex intensity grade: 1+, Right ankle reflex intensity grade: 0 and Left ankle reflex intensity grade: 1+ Plantar Reflex Responses: downgoing: bilateral Objective Data Vital Signs Vital Signs: Vital Signs - 24 hr 05/02/20 14:00 05/02/20 21:29 05/03/20 00:16 Temperature 36.6 C 36.4 C Pulse Rate 56 L 95 81 Respiratory Rate 20 20 Blood Pressure 137/76 117/76 Pulse Oximetry 95 95 95 05/03/20 05:19 05/03/20 06:00 Temperature 36.4 C L Pulse Rate 83 72 Respiratory Rate 18 Blood Pressure 131/70 Pulse Oximetry 96 99 Intake/Output Intake/Output: Intake & Output 04/30/20 05/01/20 05/02/20 05/03/20 23:59 23:59 23:59 23:59 Intake Total 2580 2560 2710 1040 Output Total 3600 3250 1900 Balance -1020 -395 757 9492 Meds/Results Medications: Active Medications Generic Name Dose Route Start Last Admin Trade Name Freq PRN Reason Stop Dose Admin Acetaminophen 650 mg 05/03/20 10:33 Acetaminophen Elixir 325 Mg/10.15 Ml Udc PO Q6H PRN Mild Pain (1-5) Or Fever Hydrocodone Bitart/Acetaminophen 1 tab 05/03/20 10:32 05/03/20 10:45 Hydrocodone/Acetaminophen (*Crx) 5-325 Mg Tablet PO 1 tab Q4H PRN Administration Pain Rated 6-10 Albuterol 2.5 mg 04/27/20 10:11 04/28/20 13:16 Albuterol Sulfate Neb 2.5 Mg/0.5 Ml Inh INHALATION 2.5 mg Q4HRT PRN Administration Shortness Of Breath Alprazolam 0.25 mg 04/27/20 18:12 Alprazolam (*Crx) 0.25 Mg Tablet PO TID PRN anxiety Apixaban 10 mg 04/28/20 17:00 05/03/20 08:38 Apixaban 5 Mg Tablet PO 05/05/20 09:01 10 mg Q12
[2020-05-03 14:00] VITALS: BP 133/72; PULSE 74; RESP 18; TEMP 36.7; O2SAT 100
--- NOTE | 2020-05-03 14:04 | PM.PNPUL ---
Progress Note: A&P Assessment and Plan (1) Pulmonary embolus: Qualifiers: Pulmonary embolism type: unspecified Chronicity: acute Acute cor pulmonale presence: unspecified Qualified Code(s): I26.99 - Other pulmonary embolism without acute cor pulmonale Code(s): I26.99 - Other pulmonary embolism without acute cor pulmonale Status: Acute Assessment and Plan: Seems to be tolerating heparin drip. If she continues to tolerate it for a total of 48 hours without significant hemoptysis or other signs of bleeding she can be transitioned to an oral NOAC such as apixaban. Seems to be tolerating heparin drip. If she continues to tolerate it for a total of 48 hours without significant hemoptysis or other signs of bleeding she can be transitioned to an oral NOAC such as apixaban. (2) RLL pneumonia: Qualifiers: Pneumonia type: due to unspecified organism Qualified Code(s): J18.9 - Pneumonia, unspecified organism Code(s): J18.9 - Pneumonia, unspecified organism Status: Acute Assessment and Plan: Will start vancomycin and aztreonam IV for 7 days for right lower lobe pneumonia as the patient has clinical signs and symptoms to support it. Will start vancomycin and aztreonam IV for 7 days for right lower lobe pneumonia as the patient has clinical signs and symptoms to support it. (3) Elevated troponin: Code(s): R77.8 - Other specified abnormalities of plasma proteins Status: Inactive (4) Asthma exacerbation: Qualifiers: Asthma severity: moderate Asthma persistence: persistent Qualified Code(s): J45.41 - Moderate persistent asthma with (acute) exacerbation Code(s): J45.901 - Unspecified asthma with (acute) exacerbation Status: Acute Assessment and Plan: She is clinically improved with systemic steroids And oxygenation is weaning. She may have con commitment COPD along with her asthma given her 10-15 pack-year smoking history. an outpatient pulmonary function test would be helpful. - Today I will discontinue nebulized Pulmicort and nebulized ipratropium - will resume Advair 230/21 mcg 2 puffs b.i.d. via chamber device - will start Spiriva 18 mcg 1 puff daily. - continue systemic steroids per your choice either 40 mg of IV methylprednisolone q.6 hours or prednisone 40 mg daily for a total of 5 days then discontinue without taper. Monitor blood sugars closely while on systemic steroids and treat as needed with sliding scale insulin. She is clinically improved with systemic steroids And oxygenation is weaning. She may have con commitment COPD along with her asthma given her 10-15 pack-year smoking history. an outpatient pulmonary function test would be helpful. - Today I will discontinue nebulized Pulmicort and nebulized ipratropium - will resume Advair 230/21 mcg 2 puffs b.i.d. via chamber device - will start Spiriva 18 mcg 1 puff daily. - continue systemic steroids per your choice either 40 mg of IV methylprednisolone q.6 hours or prednisone 40 mg daily for a total of 5 days then discontinue without taper. Monitor blood sugars closely while on systemic steroids and treat as needed with sliding scale insulin. (5) Acute and chronic respiratory failure with hypercapnia: Code(s): J96.22 - Acute and chronic respiratory failure with hypercapnia Status: Acute Assessment and Plan: Continue current changes to BiPAP with settings of 20/4 and a backup rate of 18 titrate in for an FiO2 of 88-92% as needed. I suspect the patient does have underlying undiagnosed obstructive sleep apnea and will need a sleep study done as an outpatient. Continue current changes to BiPAP with settings of 20/4 and a backup rate of 18 titrate in for an FiO2 of 88-92% as needed. I suspect the patient does have underlying undiagnosed obstructive sleep apnea and will need a sleep study done as an outpatient. (6) VINNIE (obstructive sleep apnea):
[2020-05-03 17:20] LABS: Glucose Point of Care 113 (65-105)
[2020-05-03] MEDS: INSULIN GLARGINE (*BKC) 100 UNITS/ML 40 UNITS SUB-Q (20:39)
[2020-05-03] MEDS: GABAPENTIN 100 MG CAPSULE PO (20:40)
[2020-05-03] MEDS: MONTELUKAST SODIUM 10 MG TABLET PO (20:40)
[2020-05-03 21:28] VITALS: BP 113/58; PULSE 101; RESP 20; TEMP 36.6; O2SAT 97
[2020-05-03 21:57] LABS: Glucose Point of Care 134 (65-105)
[2020-05-03 22:23] VITALS: PULSE 95; O2SAT 97
[2020-05-04] MEDS: DEXTROSE 50% 25 GM/50 ML SYRINGE IV PUSH (03:02)
[2020-05-04 03:39] LABS: Glucose Point of Care 58 (65-105)
[2020-05-04 03:39] LABS: Glucose Point of Care 138 (65-105)
[2020-05-04 04:10] VITALS: PULSE 80; O2SAT 94
[2020-05-04 06:00] VITALS: BP 110/74; PULSE 100; RESP 20; TEMP 36.9; O2SAT 100
[2020-05-04 06:00] LABS: Glucose Point of Care 105 (65-105)
[2020-05-04 06:15] LABS: Hematocrit 40.7 % (37.0-47.0); Hemoglobin 12.8 g/dL (12.0-15.0)
[2020-05-04 06:28] LABS: Anion Gap 4 mmol/L (8-16); Blood Urea Nitrogen 20 mg/dL (7-17); Calcium 8.9 mg/dL (8.4-10.2); Carbon Dioxide 27 mmol/L (22-30); Chloride 106 mmol/L (98-107); Estimated CRCL calculation 153 ml/min; Estimated Glomerular Filt Rate > 60; Glucose 110 mg/dL (65-105); Potassium 3.3 mmol/L (3.4-5.0); Sodium 137 mmol/L (137-145)
[2020-05-04 07:33] LABS: Glucose Point of Care 109 (65-105)
[2020-05-04] MEDS: APIXABAN 5 MG TABLET 10 MG PO ×2 (09:27→20:13)
[2020-05-04] MEDS: POTASSIUM CHLORIDE 20 MEQ TABLET 40 MEQ PO (09:27)
[2020-05-04] MEDS: FLUTICASONE/SALMETEROL 230-21 MCG INHALER 1 PUFF 2 PUFF INHALATION ×2 (09:27→20:18)
[2020-05-04] MEDS: LORATADINE 10 MG TABLET PO (09:28)
[2020-05-04] MEDS: MAGNESIUM OXIDE 200 MG TABLET PO ×2 (09:29→20:13)
[2020-05-04] MEDS: CITALOPRAM HYDROBROMIDE 20 MG TABLET PO (09:31)
[2020-05-04] MEDS: lisinopriL 10 MG TABLET PO (09:31)
[2020-05-04 11:54] LABS: Glucose Point of Care 246 (65-105)
[2020-05-04] MEDS: INSULIN ASPART (*BKC) 100 UNITS/ML SUB-Q (11:55)
[2020-05-04 14:00] VITALS: BP 128/71; PULSE 88; RESP 18; TEMP 36.8; O2SAT 99
--- NOTE | 2020-05-04 14:27 | PM.IMPN ---
Progress Note: A&P Assessment and Plan (1) Pulmonary embolus: Qualifiers: Pulmonary embolism type: unspecified Chronicity: acute Acute cor pulmonale presence: unspecified Qualified Code(s): I26.99 - Other pulmonary embolism without acute cor pulmonale Code(s): I26.99 - Other pulmonary embolism without acute cor pulmonale Status: Acute Assessment and Plan: Patient with prolonged recovery from COVID-19 s/p intubation in the ICU admitted from the [facility] due to bilateral pulmonary emboli. -CTA chest 04/25 demonstrates bilateral acute pulmonary emboli without evidence of right heart strain - Echocardiogram with no acute changes compared to last echo last month. -Venous dopplers show no evidence of DVT in MATMA upper or lower extremities. -She was initiated on heparin drip 04/25/20 and transitioned to Eliquis 04/28/20 -hgb stable (2) Diabetes mellitus: Qualifiers: Diabetes mellitus type: type 2 Diabetes mellitus medical terminologist insulin use: without custodial use Diabetes mellitus complication status: without complication Qualified Code(s): E11.9 - Type 2 diabetes mellitus without complications Code(s): E11.9 - Type 2 diabetes mellitus without complications Status: Inactive Assessment and Plan: Last glucose 246 -High this stay due to steroids and uncontrolled T2DM. Steroids have been stopped -unfortunately, the Lantus was given overnight although there were parameters set. I have let the nurse know to pass on this information for the staff at night as well. -patient had hypoglycemia overnight. I have decreased the Lantus and stop the scheduled insulin -will continue sliding scale insulin -Pt was not on any DM medications before her COVID hospitlization due to diet control and inability to tolerate oral medications - she was discharged on lantus 55U every 12 hours when discharging from the hospital to rehab. (3) RLL pneumonia: Qualifiers: Pneumonia type: due to unspecified organism Qualified Code(s): J18.9 - Pneumonia, unspecified organism Code(s): J18.9 - Pneumonia, unspecified organism Status: Acute Assessment and Plan: Right lower lobe pneumonia noted on CT chest. -She completed 7 days of vancomycin and aztreonam (4) Acute and chronic respiratory failure with hypercapnia: Code(s): J96.22 - Acute and chronic respiratory failure with hypercapnia Status: Acute Assessment and Plan: No on RA -Continue bipap at night She likely has VINNIE or obesity hypoventilation syndrome. Further outpatient testing with PFTs and sleep study could be beneficial. (5) COVID-19: Onset Date: ~03/18/20 Code(s): U07.1 - COVID-19 Status: Acute Assessment and Plan: COVID positive 03/18/20. Admitted 03/24/20 with severe hypoxemic respiratory failure required intubation 03/25 - 04/08/20. Complicated by cardiac arrest 03/31/2019. Discharged to [facility] 04/18/20. (6) Asthma: Qualifiers: Asthma severity: unspecified severity Asthma persistence: unspecified Asthma complication type: unspecified Qualified Code(s): J45.909 - Unspecified asthma, uncomplicated Code(s): J45.909 - Unspecified asthma, uncomplicated Status: Chronic Assessment and Plan: Continue steroids, albuterol, advir and spiriva (7) Anxiety: Code(s): F41.9 - Anxiety disorder, unspecified Status: Chronic Assessment and Plan: Continue with Xanax and Celexa. (8) Benign essential hypertension: Code(s): I10 - Essential (primary) hypertension Status: Chronic Assessment and Plan: Ctoninue llisinopril and lasix. (9) Ramos catheter in place: Code(s): Z97.8 - Presence of other specified devices Status: Acute Assessment and Plan: Removed -no issues with voiding today (10) Foot drop, right: Code(s): M21.371 - Foot drop, right foot Status
[2020-05-04 17:26] LABS: Glucose Point of Care 147 (65-105)
[2020-05-04] MEDS: MONTELUKAST SODIUM 10 MG TABLET PO (20:13)
[2020-05-04] MEDS: GABAPENTIN 100 MG CAPSULE PO (20:13)
[2020-05-04] MEDS: INSULIN GLARGINE (*BKC) 100 UNITS/ML 25 UNITS SUB-Q (20:17)
[2020-05-04 20:59] LABS: Glucose Point of Care 180 (65-105)
[2020-05-04 22:00] VITALS: BP 113/62; PULSE 103; RESP 20; TEMP 37; O2SAT 97
[2020-05-04] MEDS: ACETAMINOPHEN ELIXIR 325 MG/10.15 ML UDC 650 MG PO (22:04)
[2020-05-05 00:18] LABS: Glucose Point of Care 165 (65-105)
[2020-05-05 06:00] VITALS: BP 111/67; PULSE 84; RESP 20; TEMP 36.6; O2SAT 99
[2020-05-05 06:13] LABS: Basophils Absolute Auto 0.1 K/mm3 (0.0-0.1); Basophils Percent Auto 0.8 % (0.2-1.2); Eosinophils Absolute Auto 0.2 K/mm3 (0-0.3); Eosinophils Percent Auto 2.9 % (0-4.4); Hematocrit 38.8 % (37.0-47.0); Hemoglobin 12.1 g/dL (12.0-15.0); Immature Granulocyte Absolute 0.22 K/mm3 (0.00-0.031); Immature Granulocyte Percent A 3.3 % (0-0.5); Lymphocytes Absolute Auto 1.52 K/mm3 (0.9-3.2); Lymphocytes Percent Auto 22.9 % (18.3-44.2); Mean Corpuscular HGB Conc 31.2 g/dl (32-36); Mean Corpuscular Hemoglobin 26.9 pg (26-34); Mean Corpuscular Volume 86.2 fl (80-100); Mean Platelet Volume 9.5 fl (7.4-10.4); Monocytes Absolute Auto 0.5 K/mm3 (0.1-0.6); Monocytes Percent Auto 7.2 % (2.6-8.5); Neutrophils Absolute Auto 4.2 K/mm3 (1.3-6.7); Neutrophils Percent Auto 62.9 % (45.5-73.1); Platelet Count Result 177 k/mm3 (150-375); Red Cell Distribution Width 17.2 % (11.5-14.5); White Blood Count 6.6 K/mm3 (4.5-10.0)
[2020-05-05 06:41] LABS: Anion Gap 4 mmol/L (8-16); Blood Urea Nitrogen 14 mg/dL (7-17); Calcium 8.3 mg/dL (8.4-10.2); Carbon Dioxide 26 mmol/L (22-30); Chloride 105 mmol/L (98-107); Estimated CRCL calculation 153 ml/min; Estimated Glomerular Filt Rate > 60; Glucose 150 mg/dL (65-105); Potassium 3.5 mmol/L (3.4-5.0); Sodium 135 mmol/L (137-145)
[2020-05-05 08:26] LABS: Glucose Point of Care 158 (65-105)
[2020-05-05] MEDS: FLUTICASONE/SALMETEROL 230-21 MCG INHALER 1 PUFF 2 PUFF INHALATION ×2 (09:06→21:42)
[2020-05-05] MEDS: APIXABAN 5 MG TABLET 10 MG PO (09:07)
[2020-05-05] MEDS: CITALOPRAM HYDROBROMIDE 20 MG TABLET PO (09:07)
[2020-05-05] MEDS: MAGNESIUM OXIDE 200 MG TABLET PO ×2 (09:08→21:00)
[2020-05-05] MEDS: FERROUS SULFATE 324 MG TABLET PO (09:08)
[2020-05-05] MEDS: lisinopriL 10 MG TABLET PO (09:08)
[2020-05-05] MEDS: LORATADINE 10 MG TABLET PO (09:08)
--- NOTE | 2020-05-05 11:27 | PM.TDS ---
Transfer Discharge Sum: Prov Provider Date of admission: 04/25/20 16:30 Primary care physician: Mansi Byrnes MD Admitting clinician: Ca Becerra MD Consults: 04/25/20 Consult to Physician Routine Comment: Consulting Provider: David York dog boarder/MD group to consult: dr kilpatrick pulmonary Reason for consultation: Pulmonary emboli an asthma Has provider been notified: Yes DS: Admitting Diagnosis Admitting Diagnosis Admitting Diagnosis: Critical illness related myopathy but in addition to underlying neuropathy as well because of the diabetes mellitus Transfer Discharge Sum: Med Medications Active and Home Medications: Home Medications cholecalciferol (vitamin D3) 25 mcg (1,000 unit) capsule 1,000 unit PO DAILY 02/15/19 [History Confirmed 04/25/20] ferrous sulfate 325 mg (65 mg iron) tablet 325 mg PO .3x week tablet 02/15/19 [History Confirmed 04/25/20] loratadine 10 mg tablet 10 mg PO DAILY 02/15/19 [History Confirmed 04/25/20] fluticasone 500 mcg-salmeterol 50 mcg/dose blistr powdr for inhalation 1 inhalation INHALATION Q12H #180 each 05/15/19 [Rx Confirmed 04/25/20] alprazolam 0.25 mg tablet 0.25 mg PO DAILY PRN #30 tablet 06/05/19 [Rx Confirmed 04/25/20] albuterol sulfate 2.5 mg INHALATION Q4-6H PRN #90 ml 03/17/20 [Rx Confirmed 04/25/20] benzonatate 200 mg PO TID PRN #21 cap 03/22/20 [Rx Confirmed 04/25/20] ondansetron 4 mg PO Q8H PRN #10 tablet 03/22/20 [Rx Confirmed 04/25/20] montelukast 10 mg PO HS 03/26/20 [History Confirmed 04/25/20] citalopram 20 mg PO DAILY 04/14/20 [History Confirmed 04/25/20] lisinopril 10 mg PO DAILY 04/14/20 [History Confirmed 04/25/20] acetaminophen [Mapap (acetaminophen)] 650 mg PO Q6H PRN #30 tablet 04/18/20 [Rx Confirmed 04/25/20] albuterol sulfate 5 mg INHALATION Q6HRT #30 ea 04/18/20 [Rx Confirmed 04/25/20] ascorbic acid (vitamin C) [Vitamin C] 1,000 mg PO DAILY #30 tablet 04/18/20 [Rx Confirmed 04/25/20] aspirin 325 mg PO DAILY@0800 #30 tablet 04/18/20 [Rx Confirmed 04/25/20] bisacodyl 10 mg RECTAL QAM PRN #12 ea 04/18/20 [Rx Confirmed 04/25/20] furosemide 40 mg PO DAILY #1 tablet 04/18/20 [Rx Confirmed 04/25/20] phenol [Chloraseptic Throat [place]] 1 spray MUCOUS MEMBRANE PRN PRN #20 ml 04/18/20 [Rx Confirmed 04/25/20] polyethylene glycol 3350 [Miralax] 17 g PO QAM PRN #30 ea 04/18/20 [Rx Confirmed 04/25/20] zinc sulfate 220 mg PO QAM #30 cap 04/18/20 [Rx Confirmed 04/25/20] acetaminophen 650 mg PO Q6H PRN 04/25/20 [History Confirmed 04/25/20] Active Medications Acetaminophen (Acetaminophen Elixir 325 Mg/10.15 Ml Udc) 650 mg PO Q6H PRN PRN Reason: Mild Pain (1-5) Or Fever Last Admin: 05/04/20 22:04 Dose: 650 mg Documented by: Hydrocodone Bitart/Acetaminophen (Hydrocodone/Acetaminophen (*Crx) 5-325 Mg Tablet) 1 tab PO Q4H PRN PRN Reason: Pain Rated 6-10 Last Admin: 05/03/20 16:05 Dose: 1 tab Documented by: Albuterol (Albuterol Sulfate Neb 2.5 Mg/0.5 Ml Inh) 2.5 mg INHALATION Q4HRT PRN PRN Reason: Shortness Of Breath Last Admin: 04/28/20 13:16 Dose: 2.5 mg Documented by: Alprazolam (Alprazolam (*Crx) 0.25 Mg Tablet) 0.25 mg PO TID PRN PRN Reason: anxiety Apixaban (Apixaban 5 Mg Tablet) 5 mg PO Q12HR PAULO Benzonatate (Benzonatate 100 Mg Capsule) 200 mg PO TID PRN PRN Reason: cough Bisacodyl (Bisacodyl 10 Mg Suppository) 10 mg RECTAL QAM PRN PRN Reason: Constipation Citalopram Hydrobromide (Citalopram Hydrobromide 20 Mg Tablet) 20 mg PO DAILY [facility] Last Admin: 05/05/20 09:07 Dose: 20 mg Documented by: Dextrose (Dextrose 50% 25 Gm/50 Ml Syringe) 12.5 gm IV PUSH PRN PRN; Protocol PRN Reason: Hypoglycemia Ferrous Sulfate (Ferrous Sulfate 324 Mg Tablet) 324 mg PO MoWeFr@0900 [facility] Last Admin: 05/05/20 09:08 Dose: 324 mg Documented by: Furosemide (Furosemide 40 Mg Tablet) 40 mg PO DAILY [facility] Last Admin: 04/29/20 10:46 Dose: Not Given Documented by: Gabapentin (Gabapentin 100 Mg Capsule) 100 mg PO [facility] Last Admin: 05/04/20 20:13 Dose
[2020-05-05 11:57] LABS: Glucose Point of Care 197 (65-105)
[2020-05-05] MEDS: HYDROcodone/acetaminophen (*CRX) 5-325 MG TABLET 1 TAB PO (13:08)
[2020-05-05 14:00] VITALS: BP 115/66; PULSE 116; RESP 20; TEMP 36.2; O2SAT 97
--- NOTE | 2020-05-05 14:26 | PM.IMPN ---
Progress Note: A&P Assessment and Plan (1) Pulmonary embolus: Qualifiers: Pulmonary embolism type: unspecified Chronicity: acute Acute cor pulmonale presence: unspecified Qualified Code(s): I26.99 - Other pulmonary embolism without acute cor pulmonale Code(s): I26.99 - Other pulmonary embolism without acute cor pulmonale Status: Acute Assessment and Plan: Patient with prolonged recovery from COVID-19 s/p intubation in the ICU admitted from the [facility] due to bilateral pulmonary emboli. -CTA chest 04/25 demonstrates bilateral acute pulmonary emboli without evidence of right heart strain - Echocardiogram with no acute changes compared to last echo last month. -Venous dopplers show no evidence of DVT in MAMTA upper or lower extremities. -She was initiated on heparin drip 04/25/20 and transitioned to Eliquis 04/28/20 -hgb stable -I discussed the risk of anticoagulation and what to look for. I am going to stop the aspirin since she has not had any history of stroke or heart disease and was just taking as a preventative. I am hoping she will need to be on this for 6 months since she this was a provoked PE. She should follow-up with her primary care physician about this. I called her primary care physician office and let them know about their stay and they agreed to follow-up with her in the office (2) Diabetes mellitus: Qualifiers: Diabetes mellitus type: type 2 Diabetes mellitus jail insulin use: without jail use Diabetes mellitus complication status: without complication Qualified Code(s): E11.9 - Type 2 diabetes mellitus without complications Code(s): E11.9 - Type 2 diabetes mellitus without complications Status: Inactive Assessment and Plan: Last glucose 197 -High this stay due to steroids and uncontrolled T2DM. Steroids have been stopped. -Pt was not on any DM medications before her COVID hospitlization due to diet control and inability to tolerate oral medications -because of her intolerance to oral medications, I am going to discharge her on 20 units of Lantus with medical supplies -educated her on hypoglycemia symptoms -she has a follow-up with her primary care physician for further adjustments. I have let their office know (3) RLL pneumonia: Qualifiers: Pneumonia type: due to unspecified organism Qualified Code(s): J18.9 - Pneumonia, unspecified organism Code(s): J18.9 - Pneumonia, unspecified organism Status: Acute Assessment and Plan: Right lower lobe pneumonia noted on CT chest. -She completed 7 days of vancomycin and aztreonam (4) Acute and chronic respiratory failure with hypercapnia: Code(s): J96.22 - Acute and chronic respiratory failure with hypercapnia Status: Acute Assessment and Plan: No on RA -Continue bipap at night She likely has VINNIE or obesity hypoventilation syndrome. Further outpatient testing with PFTs and sleep study could be beneficial. (5) COVID-19: Onset Date: ~03/18/20 Code(s): U07.1 - COVID-19 Status: Acute Assessment and Plan: COVID positive 03/18/20. Admitted 03/24/20 with severe hypoxemic respiratory failure required intubation 03/25 - 04/08/20. Complicated by cardiac arrest 03/31/2019. Discharged to [facility] 04/18/20. (6) Asthma: Qualifiers: Asthma severity: unspecified severity Asthma persistence: unspecified Asthma complication type: unspecified Qualified Code(s): J45.909 - Unspecified asthma, uncomplicated Code(s): J45.909 - Unspecified asthma, uncomplicated Status: Chronic Assessment and Plan: Continue Advair and Spiriva as well as albuterol (7) Anxiety: Code(s): F41.9 - Anxiety disorder, unspecified Status: Chronic Assessment and Plan: Continue with Xanax and Celexa. (8) Benign essential hypertension: Code(s): I10 - Essential (primary) hypertension Status:
[2020-05-05 17:12] LABS: Glucose Point of Care 164 (65-105)
[2020-05-05] MEDS: MONTELUKAST SODIUM 10 MG TABLET PO (21:00)
[2020-05-05] MEDS: APIXABAN 5 MG TABLET PO (21:00)
[2020-05-05] MEDS: GABAPENTIN 100 MG CAPSULE PO (21:00)
[2020-05-05] MEDS: INSULIN GLARGINE (*BKC) 100 UNITS/ML 25 UNITS SUB-Q (21:01)
[2020-05-05 21:22] LABS: Glucose Point of Care 192 (65-105)
[2020-05-05 22:00] VITALS: BP 107/66; PULSE 100; RESP 20; TEMP 36.6; O2SAT 95
[2020-05-05 22:06] VITALS: PULSE 74; O2SAT 94
[2020-05-05] MEDS: ACETAMINOPHEN ELIXIR 325 MG/10.15 ML UDC 650 MG PO (22:31)
[2020-05-06 02:21] VITALS: PULSE 90; O2SAT 92
[2020-05-06 05:43] VITALS: BP 119/70; PULSE 83; RESP 20; TEMP 36.3; O2SAT 95
[2020-05-06 08:49] LABS: Glucose Point of Care 174 (65-105)
[2020-05-06] MEDS: FLUTICASONE/SALMETEROL 230-21 MCG INHALER 1 PUFF 2 PUFF INHALATION (08:53)
[2020-05-06] MEDS: CITALOPRAM HYDROBROMIDE 20 MG TABLET PO (08:54)
[2020-05-06] MEDS: APIXABAN 5 MG TABLET PO (08:54)
[2020-05-06] MEDS: LORATADINE 10 MG TABLET PO (08:55)
[2020-05-06] MEDS: lisinopriL 10 MG TABLET PO (08:55)
[2020-05-06] MEDS: MAGNESIUM OXIDE 200 MG TABLET PO (08:55)
[2020-05-06] MEDS: HYDROcodone/acetaminophen (*CRX) 5-325 MG TABLET 1 TAB PO (09:38)
--- NOTE | 2020-05-06 11:04 | PCRCNOTE ---
Spoke with Divya at [facility] regarding patient's home CPAP unit. Unit is approximately 9 years old and the patient reports that she has not been wearing it at home. Per Divya, the patient will require a new sleep study to obtain a new CPAP device. Patient understands the plan and is also aware that she should use her current CPAP device until she can complete testing and obtain a new device.
--- NOTE | 2020-05-06 11:41 | PM.DS ---
DS: Admitting Diagnosis Admitting Diagnosis Admitting Diagnosis: Pulmonary emboli DS: Discharge Diagnosis Discharge Diagnosis (1) Pulmonary embolus: Qualifiers: Pulmonary embolism type: unspecified Chronicity: acute Acute cor pulmonale presence: unspecified Qualified Code(s): I26.99 - Other pulmonary embolism without acute cor pulmonale Code(s): I26.99 - Other pulmonary embolism without acute cor pulmonale Status: Acute Assessment and Plan: Date of Admission 04/25/20 Date of Discharge/DOS 05/06/20 Ms. Feng is a 55 yo F with history of type 2 diabetes, hypertension, anxiety who was admitted back into to the hospital from our inpatient rehab floor after being found to have MAMTA pulmonary emboli on CTA. She has been in our facility since she was admitted 03/24/20 for respiratory failure secondary to COVID. She was discharged to [facility] 04/18/20 - please see that discharge summary for further details of her previous inpatient stay. In general, she has prolonged recovery from COVID-19 s/p intubation in the ICU, cardiac arrest. While in [facility] she had worsening shortness of breath which prompted pulmonology consultation and CTA chest, demonstrating MAMTA pulmonary emboli and right-sided pneumonia. Pulmonology was again consulted. She was maintained on 4L/min nasal cannula supplemental O2 and intermittent BiPAP. She was treated with IV steroids given her history of asthma, as well as 7 day course of IV abx with aztreonam and vancomycin for new RLL pneumonia. She was started on anticoagulation with heparin drip for treatment of PE which was transitioned to oral Eliquis. Her progress with PT/OT was certainly set back given her acute illness and she again was unable to ambulate with therapy for several days. She developed myelopathy with right foot drop and left arm weakness; MRI C spine, L spine and brain without acute pathology. She did make slow progress with therapy and was walking with a walker on day of discharge. She was started on insulin due to elevated blood sugars and inability to tolerate oral hypoglycemics. She was educated on checking her blood sugars regularly and follow up with PCP. She was weaned off supplemental O2 and tolerating room air with adequate saturations day of discharge. Overall she has made slow but good improvement and is hemodynamically stable for discharge home with family with home health. Patient admitted with pulmonary emboli, pneumonia, and myelopathy which are suspected to be residuals from her illness with COVID-19. -CTA chest 04/25 demonstrates bilateral acute pulmonary emboli without evidence of right heart strain - Echocardiogram with no acute changes compared to last echo last month. -Venous dopplers show no evidence of DVT in MAMTA upper or lower extremities. -She was initiated on heparin drip 04/25/20 and transitioned to Eliquis 04/28/20 - Hgb stable without evidence of bleeding. She was educated on her anticoagulation and to monitor for signs of bleeding. Stop ASA. Follow up with PCP. Previous hospitalist discussed discharge follow up with PCP and they will see her in the office. 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 Steroids have been stopped. -Pt was not on any DM medications before her COVID hospitlization due to diet control and inability to tolerate oral medications -Because of her intolerance to oral medications, I am going to discharge her on 20 units of Lantus with medical supplies -Educated her on
[2020-05-06] MEDS: INSULIN ASPART (*BKC) 100 UNITS/ML SUB-Q (12:32)
[2020-05-06 14:00] VITALS: BP 125/76; PULSE 113; RESP 20; TEMP 36.2; O2SAT 99
--- NOTE | 2020-05-06 14:31 | PCSTNOTE ---
Speech Pathologist provided patient with a list of appropriate exercises to continue at home between discharge home and initiation of Speech Therapy services through Home Health. She voiced good understanding and is able to demonstrate good ability to complete these exercises.
[2020-05-06 15:30] VITALS: O2SAT 87
[2020-05-06 22:06] LABS: Glucose Point of Care 206 (65-105)
== END 2020-05-06 15:55 | disposition home health service (06) | DRG 134 ==
PROVIDERS: Family Medicine; Internal Medicine; Internal Medicine Critical Care Medicine; Nurse Practitioner; Physician Assistant; Psychiatry & Neurology Neurology; Admitting Provider Family Medicine; PCP Family Medicine; Visit Provider Physician Assistant
DX: I26.99 Other pulmonary embolism without acute cor pulmonale (principal); B94.8 Sequelae of other specified infectious and parasitic diseases; J96.21 Acute and chronic respiratory failure with hypoxia; J96.22 Acute and chronic respiratory failure with hypercapnia; J18.9 Pneumonia, unspecified organism; G72.81 Critical illness myopathy; J44.0 Chronic obstructive pulmonary disease with (acute) lower respiratory infection; Z20.822 Contact with and (suspected) exposure to COVID-19; E66.2 Morbid (severe) obesity with alveolar hypoventilation; F41.9 Anxiety disorder, unspecified; M21.371 Foot drop, right foot; R04.2 Hemoptysis; J45.901 Unspecified asthma with (acute) exacerbation; G47.33 Obstructive sleep apnea (adult) (pediatric); E11.42 Type 2 diabetes mellitus with diabetic polyneuropathy; R91.8 Other nonspecific abnormal finding of lung field; D50.9 Iron deficiency anemia, unspecified; K76.0 Fatty (change of) liver, not elsewhere classified; K44.9 Diaphragmatic hernia without obstruction or gangrene; Z68.43 Body mass index [BMI] 50.0-59.9, adult; Z85.528 Personal history of other malignant neoplasm of kidney; Z87.891 Personal history of nicotine dependence
CPT/HCPCS: 36415; 36600; 70551; 71045; 71552; 72158; 73030; 73070; 73090; 80048; 80053; 80076; 80202; 81001; 82805; 82948; 83735; 84145; 85014; 85018; 85025; 85027; 85610; 85730; 87040; 87086; 92526; 92610; 93306; 94002; 94003; 94618; 94640; 97110; 97116; 97161; 97165; 97530; 97535; A4565; A9270; A9577; C9803; J1644; J1815; J2060; J2920; J3370; J3475; U0003; U0005

== ENCOUNTER 2020-05-12 12:54 | Outpatient (NON) | payer OTHER, SELFPAY ==
[2020-05-12 13:35] LABS: Hematocrit 37.8 % (37.0-47.0); Mean Corpuscular HGB Conc 31.7 g/dl (32-36); Mean Corpuscular Hemoglobin 27.3 pg (26-34); Mean Corpuscular Volume 86.1 fl (80-100); Mean Platelet Volume 10.2 fl (7.4-10.4); Platelet Count Result 204 k/mm3 (150-375); Red Blood Count 4.39 M/mm3 (4.2-5.4); Red Cell Distribution Width 16.1 % (11.5-14.5)
[2020-05-12 13:47] LABS: Alanine Aminotransferase 29 U/L (4-35); Albumin Level 3.5 g/dL (3.5-5.1); Alkaline Phosphatase 61 U/L (38-126); Anion Gap 4 mmol/L (8-16); Aspartate Amino Transferase 24 U/L (14-36); Bilirubin,Total 0.5 mg/dL (0.2-1.3); Blood Urea Nitrogen 7 mg/dL (7-17); Carbon Dioxide 30 mmol/L (22-30); Chloride 104 mmol/L (98-107); Cholesterol 179 mg/dL (0-200); Estimated Glomerular Filt Rate > 60; Glucose 206 mg/dL (65-105); HDL Direct 36 mg/dL; Potassium 3.3 mmol/L (3.4-5.0); Sodium 138 mmol/L (137-145); Triglycerides 232 mg/dL (<150)
[2020-05-12 13:58] LABS: LDL Cholesterol Direct 107 mg/dL
[2020-05-12 14:44] LABS: Creatinine Urine 166.8 mg/dL
[2020-05-12 14:51] LABS: MALB Creatinine Ratio 41.2 mg/g (0-30); Microalbumin Urine Random 68.7 mg/L (0-16.7)
== END 2020-05-12 12:55 ==
PROVIDERS: PCP Family Medicine; Visit Provider Family Medicine
DX: U07.1 COVID-19 (principal); J12.82 Pneumonia due to coronavirus disease 2019; J96.01 Acute respiratory failure with hypoxia; I21.4 Non-ST elevation (NSTEMI) myocardial infarction
CPT/HCPCS: 80053; 80061; 82043; 83036; 84443; 85027

== ENCOUNTER 2020-05-29 12:37 | Emergency (ER) | payer OTHER, SELFPAY ==
[2020-05-29] VITALS (9 sets, daily range): BP systolic 102–146; BP diastolic 78–97; PULSE 88–109; RESP 15–22; TEMP 36.7; O2SAT 91–97
--- NOTE | ~2020-05-29 | CT_ITS ---
EXAMINATION: CT abdomen pelvis w con DATE: 05/29/2020 14:10 INDICATION: Abdominal pain and constipation TECHNIQUE: Computed tomography (CT) of the abdomen and pelvis was performed with 100 mL Omnipaque-350 intravenous contrast. Automated exposure control and iterative reconstruction technique were employe d. The dose-length product was 1778.70 mGy-cm. COMPARISON: 11/27/2019 and 12/20/2016 FINDINGS: Atelectasis at the bilateral lung bases greatest the right lower lobe and to lesser degree in the rig ht middle, left lower lobes and lingula. A couple chronic 5-6 mm left lower lobe pulmonary nodules wi thout significant change since 12/20/2016 most likely benign granuloma. Heart size is normal. No peric ardial or pleural effusion. Adjustable laparoscopic banding procedure with normal phi angle of approx imately 37 degrees and with reservoir in the subcutaneous fat in the left supra umbilical region. Dif fuse hepatic steatosis. Nonspecific splenomegaly measuring 15.2 cm in length which could be related t o body habitus. Gallbladder, pancreas, bilateral adrenal glands and left kidney are normal. No interv al change in a region of likely fat necrosis with central calcification and a cortical defect at the lower pole of the right kidney consistent with sequela of prior cryoablation. Normal appendix. A few scattered colonic diverticula without adjacent inflammatory change to suggest diverticulitis. There i s wall thickening and inflammatory stranding at the rectum and distal sigmoid colon which is full of a moderate amount of stool. Differential would include to stercoal, infectious, inflammatory or less likely ischemic colitis. No bowel obstruction. Bladder, anteverted uterus and bilateral adnexa are un remarkable. No free intraperitoneal gas or fluid. No pathologically enlarged abdominal or pelvic lymp hadenopathy. Midline infraumbilical surgical scar along with a couple small supraumbilical fat-contai hung ventral hernias. L4 spondylolysis with bilateral pars intra-articular is defects, severe disc he ight loss and 7 mm anterolisthesis on L5. Otherwise mild thoracolumbar spondylosis. IMPRESSION: 1. Wall thickening and surrounding inflammatory stranding at the stool-filled rectum and distal sigmo id colon which could be due to stercoal, infectious, inflammatory or less likely ischemic colitis. 2. Diffuse hepatic steatosis. 3. Nonspecific splenomegaly which could be due to body habitus. 4. Mild diverticulosis. 5. Small fat-containing supraumbilical ventral hernias. 6. Cryoablation changes with stable appearance of a small region of fat necrosis at the lower pole of the left kidney. 7. L4 spondylolysis with grade 1 anterolisthesis on L5. Reviewed, dictated and finalized at location B. IMPRESSION: 1. Wall thickening and surrounding inflammatory stranding at the stool-filled r ectum and distal sigmoid colon which could be due to stercoal, infectious, infl ammatory or less likely ischemic colitis. 2. Diffuse hepatic steatosis. 3. Nonspecific splenomegaly which could be due to body habitus. 4. Mild diverticulosis. 5. Small fat-containing supraumbilical ventral hernias. 6. Cryoablation changes with stable appearance of a small region of fat necrosi s at the lower pole of the left kidney. 7. L4 spondylolysis with grade 1 anterolisthesis on L5.
--- NOTE | 2020-05-29 13:08 | ED.ABDPAIN ---
HPI - Abdominal Pain General Chief Complaint: Abdominal Pain Stated Complaint: ?IMPACTION Source: patient and family History of Present Illness HPI narrative: Patient is 55 years old white female presents with general abdominal pain started earlier today associated with nausea. Patient denies any fever, chills, vomiting, diarrhea, urinary symptoms. Patient reports no bowel movement for the last 5 days. Patient denies any new medication, or new diet. History of section, abdominal hernia repair twice, gastric band, diabetes, hypertension and asthma. Patient denies smoking or drinking. History of COVID-19 infection, was on vent for 1-1/2 months in our hospital, discharged 1 month ago Related Data Home Medications Medication Instructions Recorded Confirmed cholecalciferol (vitamin D3) 25 1,000 unit PO DAILY 02/15/19 05/14/20 mcg (1,000 unit) capsule loratadine 10 mg tablet 10 mg PO DAILY 02/15/19 05/14/20 montelukast 10 mg PO HS 03/26/20 05/14/20 citalopram 20 mg PO DAILY 04/14/20 05/14/20 lisinopril 10 mg PO DAILY 04/14/20 05/14/20 Allergies Allergy/AdvReac Type Severity Reaction Status Date / Time peach Allergy Severe ANAPHYLAXIS Verified 05/29/20 12:53 plum Allergy Severe ANAPHALYXIS Verified 05/29/20 12:53 cephalexin Allergy Unknown Skin Verified 05/29/20 12:53 Reaction citalopram Allergy Unknown severe Verified 05/29/20 12:53 itching metformin Allergy Unknown abdominal Verified 05/29/20 12:53 pain ( gastric band) Penicillins Allergy Unknown reaction Verified 05/29/20 12:53 not available sitagliptin [Januvia] Allergy Unknown pancreatiti Verified 05/29/20 12:53 s Sulfa (Sulfonamide Allergy Unknown reaction Verified 05/29/20 12:53 Antibiotics) not available NECTARINES Allergy Severe ANAPHYLAXIS Uncoded 05/29/20 12:53 Review of Systems Review of Systems: Narrative: CONSTITUTIONAL: Denies fever, chills, or sweats. EYES: Denies visual changes, redness, or discharge. ENT: Denies rhinorrhea, congestion, sore throat, or otalgia. CARDIOVASCULAR: Denies chest pain, palpitations, or edema. RESPIRATORY: Denies cough or dyspnea. GASTROINTESTINAL: Denies abdominal pain, nausea, vomiting, or diarrhea. GENITOURINARY: Denies dysuria or hematuria. SKIN: Denies rash or itching. MUSCULOSKELETAL: Denies back pain, joint pain, or myalgia. NEUROLOGIC: Denies headache, numbness, or weakness. PSYCHIATRIC: Denies anxiety or depression. [facility] Past Medical History Medical History Acute and chronic respiratory failure with hypercapnia Acute respiratory failure due to COVID-19 Acute respiratory failure with hypoxia Anxiety Benign essential hypertension Cardiac arrest COVID-19 (~03/18/20) acute respiratory failure with hypoxia due to COVID-19, ventilator dependence form 03/25 through 04/08,S aureus sepsis, anemia, leukocytosis, hyponatremia, hypocalcemia, hyperglycemia, AKA, hypoalbuminemia, hypokalemia, UTI, asthma, elevated troponins, nonalcoholic fatty liver disease, type 2 diabetes without complication and hemoglobin A1c 8.5 on March 24, 2020, non STEMI, benign essential hypertension 1.5.21 covid positive 1.30.21 covid negative Difficulty breathing Elevated troponin Essential hypertension Fatty (change of) liver, not elsewhere classified Hemoptysis (04/25/20) Hiatal hernia History of kidney cancer Incidental lung nodule, > 3mm and < 8mm 2020 ct: stable 2020:ct: 8 mm left lower lobe nodule noted on chest CT taken Iron deficiency anemia Morbid obesity Non-alcoholic fatty liver disease NSTEMI (non-ST elevated myocardial infarction) Postmenopausal Pulmonary nodules Stable most likely benign Respiratory arrest Coded and revived RLL pneumonia Severe sepsis Umbilical hernia without mention of obstruction or gangrene UTI (urinary tract infection) Ventral hernia without obstruction or gangrene Surgical History Surgical Histor
[2020-05-29] MEDS: SODIUM CHLORIDE 0.9% IV 1,000 ML 999 ML IV CONT (13:15)
[2020-05-29] MEDS: MORPHINE SULFATE (*CRX) 4 MG/ML INJ IV PUSH (13:19)
[2020-05-29] MEDS: ONDANSETRON INJ 4 MG/2 ML VIAL IV PUSH (13:20)
[2020-05-29 13:32] LABS: Basophils Absolute Auto 0.1 K/mm3 (0.0-0.1); Basophils Percent Auto 0.6 % (0.2-1.2); Eosinophils Absolute Auto 0.2 K/mm3 (0-0.3); Eosinophils Percent Auto 2.5 % (0-4.4); Hematocrit 39.7 % (37.0-47.0); Hemoglobin 12.5 g/dL (12.0-15.0); Immature Granulocyte Absolute 0.14 K/mm3 (0.00-0.031); Immature Granulocyte Percent A 1.5 % (0-0.5); Lymphocytes Absolute Auto 1.54 K/mm3 (0.9-3.2); Lymphocytes Percent Auto 16.5 % (18.3-44.2); Mean Corpuscular HGB Conc 31.5 g/dl (32-36); Mean Corpuscular Hemoglobin 26.7 pg (26-34); Mean Corpuscular Volume 84.8 fl (80-100); Mean Platelet Volume 9.9 fl (7.4-10.4); Monocytes Absolute Auto 0.6 K/mm3 (0.1-0.6); Monocytes Percent Auto 6.5 % (2.6-8.5); Neutrophils Absolute Auto 6.7 K/mm3 (1.3-6.7); Neutrophils Percent Auto 72.4 % (45.5-73.1); Platelet Count Result 287 k/mm3 (150-375); Red Blood Count 4.68 M/mm3 (4.2-5.4); Red Cell Distribution Width 15.1 % (11.5-14.5); White Blood Count 9.3 K/mm3 (4.5-10.0)
[2020-05-29 13:47] LABS: Alanine Aminotransferase 15 U/L (4-35); Albumin Level 3.5 g/dL (3.5-5.1); Alkaline Phosphatase 57 U/L (38-126); Anion Gap 6 mmol/L (8-16); Aspartate Amino Transferase 19 U/L (14-36); Bilirubin,Total 0.4 mg/dL (0.2-1.3); Blood Urea Nitrogen 9 mg/dL (7-17); Calcium 8.8 mg/dL (8.4-10.2); Carbon Dioxide 30 mmol/L (22-30); Chloride 103 mmol/L (98-107); Estimated CRCL calculation 184 ml/min; Estimated Glomerular Filt Rate > 60; Glucose 202 mg/dL (65-105); Lipase 52 U/L (23-300); Potassium 3.8 mmol/L (3.4-5.0); Sodium 139 mmol/L (137-145)
[2020-05-29 14:12] LABS: Lactic Acid Reflex 1.1 mmol/L (0.7-2.1)
[2020-05-29 15:10] LABS: Add Urine Microscopic? YES; Appearance Urine Clear (Clear); Bilirubin Urine Negative (Negative); Blood Urine Negative (Negative); Color Urine Yellow (Yellow); Glucose Urine UA Negative (Negative); Ketones Urine 1+ mg/dL (Negative); Leukocyte Esterase Ur Negative LEU/UL (Negative); Mucus Urine Rare /lpf; Nitrate Urine Negative (Negative); Protein Urine Negative (Negative); RBC Urine 0-2 /hpf (0-2); Specific Grav Ur 1.026 (1.001-1.035); Squamous Epithelial Cell Urine Rare /hpf (Few); Urobilinogen Urine Negative mg/dL (<2.0); WBC Urine 0-3 /hpf
--- NOTE | 2020-05-29 17:09 | PC.NURSE ---
[facility] declined return trip [facility] accepted return trip ETA 1800 Trip#[id number]
--- NOTE | 2020-05-29 17:54 | PC.NURSE ---
updated eta for [facility] 211
[2020-05-29 21:07] LABS: Glucose Point of Care 112 (65-105)
--- NOTE | 2020-05-29 22:57 | PC.NURSE ---
[facility] has arrived
== END 2020-05-29 23:30 | disposition home or self-care (01) ==
PROVIDERS: Emergency Provider Emergency Medicine; PCP Family Medicine
DX: K52.9 Noninfective gastroenteritis and colitis, unspecified (principal); K59.00 Constipation, unspecified; I10 Essential (primary) hypertension; J45.909 Unspecified asthma, uncomplicated; Z86.16 Personal history of COVID-19; J96.12 Chronic respiratory failure with hypercapnia; E66.01 Morbid (severe) obesity due to excess calories; Z68.42 Body mass index [BMI] 45.0-49.9, adult; E11.9 Type 2 diabetes mellitus without complications; I25.2 Old myocardial infarction; Z85.528 Personal history of other malignant neoplasm of kidney; Z87.891 Personal history of nicotine dependence; Z98.84 Bariatric surgery status; K76.0 Fatty (change of) liver, not elsewhere classified; R16.1 Splenomegaly, not elsewhere classified; K57.90 Diverticulosis of intestine, part unspecified, without perforation or abscess without bleeding; K43.9 Ventral hernia without obstruction or gangrene; M43.06 Spondylolysis, lumbar region; Z79.4 Long term (current) use of insulin; Z79.01 Long term (current) use of anticoagulants
CPT/HCPCS: 36415; 51701; 74177; 80053; 81001; 82948; 83605; 83690; 85025; 96361; 96374; 96375; 99284; J2270; J2405; J7030; Q9967

== ENCOUNTER 2020-06-13 15:28 | Outpatient (CLI) | payer OTHER, SELFPAY ==
--- NOTE | ~2020-06-13 | XR_ITS ---
XR chest 2V 06/13/2020 15:49 Indication: Pneumonia Procedure: 2 view chest Comparison: 04/27/2020 Findings: There are linear infiltrates of the lower lung zones bilaterally, right greater than left. Heart size normal. No edema, pleural effusion or pneumothorax. No acute osseous abnormality. Impression: 1: Bandlike linear infiltrates of the lower lungs which may represent atelectasis and/or developing p neumonia. Reviewed, dictated and finalized at location B. Impression: 1: Bandlike linear infiltrates of the lower lungs which may represent atelectas is and/or developing pneumonia.
== END 2020-06-13 15:29 | disposition home or self-care (01) ==
LOC: ANHIMG 15:34
PROVIDERS: PCP Family Medicine; Visit Provider Family Medicine
DX: J18.9 Pneumonia, unspecified organism (principal)
CPT/HCPCS: 71046

== ENCOUNTER 2020-08-25 15:20 | Outpatient (CLI) | payer OTHER, SELFPAY ==
--- NOTE | ~2020-08-25 | CT_ITS ---
EXAMINATION: CT chest high resolution wo co DATE: 08/25/2020 15:55 INDICATION: Recent Covid and infection. Shortness of breath. TECHNIQUE: Computed tomography (CT) of the chest was performed without intravenous contrast. The dose -length product was 966.22 mGy-cm. Automated exposure control and iterative reconstruction technique were employed. COMPARISON: Comparison to multiple prior studies sequentially, with oldest reviewed study dated 10/03.. FINDINGS: Heart size is normal. No significant pleural or pericardial effusion. There is a laparoscop ic gastric adjustable band. Heart size is normal. No significant pleural or pericardial effusions. No thoracic lymphadenopathy. There are focal areas of linear consolidation in the right middle lobe, li ngula and right lower lobe, most likely atelectasis. Pneumonia less favored. Stable 5 mm left lower l obe nodule, image 86. I've millimeter left lower lobe nodule, image. 5 mm left lower lobe nodule, chet ge 65. Small subsolid left lower lobe nodule, image 76, measures 3 mm. There is a 4 mm left lower lob e nodule, image 91. No endobronchial lesions. The pulmonary nodules are not significantly changed ibrahima ing back to 10/03/2017. IMPRESSION: 1. Multiple left lower lobe nodules, one of which appears new since prior examination. The nodules me asure up to 5 mm. These are likely benign, although 6 month follow-up low dose CT chest recommended. 2: Focal linear consolidation right middle lobe, lingula and right lower lobe, most likely atelectasi s. Pneumonia less favored. Reviewed, dictated and finalized at location A. IMPRESSION: 1. Multiple left lower lobe nodules, one of which appears new since prior exami [facility]. The nodules measure up to 5 mm. These are likely benign, although 6 mon th follow-up low dose CT chest recommended. 2: Focal linear consolidation right middle lobe, lingula and right lower lobe, most likely atelectasis. Pneumonia less favored.
== END 2020-08-25 15:21 | disposition home or self-care (01) ==
PROVIDERS: PCP Family Medicine; Visit Provider Family Medicine
DX: B94.8 Sequelae of other specified infectious and parasitic diseases (principal); J45.50 Severe persistent asthma, uncomplicated; R93.89 Abnormal findings on diagnostic imaging of other specified body structures; Z85.528 Personal history of other malignant neoplasm of kidney; R91.8 Other nonspecific abnormal finding of lung field
CPT/HCPCS: 71250

== ENCOUNTER 2020-10-02 10:00 | Outpatient (RCR) | payer OTHER, SELFPAY ==
--- NOTE | 2020-07-08 14:50 | OTOPEVAL ---
OCCUPATIONAL THERAPY EVALUATION REPORT 07/08/20 Thank you for referring Tereza Feng to [facility].? The patient is scheduled to be seen for therapy? 2x/week for 5 weeks. Planning for 1-2x/week land and 0-1x/week aquatic sessions as the schedule allows. Please review, sign, date and return this plan of care NICANOR. I agree with and certify that the following plan of care is medically necessary. Referring Physician Date Referring Provider: Mansi Byrnes MD *OT Outpatient Evaluation Start: 07/08/20 13:45 Freq: Status: Active Protocol: Document 07/08/20 13:46 KO (Rec: 07/08/20 14:35 KO [id number]) Therapy Assessment Status Assessment Status Assessment Status Evaluation Outpatient Past Medical History Neurological History Hx Neurological Disorders No Significant History Cardiovascular History Hx Cardiac Disorders No Significant History Respiratory History Hx Asthma Yes Hx Chronic Obstructive Pulmonary Disease Yes (COPD) Gastrointestinal History Hx Gastroesophageal Reflux Disease Yes Genitourinary History Hx Genitourinary Disorders No Significant History Musculoskeletal History Hx Musculoskeletal Disorders No Significant History Hematological History Hx Hematological Disorders No Significant History Endocrine History Hx Diabetes Yes HEENT History Hx HEENT Disorders No Significant History Integumentary History Hx Skin Disorders No Significant History Reproductive History Hx Post Menopausal Yes Psychosocial History Hx Anxiety Yes Hx Depression Yes Pain History History of Any Previous or Ongoing No Significant History Instance of Pain Anesthesia History Hx Anesthesia Reactions No Significant History Evaluation Information Problem Additional Evaluation Detail Mar 24, 2020 - To ED with COVID PNA Mar 31, 2020 - [place] Patient spent a total of 2.5 weeks on a ventilator in the ICU. Subjective Information Patient reports, When I woke Query Text:As Reported By Patient/ up off the ventilator, I Family couldn't move anything . States she finally left the hospital May 06, 2020. Home health OT/PT and nursing began that week. Home health ended last week. Complications from her lengthy hospitalization include: left brachial plexus injury, right foot drop, and generali
--- NOTE | 2020-07-08 15:55 | PTOPEVAL ---
PHYSICAL THERAPY EVALUATION AND PLAN OF CARE 07-08-20 Thank you for referring Tereza Feng to [facility] for weakness and debility s/p COVID hospitalization and complications. ?Tereza is scheduled to be seen for Physical Therapy? 2 x/week for 5 weeks. Please review, sign, date and return this plan of care NICANOR. I agree with and certify that the following plan of care is medically necessary. Referring Physician Date Referring Provider: Mansi Byrnes MD PT Outpatient Evaluation Document 07/08/20 14:40 ANJANA (Rec: 07/08/20 15:55 ANJANA [id number]) Past Medical History Source of Past Medical History Recalled from Previous Visit, Confirmed with Patient/Family Neurological History Hx Neurological Disorders No Significant History Cardiovascular History Hx Cardiac Disorders No Significant History Respiratory History Hx Asthma Yes Hx Chronic Obstructive Pulmonary Disease Yes (COPD) Gastrointestinal History Hx Gastroesophageal Reflux Disease Yes Genitourinary History Hx Genitourinary Disorders No Significant History Musculoskeletal History Hx Musculoskeletal Disorders No Significant History Hematological History Hx Hematological Disorders No Significant History Endocrine History Hx Diabetes Yes: meds HEENT History Hx HEENT Disorders No Significant History Integumentary History Hx Skin Disorders No Significant History Reproductive History Hx Post Menopausal Yes Psychosocial History Hx Anxiety Yes Hx Depression Yes Pain History History of Any Previous or Ongoing No Significant History Instance of Pain Anesthesia History Hx Anesthesia Reactions No Significant History Evaluation Information Problem Diagnosis LE weakness, hospitalization Onset Mar 24, 2020 Subjective Information Hospitalized due to COVID, was Query Text:As Reported By Patient/ intubated, cardiac arrest, PE Family , pneumonia; was on Rehab , then had PE, returned to acute, then home May 06; had C and discharged from [facility] last week; returned to ER few weeks ago , due to bowel obstruction, was not admitted; is going later this week to [facility] covid clinic for an assessment by team there and will continue there for follow up and treatments for COVD; Prior Level of Function Activity Level (Last 3 Months) Occupation
--- NOTE | 2020-07-31 13:12 | PCPTNOTE ---
Patient called & cancelled scheduled appointment this date due to not feeling well.
--- NOTE | 2020-07-31 14:41 | PCOTNOTE ---
Patient called & cancelled scheduled appointment this date due to being sick.
--- NOTE | 2020-08-12 13:50 | OTOPEVAL ---
OCCUPATIONAL THERAPY RE-EVALUATION REPORT 08/12/20 Tereza has made progress with every joint of the left UE. She has less pain with movement, more strength, and improved flexibility which has carried over into everyday tasks such as grooming, bathing, and meal prep. She continues to have functional limitations due to residual weakness and distal hand contracture and will greatly benefit from continued skilled OT for these deficits and to progress HEP. Thank you for referring Tereza Feng to [facility].? The patient is scheduled to be seen for therapy? 2x/week for 5 weeks. Plan to continue 1x/week land and 1x/week aquatic sessions. Please review, sign, date and return this plan of care NICANOR. I agree with and certify that the following plan of care is medically necessary. Referring Physician Date Referring Provider: Mansi Byrnes MD *OT Outpatient Re-Evaluation Start: 07/08/20 13:45 Problem Diagnosis Left UE weakness, brachial plexus injury Additional Evaluation Detail Tereza has been participating in outpatient OT x4 weeks. Treatments have included aquatic therapy for shoulder ROM and strengthening as the buoyancy and resistance of the water is the perfect environment for her L UE due to pain and weakness. Land treatments have been focusing on HEP education, strengthening, and distal ROM and dexterity. Subjective Information Patient reports that her left Query Text:As Reported By Patient/ arm is more flexible, Family stronger, and has less shoulder pain. She states she is now bathing on her own, using the left arm to help wash her hair, and wash her body. She is now dressing herself independently, except for tying shoes and fastening her bra. She now is able to do her own hair also. Tereza also reports that she cooked dinner the other night with assist to chop veggies. Has not tried to do laundry, yet, has some reservations about carrying a laundry basket. She still has not returned to driving and reports she would like to eventually get to work out at the [facility]. She also is
--- NOTE | 2020-08-12 14:28 | PTOPEVAL ---
PHYSICAL THERAPY REEVALUATION AND UPDATED PLAN OF CARE 08-12-20 Refer to the clinical summary below for her status with today's reeval, compared to the initial evaluation. Continue PT 2x/week for 3 weeks, to further increase LE strength, balance, gait and mobility skills. Thank you for referring Tereza Feng to [facility].? Please review, sign, date and return this updated plan of care [facility]. I agree with and certify that the following plan of care is medically necessary. Referring Physician Date Attending Provider: Mansi Byrnes MD Document 08/12/20 13:35 ANJANA (Rec: 08/12/20 14:28 ANJANA [id number]) Assessment Status Re-evaluation Subjective Information Tereza reports: have more Query Text:As Reported By Patient/ energy and am stronger; no Family falls; went out to the grocery store and plant store; no longer have dizziness, except when lie down; using cane sometimes for security; wants to return to [facility] for water exercises and some of the fitness equipment; asked about driving--discussed to try in parking lot with her mom; mom helps with transportation, tie shoes, going to start and is doing more cooking, cleaning and home tasks; motivated and wants to continue therapy; goal to increase leg strength, getting R foot motion stronger, may need to get a plastic, bigger brace; Pain Assessment Timing of Pain Assessment Timing of Pain Assessment Assessment Pain Scale Pain Scale Used Numeric (1 - 10) Self Report Pain Assessment Left Arm(s) Reported Pain Level 3 Pain Score Pain Score 3: Self Report Interventions Used Interventions Used By Clinicians Education Lower Extremity Muscle Strength Testing General Lower Extremity Strength Gross Lower Extremity Strength single leg standing R 3/ L 7 seconds; sitting: R: no active toe extension/ toe flexion 3/5; ankle DF no active motion; ankle inversion to 20' x 20 reps; ankle eversion no active motion; pt asked about home stim unit-discuss Transfer Assessment Floor Transfer Assessment Sit to Floor Transfer Ability Independent Floor to Sit Transfer Ability
--- NOTE | 2020-09-01 12:30 | PCPTNOTE ---
Patient called & cancelled scheduled appointment this date due to SOB.
--- NOTE | 2020-09-01 12:31 | PCOTNOTE ---
Patient called & cancelled scheduled appointment this date due to having shortness of breath.
--- NOTE | 2020-09-03 13:10 | PTOPEVAL ---
PHYSICAL THERAPY DISCHARGE 09-03-20 Refer to the clinical summary below for the comparison of today's status to the last reevaluation. The goals were achieved. She is doing well with her mobility and balance. Discharge PT services. Thank you for referring Tereza Feng to [facility].? Please review, sign, date and return this Discharge NICANOR. I agree with and certify that the following plan of care is medically necessary. Referring Physician Date Referring Provider: Mansi Byrnes MD Document 09/03/20 12:30 ANJANA (Rec: 09/03/20 13:10 ANJANA [id number]) Assessment Status Discharge Subjective Information Tereza reports: little weaker Query Text:As Reported By Patient/ because not feeling well and Family not as active as I have been; saw dr, lungs were clear, but still have some tightness of throat and SOB; going to see and ENT about it; take cane with me when go out places, but past few days have not taken it; able to do everything at home, but takes little longer to do; does not have any concerns with her walking or balance; doing leg exercises at home; agree to discharge from PT. Pain Assessment Timing of Pain Assessment Timing of Pain Assessment Assessment Self Report Self Report Pain Level 0 Pain Score Pain Score 0: Self Report Lower Extremity Muscle Strength Testing General Lower Extremity Strength Gross Lower Extremity Strength in sitting: L ankle trace DF and eversion motions; single leg standing: R 4/ L 12 seconds; review of HEP, no issues or questions; to increase her walking distance as breathing allows; performed ankle exercises on wobble board for active- assisted R ankle motions--stated she is interested in getting one for home. also wants to get home stim unit for ankle strength facilitation--discussed use of unit and placement of pads; Balance Assessment Ann Balance Assessment Sitting to Standing Independent w/out Hands Unsupported Stance Ability Safely- 2 minutes Sitting Unsupported, Feet on Floor Safely- 2 minutes S
--- NOTE | 2020-09-18 13:26 | OTOPEVAL ---
OCCUPATIONAL THERAPY RE-EVALUATION AND PROGRESS REPORT 09/18/20 Tereza has again made progress with every joint of the left UE. She has less pain with movement, more strength, and improved flexibility which has carried over into everyday tasks such as being able to tie her own shoes to carrying a laundry basket and doing her own laundry. She continues to have functional limitations due to stiffness and weakness in the left hand and will greatly benefit from continued skilled OT for use of thermal modalities, manual therapy, and progressive-resistive strengthening for the left hand. Thank you for referring Tereza Feng to [facility].? The patient is scheduled to be seen for continued occupational therapy? 2x/week for 4 weeks. Please review, sign, date and return this plan of care NICANOR. I agree with and certify that the following plan of care is medically necessary. Referring Physician Date Referring Provider: Mansi Byrnes MD *OT Outpatient Evaluation Start: 07/08/20 13:45 Evaluation Information Problem Diagnosis Left UE weakness, brachial plexus injury Onset Mar 24, 2020 Additional Evaluation Detail Tereza has been participating in outpatient OT x9 weeks. Treatments have included aquatic therapy for shoulder ROM and strengthening as the buoyancy and resistance of the water is the perfect environment for her L UE due to pain and weakness. Land treatments have been focusing on HEP education, strengthening, and distal ROM and dexterity. Subjective Information Tereza reports that she has Query Text:As Reported By Patient/ returned to driving, laundry, Family carrying a laundry basket, and more cooking ( about 75% normal with cooking). She also notes returning to being independent with bathing and dressing. Also notes improvements with using the left: squeezing tube of toothpase, curling hair, tying shoes, pinching and pulling up pants, opening medicine bottles, washing the dishes, doing her seatbelt, managing her own meds, and using the left hand to wash her body in the shower. Functional limitations include: being able to chop veggies and
--- NOTE | 2020-10-07 08:02 | PCOTNOTE ---
This treatment is being continued on visit number [id number]. Please see documentation on both accounts to view progress. Completed interventions, outcomes, and problems have been marked as Inactive to facilitate the copying of the Care plan routine for recurring accounts.
== END 2020-10-06 11:50 | disposition home or self-care (01) ==
LOC: ANHOT 10:00
PROVIDERS: PCP Family Medicine; Referring Provider Family Medicine; Visit Provider Family Medicine
DX: S14.3XXD Injury of brachial plexus, subsequent encounter (principal); G95.9 Disease of spinal cord, unspecified; B94.8 Sequelae of other specified infectious and parasitic diseases; G62.9 Polyneuropathy, unspecified; R53.81 Other malaise
CPT/HCPCS: 97018; 97110; 97112; 97113; 97116; 97140; 97161; 97166; 97530; L3933

== ENCOUNTER 2020-11-20 16:00 | Outpatient (RCR) | payer OTHER, SELFPAY ==
--- NOTE | 2020-10-07 08:03 | PCOTNOTE ---
The treatment documented on this account is a continuation of the treatment documented on visit number [id number]. Please see documentation on both accounts to view progress. The Plan of Care has been transitioned and updated within the new V#. I have addressed and agree with the discipline specific Problems, Interventions, and Goals for the current certification period. Completed interventions, outcomes, and problems have been marked as Inactive to facilitate the copying of the Care plan routine for recurring accounts.
--- NOTE | 2020-10-15 14:19 | OTOPEVAL ---
OCCUPATIONAL THERAPY RE-EVALUATION REPORT 10/15/2020 Patient presents today after an additional 4 weeks of therapy for ROM and strengthening of the left hand. Composite flexion of the digits is nearing normal. Gross flexibility is making excellent progress as noted by the emergence of independent DIP flexion into a hook fist. Functionally this has allowed her more fine motor control to be able to use knives and open jars in the kitchen again. She continues to have residual tightness and continued OT is recommended for use of modalities, manual treatment, strengthening, and HEP progression to facilitate optimal functional return of ROM and strength in the left hand. Thank you for referring Tereza Feng to [facility].? The patient is scheduled to be seen for therapy? 2x/week for 4 weeks. Please review, sign, date and return this plan of care NICANOR. I agree with and certify that the following plan of care is medically necessary. Referring Physician Date Referring Provider: Mansi Byrnes MD *OT Outpatient Re-Evaluation Problem Diagnosis Left UE weakness, brachial plexus injury Onset 03/24/20 Additional Evaluation Detail Tereza has been participating in outpatient OT x13 weeks for left UE ROM and strengthening . The last month has been focused on hand/finger ROM and strengthening. She is compliant with all materials. Subjective Information Tereza reports continued Query Text:As Reported By Patient/ improvements functionally. At Family home she is now doing her own cooking and able to use knives to cut vegetables, open cans, etc. She is washing her own dishes, driving, and doing laundry. Residual deficits include: doing some bras and typing. She has been doing regular UB strengthening with dumbbells at home. Pain Assessment Timing of Pain Assessment Timing of Pain Assessment Assessment Pain Scale Pain Scale Used Numeric (1 - 10) Self Report Pain Assessment Left Hand(s) Reported Pain Level 2 Pain Description Aching Lowest Pain Intensity 1 Greatest Pain Intensity 3 Pain Aggravating Factors Exercise/Activity Pain Score Pain Score 2: Self Report Interventions Used Interventions Used By Clinicians Exercise,Rest Upper Extremity Range of Motion General Upper Extremity Range of Motion Gross Upper Extremity Range of Motion Shoulder through wrist is WFL. Comments Has been completing HEP for regular UB strengthening of
--- NOTE | 2020-10-28 16:29 | PTOPEVAL ---
PHYSICAL THERAPY EVALUATION AND PLAN OF CARE Thank you for referring Tereza Feng to [facility].? The patient is scheduled to be seen for therapy? 2x/week for 4 weeks. Please review, sign, date and return this plan of care NICANOR. I agree with and certify that the following plan of care is medically necessary. Referring Physician Date Attending Provider: Mansi Byrnes MD Evaluation Diagnosis falls, decreased balance Subjective Information Tereza is here today 1.5 Query Text:As Reported By Patient/ months after discharge from PT Family due to more falls after discharged. She feels like she was not able to maintain her strength and that she needs help to return to full strength. States that she does not have a lot of confidence in the shower (only showers when daughter is home and sometimes gets dizzy with eyes closed and head back and uses shower chair when fatigued). States she is afraid of going out because she does not want to get sick but she is also afraid of going out because she is afraid she will fall or get too tired and won't be able to get home. 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 Pain Assessment Timing of Pain Assessment Timing of Pain Assessment Assessment Self Report Self Report Pain Level 0 Pain Score Pain Score 0: Self Report Balance Assessment Ann Balance Assessment 48/ Time Up Go (TUG) Timed Up and Go Test (TUG) (Seconds) 10 Assistive Devices None 5 Time Sit to Stand Time in Seconds 14.15 5 Time Sit to Stand Comments no UE Query Text:Normative Data: If Greater Than 15 Seconds, 74% Increase Risk for Recurrent Falls Dynamic Gait Index: Gait Assessment Gait Pattern Assessment Other Gait Observations drop foot gait pattern on right: increased knee flexion
--- NOTE | 2020-11-04 11:43 | PCOTNOTE ---
Patient called & cancelled scheduled appointment this date due to having breathing issues with the humidity.
--- NOTE | 2020-11-04 14:26 | PCPTNOTE ---
Patient called & cancelled scheduled appointment this date due to having a hard time breathing.
--- NOTE | 2020-11-11 15:32 | PCPTNOTE ---
Patient called & cancelled scheduled appointment this date due to not feeling well.
--- NOTE | 2020-11-20 15:57 | OTOPEVAL ---
OCCUPATIONAL THERAPY RE-EVALUATION AND DISCHARGE NOTE 11/20/20 Patient presents today for OT re-evaluation after focusing on just the left hand for 4 weeks. 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 She currently has a comprehensive HEP and splints to continue to work on ROM and strength at home. She verbalizes good understanding of how to continue to rest the tendon that is inflamed from the trigger finger and how to progress from there. At this time we will be discharging from OT with HEP. Thank you for referring Tereza Feng to [facility].? Please review, sign, date and return this D/C Note NICANOR. I agree with and certify that the following plan of care is medically necessary. 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 She notes improved ability to type, but does state that some residual numbness restricts her ability to feel the keys. In the past month therapy has been focusing on left hand ROM and strengthening. This was complicated by the emergence of a trigger finger in the left middle finger. She has a splint for the trigger finger. Pain Assessment Timing of Pain Assessment Timing of Pain Assessment Assessment Pain Scale Pain Scale Used Numeric (1 - 10) Self Report Pain Assessment Left Hand(s) Reported Pain Level 0 Other Pain Description sensitivity Pain Score Pain Score 0: Self Report Upper Extremity Range of Motion Finger Range of Motion Left Index Finger MCP Joint Flexion - Active 80 Index Finger PIP Joint Flexion - Active 90 Index Finger DIP Joint Flexion - Active 45 Middle Finger MCP Joint Flexion - Active 85 Middle Finger PIP Joint Flexion - Active 55 Middle Finger DIP Joint Flexion - Active 55 Ring Finger MCP Joint Flexion - Active 90 Ring Finger PIP Joint Flexion - Active 75 Ring Finger DIP Joint Flexion - Active 50 Little Finger MCP Joint Flexion - Active 95 Little Finger PIP Joint Flexion - Active 75 Little Finger DIP Joint Flexion - Active 50 Finger Range of Motion Comments Tip to base of palm
--- NOTE | 2020-11-20 16:21 | PTOPEVAL ---
PHYSICAL THERAPY DISCHARGE NOTE Thank you for referring Tereza Feng to [facility].? The patient is scheduled to be seen for therapy? ____x/week for ___ weeks. Please review, sign, date and return this plan of care NICANOR. I agree with and certify that the following plan of care is medically necessary. Referring Physician Date Attending Provider: Mansi Byrnes MD Discharge Diagnosis falls, decreased balance Onset 03/24/20 Subjective Information Tereza reports she is doing Query Text:As Reported By Patient/ much better with more Family confidence to walk and get about. She feels stronger. Pain Score Pain Score 0: Self Report Balance Assessment Ann Balance Assessment: 56 Time Up Go (TUG) Timed Up and Go Test (TUG) (Seconds) 9 Assistive Devices None 5 Time Sit to Stand Time in Seconds 13.2 5 Time Sit to Stand Comments 1month ago = 14.15second Dynamic Gait Index: Gait Assessment 6 Minute Walk Total Distance (feet) 1,001 6 Minute Walk Gait Speed Score (feet/ 2.78 second) 6 Minute Gait Comments 1month ago = 835ft (2.31ft/ second) uses velcro AFO to assist with drop foot. General Exercise General Exercises Side Bilateral Exercise Type Active,Proprioceptive Neuromuscular Facilitation, Resistive Exercise Description reviewed for HEP Query Text:Record Sets, Reps, -sit to stand with left foot Resistance, and Position on 6 step x15; same on other side -mini squats with one foot on 6 step x15 each side - forward marching alt. LE 25ft x2sets - modified braiding with LE 25ft x2reps ea direction - forward noodle step over x4reps followed by noodle step over with stepping over shoe boxes x6 reps -toe Walking/Heel Walking 3x25 PT Clinical Summary Tereza is a 55 yo female presenting to outpatient physical therapy with decreased balance and recent falls. Tereza presents with normalized balance and normalized gait speend. She
== END 2020-12-22 11:47 | disposition home or self-care (01) ==
LOC: ANHPT 16:00
PROVIDERS: PCP Family Medicine; Visit Provider Family Medicine
DX: S14.3XXD Injury of brachial plexus, subsequent encounter (principal); G95.9 Disease of spinal cord, unspecified; B94.8 Sequelae of other specified infectious and parasitic diseases; G62.9 Polyneuropathy, unspecified; R53.81 Other malaise
CPT/HCPCS: 97018; 97035; 97110; 97112; 97140; 97161

== ENCOUNTER 2021-02-04 15:06 | Outpatient (CLI) | payer OTHER, SELFPAY ==
--- NOTE | ~2021-02-04 | MM_ITS ---
EXAMINATION: MM screening [facility] BI w rebecca HISTORY: Screening mammogram TECHNIQUE: Craniocaudal and mediolateral oblique 3-D tomosynthesis images were obtained and synthetic 2-D images were generated. CAD analysis was submitted and interpreted. COMPARISON: 02/17/2011, 04/16/2009 BREAST PARENCHYMAL COMPOSITION: There are scattered areas of fibroglandular density. FINDINGS: Scattered benign-appearing calcifications are present. There is no evidence of suspicious m ass, calcification, or architectural distortion to suggest malignancy in either breast. There has bee n no suspicious interval change. IMPRESSION: 1. No mammographic evidence of malignancy. 2. Recommend routine screening mammography in one year. BI-RADS Category 2: Benign finding(s). Reviewed, dictated and finalized at location A. GRINDER OPERATOR
== END 2021-02-04 15:07 | disposition home or self-care (01) ==
PROVIDERS: PCP Family Medicine; Visit Provider Family Medicine
DX: Z12.31 Encounter for screening mammogram for malignant neoplasm of breast (principal)
CPT/HCPCS: 71046; 77063; 77067

== ENCOUNTER 2021-02-04 15:58 | Outpatient (CLI) | payer OTHER, SELFPAY ==
--- NOTE | ~2021-02-04 | XR_ITS ---
EXAMINATION: XR chest 2V DATE: 02/04/2021 16:15 INDICATION: Chronic COVID. Atelectasis. TECHNIQUE: PA and lateral views of the chest were obtained. COMPARISON: Chest radiograph dated 06/13/[address] dated 08/25/2020 FINDINGS: Chronic linear bands of discoid atelectasis/scarring at the right middle and lower lobes. The degree of aeration of the right middle and lower lobes appears improved since the earlier chest radiograph. Additional chronic mild lingular atelectasis/scarring along side a left paracardial fat pad. No new a irspace opacities, pulmonary edema, pleural effusion or pneumothorax. The cardiomediastinal silhouett e is normal. Mild thoracic spondylosis. IMPRESSION: 1. Chronic atelectasis/scarring at the right middle and lower lobes and to lesser degree at the lingu la. Reviewed, dictated and finalized at location A. DESIGNER IMPRESSION: 1. Chronic atelectasis/scarring at the right middle and lower lobes and to less er degree at the lingula.
== END 2021-02-04 15:59 | disposition home or self-care (01) ==
LOC: ANHIMG 16:01
PROVIDERS: PCP Family Medicine
DX: J98.11 Atelectasis (principal)
CPT/HCPCS: 71046

== ENCOUNTER 2021-03-17 13:56 | Outpatient (CLI) | payer OTHER, SELFPAY ==
--- NOTE | ~2021-03-17 | CT_ITS ---
EXAMINATION: CT diagnostic chest wo con EXAM DATE: 03/17/2021 14:31 INDICATION: R91.1 - Solitary pulmonary nodule TECHNIQUE: Spiral CT of the chest without contrast. Axial, coronal and sagittal images of the chest were reviewed. Coronal maximum intensity pixel images of chest reviewed. The dose-length product ( DLP) for this examination was 955.19 mGy-cm. The exposure was tailored according to patient size (au to mA exposure control), and iterative reconstruction (ASIR) was used as additional dose reduction te chnique. Comparison is made to prior examination from 08/25/2020. FINDINGS: Interval decrease in size of several left lower lobe nodules, largest measuring 3 mm. This is consistent with postinfectious residua. Some persistent linear bibasilar atelectasis, with interv al improvement on the right, increased right middle lobe volume. There are no pleural or pericardial effusions. Tracheobronchial tree is patent. There is no mediastinal, hilar or axillary lymphaden opathy. There is no pneumothorax. Heart normal in size. There is mild coronary arterial calcifi cation, arterial sclerosis. There is gastric banding device. There is thoracic spondylosis without osteoblastic or osteolytic lesions identified. IMPRESSION: Scattered postinfectious residua, improving. No suspicious findings. Reviewed, dictated and finalized at location A. CAP DEVELOPER IMPRESSION: Scattered postinfectious residua, improving. No suspicious findings .
== END 2021-03-17 13:57 | disposition home or self-care (01) ==
LOC: ANHIMG 14:04
PROVIDERS: PCP Family Medicine; Visit Provider Family Medicine
DX: R91.1 Solitary pulmonary nodule (principal); I25.10 Atherosclerotic heart disease of native coronary artery without angina pectoris; I70.90 Unspecified atherosclerosis; M47.814 Spondylosis without myelopathy or radiculopathy, thoracic region
CPT/HCPCS: 71250

== ENCOUNTER 2021-09-22 00:08 | Day surgery (SDC) | payer OTHER, SELFPAY ==
[2021-08-24 13:31] VITALS: BMI 53.4
--- NOTE | 2021-09-01 13:49 | PC.NURSE ---
Pt was rescheduled from 08/31/21 to 09/22/21. Last PAT call was done on 08/24/21. Pt states no changes in her health history or medication information since then. Pt aware of new date and time. 09/22/21 at 1000/1130. Questions answered.
--- NOTE | 2021-09-22 07:30 | WPDANESEPPF ---
Anes - Initial Pre Proc Eval Procedure: Operation Date: 09/22/21 11:30 Proposed Procedures p Esophagogastroduodenoscopy - Darwin Chiu MD Date/Time: 09/22/21 07:30 Surgeon: Darwin Chiu MD Pre Op Diagnosis: GERD, epigastric pain Patient Data Age: 56 Gender: F Height: 1.68 m Weight: 150 kg Allergies Allergy/AdvReac Type Severity Reaction Status Date / Time peach Allergy Severe ANAPHYLAXIS Verified 09/03/21 13:31 plum Allergy Severe ANAPHALYXIS Verified 09/03/21 13:31 cephalexin Allergy Intermediate Skin Verified 09/03/21 13:31 Reaction gabapentin Allergy Intermediate Hives Verified 09/03/21 13:31 Penicillins Allergy Unknown reaction Verified 09/03/21 13:31 not available rosuvastatin AdvReac Severe nightmares Verified 09/03/21 13:31 tiotropium AdvReac Severe severe Verified 09/03/21 13:31 [From Spiriva with esophagitis/ HandiHaler] gerd oxycodone [From Percocet] AdvReac Intermediate Nausea and Verified 09/03/21 13:31 Vomiting sitagliptin [Januvia] AdvReac Intermediate pancreatiti Verified 09/03/21 13:31 s Sulfa (Sulfonamide AdvReac Intermediate Nausea Verified 09/03/21 13:31 Antibiotics) metformin AdvReac Mild abdominal Verified 09/03/21 13:31 pain ( gastric band) NECTARINES Allergy Severe ANAPHYLAXIS Uncoded 09/01/21 13:54 Home Medications Medication Instructions Recorded Confirmed Type cholecalciferol (vitamin D3) 25 1,000 unit PO DAILY 02/15/19 09/03/21 History mcg (1,000 unit) capsule loratadine 10 mg tablet (Claritin) 10 mg PO DAILY 02/15/19 09/03/21 History ascorbic acid (vitamin C) 500 mg 1,000 mg PO DAILY #30 tabs 04/18/20 09/03/21 Rx tablet (Vitamin C) lancets 30 gauge (OneTouch Delica #1 pkg 05/05/20 09/03/21 Rx Plus Lancet) magnesium 250 mg tablet 250 mg PO DAILY 08/19/20 09/03/21 History potassium 99 mg tablet 99 mg PO DAILY 08/19/20 09/03/21 History albuterol sulfate 2.5 mg/3 mL 2.5 mg (3 mL) inhalation Q4-6H PRN 08/21/20 09/03/21 Rx (0.083 %) solution for nebulization shortness of breath or wheezing #90 mL pen needle, diabetic 32 gauge x #1 pkg 04/28/21 09/03/21 Rx 1/4 (BD Ultra-Fine Micro Pen Needle) famotidine 10 mg tablet 20 mg PO DAILY 07/15/21 09/03/21 History insulin glargine 100 unit/mL (3 18 unit subcut HS 07/15/21 09/03/21 History mL) subcutaneous pen (Lantus Solostar U-100 Insulin) mecobalamin (vitamin B12) 5,000 5,000 mcg PO DAILY 07/15/21 09/03/21 History mcg lozenge omeprazole 40 mg capsule,delayed 40 mg PO DAILY 07/15/21 09/03/21 History release albuterol sulfate 90 mcg/actuation 1 puff inhalation Q4H PRN Dyspnea 08/24/21 09/03/21 History aerosol inhaler citalopram 20 mg tablet 20 mg PO DAILY 08/24/21 09/03/21 History fluticasone 500 mcg-salmeterol 50 1 inh inhalation Q12H 08/24/21 09/03/21 History mcg/dose blistr powdr for inhalation (Advair Diskus) lisinopril 10 mg tablet 10 mg PO DAILY 08/24/21 09/03/21 History montelukast 10 mg tablet 10 mg PO DAILY 08/24/21 09/03/21 History ezetimibe 10 mg tablet 10 mg PO DAILY #90 tabs 09/03/21 09/22/21 Rx Patient hx anesthesia problems: none Family hx anesthesia problems: none Results Review: All pre-operative results and documents have been reviewed as part of the pre-operative evaluation. [facility] Past Medical History Medical History (Updated 09/22/21 @ 07:33 by Mehran Quick MD) Acute and chronic respiratory failure with hypercapnia Anxiety Anxiety and depression Benign essential hypertension Blood clot in vein CAD (coronary artery disease) Cardiac arrest Colitis 05.29.20 abd/pelvis ct : infectious, inflammatory or less likely ischemic colitis. COVID-19 (~03/18/20) acute respiratory failure with hypoxia due to COVID-19, ventilator dependence form 03/25 through 04/08,S aureus sepsis, anemia, leukocytosis, hyponatremia, hypocalcemia, hyperglycemia, AKA, hypoalbuminemia, hypokalemia, UTI, asthma, elevated troponins
[2021-09-22 10:10] VITALS: BP 147/84; PULSE 84; RESP 22; TEMP 36.3; O2SAT 96
[2021-09-22 10:28] LABS: Glucose Point of Care 126 mg/dl (65-105)
[2021-09-22] MEDS: LACTATED RINGERS 1,000 ML 150 ML IV CONT (10:33)
--- NOTE | 2021-09-22 10:51 | PM.IMHP ---
H&P: HPI History of Present Illness Date/Time: 09/22/21 10:51 Chief Complaint: Epigastric pain and GE reflux disease. Narrative: This is a 56-year-old white female patient I am asked to perform an EGD on. Patient has a history of epigastric pain. She has a history of morbid obesity and has a prior history of lap band. Patient had COVID several years ago requiring intubation. Most recently she became somewhat hoarse. Was seen by ENT evaluation and felt to have laryngitis on this basis. ENT evaluation suggested underlying acid reflux. Patient most recently has been maintained on famotidine 20mg p.o. daily and omeprazole 40mg p.o. daily. She continues to be hoarse. For this reason EGD to assess for underlying acid reflux has been suggested. Patient denies any bleeding or dysphagia. She is very anxious. Review of Systems Review of Systems: Review of systems noncontributory. [facility] Past Medical History Medical History (Updated 09/22/21 @ 07:33 by Mehran Quick MD) Acute and chronic respiratory failure with hypercapnia Anxiety Anxiety and depression Benign essential hypertension Blood clot in vein CAD (coronary artery disease) Cardiac arrest Colitis 3 abd/pelvis ct : infectious, inflammatory or less likely ischemic colitis. COVID-19 (~03/18/20) acute respiratory failure with hypoxia due to COVID-19, ventilator dependence form 03/25 through 04/08,S aureus sepsis, anemia, leukocytosis, hyponatremia, hypocalcemia, hyperglycemia, AKA, hypoalbuminemia, hypokalemia, UTI, asthma, elevated troponins, nonalcoholic fatty liver disease, type 2 diabetes without complication and hemoglobin A1c 8.5 on March 24, 2020, non STEMI, benign essential hypertension 1.5.21 covid positive .. covid negative Diabetes mellitus with cardiac complication stemi Diabetes mellitus with diabetic neuropathy, with long-term current use of insulin Difficulty breathing Elevated troponin Epigastric pain Essential hypertension Fatty (change of) liver, not elsewhere classified Generalized anxiety disorder Heart attack Hemoptysis (04/25/20) Hiatal hernia History of kidney cancer Hx of myocardial infarction 1.. NSTEMI Incidental lung nodule, > 3mm and < 8mm 2020 ct: stable 2019:ct: 8 mm left lower lobe nodule noted on chest CT taken Iron deficiency anemia Irritable bowel syndrome shelter (current) use of insulin Mixed hyperlipidemia Morbid obesity Myelopathy Myopathy Neuropathy Non-alcoholic fatty liver disease 3.18.21 ct abd/pelvis NSTEMI (non-ST elevated myocardial infarction) VINNIE (obstructive sleep apnea) Postmenopausal Pulmonary embolus 2.12.21 Pulmonary nodules Stable most likely benign Respiratory arrest Coded and revived Risk for falls RLL pneumonia Severe persistent asthma Severe sepsis Super obesity Traumatic medial retinacular tear of right knee Type 2 diabetes mellitus with albuminuria Umbilical hernia without mention of obstruction or gangrene Ventral hernia without obstruction or gangrene Vocal cord edema Surgical History Surgical History (Updated 09/22/21 @ 10:54 by Darwin Chiu MD) History of bunionectomy History of ventral hernia repair Several hernia repairs LAP-BAND surgery status Previous section Family History Family History (Reviewed 09/03/21 @ 13:31 by Nolvia Barber [facility]) Mother Aneurysm Father Myasthenia gravis Heart disease Sibling Asthma Other Depression Grandparent Alcoholism Diabetes mellitus Hypertension Grandparent Dementia Social History Social History (Reviewed 09/03/21 @ 13:31 by Nolvia Barber [facility]) Social History: The patient lived in [place] with her 21-year-old daughter. 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 She is a former smoker and quit 1997. No alcohol abuse. Rarely smokes marijuana . She designates her father, Aditya Kate, as her surrogate decision maker and she wishes to be a full code. She
[2021-09-22] MEDS: BENZOCAINE (*SP) 60 ML SPRAY CAN (HURRICAINE) 1 SPRAY MUCOUS MEM (11:03)
[2021-09-22 11:08] VITALS: BP 114/69; PULSE 72; RESP 17; O2SAT 96
[2021-09-22 11:18] VITALS: BP 108/69; PULSE 75; RESP 17; O2SAT 96
[2021-09-22 11:28] VITALS: BP 114/72; PULSE 69; RESP 13; O2SAT 96
[2021-09-22 11:29] LABS: Glucose Point of Care 124 mg/dl (65-105)
== END 2021-09-22 11:38 | disposition home or self-care (01) ==
PROVIDERS: PCP Family Medicine; Visit Provider Internal Medicine Gastroenterology
PROC: 0DJ08ZZ Inspection of Upper Intestinal Tract, Via Natural or Artificial Opening Endoscopic (ICD-10-PCS; CPT 43235; principal; 2021-09-22 11:30)
DX: R10.13 Epigastric pain (principal); R49.0 Dysphonia; R53.81 Other malaise; K21.9 Gastro-esophageal reflux disease without esophagitis; E66.01 Morbid (severe) obesity due to excess calories; Z68.43 Body mass index [BMI] 50.0-59.9, adult; Z86.16 Personal history of COVID-19; I10 Essential (primary) hypertension; I25.10 Atherosclerotic heart disease of native coronary artery without angina pectoris; F41.8 Other specified anxiety disorders; J96.22 Acute and chronic respiratory failure with hypercapnia; E11.9 Type 2 diabetes mellitus without complications; I25.2 Old myocardial infarction; Z85.528 Personal history of other malignant neoplasm of kidney; E78.5 Hyperlipidemia, unspecified; Z79.4 Long term (current) use of insulin; Z86.711 Personal history of pulmonary embolism; Z87.891 Personal history of nicotine dependence; Z98.84 Bariatric surgery status
CPT/HCPCS: 43239; 82948; 87081; J2704; J7120

== ENCOUNTER 2021-10-23 07:35 | Outpatient (CLI) | payer OTHER, SELFPAY ==
--- NOTE | 2021-11-22 17:59 | WPDSLEEPSTUD ---
Sleep Study Date of Study: 10/23/21 Ordering Provider: Lisa Banuelos PAC Interpreting Physician: Wendy Ahuja DO Sleep Study Type: Polysomnogram Height: 1.73 m Weight: 151.5 kg Body Mass Index: 50.8 Neck Circumference (inches): 18 [place]: 7 Reason for Sleep Study Previously diagnosed VINNIE 10 years ago. Not compliant with CPAP. 11/04/2011: Split Study showed AHI of 5.2. Prescribed CPAP 8 cm H2O. Sleep History The patient is a 56-year-old female with anxiety, depression, asthma, hypertension, GERD, coronary artery disease, type 2 diabetes, nonalcoholic fatty liver disease, history of acute respiratory failure with hypoxia due to COVID-19 leading 2 ventilator dependence, history of non STEMI, history of tobacco use and previously diagnosed sleep apnea that had a sleep study ordered by the pulmonary group for evaluation sleep apnea. The patient did not fill out the sleep intake forms. [facility] Past Medical History Medical History Acute and chronic respiratory failure with hypercapnia Anxiety Anxiety and depression Benign essential hypertension Blood clot in vein Brachial plexus injury CAD (coronary artery disease) Cardiac arrest Colitis 3 abd/pelvis ct : infectious, inflammatory or less likely ischemic colitis. COVID-19 (~03/18/20) acute respiratory failure with hypoxia due to COVID-19, ventilator dependence form 03/25 through 04/08,S aureus sepsis, anemia, leukocytosis, hyponatremia, hypocalcemia, hyperglycemia, AKA, hypoalbuminemia, hypokalemia, UTI, asthma, elevated troponins, nonalcoholic fatty liver disease, type 2 diabetes without complication and hemoglobin A1c 8.5 on March 24, 2020, non STEMI, benign essential hypertension 1..21 covid positive 04.12.20 covid negative Diabetes mellitus with cardiac complication stemi Diabetes mellitus with diabetic neuropathy, with long-term current use of insulin Difficulty breathing Elevated troponin Epigastric pain Essential hypertension Fatty (change of) liver, not elsewhere classified Fibrocystic breast disease (FCBD) Foot drop, right Generalized anxiety disorder Heart attack Hemoptysis (04/25/20) Hiatal hernia History of kidney cancer History of severe acute respiratory syndrome coronavirus 2 (SARS-CoV-2) disease 1..21: coded/ intubation, nstemi, pulmonary embolism, myopathy acute respiratory failure with hypoxia due to COVID-19, ventilator dependence form 03/25 through 04/08,S aureus sepsis, anemia, leukocytosis, hyponatremia, hypocalcemia, hyperglycemia, AKA, hypoalbuminemia, hypokalemia, UTI, asthma, elevated troponins, nonalcoholic fatty liver disease, type 2 diabetes without complication and hemoglobin A1c 8.5 on March 24, 2020, non STEMI, benign essential hypertension 1.5.21 covid positive 1.30.21 covid negative Hx of myocardial infarction 1..21 NSTEMI Hypersomnia, unspecified Incidental lung nodule, > 3mm and < 8mm 2020 ct: stable 2019:ct: 8 mm left lower lobe nodule noted on chest CT taken Iron deficiency anemia Irritable bowel syndrome 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 EF 65%. mild LA enlargement1. 5.21: coded/ intubation, nstemi, pulmonary embolism, myopathy acute respiratory failure with hypoxia due to COVID-19, ventilator dependence form 03/25 through 04/08,S aureus sepsis, anemia, leukocytosis, hyponatremia, hypocalcemia, hyperglycemia, AKA, hypoalbuminemia, hypokalemia, UTI, asthma, elevated troponins, nonalcoholic fatty liver disease, type 2 diabetes without complication and hemoglobin A1c 8.5 on March 24, 2020, non STEMI, benign essential
[2021-11-22 18:18] VITALS: BMI 50.8
--- NOTE | 2022-04-12 15:14 | SLEEP ---
call under [id number]
== END 2021-10-24 07:00 | disposition home or self-care (01) ==
LOC: ANHCSM 10-26 07:35
PROVIDERS: PCP Family Medicine; Visit Provider Physician Assistant
DX: G47.34 Idiopathic sleep related nonobstructive alveolar hypoventilation (principal); G47.33 Obstructive sleep apnea (adult) (pediatric); G47.10 Hypersomnia, unspecified
CPT/HCPCS: 95810

== ENCOUNTER 2021-10-26 14:19 | Outpatient (CLI) | payer OTHER, SELFPAY ==
--- NOTE | ~2021-10-26 | CT_ITS ---
EXAMINATION:CT diagnostic chest wo con DATE: 10/26/2021 14:36 INDICATION: Shortness of breath. TECHNIQUE: Computed tomography (CT) of the chest was performed without intravenous contrast. Automate d exposure control and iterative reconstruction technique were employed. The dose-length product (DLP ) was 1019.93 mGy-cm. COMPARISON: Chest CT 03/17/2021, 08/25/20 FINDINGS: There is mild atelectasis involving all lobes with a lower lung predominance. There are two stable 5 mm nodules in left lower lobe, likely benign. No honeycombing or bronchiectasis. No pleural effusion. The heart size is normal. No pericardial effusion. There is a lap band around the proximal stomach. There is diffuse hepatic steatosis. There is mild thoracic spondylosis. IMPRESSION: 1. Mild atelectasis involving all lobes with a lower lung predominance, stable from 03/17/2021. Reviewed, dictated and finalized at location A.
== END 2021-10-26 14:20 | disposition home or self-care (01) ==
LOC: ANHIMG 14:21
PROVIDERS: PCP Family Medicine; Visit Provider Physician Assistant
DX: R06.02 Shortness of breath (principal); U09.9 Post COVID-19 condition, unspecified; R91.8 Other nonspecific abnormal finding of lung field
CPT/HCPCS: 71250

== ENCOUNTER 2021-12-10 07:53 | Outpatient (CLI) | payer OTHER, SELFPAY ==
--- NOTE | 2022-01-05 15:39 | WPDSLEEPSTUD ---
Sleep Study Date of Study: 12/10/21 Ordering Provider: Lisa Banuelos PAC Interpreting Physician: Wendy Ahuja DO Sleep Study Type: CPAP Titration Height: 1.68 m Weight: 148.325 kg Body Mass Index: 52.7 Neck Circumference (inches): 18 [place]: 7 Reason for Sleep Study The patient had a polysomnogram on October 23, 2021 that showed an overall AHI of 8.4. She did require the use of supplemental oxygen for persistent hypoxemia. Sleep History The patient is a 56-year-old female with anxiety, depression, asthma, hypertension, GERD, coronary artery disease, type 2 diabetes, nonalcoholic fatty liver disease, history of acute respiratory failure with hypoxia due to COVID-19 leading 2 ventilator dependence, history of non STEMI, history of tobacco use and previously diagnosed sleep apnea that had a sleep study ordered by the pulmonary group for evaluation sleep apnea. The patient did not fill out the sleep intake forms. [facility] Past Medical History Medical History Acute and chronic respiratory failure with hypercapnia Anxiety Anxiety and depression Benign essential hypertension Blood clot in vein Brachial plexus injury CAD (coronary artery disease) Cardiac arrest Colitis 3 abd/pelvis ct : infectious, inflammatory or less likely ischemic colitis. COVID-19 (~03/18/20) acute respiratory failure with hypoxia due to COVID-19, ventilator dependence form 03/25 through 04/08,S aureus sepsis, anemia, leukocytosis, hyponatremia, hypocalcemia, hyperglycemia, AKA, hypoalbuminemia, hypokalemia, UTI, asthma, elevated troponins, nonalcoholic fatty liver disease, type 2 diabetes without complication and hemoglobin A1c 8.5 on March 24, 2020, non STEMI, benign essential hypertension 1..21 covid positive 04.12.20 covid negative Diabetes mellitus with cardiac complication stemi Diabetes mellitus with diabetic neuropathy, with long-term current use of insulin Difficulty breathing Elevated troponin Epigastric pain Essential hypertension Fatty (change of) liver, not elsewhere classified Fibrocystic breast disease (FCBD) Foot drop, right Generalized anxiety disorder Heart attack Hemoptysis (04/25/20) Hiatal hernia History of kidney cancer History of severe acute respiratory syndrome coronavirus 2 (SARS-CoV-2) disease 1.5.21: coded/ intubation, nstemi, pulmonary embolism, myopathy acute respiratory failure with hypoxia due to COVID-19, ventilator dependence form 03/25 through 04/08,S aureus sepsis, anemia, leukocytosis, hyponatremia, hypocalcemia, hyperglycemia, AKA, hypoalbuminemia, hypokalemia, UTI, asthma, elevated troponins, nonalcoholic fatty liver disease, type 2 diabetes without complication and hemoglobin A1c 8.5 on March 24, 2020, non STEMI, benign essential hypertension 1.5.21 covid positive 1.30.21 covid negative Hx of myocardial infarction 1.11.21 NSTEMI Hypersomnia, unspecified Incidental lung nodule, > 3mm and < 8mm 2020 ct: stable 2019:ct: 8 mm left lower lobe nodule noted on chest CT taken Iron deficiency anemia Irritable bowel syndrome nursing home (current) use of insulin Low vitamin D level Mixed hyperlipidemia Morbid obesity Myelopathy Myopathy Neuropathy Nocturnal hypoxemia Non-alcoholic fatty liver disease 3.18.21 ct abd/pelvis NSTEMI (non-ST elevated myocardial infarction) VINNIE (obstructive sleep apnea) Painful bladder spasm Post-COVID syndrome 6..21echocardiogram : normal LV/ normal valves. EF 65%. mild LA enlargement1. 5.21: coded/ intubation, nstemi, pulmonary embolism, myopathy acute respiratory failure with hypoxia due to COVID-19, ventilator dependence form 03/25 through 04/08,S aureus sepsis, anemia, leukocytosis, hyponatremia, hypocalcemia, hyperglycemia, AKA, hypoalbuminemia, hypokalemia, UTI, asthma, elevated troponins, nonalcoholic fatty liver disease, type 2 diabetes without complication and hemoglobin A1c 8.5 on March 24, 2020,
[2022-01-05 15:48] VITALS: BMI 52.7
== END 2021-12-11 05:46 | disposition home or self-care (01) ==
PROVIDERS: PCP Family Medicine; Visit Provider Physician Assistant
DX: G47.33 Obstructive sleep apnea (adult) (pediatric) (principal)
CPT/HCPCS: 95811

== ENCOUNTER 2022-04-08 14:15 | Outpatient (RCR) | payer OTHER, SELFPAY | END 2022-06-08 16:19 | disposition home or self-care (01) | LOC: ANHDMC 14:15 | PROVIDERS: PCP Family Medicine; Visit Provider Nurse Practitioner Family | DX: E11.29 Type 2 diabetes mellitus with other diabetic kidney complication (principal); K76.0 Fatty (change of) liver, not elsewhere classified; F41.9 Anxiety disorder, unspecified; Z71.89 Other specified counseling | CPT/HCPCS: G0108 ==

== ENCOUNTER 2022-09-20 14:30 | Outpatient (RCR) | payer MEDICARE, OTHER, MEDICAID, SELFPAY ==
--- NOTE | 2022-08-23 16:30 | STOPEVAL1 ---
Assessment and note entered by Liat Carroll, HOT DIMPLING MACHINE OPERATOR Evaluation Information Assessment Status Evaluation Diagnosis Vocal Hoarseness Onset 04/02/20 Subjective Information Patient reports a history of hoarseness after being on a ventilator and with blood clots during her episode of COVID. She reported that her voice remained hoarse and she eventually visited Dr. Maradiaga. He voiced concerns with the look of her vocal cords, that they look significantly irritated (like hamburger ). She reported that she was placed on Omeprazole and anti-fungal type of medicines and this did improve voice over time. At follow up, she went off the medicine and patient reports that her voice disorder has returned. She returned on Omeprazole to this day but reports that her voice is still hoarse. Patient returned to Dr. Maradiaga because she feels a lot of restriction as if she were breathing through a straw. Dr. Maradiaga reported that her vocal cords look good and he also cut down her Omeprazole, and she states that within one week, she had no voice like severe laryngitis with soreness in the throat/irritation/inflammation. She contacted Dr. Maradiaga that hre voice had left her and he placed her back on her normal dose which helped the voice to clear. Reported Pain Level Pain Score 0: Self Report Assessment ST Clinical Summary VOICE EVALUATION This patient presents with a detailed and lengthy history of dysphonia after being intubated and on vent while suffering COVID in March of 2020. See Evaluation Information for background information. Today she presented with a moderate Dysphonia or Voice Disorder characterized as a moderately raspy, hoarse voice with a quality of breathiness noted at times throughout this evaluation. Patient was instructed in the use of a Vocal Hygiene Program and guideilnes to reduce symptoms of gastroesophageal reflux in order to prevent reflux into the airway which may be contributing to vocal cord irritation. Patient voiced good understanding of these instructions. Patient will be seen once weekly, at her request, for instruction of use of yawn-sign technique to see if altering pitch
--- NOTE | 2022-09-02 09:41 | PCSTNOTE ---
The patient treatment was not able to be completed on 08/30 due to illness. Will plan to continue treatment per plan of care.
--- NOTE | 2022-09-27 13:10 | PCSTNOTE ---
Today was supposed to be a re-evaluation; patient cancelled due to back issues.
--- NOTE | 2022-09-28 13:27 | STOPDC ---
Assessment and note entered by Liat Carroll ASSISTANT MANAGER RETAIL Evaluation Information Assessment Status Discharge - Pt Not Presen Assessment ST Clinical Summary DISCHARGE SUMMARY Patient was seen for a voice evaluation and three treatment sessions since initiation of therapy program. Speech Therapy one time weekly was requested and patient generally cancelled every other week secondary to health issues. Patient was instructed in the use of vocal hygiene program, gastroesophageal reflux disease (GERD) guidelines, relaxation techniques and breathing exercises and finally, easy onset/reduced vocal cord tension tasks when speaking. She voiced good understanding; by time of discharge she reported she continued to complete the exercises and relaxation techniques but unable to report significant changes in vocal hygiene program and GERD guidelines. Voice remained mildly hoarse throughout this period and patient was unable to report any episodes of clear voicing. She is referred back to her physician with any additional questions or concerns. Thank you for this referral Plan of Care ST Services Indicated No
== END 2022-09-28 15:13 | disposition home or self-care (01) ==
LOC: ANHST 14:30
PROVIDERS: PCP Family Medicine; Visit Provider Otolaryngology
DX: J38.3 Other diseases of vocal cords (principal)
CPT/HCPCS: 92507; 92524

== ENCOUNTER 2022-10-21 15:33 | Outpatient (RCR) | payer MEDICARE, OTHER, SELFPAY | END 2023-01-10 10:18 | disposition home or self-care (01) | LOC: ANHDMC 15:33 | PROVIDERS: PCP Family Medicine; Visit Provider Nurse Practitioner Family | DX: E11.9 Type 2 diabetes mellitus without complications (principal); Z71.89 Other specified counseling | CPT/HCPCS: G0108 ==

== ENCOUNTER 2023-02-09 09:39 | Outpatient (CLI) | payer MEDICARE, SELFPAY ==
[2023-02-09 14:18] LABS: Basophils Absolute Auto 0.1 K/mm3 (0.0-0.1); Basophils Percent Auto 0.8 % (0.2-1.2); Eosinophils Absolute Auto 0.3 K/mm3 (0-0.3); Eosinophils Percent Auto 3.4 % (0-4.4); Hematocrit 41.7 % (37.0-47.0); Hemoglobin 12.8 g/dL (12.0-15.0); Immature Granulocyte Absolute 0.05 K/mm3 (0.00-0.031); Immature Granulocyte Percent A 0.6 % (0-0.5); Lymphocytes Absolute Auto 1.91 K/mm3 (0.9-3.2); Lymphocytes Percent Auto 21.7 % (18.3-44.2); Mean Corpuscular HGB Conc 30.7 g/dl (32-36); Mean Corpuscular Hemoglobin 26.6 pg (26-34); Mean Corpuscular Volume 86.5 fl (80-100); Mean Platelet Volume 9.7 fl (7.4-10.4); Monocytes Absolute Auto 0.7 K/mm3 (0.1-0.6); Neutrophils Absolute Auto 5.8 K/mm3 (1.3-6.7); Neutrophils Percent Auto 65.5 % (45.5-73.1); Platelet Count Result 265 k/mm3 (150-375); Red Blood Count 4.82 M/mm3 (4.2-5.4); Red Cell Distribution Width 13.7 % (11.5-14.5); White Blood Count 8.8 K/mm3 (4.5-10.0)
[2023-02-09 14:47] LABS: Alanine Aminotransferase 27 U/L (6-35); Albumin Level 4.3 g/dL (3.5-5.1); Alkaline Phosphatase 84 U/L (38-126); Anion Gap 9 mmol/L (8-16); Aspartate Amino Transferase 30 U/L (14-36); Bilirubin,Total 0.5 mg/dL (0.2-1.3); Blood Urea Nitrogen 21 mg/dL (7-17); Calcium 9.5 mg/dL (8.4-10.2); Carbon Dioxide 28 mmol/L (22-30); Chloride 102 mmol/L (98-107); Cholesterol 192 mg/dL (0-200); Estimated Glomerular Filt Rate > 60; Glucose 101 mg/dL (65-110); HDL Direct 38 mg/dL; Potassium 4.6 mmol/L (3.4-5.0); Sodium 139 mmol/L (137-145); Triglycerides 151 mg/dL (<150)
[2023-02-09 14:58] LABS: LDL Cholesterol Direct 114 mg/dL
[2023-02-09 15:01] LABS: Creatinine Urine 67.2 mg/dL
[2023-02-09 16:29] LABS: MALB Creatinine Ratio < 8.9 mg/g (0-30); Microalbumin Urine Random < 6.0 mg/L (0-16.7)
== END 2023-02-09 09:40 | disposition home or self-care (01) ==
LOC: ANHGOSHLAB 09:42
PROVIDERS: PCP Family Medicine; Visit Provider Family Medicine
DX: R79.0 Abnormal level of blood mineral (principal); R00.2 Palpitations; E11.59 Type 2 diabetes mellitus with other circulatory complications; R80.9 Proteinuria, unspecified; E11.29 Type 2 diabetes mellitus with other diabetic kidney complication; Z98.84 Bariatric surgery status; Z79.4 Long term (current) use of insulin; Z79.899 Other long term (current) drug therapy
CPT/HCPCS: 36415; 80053; 80061; 82043; 82306; 82607; 82728; 84443; 85025

== ENCOUNTER 2023-05-17 12:26 | Outpatient (CLI) | payer MEDICARE, SELFPAY ==
--- NOTE | 2023-05-20 16:27 | WPDHOLTEREM ---
Holter/Event Monitor Holter/Event Monitor Date of procedure: 05/17/23 Holter/Event Procedure: 48 Hr Holter Monitor Indications: Palpitations Conclusion: 1. 48 hour holter monitor on 05/17/23. 2. Underlying rhythm is sinus rhythm. HR range 53-111 bpm; average 74 bpm. 3. There are 7,382 premature supraventricular complexes, 5 supraventricular couplets, 119 supraventricular trigeminy. No supraventricular tachycardia. 4. No premature ventricular complexes. No ventricular tachycardia. 5. No sinoatrial or atrioventricular blocks. No significant pauses greater than 2 seconds. 6. No symptoms available for correlation.
== END 2023-05-17 12:27 | disposition home or self-care (01) ==
LOC: ANHCARD 12:28
PROVIDERS: PCP Family Medicine; Visit Provider Family Medicine
DX: R00.2 Palpitations (principal); I25.10 Atherosclerotic heart disease of native coronary artery without angina pectoris
CPT/HCPCS: 93225; 93226

== ENCOUNTER 2023-06-09 14:50 | Outpatient (CLI) | payer MEDICARE, SELFPAY ==
[2023-06-09 18:48] LABS: Rheumatoid Factor < 12.0 IU/ML (<12)
[2023-06-09 19:04] LABS: CRP 0.9 mg/dL (<1.0)
[2023-06-09 19:30] LABS: Basophils Absolute Auto 0.1 K/mm3 (0.0-0.1); Eosinophils Absolute Auto 0.3 K/mm3 (0-0.3); Eosinophils Percent Auto 3.2 % (0-4.4); Hematocrit 43.4 % (37.0-47.0); Hemoglobin 13.2 g/dL (12.0-15.0); Immature Granulocyte Absolute 0.04 K/mm3 (0.00-0.031); Immature Granulocyte Percent A 0.4 % (0-0.5); Lymphocytes Absolute Auto 1.96 K/mm3 (0.9-3.2); Lymphocytes Percent Auto 21.4 % (18.3-44.2); Mean Corpuscular HGB Conc 30.4 g/dl (32-36); Mean Corpuscular Hemoglobin 26.7 pg (26-34); Mean Corpuscular Volume 87.9 fl (80-100); Mean Platelet Volume 10.5 fl (7.4-10.4); Monocytes Absolute Auto 0.7 K/mm3 (0.1-0.6); Monocytes Percent Auto 7.4 % (2.6-8.5); Neutrophils Absolute Auto 6.1 K/mm3 (1.3-6.7); Neutrophils Percent Auto 66.6 % (45.5-73.1); Platelet Count Result 254 k/mm3 (150-375); Red Blood Count 4.94 M/mm3 (4.2-5.4); White Blood Count 9.2 K/mm3 (4.5-10.0)
[2023-06-12 09:36] LABS: ANA Cascade Screen Negative (Negative)
== END 2023-06-09 14:51 | disposition home or self-care (01) ==
LOC: ANHGOSHLAB 14:51
PROVIDERS: PCP Family Medicine; Visit Provider Family Medicine
DX: M25.50 Pain in unspecified joint (principal)
CPT/HCPCS: 36415; 85025; 86038; 86140; 86225; 86235; 86364; 86430

== ENCOUNTER 2024-02-07 14:15 | Outpatient (RCR) | payer MEDICARE, SELFPAY ==
[2023-12-13 13:32] VITALS: BMI 48.4
== END 2024-02-27 09:35 | disposition home or self-care (01) ==
LOC: ANHDMC 14:15
PROVIDERS: PCP Family Medicine; Visit Provider Internal Medicine Endocrinology, Diabetes & Metabolism
DX: E11.40 Type 2 diabetes mellitus with diabetic neuropathy, unspecified (principal); I10 Essential (primary) hypertension; K76.0 Fatty (change of) liver, not elsewhere classified; R79.89 Other specified abnormal findings of blood chemistry; Z98.84 Bariatric surgery status; Z79.4 Long term (current) use of insulin; Z71.3 Dietary counseling and surveillance; Z71.89 Other specified counseling
CPT/HCPCS: 97802; G0108

== ENCOUNTER 2024-06-24 18:36 | Emergency (ER) | payer MEDICARE, SELFPAY ==
--- NOTE | 2024-06-24 18:38 | ED_ITS ---
HPI - General Adult General Chief complaint: Skin/Abscess/Foreign Body Stated complaint: Right Leg Irritation/Swelling Time Seen by Provider: 06/24/24 18:39 Source: patient Mode of arrival: ambulatory Limitations: no limitations History of Present Illness HPI narrative: 59-year-old female patient presents to the [facility] with complaints of redness and swelling to the right lower extremity this started yesterday. Patient states she was scratched by her cat about a week ago states that she was cleaning it put some antibiotic ointment on it every once in a while but states that she noticed yesterday and today that the area got significantly worse. Patient does have history of type 2 diabetes and neuropathy. Denies fevers, body aches or chills. Related Data Home Medications ?Medication ?Instructions ?Recorded ?Confirmed ?Last Taken ?Type cholecalciferol (vitamin D3) 25 1,000 unit PO DAILY 02/15/19 02/06/24 09/21/21 History mcg (1,000 unit) capsule loratadine 10 mg tablet (Claritin) 10 mg PO DAILY 02/15/19 02/06/24 09/21/21 History mecobalamin (vitamin B12) 5,000 5,000 mcg PO DAILY 07/15/21 02/06/24 09/21/21 History mcg lozenge multivitamin 1 tablet PO DAILY 09/28/22 02/06/24 Unknown History ferrous sulfate 137 mg (45 mg 137 mg PO DAILY 12/27/23 02/06/24 Unknown History iron) tablet,extended release (Slow Fe) metoprolol succinate 50 mg mg PO 12/27/23 02/06/24 Unknown History tablet,extended release 24 hr Allergies Allergy/AdvReac Type Severity Reaction Status Date / Time peach Allergy Severe ANAPHYLAXIS Verified 06/24/24 18:42 plum Allergy Severe ANAPHALYXIS Verified 06/24/24 18:42 cephalexin Allergy Intermediate Skin Verified 06/24/24 18:42 Reaction gabapentin Allergy Intermediate Hives Verified 06/24/24 18:42 Penicillins Allergy Unknown reaction Verified 06/24/24 18:42 not available rosuvastatin AdvReac Severe nightmares Verified 06/24/24 18:42 tiotropium (From Spiriva AdvReac Severe severe Verified 06/24/24 18:42 with HandiHaler) esophagitis/ gerd oxycodone (From Percocet) AdvReac Intermediate Nausea and Verified 06/24/24 18:42 Vomiting sitagliptin (Januvia) AdvReac Intermediate pancreatiti Verified 06/24/24 18:42 s Sulfa (Sulfonamide AdvReac Intermediate Nausea Verified 06/24/24 18:42 Antibiotics) metformin AdvReac Mild abdominal Verified 06/24/24 18:42 pain ( gastric band) NECTARINES Allergy Severe ANAPHYLAXIS Uncoded 06/24/24 18:42 Review of Systems Review of Systems: CONSTITUTIONAL: Denies fever, chills, or sweats. EYES: Denies visual changes, redness, or discharge. ENT: Denies rhinorrhea, congestion, sore throat, or otalgia. CARDIOVASCULAR: Denies chest pain, palpitations, or edema. RESPIRATORY: Denies cough or dyspnea. GASTROINTESTINAL: Denies abdominal pain, nausea, vomiting, or diarrhea. GENITOURINARY: Denies dysuria or hematuria. SKIN: Denies rash or itching. Positive redness and erythema to right lower extremity times 1-2 days MUSCULOSKELETAL: Denies back pain, joint pain, or myalgia. NEUROLOGIC: Denies headache, numbness, or weakness. PSYCHIATRIC: Denies anxiety or depression. [facility] Past Medical History Medical History Type 2 diabetes mellitus Low ferritin level Nocturnal hypoxemia CAD (coronary artery disease) Painful bladder spasm Diabetes mellitus with diabetic neuropathy, with long-term current use of insulin Epigastric pain Low vitamin D level Anxiety and depression Risk for falls Blood clot in vein Vocal cord edema Irritable bowel syndrome Heart attack Post-COVID syndrome 09.05.20echocardiogram : normal LV/ normal valves. EF 65%. mild LA enlargement1. 5.21: coded/ intubation, nstemi, pulmonary embolism, myopathy acute respiratory failure with hypoxia due to COVID-19, ventilator dependence form 03/25 through 04/08,S aureus sepsis, anemia, leukocytosis, hyponatremia, hypocalcemia, hyperglycemia, AKA, hypoalbuminemia, hypokalemia, UTI, asthma, elevated troponins, nonalcoholic fatty liver disease, type 2 diabetes without complication and hemoglobin A1c 8.5 on March 24, 2020, non STEMI, benign essential hypertension 1.5.21 covid positive 1.30.21 covid negative Colitis 3.18.21 abd/pelvis ct : infectious, inflammatory or less likely ischemic co litis. Diabetes mellitus with cardiac complication stemi Hx of myocardial infarction 03.24.20 NSTEMI History of severe acute respiratory syndrome coronavirus 2 (SARS-CoV-2) disease .08.01: coded/ intubation, nstemi, pulmonary embolism, myopathy acute respiratory failure with hypoxia due to COVID-19, ventilator dependence form 03/25 through 04/08,S aureus sepsis, anemia, leukocytosis, hyponatremia, hypocalcemia, hyperglycemia, AKA, hypoalbuminemia, hypokalemia, UTI, asthma, elevated troponins, nonalcoholic fatty liver disease, type 2 diabetes without complication and hemoglobin A1c 8.5 on March 24, 2020, non STEMI, benign essential hypertension 1..21 covid positive 1.. covid negative Fibrocystic breast disease (FCBD) Essential hypertension Fatty (change of) liver, not elsewhere classified Mixed hyperlipidemia Umbilical hernia without mention of obstruction or gangrene Brachial plexus injury Myelopathy Foot drop, right VINNIE (obstructive sleep apnea) Acute and chronic respiratory failure with hypercapnia RLL pneumonia Pulmonary nodules Stable most likely benign Respiratory arrest Coded and revived Pulmonary embolus 2 Difficulty breathing Neuropathy Myopathy Severe sepsis Cardiac arrest Anxiety Elevated troponin Morbid obesity Hiatal hernia NSTEMI (non-ST elevated myocardial infarction) COVID-19 (~03/18/20) acute respiratory failure with hypoxia due to COVID-19, ventilator dependence form 03/25 through 04/08,S aureus sepsis, anemia, leukocytosis, hyponatremia, hypocalcemia, hyperglycemia, AKA, hypoalbuminemia, hypokalemia, UTI, asthma, elevated troponins, nonalcoholic fatty liver disease, type 2 diabetes without complication and hemoglobin A1c 8.5 on March 24, 2020, non STEMI, benign essential hypertension 1.5.21 covid positive 1.30.21 covid negative Traumatic medial retinacular tear of right knee Incidental lung nodule, > 3mm and < 8mm ct 8. stable/two stable 5 mm nodules in left lower lobe, likely benign. Ventral hernia without obstruction or gangrene Iron deficiency anemia Non-alcoholic fatty liver disease 3. ct abd/pelvis Benign essential hypertension Severe persistent asthma Postmenopausal Surgical History Surgical History History of bunionectomy Previous section History of ventral hernia repair Several hernia repairs LAP-BAND surgery status Family History Family History Mother Aneurysm Father Myasthenia gravis Heart disease Sibling Asthma Other Depression Grandparent Alcoholism Diabetes mellitus Hypertension Grandparent Dementia Social History Social History Social History: The patient lived in [place] with her 21-year-old daughter. 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 She is a former smoker and quit 1997. No alcohol abuse. Rarely smokes marijuana . She designates her father, Aditya Kate, as her surrogate decision maker and she wishes to be a full code. She is a former smoker Smoking packs per day: 1 Smoking cigarettes per day: 20.0 Years smoked: 15 Smoking pack-years: 15.00 Smoking status: Former smoker Tobacco type: cigarettes Second hand tobacco smoke exposure: Yes Smoking end date: 03/14/97 Alcohol intake: current Alcohol use details: rarely - has been avoiding it due to stomach issues Substance use: former Substance use type: marijuana Other substance usage details: previously used marijuana but now only uses CBD oils Lack of Transportation: No Lack of Food: Never True Current Housing: I Have Housing Concerned About Future Housing: No Difficulty Paying Gas/Electric Bills: No Difficulty Paying for Meds: No Currently Unemployed: No Education: High School Diploma/GED Difficulty w/ Childcare or Family Care: No Living arrangements: alone Occupation/Education: other Gender identity (if verbalized by the patient): Female Sexual Orientation (if Verbalized by the Patient): Straight or Heterosexual Spiritual care concerns: No Comments At the time of my signature I agree with nursing past medical history, surgical, social, and family history. There is no relevant family history pertinent to the presenting complaint. Exam Narrative: GENERAL: Well-appearing, well-nourished, and in no acute distress. HEAD: Normocephalic, atraumatic. EYES: PERRLA and EOMI. ENT: Nares clear, no rhinorrhea or epistaxis. Mucous membranes moist. NECK: Supple. No lymphadenopathy CHEST: Clear to auscultation. No respiratory distress. HEART: Regular rate and rhythm. No murmur heard. Normal peripheral pulses. ABDOMEN: Soft, nontender, nondistended, normal active bowel sounds. EXTREMITIES: Normal range of motion. No edema. SKIN: Warm, dry, no rash. patient has an erythemic area with warmth to the touch to the right anterior lower extremity. Reddened area was marked and measured 18 x 10.5 cm. No discharge is present there is a small scratch measuring approximately 1/2 cm to the middle of the area. NEURO: No focal deficits. Alert and oriented x3. Course Course Level of Care: Express Care Visit Vital Signs Vital signs: Vital Signs Temperature 36.7 C 06/24/24 18:46 Pulse Rate 79 06/24/24 18:46 Respiratory Rate 16 06/24/24 18:46 Blood Pressure 103/70 06/24/24 18:46 Pulse Oximetry 97 06/24/24 18:46 Temperature 36.7 C 06/24/24 18:46 Pulse Rate 79 06/24/24 18:46 Respiratory Rate 16 06/24/24 18:46 Blood Pressure 103/70 06/24/24 18:46 Pulse Oximetry 97 06/24/24 18:46 Vital signs reviewed. Medical Decision Making MDM Narrative Medical decision making narrative: Discussed with patient it does appear that she most likely has cellulitis infection most likely due to this cat scratch. Discussed with patient we will discharge her home with oral antibiotics and she needs to continue to clean the area with antimicrobial soap and apply antibiotic ointment to the cat scratch area. The area was marked and discussed with patient that if the redness goes outside of the marked area or she starts having fevers or body aches or chills she needs go the ER for further evaluation. Patient verbalized understanding denies any other questions or concerns at this time. Differential Diagnosis Differential Diagnosis: Differential diagnosis: Contact dermatitis, poison jordon, poison sumac, psor iasis, eczema, allergic reaction, drug reaction, scabies, tinea syphilis, lung disease, viral exanthema, pityriasis, erythema multiforme. Abscess, cellulitis, hidradenitis, laceration, puncture wound. Vital Signs Vital Signs: Vital Signs Temperature 36.7 C 06/24/24 18:46 Pulse Rate 79 06/24/24 18:46 Respiratory Rate 16 06/24/24 18:46 Blood Pressure 103/70 06/24/24 18:46 Pulse Oximetry 97 06/24/24 18:46 Temperature 36.7 C 06/24/24 18:46 Pulse Rate 79 06/24/24 18:46 Respiratory Rate 16 06/24/24 18:46 Blood Pressure 103/70 06/24/24 18:46 Pulse Oximetry 97 06/24/24 18:46 Critical Care Time Critical Care Time Critical Care Time: No Discharge Plan Discharge Clinical Impression: Cellulitis and abscess of right lower extremity Patient Disposition: Home Condition: Stable Instructions: Antibiotic Form, Cellulitis (ED) Additional Instructions: Take the prescribed antibiotic medicine you are given as directed until it is gone. Take it even if you feel better. It treats the infection and stops it from returning. Not taking all the medicine can make future infections hard to treat. Keep the infected area clean. When possible, raise the infected area above the level of your heart. This helps keep swelling down. May take Tylenol ibuprofen as needed for pain Take your temperature once a day for a week to monitor for fevers. If you do spike a fever please call your doctor right away. Wash your hands often to prevent spreading the infection. In the future, wash your hands before and after you touch cuts, scratches, or bandages. This will help prevent infection. Please call your doctor today and be scheduled for follow-up appointments in regards to being evaluated for vascular disease. When to call your healthcare provider Call your healthcare provider immediately if you have any of the following: Difficulty or pain when moving the joints above or below the infected area Discharge or pus draining from the area Fever of 100.4?F (38?C) or higher, or as directed by your healthcare provider Pain that gets worse in or around the infected Redness that gets worse in or around the infected area, particularly if the area of redness expands to a wider area Shaking chills Swelling of the infected area Vomiting Patient Language: Vietnamese Prescriptions: New clindamycin HCl [Cleocin HCl] 150 mg capsule 150 mg PO TID 7 Days Qty: 21 0RF clindamycin HCl [Cleocin HCl] 300 mg capsule 300 mg PO TID 7 Days Qty: 21 0RF No Action loratadine [Claritin] 10 mg tablet 10 mg PO DAILY cholecalciferol (vitamin D3) 1,000 unit capsule 1,000 unit PO DAILY multivitamin Tablet 1 tablet PO DAILY albuterol sulfate 2.5 mg /3 mL (0.083 %) solution for nebulization 2.5 mg inhalation Q4-6H PRN (Reason: shortness of breath or wheezing) Qty: 180 2RF mecobalamin (vitamin B12) 5,000 mcg lozenge 5,000 mcg PO DAILY Rx Instructions: allow to dissolve in mouth OR may chew lightly before swallowing metoprolol succinate 50 mg tablet extended release 24 hr PO Slow Fe 137 mg (45 mg iron) tablet extended release 137 mg PO DAILY ascorbic acid (vitamin C) [Vitamin C] 500 mg Tablet 1,000 mg PO DAILY Qty: 30 0RF (DME) lancets [OneTouch Delica Plus Lancet] 30 gauge Misc Qty: 1 0RF Rx Instructions: May substitute to in-stock and/or covered by insurance lancets. Use As Directed triamcinolone acetonide 0.1 % cream 1 applic topical TID Qty: 453.6 0RF (DME) pen needle, diabetic [BD Ultra-Fine Micro Pen Needle] 32 gauge x 1/4 needle Qty: 1 3RF Rx Instructions: May substitute to meet patient needs. Use As Directed ondansetron 4 mg tablet,disintegrating 4 mg PO Q8H PRN (Reason: nausea and vomiting) Qty: 14 0RF ezetimibe [Zetia] 10 mg tablet 10 mg PO DAILY Qty: 90 1RF citalopram 20 mg tablet 30 mg PO DAILY Qty: 135 1RF tiotropium bromide [Spiriva with HandiHaler] 18 mcg capsule, w/inhalation device 1 cap inhalation QAM Qty: 90 1RF Mounjaro 10 mg/0.5 mL pen injector 10 mg subcut WEEKLY Qty: 6 1RF montelukast 10 mg tablet 10 mg PO DAILY Qty: 100 1RF Rx Instructions: TAKE 1 TABLET BY MOUTH ONCE DAILY omeprazole 40 mg capsule,delayed release(DR/EC) See Rx Instructions .ROUTE .COMPLEX Qty: 200 2RF Dose Instruction: TAKE 1 CAPSULE BY MOUTH TWICE DAILY Rx Instructions: TAKE 1 CAPSULE BY MOUTH TWICE DAILY fluticasone propion-salmeterol [Advair Diskus] 500-50 mcg/dose blister with device 1 inh INHALATION Q12H Qty: 60 1RF lisinopril 2.5 mg tablet 2.5 mg PO DAILY Qty: 90 1RF albuterol sulfate 90 mcg/actuation HFA aerosol inhaler See Rx Instructions .ROUTE .COMPLEX Qty: 8.5 0RF Dose Instruction: INHALE 1 PUFF EVERY 4 HOURS NEEDED FOR SHORTNESS OF BREATH OR WHEEZING Rx Instructions: INHALE 1 PUFF EVERY 4 HOURS NEEDED FOR SHORTNESS OF BREATH OR WHEEZING Follow-up/Referrals: Mansi Byrnes MD [Primary Care Provider] - Time of Disposition: 19:01
[2024-06-24 18:46] VITALS: BP 103/70; PULSE 79; RESP 16; TEMP 36.7; O2SAT 97
== END 2024-06-24 19:03 | disposition home or self-care (01) ==
PROVIDERS: Emergency Provider Nurse Practitioner Family; PCP Family Medicine
DX: L03.115 Cellulitis of right lower limb (principal); L02.415 Cutaneous abscess of right lower limb; Z87.891 Personal history of nicotine dependence; I25.10 Atherosclerotic heart disease of native coronary artery without angina pectoris; E11.42 Type 2 diabetes mellitus with diabetic polyneuropathy; Z79.85 Long-term (current) use of injectable non-insulin antidiabetic drugs; I25.2 Old myocardial infarction; I10 Essential (primary) hypertension; K76.0 Fatty (change of) liver, not elsewhere classified; E78.2 Mixed hyperlipidemia; Z68.42 Body mass index [BMI] 45.0-49.9, adult; E66.01 Morbid (severe) obesity due to excess calories; J45.909 Unspecified asthma, uncomplicated; D50.9 Iron deficiency anemia, unspecified; F41.9 Anxiety disorder, unspecified; F32.A Depression, unspecified; Z86.74 Personal history of sudden cardiac arrest; Z86.16 Personal history of COVID-19
CPT/HCPCS: 99213; G0463

== ENCOUNTER 2025-01-14 15:39 | Outpatient (CLI) | payer MEDICARE, SELFPAY ==
--- NOTE | ~2025-01-14 | MM_ITS ---
EXAMINATION: MM screening [facility] w rebecca HISTORY: Screening TECHNIQUE: Craniocaudal and mediolateral oblique 3-D tomosynthesis images were obtained and synthetic 2-D images were generated. CAD analysis was submitted and interpreted. COMPARISON: Comparison to multiple prior studies sequentially, with oldest reviewed study dated , 04/16/2009 BREAST PARENCHYMAL COMPOSITION: The breasts are almost entirely fatty. FINDINGS: There is no evidence of suspicious mass, calcification, or architectural distortion to suggest malignancy in either breast. IMPRESSION: 1. No mammographic evidence of malignancy. 2. Recommend routine screening mammography in one year. BI-RADS Category 1: Negative Reviewed, dictated and finalized at location B. ONAL CONTROLLER
--- OUTSIDE RECORDS SUMMARY | 2025-01-14 15:54 | XMS_ITS | Encounter Summary ---
Author Organization [facility] Address [address] [place] [address] Phone Care Team Providers Care Hygiene Coordinator Name Role Phone Mansi Byrnes MD Primary Care Provider + Encounter Details Date Type Department Care Team (Latest Contact Info) Description 05/17/2023 Orders Only [facility] IM CARDIOLOGY Scanning, Provider Social History Tobacco Use Types Packs/Day Years Used Date Smoking Tobacco: Former Smokeless Tobacco: Never AUDIT-C Answer Date Recorded Q1: How often do you have a drink containing alc ohol? 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 Gender Identity Female 06/16/2023 8:58 PM CDT Sexual Orientation Straight 07/08/2020 10 :05 PM CDT documented as of this encounter Plan of Treatment Not on file documented as of this encounter Procedures Procedure Name Priority Date/Time Associated Diagnosis Comments CARDIOLOGY DOCUMENT SCAN 05/17/2023 documented in this encounter Results * Cardiology Document Scan (05/17/2023) Anatomical Region Laterality Modality Other us Provider Scanning CV CARDIAC SERVICES PROCEDURES Final Result documented in this encounter Visit Diagnoses Not on filedocumented in this encounter Care Teams Hygiene Coordinator Relationship Specialty Start Date End Date Mansi Byrnes MD PCP - General 05/10/16 documented as of this encounter
--- OUTSIDE RECORDS SUMMARY | 2025-01-14 15:54 | XMS_ITS | Clinical Summary ---
Author Organization [facility] Address [address] [place] [address] Care Team Providers Care Customer Contact Representative Name Role Phone Mansi Byrnes MD Primary Care Provider + Allergies Active Allergy Reactions Criticality Noted Date Comments Adhesive Tape-Silicones Rash Reaction: RASH, [place] Anaphylaxis High 07/19/2014 Reaction: ANAPHYLAXIS, Reaction: ANAPHYLAXIS, Gabapentin Rash Medium 10/08/2020 Mold Chest tightness,Cough,Eye irritation,Headache,Rh initis,Shortness of breath,Sneezing,Swelli ng,Wheezing High 07/19/2014 Nectarine Anaphylaxis High 07/09/2020 Oxycodone-Acetaminophe n Vomiting Low 07/19/2014 Reaction: VOMITING, [place] Anaphylaxis High Reaction: ANAPHYLAXIS, Penicillins Unknown 03/14/1975 [place] Anaphylaxis High 07/09/2020 Ragweed Other (See comments) Low 07/19/2014 Tiotropium [place] Other (See comments) Low 022 Silent reflux- per pt Medications ascorbic acid (vitamin C) 1,000 mg tablet Acti ve OneTouch Verio test strips strip USE UST TO TEST BLOOD SUGAR THREE TIMES DAILY DIRECTED 1 Active OneTouch Verio Flex meter misc 1 Active cholecalciferol (VITAMIN D-3) 2000 unit tablet Act letty fluticasone propion-salmeter oL (ADVAIR DISKUS) 500-50 mcg/dose diskus inhaler Inhale 1 puff 2 (two) times a day Active insulin glargine (LANTUS) 100 unit/mL (3 mL) pen for injection Inject 18 units 1 Active OneTouch Delica Plus Lancet 30 gauge misc USE TO TEST FOUR TIMES DAILY 1 Active lisinopriL (PRINIVIL,ZESTRI L) 2.5 mg tablet Take 1 tablet (2.5 mg total) by mouth daily 1 Active loratadine (CLARITIN) 10 mg tablet Take 1 tablet (10 mg total) by mouth daily Active montelukast (SINGULAIR) 10 mg tablet Take 1 tablet (10 mg total) by mouth daily Active multivitamin with minerals (HAIR,SKIN AND NAILS ORAL) Take 2 tablet/chew tab by mouth daily Active ondansetron (ZOFRAN) 4 mg tablet Take 4 mg by mouth every 8 (eight) hours 1 Active BD Key 2nd Gen Pen Needle 32 gauge x needle USE DIRECTED TO INJECT INSULIN 1 Active polyethylene glycol (MIRALAX) 17 gram/dose powder MIX 17 GRAMS IN LIQUID AND TAKE BY MOUTH TWICE DAILY 1 Active MAGNESIUM CITRATE ORAL Take 4 tablet/chew tab by mouth daily Active potassium 99 mg tablet Take by mouth daily Active albuterol 2.5 mg /3 mL (0.083 %) nebulizer solution INHALE 1 VIAL VIA NEBULIZERQ 4 - 6 HOURS NEEDED FOR SHORTNESS OF BREATH OR WHEEZING 1 Active triamcinolone (KENALOG) 0.1 % cream as needed 1 Active citalopram (CeleXA) 40 mg tabletIndication s:Anxiety and depression Take 1 tablet (40 mg total) by mouth daily 90 tablet 1 1 Active Additional Information Patient taking differently: 30 mgoral Daily, Reported on 06/14/2023 rosuvastatin (CRESTOR) 5 mg tablet Take 5 mg by mouth daily 2 Active omeprazole (PriLOSEC) 40 mg capsuleIndicatio ns:Gastroesophag eal reflux disease, unspecified whether esophagitis present Take 1 capsule (40 mg total) by mouth daily Please follow with your PCP for further refills. 30 capsule 1 2 Active Spiriva with HandiHaler 18 mcg per inhalation capsule Place 1 puff (1 capsule total) into inhaler and inhale daily 4 Active Mounjaro 5 mg/0.5 mL pen injector ADMINISTER 5 MG UNDER THE SKIN WEEKLY 4 Active metoprolol XL (TOPROL-XL) 50 mg extended release tablet Take 0.5 tablets (25 mg total) by mouth 2 (two) times a day 90 tablet 3 5 Active Active Problems Problem Noted Date Diagnosed Date Anxiety and depression 10/08/2020 Poor balance 10/08/2020 Frequent falls 10/08/2020 BOSE (dyspnea on exertion) History of 2019 novel coronavirus disease (COVID -19) History of pulmonary embolism History of heart attack COVID-19 Immunizations Immunization Administration Dates Next Due Pfizer SARS-CoV-2 Monovalent Vaccination (12+ Yrs) PURPLE 08/07/2020,07/17/2020 Surgical History Surgery Date Site/Laterality Comments US GUIDED BIOPSY RENAL 09/10/2014 N/A Family History Medical History Relation Name Comments Heart disease Father Aortic aneurysm Mother Psoriasis Mother Relation Name Status Comments Father Alive Mother Alive Social History Tobacco Use Types Packs/Day Years [...] on file 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 Gender Identity Female 06/16/2023 8:58 PM CDT Sexual Orientation Straight 07/08/2020 10 :05 PM CDT Last Filed Vital Signs Vital Sign Reading Time Taken Comments Blood Pressure 131/87 06/14/2023 2:17 PM CDT Pulse 72 06/14/2023 2:17 PM CDT Temperature 36.6 C (97.8 F) 07/03/2021 2:03 PM CDT Respiratory Rate 18 07/03/2021 2:03 PM CDT Oxygen Saturation 94% 06/14/2023 2:17 PM CDT Inhaled Oxygen Concentration - - Weight 142.6 kg (314 lb 6.4 oz) 06/14/2023 2:17 PM CDT Height 165.1 cm (5' 5) 06/14/2023 2:17 PM CDT Body Mass Index 52.32 06/14/2023 2:17 PM CDT Plan of Treatment Health Maintenance Due Date Last Done Comments Breast Cancer Screening-Mammogram 1964 Cervical Cancer Screening 1964 Colon Cancer Screening-Colonoscopy 1964 Depression Screening 1964 Hepatitis C Screening 1964 DTaP/Tdap/Td Vaccine (1 - Tdap) 02/24/1975 Hepatitis B Screening 02/24/1982 Regular Well Visit/Exam 18-64 02/24/1982 Zoster Vaccine (1 of 2) 02/24/2014 Covid-19 Vaccine (3 - 2024-2 6 season) 2024 08/07/2020, 07/17/2020 Influenza Vaccine (#1) 2024 Pneumococcal vaccine <65 Aged Out No longer eligible based on patient's age to complete this topic Insurance [facility] MEDICARE ADVANTAGE [facility] Care Teams Customer Contact Representative Relationship Specialty Start Date End Date Mansi Byrnes MD PCP - General 05/10/16
--- OUTSIDE RECORDS SUMMARY | 2025-01-14 15:54 | XMS_ITS | Clinical Summary ---
Author Organization [facility] Address [facility] [place] [address] Care Team Providers Care Dental Manager Name Role Phone Unavailable Primary Care Provider Unavailabl e Social History Tobacco Use Types Packs/Day Years Used Date Smoking Tobacco: Never Assessed Comments Unknown Sex and Gender Information Value Date Recorded Sex Assigned at Not on file Legal Sex Female 8:35 PM CDT Gender Identity Not on file Sexual Orientation Not on file Plan of Treatment Health Maintenance Due Date Last Done Comments Cervical Cancer Screening Pa p Smear (Age 30 to 64) Every 3 Years 1964 Colorectal Cancer Screening Colonoscopy (10 Years) 1964 Annual Physical 02/24/1967 Hepatitis C 02/24/1982 DTaP, Tdap and Td Vaccines ( 1 - Tdap) 02/24/1983 Cervical Cancer Screening Pa p with HPV Testing (Age 30 to 64) Every 5 Years 02/24/1994 Cervical Cancer Screening with HPV 02/24/1994 Mammogram Screening 2004 Pneumococcal Vaccine: 50+ Ye ars (1 of 1 - PCV) 02/24/2014 Zoster Vaccines (1 of 2) 02/24/2014 COVID-19 Vaccine ( - 2024-2 6 season) 2024 Influenza Adult (#1) 2024 RSV Immunization or 60+ Years (1 - 1-dose 75+ series) 02/24/2039 Hepatitis A Vaccines Aged Out No long er eligible based on patient's age to complete this topic Meningococcal B Vaccine Aged Out No l onger eligible based on patient's age to complete this topic Meningococcal Vaccine Aged Out No tyron michael eligible based on patient's age to complete this topic RSV Immunizations Under 20 Months Aged Out No longer eligible based on patient's age to complete this topic
--- OUTSIDE RECORDS SUMMARY | 2025-01-14 15:54 | XMS_ITS | Clinical Summary ---
Author Organization [facility] Address [address] [place] [address] Care Team Providers Care Mobile Application Development Lead Name Role Phone Mansi Byrnes MD Primary Care Provider [phone] Source Comments [facility],non-owned Affiliates and Associated Physician Practices is amultiple site organization consisting of ambulatory clinics and hospital sitesin [place], [place], [place] and [place]. This disclosure is being madepursuant to the Care Everywhere program and may not contain all information available regarding this patient. Last updated 17.[facility] Medications * Be aware that medications may not be up to date on this document. Alwaysverify current medications with the patient. fluticasone-salm eterol (ADVAIR DISKUS) 500-50 MCG/DOSE inhaler Inhale 1 Puff by mouth 2 times daily. Active citalopram (CELEXA) 20 MG tablet Take 20 mg by mouth once daily. Active lisinopril (PRINIVIL; ZESTRIL) 20 MG tablet Take 20 mg by mouth once daily. Active Loratadine (CLARITIN PO) Take by mouth. Active montelukast (SINGULAIR) 10 MG tablet Take 10 mg by mouth at bedtime. 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 Gender Identity Not on file Sexual Orientation Not on file Last Filed Vital Signs Vital Sign Reading Time Taken Comments Blood Pressure - - Pulse - - Temperature - - Respiratory Rate - - Oxygen Saturation - - Inhaled Oxygen Concentration - - Weight 172.4 kg (380 lb) 05/06/2011 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 Height 168.9 cm (5' 6.5) 05/06/2011 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 Body Mass Index 60.41 05/06/2011 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 Plan of Treatment Health Maintenance Due Date Last Done Comments COLOGUARD (AGES 45-75) - COL ON CA SCREENING 1964 COLON MONITORING 1964 COLONOSCOPY - COLON CA SCREENING 1964 CT COLONOGRAPHY - COLON CA SCREENING 1964 Colorectal Cancer Screening 1964 FIT - COLON CA SCREENING 1964 FLEX SIG - COLON CA SCREENING 1964 LIPID TESTING 1964 MAMMOGRAM 1964 HIV SCREENING 02/24/1979 HEPATITIS C SCREENING 02/20/1982 DTAP/TDAP/TD VACCINES (1 - Tdap) 02/24/1983 PNEUMOCOCCAL VACCINE 50+ (1 of 1 - PCV) 02/24/2014 ZOSTER VACCINE (1 of 2) 02/24/2014 Respiratory Syncytial Virus (RSV) Vaccine Pt: or over 60 yrs (1 - Risk 60-74 years 1-dose series) 2024 DEPRESSION SCREENING 03/14/2024 COVID-19 VACCINE (3 - 2024-2 6 season) 2024 08/07/2020, 07/17/2020 INFLUENZA VACCINE (#1) 2024 HEPATITIS B VACCINE Aged Out No longe r eligible based on patient's age to complete this topic HIB VACCINE Aged Out No longer eligi ble based on patient's age to complete this topic HPV VACCINE Aged Out No longer eligi ble based on patient's age to complete this topic MENINGOCOCCAL (Group B) VACCINE SHARED DECISION-MAKING Aged Out No longer eligible based on patient's age to complete this topic MENINGOCOCCAL GROUPS A/C/Y/W VACCINE Aged Out No longer eligible b ased on patient's age to complete this topic Care Teams Mobile Application Development Lead Relationship Specialty Start Date End Date Mansi Byrnes MD [address] [place] [address] PCP - General Family Medicine 05/06/11
--- OUTSIDE RECORDS SUMMARY | 2025-01-14 15:54 | XMS_ITS | Encounter Summary ---
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 Gender Identity Female 06/16/2023 8:58 PM CDT Sexual Orientation Straight 07/08/2020 10 :05 PM CDT documented as of this encounter Plan of Treatment Not on file documented as of this encounter Procedures Procedure Name Priority Date/Time Associated Diagnosis Comments SCAN - RADIOLOGY/IMAGING 02/04/2021 documented in this encounter Results * SCAN - RADIOLOGY/IMAGING (02/04/2021) Anatomical Region Laterality Modality Other us Provider Scanning Final Result documented in this encounter Visit Diagnoses Not on filedocumented in this encounter Care Teams Electronics Production Supervisor Relationship Specialty Start Date End Date Mansi Byrnes MD PCP - General 05/10/16 documented as of this encounter
--- OUTSIDE RECORDS SUMMARY | 2025-01-14 15:54 | XMS_ITS | Encounter Summary ---
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 Gender Identity Female 06/16/2023 8:58 PM CDT Sexual Orientation Straight 07/08/2020 10 :05 PM CDT documented as of this encounter Plan of Treatment Not on file documented as of this encounter Procedures Procedure Name Priority Date/Time Associated Diagnosis Comments SCAN - LABS 06/14/2023 documented in this encounter Results * SCAN - LABS (06/14/2023) us Provider Scanning Final Result documented in this encounter Visit Diagnoses Not on filedocumented in this encounter Care Teams Hand Bender Relationship Specialty Start Date End Date Mansi Byrnes MD PCP - General 05/10/16 documented as of this encounter
== END 2025-01-14 15:40 | disposition home or self-care (01) ==
LOC: ANHFOHIMG 15:39
PROVIDERS: PCP Family Medicine; Visit Provider Family Medicine
DX: Z12.31 Encounter for screening mammogram for malignant neoplasm of breast (principal)
CPT/HCPCS: 77063; 77067

== ENCOUNTER 2025-03-10 13:04 | Emergency (ER) | payer MEDICARE, SELFPAY ==
--- NOTE | 2025-03-10 13:34 | ED.URI ---
HPI - URI/Sore Throat General Chief Complaint: Upper Respiratory Infection Stated Complaint: uti, upper resp Time Seen by Provider: 03/10/25 14:00 Source: patient Mode of arrival: ambulatory Limitations: no limitations History of Present Illness HPI Narrative: Tereza is a 60-year-old female patient presenting to the clinic today with complaints of possible UTI, low-grade fevers, nasal congestion, headache, cough, burning with urination, frequency, and urgency. UTI symptoms have been going on for 1 day. URI symptoms have been going on for approximately 2-3 days. MD elicited complaint: sore throat and nasal congestion Related Data Home Medications ?Medication ?Instructions ?Recorded ?Confirmed ?Last Taken ?Type cholecalciferol (vitamin D3) 25 1,000 unit PO DAILY 02/15/19 03/10/25 09/21/21 History mcg (1,000 unit) capsule loratadine 10 mg tablet (Claritin) 10 mg PO DAILY 02/15/19 03/10/25 09/21/21 History mecobalamin (vitamin B12) 5,000 5,000 mcg PO DAILY 07/15/21 03/10/25 09/21/21 History mcg lozenge multivitamin 1 tablet PO DAILY 09/28/22 03/10/25 Unknown History ferrous sulfate 137 mg (45 mg 137 mg PO DAILY 12/27/23 03/10/25 Unknown History iron) tablet,extended release (Slow Fe) biotin PO 01/15/25 Unknown History viamin k PO 01/15/25 Unknown History Allergies Allergy/AdvReac Type Severity Reaction Status Date / Time peach Allergy Severe ANAPHYLAXIS Verified 03/10/25 14:07 plum Allergy Severe ANAPHALYXIS Verified 03/10/25 14:07 cephalexin Allergy Intermediate Skin Verified 03/10/25 14:07 Reaction gabapentin Allergy Intermediate Hives Verified 03/10/25 14:07 Penicillins Allergy Unknown reaction Verified 03/10/25 14:07 not available rosuvastatin AdvReac Severe nightmares Verified 03/10/25 14:07 oxycodone (From Percocet) AdvReac Intermediate Nausea and Verified 03/10/25 14:07 Vomiting sitagliptin (Januvia) AdvReac Intermediate pancreatiti Verified 03/10/25 14:07 s Sulfa (Sulfonamide AdvReac Intermediate Nausea Verified 03/10/25 14:07 Antibiotics) metformin AdvReac Mild abdominal Verified 03/10/25 14:07 pain ( gastric band) NECTARINES Allergy Severe ANAPHYLAXIS Uncoded 01/15/25 13:52 Review of Systems Review of Systems: Pertinent positives per HPI. Patient denies any fever, chills, rash, headache, visual changes, dizziness, shortness of breath, chest pain, palpitations, nausea, vomiting, diarrhea, constipation, abdominal pain PMFSH Past Medical History Medical History Low ferritin level Nocturnal hypoxemia CAD (coronary artery disease) Painful bladder spasm Diabetes mellitus with diabetic neuropathy, with long-term current use of insulin Epigastric pain Low vitamin D level Anxiety and depression Risk for falls Blood clot in vein Vocal cord edema Irritable bowel syndrome Heart attack Post-COVID syndrome 09.05.20echocardiogram : normal LV/ normal valves. EF 65%. mild LA enlargement1. .21: coded/ intubation, nstemi, pulmonary embolism, myopathy acute respiratory failure with hypoxia due to COVID-19, ventilator dependence form 03/25 through 04/08,S aureus sepsis, anemia, leukocytosis, hyponatremia, hypocalcemia, hyperglycemia, AKA, hypoalbuminemia, hypokalemia, UTI, asthma, elevated troponins, nonalcoholic fatty liver disease, type 2 diabetes without complication and hemoglobin A1c 8.5 on March 24, 2020, non STEMI, benign essential hypertension 1.5.21 covid positive 1.30.21 covid negative Colitis 3.18.21 abd/pelvis ct : infectious, inflammatory or less likely ischemic colitis. Diabetes mellitus with cardiac complication stemi Hx of myocardial infarction 1.. NSTEMI History of severe acute respiratory syndrome coronavirus 2 (SARS-CoV-2) disease 1..21: coded/ intubation, nstemi, pulmonary embolism, myopathy acute respiratory failure with hypoxia due to COVID-19, ventilator dependence form 03/25 through 04/08,S aureus sepsis, anemia, leukocytosis, hyponatremia, hypocalcemia, hyperglycemia, AKA, hypoalbuminemia, hypokalemia, UTI, asthma, elevated troponins, nonalcoholic fatty liver disease, type 2 diabetes without complication and hemoglobin A1c 8.5 on March 24, 2020, non STEMI, benign essential hypertension 1.5.21 covid positive 1.30.21 covid negative Fibrocystic breast disease (FCBD) Essential hypertension Fatty (change of) liver, not elsewhere classified Mixed hyperlipidemia Umbilical hernia without mention of obstruction or gangrene Brachial plexus injury Myelopathy Foot drop, right VINNIE (obstructive sleep apnea) Acute and chronic respiratory failure with hypercapnia RLL pneumonia Pulmonary nodules Stable most likely benign Respiratory arrest Coded and revived Pulmonary embolus 2.12.21 Difficulty breathing Neuropathy Myopathy Severe sepsis Cardiac arrest Anxiety Elevated troponin Morbid obesity Hiatal hernia NSTEMI (non-ST elevated myocardial infarction) COVID-19 (~03/18/20) acute respiratory failure with hypoxia due to COVID-19, ventilator dependence form 03/25 through 04/08,S aureus sepsis, anemia, leukocytosis, hyponatremia, hypocalcemia, hyperglycemia, AKA, hypoalbuminemia, hypokalemia, UTI, asthma, elevated troponins, nonalcoholic fatty liver disease, type 2 diabetes without complication and hemoglobin A1c 8.5 on March 24, 2020, non STEMI, benign essential hypertension 1.5.21 covid positive 1.30.21 covid negative Traumatic medial retinacular tear of right knee Incidental lung nodule, > 3mm and < 8mm ct 8.15.22 stable/two stable 5 mm nodules in left lower lobe, likely benign. Ventral hernia without obstruction or gangrene Iron deficiency anemia Non-alcoholic fatty liver disease 3.18.21 ct abd/pelvis Benign essential hypertension Severe persistent asthma Postmenopausal Surgical History Surgical History History of bunionectomy Previous section History of ventral hernia repair Several hernia repairs LAP-BAND surgery status Family History Family History Mother Aneurysm Father Myasthenia gravis Heart disease Sibling Asthma Other Depression Grandparent Alcoholism Diabetes mellitus Hypertension Grandparent Dementia Social History Social History Social History: The patient lived in [place] with her 21-year-old daughter. 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 She is a former smoker and quit 1997. No alcohol abuse. Rarely smokes marijuana . She designates her father, Aditya Kate, as her surrogate decision maker and she wishes to be a full code. She is a former smoker Caffeine-coffee Smoking packs per day: 1 Smoking cigarettes per day: 20.0 Years smoked: 15 Smoking pack-years: 15.00 Smoking status: Former smoker Tobacco type: cigarettes Second hand tobacco smoke exposure: Yes Smoking end date: 03/14/97 Alcohol intake: current Alcohol use details: rarely - has been avoiding it due to stomach issues Substance use: former Substance use type: marijuana Other substance usage details: previously used marijuana but now only uses CBD oils Lack of Transportation: No Lack of Food: Never True Current Housing: I Have Housing Concerned About Future Housing: No Difficulty Paying Gas/Electric Bills: No Difficulty Paying for Meds: No Currently Unemployed: No Education: High School Diploma/GED Difficulty w/ Childcare or Family Care: No Living arrangements: alone Occupation/Education: other Gender identity (if verbalized by the patient): Female Sexual Orientation (if Verbalized by the Patient): Straight or Heterosexual Spiritual care concerns: No Comments At the time of my signature, I reviewed and agree with the nursing past medical, surgical, social, and family history. There is no relevant family history pertinent to the patient complaint. Exam Narrative: General: Well-developed, morbidly obese, chronically ill appearing Head: Normocephalic, atraumatic Eyes: Pupils equally round and reactive to light bilaterally, EOM intact, sclera and conjunctive clear, no discharge, lids normal Ears: TMs intact and clear, ear canals clear, no drainage, grossly hearing normal. Nose: Nares patent, clear nasal discharge, model inflammation, no sinus tenderness. Mouth: Oral pharynx red without lesions or masses, good dentition, MMM. Postnasal drip Neck: Supple, trachea midline, no enlargement of anterior or posterior cervical nodes, no thyroid masses or goiter palpable. Cardio: Regular rate and rhythm, s1 and s2 normal, no murmur appreciated. Resp: Clear to auscultation bilaterally, no rhonchi, rales, wheezing or rubs Abdomen: Soft, pliable, bowel sounds present in all quadrants, suprapubic tender to palpation, no organomegly, no CVAT tenderness. Course Course Level of Care: Express Care Visit Vital Signs Vital signs: Vital Signs Temperature 36.6 C 03/10/25 13:46 Pulse Rate 90 03/10/25 13:46 Respiratory Rate 16 03/10/25 13:46 Blood Pressure 137/80 03/10/25 13:46 Pulse Oximetry 97 03/10/25 13:46 Temperature 36.6 C 03/10/25 13:46 Pulse Rate 90 03/10/25 13:46 Respiratory Rate 16 03/10/25 13:46 Blood Pressure 137/80 03/10/25 13:46 Pulse Oximetry 97 03/10/25 13:46 MDM MDM Narrative Medical decision making narrative: At the time of visit patient is resting comfortably on the exam table. Patient appears to be nontoxic. Complaints of possible UTI, low-grade fevers, nasal congestion, headache, cough, burning with urination, frequency, and urgency. UTI symptoms have been going on for 1 day. URI symptoms have been going on for approximately 2-3 days. On exam patient has bilateral TMs intact and clear, clear nasal drainage, mild anterior turbinates inflammation, oral pharynx normal, no cervical lymphadenopathy, lung sounds are clear, heart rates regular rate and rhythm, soft, pliable, nondistended abdomen, mild suprapubic tenderness, no CVAT tenderness. COVID, flu, urinalysis was ordered. Labs: Urinalysis positive for leukocytes, blood, and protein. We will send urine for culture. COVID test was positive. Influenza testing was negative. Plan: Patient has covid and uti. Rx for fosfomycin was sent to the pharmacy as patient has multiple drug allergies or will have interactions to certain antibiotics that can be prescribed for UTI. Offered Paxlovid and patient declined. Supportive measures were discussed with the patient and they voiced understanding discharge instructions and agrees to treatment plan. Return precautions reviewed Differential Diagnosis Differential Diagnosis: Differential diagnostic considerations for upper respiratory infection include upper respiratory infection, croup, otitis media, sinusitis, viral infection, bronchitis, influenza, pharyngitis, strep, uvulitis. Differential diagnostic considerations for female urogenital issues include urinary tract infection, bacterial vaginosis, cervicitis, ovarian cyst, vaginitis, STI exposure, ovarian torsion, ectopic , cyst of Bartholin?s gland, cystitis, dysmenorrhea. Lab Data Labs: Lab Results 03/10/25 Range/Units 14:09 POC Urine Color Yellow POC Urine Clarity Cloudy POC Urine pH 7.0 POC Ur Specif [place] 1.020 POC Urine Protein 2+ (Negative) POC Ur Glucose (UA) Negative (Negative) POC Urine Ketones Negative (Negative) POC Urine Blood 2+ (Negative) POC Urine Nitrite Negative (Negative) POC Urine Bilirubin Negative (Negative) POC Urine Urobilinogen 0.2 POC U Leukocyte Esteras 2+ (Negative) POC Influenza A Ag Negative (Negative) POC Influenza B Ag Negative (Negative) POC SARS CoV-2 Ag Positive (Negative) Discharge Plan Discharge Clinical Impression: COVID-19 UTI (urinary tract infection) Qualifiers: Urinary tract infection type: acute cystitis Hematuria presence: with hematuria Qualified Code(s): N30.01 - Acute cystitis with hematuria Patient Disposition: Home Condition: Stable Instructions: Antibiotic Form, Urinary Tract Infection in Women (ED), How to Recover from COVID-19 at Home (ED) Additional Instructions: COVID discharge instructions: Increase fluids and stay well hydrated May take Tylenol or motrin as directed on bottle for pain/fever May use Flonase 1 spray in each nare daily May take OTC antihistamines such as Zyrtec or Claritin daily as directed on bottle May apply Vicks vapor rub to chest to open sinuses Sinus rinses for congestion Cepacol spray, cough drops, throat lozenges, warm tea with honey/lemon, gargle salt water to soothe throat BRAT diet for diarrhea Clear liquids x 24 hours then advance as tolerated for nausea/vomiting Go to the ED if you develop a worsening in your condition- high fever not controlled by Tylenol or Motrin, dehydration, weakness, lethargy, shortness of breath, or chest pain. Follow up with your PCP in 3-5 days if symptoms persist. UTI discharge instructions: Take fosfomycin as directed. Increase fluids and stay well hydrated Wipe front to back. May use wet wipes. Avoid tub baths If sexually active- pee before and after intercourse. Wear cotton panties Avoid tight clothing up against the genitals Follow up with your PCP in 1 week if symptoms persist. Patient Language: Maltese Prescriptions: New fosfomycin tromethamine 3 gram packet 3 g PO ONCE Qty: 1 0RF Rx Instructions: Patient has multiple antibiotic drug allergies or interactions other antibiotics are containdicated with her other medications No Action loratadine [Claritin] 10 mg tablet 10 mg PO DAILY cholecalciferol (vitamin D3) 1,000 unit capsule 1,000 unit PO DAILY multivitamin Tablet 1 tablet PO DAILY (DME) blood-glucose meter [OneTouch Verio Reflect Meter] Mis See Rx Instructions .Route Qty: 1 0RF Rx Instructions: As directed (DME) lancets [OneTouch Delica Plus Lancet] 33 gauge misc See Rx Instructions .ROUTE .MEDSUPPLY Qty: 100 0RF Rx Instructions: Check glcuose biotin PO viamin k PO mecobalamin (vitamin B12) 5,000 mcg lozenge 5,000 mcg PO DAILY Rx Instructions: allow to dissolve in mouth OR may chew lightly before swallowing Slow Fe 137 mg (45 mg iron) tablet extended release 137 mg PO DAILY albuterol sulfate 2.5 mg /3 mL (0.083 %) solution for nebulization 2.5 mg inhalation Q4-6H PRN (Reason: shortness of breath or wheezing) Qty: 180 2RF sodium chloride 3 % solution for nebulization 4 ml inhalation Q8H PRN (Reason: secretions) Qty: 120 3RF ascorbic acid (vitamin C) [Vitamin C] 500 mg Tablet 1,000 mg PO DAILY Qty: 30 0RF triamcinolone acetonide 0.1 % cream 1 applic topical TID Qty: 453.6 0RF (DME) pen needle, diabetic [BD Ultra-Fine Micro Pen Needle] 32 gauge x 1/4 needle Qty: 1 3RF Rx Instructions: May substitute to meet patient needs. Use As Directed ondansetron 4 mg tablet,disintegrating 4 mg PO Q8H PRN (Reason: nausea and vomiting) Qty: 14 0RF (DME) OneTouch Verio test strips Strip See Rx Instructions .ROUTE .MEDSUPPLY Qty: 100 1RF Rx Instructions: Check glucose 3-4 times a day montelukast 10 mg tablet 10 mg PO DAILY Qty: 100 1RF Rx Instructions: TAKE 1 TABLET BY MOUTH ONCE DAILY epinephrine [EpiPen 2-Mahin] 0.3 mg/0.3 mL auto-injector 0.3 mg IM ONCE Qty: 2 1RF Rx Instructions: as a single dose; may repeat once albuterol sulfate 90 mcg/actuation HFA aerosol inhaler See Rx Instructions .ROUTE .COMPLEX Qty: 25.5 1RF Dose Instruction: INHALE 1 PUFF EVERY 4 HOURS NEEDED FOR SHORTNESS OF BREATH OR WHEEZING Rx Instructions: INHALE 1 PUFF EVERY 4 HOURS NEEDED FOR SHORTNESS OF BREATH OR WHEEZING metoprolol succinate 50 mg tablet extended release 24 hr 25 mg PO BID Qty: 180 3RF fluticasone propion-salmeterol [Advair Diskus] 500-50 mcg/dose blister with device 1 inh INHALATION Q12H Qty: 60 5RF citalopram 20 mg tablet 30 mg PO DAILY Qty: 135 1RF ezetimibe [Zetia] 10 mg tablet 10 mg PO DAILY Qty: 90 1RF omeprazole 40 mg capsule,delayed release(DR/EC) See Rx Instructions .ROUTE .COMPLEX Qty: 200 1RF Dose Instruction: TAKE 1 CAPSULE BY MOUTH TWICE DAILY Rx Instructions: TAKE 1 CAPSULE BY MOUTH TWICE DAILY tiotropium bromide [Spiriva with HandiHaler] 18 mcg capsule, w/inhalation device 1 cap inhalation QAM Qty: 90 1RF lisinopril 2.5 mg tablet 2.5 mg PO DAILY Qty: 90 1RF Mounjaro 12.5 mg/0.5 mL pen injector 12.5 mg subcut WEEKLY Qty: 6 1RF Follow-up/Referrals: Mansi Byrnes MD [Primary Care Provider, Family Practice] Time of Disposition: 14:18 Quality NIHSS Nursing Documentation ED NIHSS nursing documentation: reviewed/agree
[2025-03-10 13:46] VITALS: BP 137/80; PULSE 90; RESP 16; TEMP 36.6; O2SAT 97
[2025-03-10 14:14] LABS: EDCOVIDSCREEN Positive (Negative); EDINFLUASCREEN Negative (Negative); EDINFLUBSCREEN Negative (Negative); EDUAAPPEAR Cloudy; EDUABILI Negative (Negative); EDUABLOOD 2+ (Negative); EDUACOLOR1 Yellow; EDUAGLUCOSE Negative (Negative); EDUAKETONE Negative (Negative); EDUALEUKO 2+ (Negative); EDUANITRATE Negative (Negative); EDUAPH 7.0; EDUAPROTEIN 2+ (Negative); EDUASPGRAVITY 1.020; EDUAUROBILI 0.2
== END 2025-03-10 14:22 | disposition home or self-care (01) ==
PROVIDERS: Emergency Provider Nurse Practitioner Family; PCP Family Medicine
DX: N39.0 Urinary tract infection, site not specified (principal); J06.9 Acute upper respiratory infection, unspecified; Z20.822 Contact with and (suspected) exposure to COVID-19; I25.10 Atherosclerotic heart disease of native coronary artery without angina pectoris; E66.01 Morbid (severe) obesity due to excess calories; K44.9 Diaphragmatic hernia without obstruction or gangrene; E78.2 Mixed hyperlipidemia
CPT/HCPCS: 81003; 87086; 87426; 87804; 99213; G0463